=== PATIENT | female | born 1950 | race Caucasian/White ===

== ENCOUNTER 2016-10-11 18:27 | Inpatient (IN) | payer MEDICARE, BC ==
[~2016-10-11] VITALS: Ht 149.9 cm; Wt 63.6 kg
[~2016-10-11 18:27] MED LIST: PERC5TAB12 PO
[2016-10-11 18:30] VITALS: BP 149/79; PULSE 96; RESP 24; TEMP 98.1; O2SAT 100
[2016-10-11] MEDS ORDERED: SODIUM CHLOR 0.9% 1000 ML INJ 1,000 ML IV SCH (18:53)
[2016-10-11] MEDS ORDERED: ONDANSETRON HCL 4 MG/2 ML VIAL IVP ONE (19:00)
[2016-10-11] MEDS ORDERED: MORPHINE SULFATE 4 MG/ML INJ IV PUSH ONE ×2 (19:00→20:15)
[2016-10-11] MEDS ORDERED: LACTCAP8 PO (19:00)
[2016-10-11] MEDS ORDERED: MYLASUS2 PO (19:00)
[2016-10-11] MEDS ORDERED: FAMO1TAB37 PO (19:00)
[2016-10-11] MEDS ORDERED: SODIUM CHLORIDE 0.9% FLUSH 5 ML FLUSH IVF PRN (19:00)
[2016-10-11 19:03] VITALS: O2SAT 95
[2016-10-11 19:31] LABS: AUTOMATED NEUTROPHIL # 3.2 TH/MM3 (1.8-7.7); BASOPHIL % 0.5 % (0.0-2.0); EOSINOPHIL # 0.2 TH/MM3 (0-0.4); EOSINOPHIL % 3.4 % (0.0-4.0); HEMATOCRIT 39.5 % (35.0-46.0); HEMO FLAGS DIFF FINAL; LYMPHOCYTE # 2.5 TH/MM3 (1.0-4.8); MEAN CELL VOLUME 84.5 FL (80.0-100.0); MEAN CORPUSCULAR HEMOGLOBIN 28.8 PG (27.0-34.0); MEAN CORPUSCULAR HGB CONC 34.1 % (32.0-36.0); MONO % 7.2 % (0.0-8.0); NEUT % 49.9 % (16.0-70.0); PLATELET COUNT 384 TH/MM3 (150-450); RED BLOOD COUNT 4.68 MIL/MM3 (4.00-5.30); RED CELL DISTRIBUTION WIDTH 13.5 % (11.6-17.2); WHITE BLOOD COUNT 6.4 TH/MM3 (4.0-11.0)
[2016-10-11 19:35] VITALS: BP 151/101; PULSE 84; RESP 16; O2SAT 98
[2016-10-11 19:44] LABS: APTT (PATIENT) 27.1 SEC (24.3-30.1); PROTHROMBIN TIME - PATIENT 10.5 SEC (9.8-11.6)
--- NOTE | 2016-10-11 19:52 | PD ---
HPI Chief Complaint: Abdominal Pain Time Seen by Provider: 18:41 Travel History International Travel<30 days: No Contact w/Intl Traveler<30days: No Traveled to known affect area: No History of Present Illness HPI The patient is Arabic-speaking and prefers to use her for translation. 66-year-old female here for evaluation of abdominal pain. Pain started this morning at around 10 AM, his mid/lower, described as sharp, constant, severe, worse with movements and palpation. She has had some loose bowel movements. No fevers or vomiting. History of hysterectomy, cholecystectomy, perforated duodenum, renal abscess. No urinary symptoms. PFSH Past Medical History Hx Anticoagulant Therapy: Yes Arthritis: Yes Asthma: No Blood Disorders: No Heart Rhythm Problems: No Cancer: No Cardiovascular Problems: No High Cholesterol: Yes Chemotherapy: No Chest Pain: No Congestive Heart Failure: No COPD: No Diabetes: No Diminished Hearing: No Endocrine: No Genitourinary: Yes (hx of bladder tac) Hypertension: No Implanted Vascular Access Dvce: No Neurologic: No Psychiatric: No Reproductive: No Respiratory: No Radiation Therapy: No Sleep Apnea: No Thyroid Disease: No Past Surgical History Abdominal Surgery: Yes (perforated duod.) Cholecystectomy: Yes Genitourinary Surgery: Yes Hysterectomy: Yes Other Surgery: Yes (bladder tac, hysterectomy,pollups removed,gallbladder, ) Social History Alcohol Use: No Tobacco Use: No Substance Use: No Allergies-Medications (Allergen,Severity, Reaction): Coded Allergies: Vancomycin (Verified Allergy, Intermediate, RASH, FLUSHING OF FACE AND RASH TO LEGS, 10/11/16) Penicillin (Verified Allergy, Unknown, 10/11/16) told when she was a child Reported Meds & Prescriptions Reported Meds & Active Scripts Active Reported Mylanta Liq (Aselpazg-Owelycfas-Grucvcoznyu Liq) 200-200-20 Mg/5 Ml Susp 10 Ml PO HS PRN Take between meals or as directed. Shake well. Maximum 120 ml/24 hrs. Probiotic (Lactobacillus Acidophilus) 1 Cap Cap 1 Cap PO DAILY Pepcid (Famotidine) 20 Mg Tab 20 Mg PO DAILY Review of Systems Except as stated in HPI: all other systems reviewed are Neg Physical Exam Narrative GENERAL: Well-developed, well-nourished, moderate distress secondary to pain. SKIN: Warm and dry. Large midline surgical incision scar that is well-healed. HEAD: Atraumatic. Normocephalic. EYES: Pupils equal and round. No scleral icterus. No injection or drainage. ENT: Mucous membranes pink and moist. NECK: Trachea midline. No JVD. CARDIOVASCULAR: Regular rate and rhythm. No murmur appreciated. RESPIRATORY: No accessory muscle use. Clear to auscultation. Breath sounds equal bilaterally. GASTROINTESTINAL: Abdomen soft, nondistended. Moderate diffuse tenderness. MUSCULOSKELETAL: No obvious deformities. No clubbing. No cyanosis. No edema. NEUROLOGICAL: Awake and alert. No obvious cranial nerve deficits. Motor grossly within normal limits. Normal speech. Data Data Last Documented VS Vital Signs Date Time Temp Pulse Resp B/P Pulse Ox O2 Delivery O2 Flow Rate FiO2 10/11/16 19:35 84 16 151/101 98 Room Air 10/11/16 18:30 98.1 Orders Complete Blood Count With Diff (10/11/16 18:53) Comprehensive Metabolic Panel (10/11/16 18:53) Lipase (10/11/16 18:53) Lactic Acid (10/11/16 18:53) Prothrombin Time / Inr (Pt) (10/11/16 18:53) Act Partial Throm Time (Ptt) (10/11/16 18:53) Urinalysis - C+S If Indicated (10/11/16 18:53) Ct Abd/Pel W Iv Contrast(Rout) (10/11/16 18:53) Iv Access Insert/Monitor (10/11/16 18:53) Ecg Monitoring (10/11/16 18:53) Oximetry (10/11/16 18:53) Morphine Inj (Morphine Inj) (10/11/16 19:00) Ondansetron Inj (Zofran Inj) (10/11/16 19:00) Sodium Chlor 0.9% 1000 Ml Inj (Ns 1000 M (10/11/16 18:53) Sodium Chloride 0.9% Flush (Ns Flush) (10/11/16 19:00) Morphine Inj (Morphine Inj) (10/11/16 20:15) Iohexol 350 Inj (Omnipaque 350 Inj) (10/11/16 20:18) Insert Ng Tube (10/11/16 21:10) Labs Laboratory Tests Test 10/11/16 19:10 White Blood Count 6.4 TH/MM3 Red Blood Count 4.68 MIL/MM3 Hemoglobin 13.5 GM/DL Hematocrit 39.5 % Mean Corpuscular Volume 84.5 FL Mean Corpuscular Hemoglobin 28.8 PG Mean Corpuscular Hemoglobin 34.1 % Concent Red Cell Distribution Width 13.5 % Platelet Count 384 TH/MM3 Mean Platelet Volume 8.4 FL Neutrophils (%) (Auto) 49.9 % Lymphocytes (%) (Auto) 39.0 % Monocytes (%) (Auto) 7.2 % Eosinophils (%) (Auto) 3.4 % Basophils (%) (Auto) 0.5 % Neutrophils # (Auto) 3.2 TH/MM3 Lymphocytes # (Auto) 2.5 TH/MM3 Monocytes # (Auto) 0.5 TH/MM3 Eosinophils # (Auto) 0.2 TH/MM3 Basophils # (Auto) 0.0 TH/MM3 CBC Comment DIFF FINAL Differential Comment Prothrombin Time 10.5 SEC Prothromb Time International 1.0 RATIO Ratio Activated Partial 27.1 SEC Thromboplast Time Sodium Level 139 MEQ/L Potassium Level 3.4 MEQ/L Chloride Level 100 MEQ/L Carbon Dioxide Level 30.8 MEQ/L Anion Gap 8 MEQ/L Blood Urea Nitrogen 11 MG/DL Creatinine 1.02 MG/DL Estimat Glomerular Filtration 54 ML/MIN Rate Random Glucose 100 MG/DL Lactic Acid Level 2.0 mmol/L Calcium Level 9.0 MG/DL Total Bilirubin 0.3 MG/DL Aspartate Amino Transf 16 U/L (AST/SGOT) Alanine Aminotransferase 29 U/L (ALT/SGPT) Alkaline Phosphatase 208 U/L Total Protein 8.2 GM/DL Albumin 3.7 GM/DL Lipase 141 U/L MDM Medical Decision Making Medical Screen Exam Complete: Yes Emergency Medical Condition: Yes Medical Record Reviewed: Yes Differential Diagnosis Appendicitis, colitis, diverticulitis, mesenteric ischemia, cystitis, UTI, renal abscess, bowel obstruction unlikely Narrative Course Initial vital signs show heart rate 96, blood pressure 149/79, pulse ox 100% on room air, oral temp of 98.1 from high. CBC is unremarkable. CMP is essentially unremarkable. Lactic acid is 2.0. CT abdomen pelvis: CONCLUSION: 1. Acute small bowel obstruction at the level of the mid ileum within the central to right pelvic cavity. I don't see a mass. 2. Silastic biliary stent again noted, potentially partly occluded as the biliary tree appears slightly more prominent than on the prior. Please correlate clinically and serologically. The patient required 2 doses of morphine to control her pain. There are no peritoneal signs on exam. NG tube will be placed given above CT findings of acute small bowel obstruction. Case discussed with surgeon Dr. Scott who agrees with medical admission. He will see the patient in consultation. Diagnosis Primary Impression: Small bowel obstruction Admitting Information Admitting Physician Requests: Admit Johann Manuel MD Oct 11, 2016 19:52
[2016-10-11 19:53] LABS: ANION GAP 8 MEQ/L (5-15); AST (GOT) 16 U/L (15-37); BICARBONATE 30.8 MEQ/L (21.0-32.0); BLOOD UREA NITROGEN 11 MG/DL (7-18); CHLORIDE 100 MEQ/L (98-107); GLOMERULAR FILTRATION RATE 54 ML/MIN (>89); POTASSIUM 3.4 MEQ/L (3.5-5.1); SODIUM (NA) 139 MEQ/L (136-145)
[2016-10-11 19:56] LABS: ALKALINE PHOSPHATASE 208 U/L (45-117); ALT (GPT) 29 U/L (10-53); TOTAL BILIRUBIN ADULT 0.3 MG/DL (0.2-1.0)
[2016-10-11] MEDS ORDERED: IOHEXOL 350 MG/ML 10 ML VIAL (for RAD DIAG) IV ONE (20:18)
--- NOTE | 2016-10-11 20:56 | RADRPT ---
EXAM DATE/TIME: 10/11/2016 20:29 [facility] COMPARISON: CT ABDOMEN & PELVIS W CONTRAST, May 27, 2016, 13:35. INDICATIONS : Abdomen pain. IV CONTRAST: 90 cc Visipaque (iodixanol) IV ORAL CONTRAST: No oral contrast ingested. RADIATION DOSE: 15.51 CTDIvol (mGy) MEDICAL HISTORY : Gastroesophageal reflux disease. Perferated duedenum 2016. SURGICAL HISTORY : Cholecystectomy. Hysterectomy. ENCOUNTER: Initial ACUITY: 1 day PAIN SCALE: 8/10 LOCATION: Bilateral abdomen. TECHNIQUE: Volumetric scanning of the abdomen and pelvis was performed. Using automated exposure control and ad justment of the mA and/or kV according to patient size, radiation dose was kept as low as reasonably achievable to obtain optimal diagnostic quality images. FINDINGS: Patient has a biliary stent. There is intrahepatic and extrahepatic biliary distention, not new but s lightly increased in the interim. There some geographic low-attenuation laterally near the junction o f the posterior and anterior segments of the right hepatic lobe, most likely transient hepatic hetero geneous enhancement. The stent position appears similar to before, with the proximal tip in a right i ntrahepatic biliary branch and the distal tip in the duodenum. Gallbladder is surgically absent. Distended air and fluid-filled small bowel seen to the level of the mid ileum. The distal ileum is de compressed. I believe the transition is in the central to right side of the pelvic cavity. No free ai r. There is a small free fluid in the pelvic cavity. Patient has had previous hysterectomy. CONCLUSION: 1. Acute small bowel obstruction at the level of the mid ileum within the central to right pelvic cav ity. I don't see a mass. 2. Silastic biliary stent again noted, potentially partly occluded as the biliary tree appears slight ly more prominent than on the prior. Please correlate clinically and serologically. Sher Burrell MD on October 11, 2016 at 20:50 Board Certified Radiologist. This report was verified electronically.
[2016-10-11 21:20] VITALS: BP 131/72; PULSE 96; RESP 18; O2SAT 93
[2016-10-11] MEDS ORDERED: SODIUM CHLORIDE 0.9% FLUSH 5 ML FLUSH FLUSH PRN (21:30)
[2016-10-11] MEDS ORDERED: NALOXONE HCL 0.4 MG/ML AMP IV PRN (21:30)
[2016-10-11] MEDS: SODIUM CHLOR 0.9% 1000 ML INJ 1,000 ML IV SCH (21:33)
[2016-10-12] VITALS (7 sets, daily range): BP systolic 112–149; BP diastolic 65–74; PULSE 68–96; RESP 16–20; TEMP 98.5–98.7; O2SAT 94–98
[2016-10-12 01:38] LABS: BACTERIA, URINE RARE /hpf; BLOOD, URINE NEG (NEG); COMMENT (UR) CULT NOT INDICATED; CULTURE IF INDICATED CULT NOT INDICATED; GLUCOSE,URINE NEG (NEG); KETONE, URINE NEG (NEG); MUCUS URINE MANY /lpf (OCC); NITRITE,URINE NEG (NEG); PH, URINE 6.5 (5.0-8.5); SQUAMOUS EPITHELIAL CELL URINE <1 /hpf (0-5); URINE COLOR YELLOW (YELLW/STRAW)
--- NOTE | 2016-10-12 03:52 | HHI.HP ---
[facility] [place] [facility] Non-Staff Admission Diagnosis small bowel obstruction Diagnoses: Chief Complaint: Abdominal pain Travel History International Travel<30 Days: No Contact w/Intl Traveler <30 Da: No Traveled to Known Affected Are: No History of Present Illness History from patient, her at the bedside, ER physician communication, and review of medical records. Patient reported that she came to the hospital because she was having severe abdominal pain today. She also is quite nauseous and was vomiting prior to my arrival and just did not feel well and did not feel like talking. Most of the history is obtained from her who is at the bedside. Patient herself is awake alert, and communicative and would jump into the conversation and answers some of her questions if the is not answering correctly. Patient denies any fever. She denies any nausea and vomiting at home. However after arrival to ER after NG tube was placed, she had vomited a few times. Denies any black color or coffee color vomit or bright red blood in vomit. Denies any constipation. However reported that she has been having alternating diarrhea isn't constipations since she last had all these extensive abdominal surgeries which started a year ago. She last moved her bowels this morning. It was diarrhea. Patient denies other symptoms such as chest pain/palpitations/shortness of breath/focal weakness. Denies any urinary burning or pain on urination. Denies any syncopal episodes. Patient reports of history of biliary stent placement in September 2015. A month later, patient had gone to [facility] for endoscopy to evaluate for this stent and had duodenal perforation as a complication. This led to multiple extensive surgical interventions at [facility]. This was then complicated by patient having intra-abdominal abscess which needed surgery and drainage. Has been at the bedside reported that at one point, she underwent what sounds like a bypass from the kidney to the urethra because of this abscess formation. Review of Systems Except as stated in HPI: all other systems reviewed are Neg Past Family Social History Past Medical History ERCPMarch 2015 due to obstructive diseasecomplicated by duodenal perforationstatus post gastrojejunostomy Right perinephric abscesswith right hydronephrosisrequiring right ureteral stent placement on November 25, 2015 Bladder lift Cholecystectomy 40 years ago Hysterectomy Denies other medical conditions such as hypertension/diabetes/CAD/CHF/atrial fibrillation/COPD/CVA/seizures/thyroid problems/cancers Past Surgical History As above Reported Medications Patient's medications listed in EMRreviewed Allergies: Coded Allergies: Vancomycin (Verified Allergy, Intermediate, RASH, FLUSHING OF FACE AND RASH TO LEGS, 10/11/16) Penicillin (Verified Allergy, Unknown, 10/11/16) told when she was a child Family History Reports history of breast cancer in one of her aunts. Stated her mother had multiple medical issues but that she is elderly and only developed in her old age. They do not know the specific diseases. Social History Denies smoking/alcohol abuse/drug abuse. Physical Exam Vital Signs Vital Signs Date Time Temp Pulse Resp B/P Pulse Ox O2 Delivery O2 Flow Rate FiO2 10/12/16 00:59 68 16 112/65 98 Room Air 10/11/16 21:20 96 18 131/72 93 Room Air 10/11/16 19:35 84 16 151/101 98 Room Air 10/11/16 19:03 95 Room Air 10/11/16 18:30 98.1 96 24 149/79 100 Room Air Physical Exam GENERAL: This is a middle-aged lady, looks chronically ill, weak and frail. NG tube in place. Draining bilious color liquid about 200 cc in the canister. SKIN: No rashes, ecchymoses or lesions. Cool and dry. HEAD: Atraumatic. Normocephalic. No temporal or scalp tenderness. EYES: No scleral icterus. No injection or drainage. ENT: Nose without bleeding, purulent drainage or septal hematoma. Airway patent. NECK: Trachea midline. No JVD CARDIOVASCULAR: Regular rate and rhythm without murmurs, gallops, or rubs. RESPIRATORY: Clear to auscultation. Breath sounds equal bilaterally. No wheezes , rales, or rhonchi. GASTROINTESTINAL: Abdomen soft,, tenderness diffusely, nondistended. No guarding. MUSCULOSKELETAL: Extremities without clubbing, cyanosis, or edema. No calf tenderness. NEUROLOGICAL: Awake and alert. Motor and sensory grossly within normal limits. Normal speech. Laboratory Laboratory Tests Test 10/11/16 10/12/16 19:10 01:00 White Blood Count 6.4 Red Blood Count 4.68 Hemoglobin 13.5 Hematocrit 39.5 Mean Corpuscular Volume 84.5 Mean Corpuscular Hemoglobin 28.8 Mean Corpuscular Hemoglobin 34.1 Concent Red Cell Distribution Width 13.5 Platelet Count 384 Mean Platelet Volume 8.4 Neutrophils (%) (Auto) 49.9 Lymphocytes (%) (Auto) 39.0 Monocytes (%) (Auto) 7.2 Eosinophils (%) (Auto) 3.4 Basophils (%) (Auto) 0.5 Neutrophils # (Auto) 3.2 Lymphocytes # (Auto) 2.5 Monocytes # (Auto) 0.5 Eosinophils # (Auto) 0.2 Basophils # (Auto) 0.0 CBC Comment DIFF FINAL Differential Comment Prothrombin Time 10.5 Prothromb Time International 1.0 Ratio Activated Partial 27.1 Thromboplast Time Sodium Level 139 Potassium Level 3.4 Chloride Level 100 Carbon Dioxide Level 30.8 Anion Gap 8 Blood Urea Nitrogen 11 Creatinine 1.02 Estimat Glomerular Filtration 54 Rate Random Glucose 100 Lactic Acid Level 2.0 Calcium Level 9.0 Total Bilirubin 0.3 Aspartate Amino Transf 16 (AST/SGOT) Alanine Aminotransferase 29 (ALT/SGPT) Alkaline Phosphatase 208 Total Protein 8.2 Albumin 3.7 Lipase 141 Urine Color YELLOW Urine Turbidity CLEAR Urine pH 6.5 Urine Specific [place] GREATER THAN 1.050 Urine Protein 30 Urine Glucose (UA) NEG Urine Ketones NEG Urine Occult Blood NEG Urine Nitrite NEG Urine Bilirubin NEG Urine Urobilinogen 2.0 Urine Leukocyte Esterase NEG Urine RBC 1 Urine WBC LESS THAN 1 Urine Squamous Epithelial <1 Cells Urine Bacteria RARE Urine Mucus MANY Microscopic Urinalysis Comment CULT NOT INDICATED Result Diagram: 10/11/16190910/11/161909 Imaging Last 48 hours Impressions Abdomen/Pelvis CT 10/11/16 1853 Signed Impressions: Service Date/Time: Tuesday, October 11, 2016 20:29 - CONCLUSION: 1. Acute small bowel obstruction at the level of the mid ileum within the central to right pelvic cavity. I don't see a mass. 2. Silastic biliary stent again noted, potentially partly occluded as the biliary tree appears slightly more prominent than on the prior. Please correlate clinically and serologically. Sher Burrell MD Assessment and Plan Problem List: (1) Small bowel obstruction ICD Code: K56.69 Status: Acute (2) Vomiting ICD Code: R11.10 Status: Acute Assessment and Plan Impression: Small bowel obstruction Persistent nausea/vomiting post-NG tube placementetiology unclear. Patient states this only happened after the NG tube was placed. But currently has not vomited for past [address] possible biliary stent blockage. Again, patient is not jaundiced. LFTs were normal on admission. ERCPMarch 2015 due to obstructive diseasecomplicated by duodenal perforationstatus post gastrojejunostomy Right perinephric abscesswith right hydronephrosisrequiring right ureteral stent placement on November 25, 2015. Subsequently was removed. Prior history of other intra-abdominal surgeriesbladder lift, cholecystectomy, hysterectomy Plan: Nothing by mouth. Next and IV fluids. Pain control. Continue NG tube and suction. General surgery was consulted. Repeat LFTs in a.m. If LFTs elevated, will consult GI for possible biliary stent exchange. Hold by mouth meds. DVT prophylaxiswith Lovenox. GI prophylaxison pantoprazole. Discussed Condition With patient, at the bedside, ER Physician Certification 2 Midnight Certification Type: Admission for Inpatient Services Order for Inpatient Services The services are ordered in accordance with Medicare regulations or non- Medicare payer requirements, as applicable. In the case of services not specified as inpatient-only, they are appropriately provided as inpatient services in accordance with the 2-midnight benchmark. Estimated LOS (days): 4 days is the estimated time the patient will need to remain in the hospital, assuming treatment plan goals are met and no additional complications. Post-Hospital Plan: Home Max Adorno MD Oct 12, 2016 03:52
[2016-10-12] MEDS: ONDANSETRON HCL 4 MG/2 ML VIAL IVP PRN ×3 (03:53→17:53)
[2016-10-12] MEDS ORDERED: PHENOL 1.4% SOLN 180 ML BTL OROPHARYNG ONE (04:00)
[2016-10-12] MEDS ORDERED: ONDANSETRON HCL 4 MG/2 ML VIAL IV PUSH ONE (04:00)
[2016-10-12 04:35] LABS: AUTOMATED NEUTROPHIL # 3.5 TH/MM3 (1.8-7.7); BASOPHIL % 0.2 % (0.0-2.0); EOSINOPHIL % 0.8 % (0.0-4.0); HEMATOCRIT 35.2 % (35.0-46.0); HEMO FLAGS DIFF FINAL; LYMPH % 15.3 % (9.0-44.0); LYMPHOCYTE # 0.7 TH/MM3 (1.0-4.8); MEAN CELL VOLUME 84.9 FL (80.0-100.0); MEAN CORPUSCULAR HEMOGLOBIN 28.5 PG (27.0-34.0); MEAN CORPUSCULAR HGB CONC 33.6 % (32.0-36.0); MONO % 7.2 % (0.0-8.0); NEUT % 76.5 % (16.0-70.0); PLATELET COUNT 284 TH/MM3 (150-450); RED BLOOD COUNT 4.14 MIL/MM3 (4.00-5.30); RED CELL DISTRIBUTION WIDTH 13.3 % (11.6-17.2); WHITE BLOOD COUNT 4.6 TH/MM3 (4.0-11.0)
[2016-10-12 05:48] LABS: ALKALINE PHOSPHATASE 324 U/L (45-117); ALT (GPT) 695 U/L (10-53); ANION GAP 7 MEQ/L (5-15); AST (GOT) 1087 U/L (15-37); BICARBONATE 26.7 MEQ/L (21.0-32.0); BLOOD UREA NITROGEN 8 MG/DL (7-18); CHLORIDE 107 MEQ/L (98-107); GLOMERULAR FILTRATION RATE 71 ML/MIN (>89); POTASSIUM 4.2 MEQ/L (3.5-5.1); SODIUM (NA) 141 MEQ/L (136-145); TOTAL BILIRUBIN ADULT 0.6 MG/DL (0.2-1.0)
[2016-10-12] MEDS: SODIUM CHLORIDE 0.9% FLUSH 5 ML FLUSH FLUSH SCH ×2 (09:00→21:00)
[2016-10-12] MEDS: ENOXAPARIN SODIUM 40 MG/0.4 ML SYRINGE SQ SCH (09:06)
[2016-10-12] MEDS: PANTOPRAZOLE SODIUM 40 MG VIAL IV PUSH SCH (09:06)
[2016-10-12] MEDS: SODIUM CHLOR 0.9% 1000 ML INJ 1,000 ML IV SCH ×2 (09:06→14:52)
--- NOTE | 2016-10-12 12:59 | MB ---
cc: JOSE ANTONIO NINO DATE OF CONSULTATION 10/12/2016 ATTENDING PHYSICIAN, PHYSICIAN REQUESTING CONSULTATION Dr. Jose Bustillos REASON FOR CONSULTATION Small bowel obstruction. HISTORY OF PRESENT ILLNESS The patient is a 56-year-old female with a complicated surgical history to include remote history of hysterectomy, bladder repair, cholecystectomy followed by recent exploratory laparotomy at [facility] by Dr. Alonzo for complications of endoscopy with duodenal perforation. The patient was diagnosed with a biliary obstruction and was undergoing routine stent placement when she experienced the perforation requiring emergency surgery. The patient has since required revisions as well per the family and I do not have records of all of her surgeries at this time. The patient was in her normal state of health until she developed severe nausea, vomiting and distension and obstipation at 10 a.m. yesterday morning. The patient presented to [facility] last night, underwent evaluation, was diagnosed with small bowel obstruction on CT scan. The patient was admitted to the medical service for nonoperative management and General Surgery was consulted for assistance in management. Currently the patient states that her pain has resolved, although she still has some nausea. The patient is passing some flatus without any bowel movements at this time. REVIEW OF SYSTEMS A 12-point review of systems was conducted with the patient. It is negative except for the pertinent positives as mentioned above in the History of Present Illness. PAST MEDICAL HISTORY 1. Biliary stricture as above. 2. Arthritis. 3. Hypercholesterolemia. PAST SURGICAL HISTORY As above. SOCIAL HISTORY The patient denies alcohol, tobacco or illicit drug use. . ALLERGIES PENICILLIN. VANCOMYCIN. HOME MEDICATION Pepcid. FAMILY HISTORY Noncontributory. PHYSICAL EXAMINATION VITAL SIGNS: Heart rate 83, blood pressure 132/70, afebrile. GENERAL: The patient is a well-developed, well-nourished female in no acute distress. HEAD: Normocephalic, atraumatic. NG tube is in place. NECK: Supple. No JVD. LUNGS: Breath sounds present bilaterally. Nonlabored breathing pattern. HEART: Regular rate and rhythm. ABDOMEN: Mildly distended and nontender to palpation. No peritonitis or rebound tenderness. Large midline scar, multiple laparoscopic scars, all without hernia or signs of any significant complication. EXTREMITIES: No clubbing, cyanosis or edema. BACK: No CVA tenderness. NEUROLOGIC: The patient is [id number]. Multiple family members who are fluent [place]ian in [place]ian are translating. The patient is oriented x 4 and moves all extremities, nonfocal. Cranial nerves II through XII are grossly intact. LABORATORY DATA The laboratory values show the white blood cell count of 4.6. AST, ALT and alkaline phosphatase mildly elevated. Total bilirubin is within normal limits at 0.6. IMAGING STUDIES Small bowel obstruction in the mid-jejunum. ASSESSMENT AND PLAN The patient is a 66-year-old female with the history of multiple complex abdominal surgeries with likely low-grade adhesive bowel obstruction. The patient has clinical evidence of improvement overnight who had passed flatus and decreased pain and minimal NG tube output. I recommend continuing the NG tube for 12-24 more hours. If the patient continues to have resolution of her bowel obstruction, then would D/C NG tube and start on chronic liver disease. The patient's chronic biliary stent placement and elevated transaminases collectively relate secondary to the bowel obstruction causing secondary obstruction of the biliary tree. This may resolve once the bowel obstruction resolves. The patient was seen by Dr.. Mabry, however, he is no longer in the area and may need followup with Gastroenterology at some point as well. I had a long discussion with the patient and the family about bowel obstruction and its potential causes and treatment and they are in agreement with continued nonoperative management. We will follow along with the patient closely and, if the patient has indication for surgery such as a non-resolution of bowel obstruction, we will consider surgery at that time but the patient and the family would like to avoid surgery if possible. Thank you very much for this consultation. We will follow along with the patient. MD HIWOT Marcial/PATTI /11:54 AM /12:37 PM
[2016-10-12] MEDS: MORPHINE SULFATE 4 MG/ML INJ IV PUSH PRN (17:53)
--- NOTE | 2016-10-12 17:57 | PD.CONS ---
HPI History of Present Illness This is a 66 year old female with fairly complicated surgical history including hysterectomy, bladder repair, cholecystectomy, perforated duodenum as a result of EUS, biliary stricture requiring ERCP/stent is here with severe lower abdomen pain that started yesterday and continue to escalate. This is associated with nausea, vomiting, loose stools. Patient had ERCP ( 09/07/15) Mid- bile duct, 3 cm long, stricture, suspicious for malignancy. S/P sphincterotomy, biliary dilatation, brush cytology ( negative for malignancy), and stenting of the above mentioned stricture. S/P EUS on (10/13/15) that resulted in perforated duodenal, FNA negative for malignancy. She subsequently under went emergent Laparotomy with repair of perforated duodenal ulcer with Dr. Alonzo at . CT in the ED revealed Acute small bowel obstruction at the level of the mid ileum within the central to right pelvic cavity. I don't see a mass. 2. Plastic biliary stent again noted, potentially partly occluded as the biliary tree appears slightly more prominent than on the prior. Please correlate clinically and serologically. Labs revealed elevated AST 1087, ALT 695, ALP 324, normal bili, lipase normal. Currently patient has NGT with thick secretions noted, the pain is much better. She denies hematemesis, or hematochezia. Patient doesn't speak Yoruba and HPI was obtained from and medical chart. PFSH Past Medical History EUSMarch 2015 due to obstructive diseasecomplicated by duodenal perforation status post gastrojejunostomy ERCP/stent (09/07/15) Right perinephric abscesswith right hydronephrosisrequiring right ureteral stent placement on November 25, 2015 Bladder lift Cholecystectomy 40 years ago Hysterectomy Past Surgical History As above Coded Allergies: Vancomycin (Verified Allergy, Intermediate, RASH, FLUSHING OF FACE AND RASH TO LEGS, 10/11/16) Penicillin (Verified Allergy, Unknown, 10/11/16) told when she was a child Medications Current Medications Medications (Trade) Dose Ordered Sig/Miguel Ángel Route Start Time Stop Time Status Last Admin (NS 1000 ml Inj) 1,000 ml @ 100 mls/hr Q10H IV 10/11/16 21:21 10/12/16 14:52 (NS Flush) 2 ml UNSCH PRN FLUSH 10/11/16 21:30 (NS Flush) 2 ml BID FLUSH 10/12/16 09:00 (Zofran Inj) 4 mg Q6H PRN IVP 10/11/16 21:30 10/12/16 12:44 (Narcan Inj) 0.4 mg UNSCH PRN IV 10/11/16 21:30 (Morphine Inj) 2 mg Q3H PRN IV PUSH 10/11/16 21:30 (Protonix Inj) 40 mg Q24H IV PUSH 10/12/16 09:00 10/12/16 09:06 (Lovenox Inj) 40 mg Q24H SQ 10/12/16 09:00 10/12/16 09:06 Family History Reports history of breast cancer in one of her aunts. Stated her mother had multiple medical issues but that she is elderly and only developed in her old age. They do not know the specific diseases. Social History Denies smoking/alcohol abuse/drug abuse. Review of Systems Constitutional: DENIES: Fatigue, Weight loss Endocrine: DENIES: Polyuria Eyes: DENIES: Double Vision Ears, nose, mouth, throat: DENIES: Hoarseness Respiratory: DENIES: Shortness of breath Cardiovascular: DENIES: Lower Extremity Edema Gastrointestinal: COMPLAINS OF: Abdominal pain, Constipation, Diarrhea, Nausea , Vomiting, Anorexia, DENIES: Black stools, Bloody stools, Difficulty Swallowing, Odynophagia, Swelling of Abdomen, Heartburn, Hematemesis Genitourinary: DENIES: Hematuria Musculoskeletal: DENIES: Back pain Integumentary: DENIES: Jaundice Hematologic/lymphatic: DENIES: Bruising Immunologic/allergic: DENIES: Eczema Neurologic: DENIES: Abnormal gait Psychiatric: DENIES: Anxiety GI Exam Vitals I&O Vital Signs Date Time Temp Pulse Resp B/P Pulse Ox O2 Delivery O2 Flow Rate FiO2 10/12/16 14:49 Room Air 10/12/16 14:02 75 18 139/71 97 Room Air 10/12/16 09:07 83 18 132/70 96 Room Air 10/12/16 05:09 85 16 115/74 96 Room Air 10/12/16 00:59 68 16 112/65 98 Room Air 10/11/16 21:20 96 18 131/72 93 Room Air 10/11/16 19:35 84 16 151/101 98 Room Air 10/11/16 19:03 95 Room Air 10/11/16 18:30 98.1 96 24 149/79 100 Room Air I/O 10/11/16 10/11/16 10/11/16 10/12/16 10/12/16 10/12/16 07:00 15:00 23:00 07:00 15:00 23:00 Output Total 200 ml Balance -200 ml Output Gastric Drainage Total 200 ml Imaging Last Impressions Abdomen/Pelvis CT 10/11/16 2667 Signed Impressions: Service Date/Time: Tuesday, October 11, 2016 20:29 - CONCLUSION: 1. Acute small bowel obstruction at the level of the mid ileum within the central to right pelvic cavity. I don't see a mass. 2. Silastic biliary stent again noted, potentially partly occluded as the biliary tree appears slightly more prominent than on the prior. Please correlate clinically and serologically. Sher Burrell MD Laboratory Test 10/11/16 10/12/16 10/12/16 19:10 01:00 04:06 White Blood Count 6.4 TH/MM3 4.6 TH/MM3 Red Blood Count 4.68 MIL/MM3 4.14 MIL/MM3 Hemoglobin 13.5 GM/DL 11.8 GM/DL Hematocrit 39.5 % 35.2 % Mean Corpuscular Volume 84.5 FL 84.9 FL Mean Corpuscular Hemoglobin 28.8 PG 28.5 PG Mean Corpuscular Hemoglobin 34.1 % 33.6 % Concent Red Cell Distribution Width 13.5 % 13.3 % Platelet Count 384 TH/MM3 284 TH/MM3 Mean Platelet Volume 8.4 FL 8.4 FL Neutrophils (%) (Auto) 49.9 % 76.5 % Lymphocytes (%) (Auto) 39.0 % 15.3 % Monocytes (%) (Auto) 7.2 % 7.2 % Eosinophils (%) (Auto) 3.4 % 0.8 % Basophils (%) (Auto) 0.5 % 0.2 % Neutrophils # (Auto) 3.2 TH/MM3 3.5 TH/MM3 Lymphocytes # (Auto) 2.5 TH/MM3 0.7 TH/MM3 Monocytes # (Auto) 0.5 TH/MM3 0.3 TH/MM3 Eosinophils # (Auto) 0.2 TH/MM3 0.0 TH/MM3 Basophils # (Auto) 0.0 TH/MM3 0.0 TH/MM3 CBC Comment DIFF FINAL DIFF FINAL Differential Comment Prothrombin Time 10.5 SEC Prothromb Time International 1.0 RATIO Ratio Activated Partial 27.1 SEC Thromboplast Time Sodium Level 139 MEQ/L 141 MEQ/L Potassium Level 3.4 MEQ/L 4.2 MEQ/L Chloride Level 100 MEQ/L 107 MEQ/L Carbon Dioxide Level 30.8 MEQ/L 26.7 MEQ/L Anion Gap 8 MEQ/L 7 MEQ/L Blood Urea Nitrogen 11 MG/DL 8 MG/DL Creatinine 1.02 MG/DL 0.81 MG/DL Estimat Glomerular Filtration 54 ML/MIN 71 ML/MIN Rate Random Glucose 100 MG/DL 120 MG/DL Lactic Acid Level 2.0 mmol/L Calcium Level 9.0 MG/DL 8.2 MG/DL Total Bilirubin 0.3 MG/DL 0.6 MG/DL Aspartate Amino Transf 16 U/L 1087 U/L (AST/SGOT) Alanine Aminotransferase 29 U/L 695 U/L (ALT/SGPT) Alkaline Phosphatase 208 U/L 324 U/L Total Protein 8.2 GM/DL 6.3 GM/DL Albumin 3.7 GM/DL 2.8 GM/DL Lipase 141 U/L Urine Color YELLOW Urine Turbidity CLEAR Urine pH 6.5 Urine Specific [place] GREATER THAN 1.050 Urine Protein 30 mg/dL Urine Glucose (UA) NEG mg/dL Urine Ketones NEG mg/dL Urine Occult Blood NEG Urine Nitrite NEG Urine Bilirubin NEG Urine Urobilinogen 2.0 MG/DL Urine Leukocyte Esterase NEG Urine RBC 1 /hpf Urine WBC LESS THAN 1 /hpf Urine Squamous Epithelial <1 /hpf Cells Urine Bacteria RARE /hpf Urine Mucus MANY /lpf Microscopic Urinalysis Comment CULT NOT INDICATED Physical Examination HEENT: normocephalic; atraumatic; no jaundice. Throat is clear. NECK: Neck is supple, no JVD, no lymphadenopathy. CHEST: Chest is clear to auscultation and percussion. CARDIAC: Regular rate and rhythm with no murmur gallop or rubs. ABDOMEN: Soft, nondistended, diffused tenderness; no hepatosplenomegaly; bowel sounds are hypoactive, EXTREMITIES: No clubbing, cyanosis, or edema. SKIN: Normal; no rash; no jaundice. 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 Assessment and Plan Plan - Elevated liver enzymes/ possible occluded biliary tree- This could be multifactorial due to biliary stricture and SBO, CT (3/6/17) revealed acute small bowel obstruction at the level of the mid ileum within the central to right pelvic cavity. I don't see a mass. 2. Plastic biliary stent again noted, potentially partly occluded as the biliary tree appears slightly more prominent than on the prior. Labs revealed elevated AST 1087, ALT 695, ALP 324, normal bili, lipase normal. Currently patient has NGT with thick secretions noted, the pain is much better. She denies hematemesis, or hematochezia. Patient had ERCP ( 09/07/15) Mid-bile duct, 3 cm long, stricture, suspicious for malignancy. S/P sphincterotomy, biliary dilatation, brush cytology ( negative for malignancy ), and stenting of the above mentioned stricture. S/P EUS on (10/13/15) that resulted in perforated duodenal, FNA negative for malignancy. She subsequently under went emergent Laparotomy with repair of perforated duodenal ulcer with Dr. Alonzo at . - SBO- as evident by Ct above, complicated surgical history as above. This could be adhesion related. severe abdomen pain started yesterday with nausea, vomiting and GS on the case, NGT, NPO - Patient had gastrojejunostomy, in this case, anatomy might be altered and might not be able to have ERCP/stent Plan: - NPO - NGT to LIWS - GS on the case - LFTs in am - Patient had gastrojejunostomy, the anatomy might be altered, but once obstruction resolved will plan for ERCP/stent - Supportive care - Patient seen and examined by Dr. Rao and myself and this note is written on his behalf. Chloé Campa Oct 12, 2016 17:57
[2016-10-12 20:12] LABS: HEMATOCRIT 33.9 % (35.0-46.0); REVIEW FLAG FINAL
[2016-10-12] MEDS: LIDOCAINE VISCOUS 2% SOLN 15 ML UDC SWISH-SWAL PRN (22:21)
[2016-10-13] VITALS (7 sets, daily range): BP systolic 118–156; BP diastolic 57–73; PULSE 72–103; RESP 14–23; TEMP 97–99.3; O2SAT 95–98
[2016-10-13 02:36] LABS: AUTOMATED NEUTROPHIL # 2.6 TH/MM3 (1.8-7.7); BASOPHIL % 0.4 % (0.0-2.0); EOSINOPHIL # 0.3 TH/MM3 (0-0.4); EOSINOPHIL % 5.8 % (0.0-4.0); HEMATOCRIT 34.5 % (35.0-46.0); HEMO FLAGS DIFF FINAL; LYMPH % 29.9 % (9.0-44.0); LYMPHOCYTE # 1.4 TH/MM3 (1.0-4.8); MEAN CELL VOLUME 85.8 FL (80.0-100.0); MEAN CORPUSCULAR HEMOGLOBIN 28.6 PG (27.0-34.0); MEAN CORPUSCULAR HGB CONC 33.3 % (32.0-36.0); MONO % 9.2 % (0.0-8.0); NEUT % 54.7 % (16.0-70.0); PLATELET COUNT 247 TH/MM3 (150-450); RED BLOOD COUNT 4.02 MIL/MM3 (4.00-5.30); RED CELL DISTRIBUTION WIDTH 13.3 % (11.6-17.2); WHITE BLOOD COUNT 4.8 TH/MM3 (4.0-11.0)
[2016-10-13 02:55] LABS: BICARBONATE 24.6 MEQ/L (21.0-32.0); POTASSIUM 3.8 MEQ/L (3.5-5.1)
[2016-10-13 02:58] LABS: INDIRECT BILIRUBIN 0.3 MG/DL (0.0-0.8); TOTAL BILIRUBIN ADULT 0.5 MG/DL (0.2-1.0)
[2016-10-13] MEDS: SODIUM CHLOR 0.9% 1000 ML INJ 1,000 ML IV SCH ×3 (03:21→23:21)
[2016-10-13] MEDS: SODIUM CHLORIDE 0.9% FLUSH 5 ML FLUSH FLUSH SCH ×2 (08:46→21:00)
[2016-10-13] MEDS: PANTOPRAZOLE SODIUM 40 MG VIAL IV PUSH SCH (08:46)
[2016-10-13] MEDS: ENOXAPARIN SODIUM 40 MG/0.4 ML SYRINGE SQ SCH (08:47)
[2016-10-13 09:08] LABS: REVIEW FLAG FINAL
--- NOTE | 2016-10-13 11:04 | HHI.GIFU ---
Subjective Remarks Resting in bed. Throat sore from NGT. No n/v. Abdominal pain improved, no significant discomfort. (+) flatus. States that she was told by Dr. Monroy that she is unable to have further EGDs secondary to the location of prior perforation. Objective Vitals I&O Vital Signs Date Time Temp Pulse Resp B/P Pulse Ox O2 Delivery O2 Flow Rate FiO2 10/13/16 08:54 Room Air 10/13/16 08:30 97.4 84 23 135/67 97 10/13/16 08:00 97.0 103 20 120/57 98 10/13/16 05:02 97.8 85 18 156/73 97 10/13/16 00:19 99.3 72 18 118/63 97 10/12/16 21:31 Room Air 10/12/16 20:00 98.5 75 20 118/70 95 10/12/16 16:00 98.5 96 20 143/69 97 10/12/16 14:49 Room Air 10/12/16 14:40 98.7 86 16 149/73 94 10/12/16 14:02 75 18 139/71 97 Room Air I/O 10/12/16 10/12/16 10/12/16 10/13/16 10/13/16 10/13/16 07:00 15:00 23:00 07:00 15:00 23:00 Intake Total 360 ml Output Total 200 ml 1025 ml Balance -200 ml -665 ml Intake Oral 360 ml Output Urine Total 1025 ml Gastric Drainage Total 200 ml # Bowel Movements 0 Laboratory Laboratory Tests Test 10/12/16 10/12/16 10/13/16 10/13/16 17:55 19:55 02:03 08:45 Hemoglobin 11.6 11.5 11.5 Hematocrit 33.9 34.5 34.0 Blood Type B POSITIVE Antibody Screen NEGATIVE Blood Bank Comment White Blood Count 4.8 Red Blood Count 4.02 Mean Corpuscular Volume 85.8 Mean Corpuscular Hemoglobin 28.6 Mean Corpuscular Hemoglobin 33.3 Concent Red Cell Distribution Width 13.3 Platelet Count 247 Mean Platelet Volume 8.5 Neutrophils (%) (Auto) 54.7 Lymphocytes (%) (Auto) 29.9 Monocytes (%) (Auto) 9.2 Eosinophils (%) (Auto) 5.8 Basophils (%) (Auto) 0.4 Neutrophils # (Auto) 2.6 Lymphocytes # (Auto) 1.4 Monocytes # (Auto) 0.4 Eosinophils # (Auto) 0.3 Basophils # (Auto) 0.0 CBC Comment DIFF FINAL Differential Comment Sodium Level 141 Potassium Level 3.8 Chloride Level 107 Carbon Dioxide Level 24.6 Anion Gap 9 Blood Urea Nitrogen 4 Creatinine 0.67 Estimat Glomerular Filtration 88 Rate Random Glucose 83 Calcium Level 7.9 Phosphorus Level 3.0 Magnesium Level 2.0 Total Bilirubin 0.5 Direct Bilirubin 0.2 Indirect Bilirubin 0.3 Aspartate Amino Transf 220 (AST/SGOT) Alanine Aminotransferase 399 (ALT/SGPT) Alkaline Phosphatase 275 Total Protein 6.0 Albumin 2.6 Date/Time Procedure Status Source Growth 10/12/16 19:55 Gastric Occult Blood Received Gastric Pending Imaging Last Impressions Abdomen/Pelvis CT 10/11/16 7513 Signed Impressions: Service Date/Time: Tuesday, October 11, 2016 20:29 - CONCLUSION: 1. Acute small bowel obstruction at the level of the mid ileum within the central to right pelvic cavity. I don't see a mass. 2. Silastic biliary stent again noted, potentially partly occluded as the biliary tree appears slightly more prominent than on the prior. Please correlate clinically and serologically. Sher Burrell MD Physical Exam HEENT: Normocephalic; atraumatic; no jaundice. CHEST: CTA CARDIAC: RRR. ABDOMEN: Soft, nondistended, nontender; no hepatosplenomegaly; bowel sounds are present in all four quadrants. NGT with minimal gastric output EXTREMITIES: No clubbing, cyanosis, or edema. SKIN: Normal; no rash; no jaundice. 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 Assessment and Plan Plan ASSESSMENT: - Biliary obstruction with elevated LFTs. Pt has hx of biliary stricture and has stent in place. ERCP (09/07/15) Mid-bile duct, 3 cm long, stricture, suspicious for malignancy. S/P sphincterotomy, biliary dilatation, brush cytology (pathology negative for malignancy), and stenting of the above mentioned stricture. She still has stent in place, as she was noted to have perforation during EUS and subsequently underwent emergent laparotomy with repair of perforated duodenal ulcer, gastrojejunostomy with Dr. Alonzo at . The patient reports that she was told by Dr. Alonzo that she cannot have any further endoscopic procedures secondary to the location of her prior perforation. Abdomen/Pelvis CT (10/11/16)-----> 1. Acute small bowel obstruction at the level of the mid ileum within the central to right pelvic cavity. I don't see a mass. 2. Silastic biliary stent again noted, potentially partly occluded as the biliary tree appears slightly more prominent than on the prior. Please correlate clinically and serologically. T. Bili 0.5, AST 220, ALT 399, Alk Phosph 275. Will ask IR to perform PTC with stent exchange vs. removal. Dr. Rao to d/w IR. - Elevated related to above. - SBO with hx of perforated duodenal ulcer, s/p repair, gastrojejunostomy. NGT to LIWS- minimal gastric. Abdomen does not appear to be distende.d + flatus. This is improving. Will get repeat KUB and if okay , clamp NGT and start clears/remove later in afternoon. - Patient had gastrojejunostomy, in this case, anatomy might be altered and might not be able to have ERCP/stent Plan: - NPO - Clamp NGT - PPI - KUB - If no n/v, worsening distention, okay to d/c NGT this afternoon. - CBC, CMP in am - Consult IR for possible PTC with stent removal vs. replacement - GS following - Supportive care - Further recommendations to follow based on results of above - Patient seen and examined by Dr. Rao and myself and this note is written on his behalf. Sabiha Stack Oct 13, 2016 11:04
[2016-10-13] MEDS ORDERED: ONDANSETRON HCL 4 MG/2 ML VIAL IV PUSH ONE (12:00)
[2016-10-13] MEDS: MORPHINE SULFATE 4 MG/ML INJ IV PUSH PRN (12:23)
--- NOTE | 2016-10-13 13:06 | RADRPT ---
EXAM DATE/TIME: 10/13/2016 12:33 [facility] COMPARISON: CT ABDOMEN & PELVIS W CONTRAST, October 11, 2016, 20:29. INDICATIONS : Follow-up small bowel obstruction. MEDICAL HISTORY : Gastroesophageal reflux disease. Perferated duedenum 2016. SURGICAL HISTORY : Cholecystectomy. Hysterectomy. ENCOUNTER: Initial ACUITY: 2 days PAIN SCORE: 1/10 LOCATION: Left lower quadrant abdomen FINDINGS: Mildly conspicuous loop of bowel in the right lower quadrant noted that I believe is most likely the cecum. Decreased distention of small bowel, now appears normal caliber. The stomach has also been dec ompressed with a nasogastric tube in the interim. Patient has had previous gastric bypass with an imelda arent afferent jejunal loop and I believe the nasogastric tube extends down it. Silastic biliary stent again noted. CONCLUSION: Nonobstructive bowel gas pattern currently seen. Please see above. Sher Burrell MD on October 13, 2016 at 13:02 Board Certified Radiologist. This report was verified electronically.
--- NOTE | 2016-10-13 13:57 | HHI.PR ---
Subjective Remarks phone finance business manager offered, but patient would like to use instead. she says she is feeling better, no cp or sob. abd discomfort much better. would like NGT out. Objective Vital Signs Date Time Temp Pulse Resp B/P Pulse Ox O2 Delivery O2 Flow Rate FiO2 10/13/16 12:30 98.0 92 14 141/70 95 10/13/16 08:54 Room Air 10/13/16 08:30 97.4 84 23 135/67 97 10/13/16 08:00 97.0 103 20 120/57 98 10/13/16 05:02 97.8 85 18 156/73 97 10/13/16 00:19 99.3 72 18 118/63 97 10/12/16 21:31 Room Air 10/12/16 20:00 98.5 75 20 118/70 95 10/12/16 16:00 98.5 96 20 143/69 97 10/12/16 14:49 Room Air 10/12/16 14:40 98.7 86 16 149/73 94 10/12/16 14:02 75 18 139/71 97 Room Air I/O 10/12/16 10/12/16 10/12/16 10/13/16 10/13/16 10/13/16 07:00 15:00 23:00 07:00 15:00 23:00 Intake Total 360 ml Output Total 200 ml 1025 ml Balance -200 ml -665 ml Intake Oral 360 ml Output Urine Total 1025 ml Gastric Drainage Total 200 ml # Bowel Movements 0 Result Diagram: 10/13/16 0845 10/13/16 0203 Imaging Last Impressions Abdomen X-Ray 10/13/16 0000 Signed Impressions: Service Date/Time: Thursday, October 13, 2016 12:33 - CONCLUSION: Nonobstructive bowel gas pattern currently seen. Please see above. Sher Burrell MD Abdomen/Pelvis CT 10/11/16 1578 Signed Impressions: Service Date/Time: Tuesday, October 11, 2016 20:29 - CONCLUSION: 1. Acute small bowel obstruction at the level of the mid ileum within the central to right pelvic cavity. I don't see a mass. 2. Silastic biliary stent again noted, potentially partly occluded as the biliary tree appears slightly more prominent than on the prior. Please correlate clinically and serologically. Sher Burrell MD Objective Remarks GENERAL: sitting up in bed. alert, oriented. SKIN: Warm and dry. HEAD: Normocephalic. EYES: No scleral icterus. No injection or drainage. NECK: Supple, trachea midline. No JVD. CARDIOVASCULAR: Regular rate and rhythm without murmurs, gallops, or rubs. RESPIRATORY: Breath sounds equal bilaterally. No accessory muscle use. GASTROINTESTINAL: Abdomen soft, non-tender, nondistended. hypoactive bs. nontender. no r/g MUSCULOSKELETAL: No cyanosis, or edema. BACK: Nontender without obvious deformity. No CVA tenderness. A/P Assessment and Plan //SBO //N/v - improving with NGT -surg hx: -ERCPMarch 2015 due to obstructive diseasecomplicated by duodenal perforationstatus post gastrojejunostomy -Right perinephric abscesswith right hydronephrosisrequiring right ureteral stent placement on November 25, 2015. -Subsequently was removed. -Prior history of other intra-abdominal surgeriesbladder lift, cholecystectomy, hysterectomy -admit with Abnormal CTrevealing possible biliary stent blockage. -ap abd film improved -GS ff. -Appreciate GI assist. may be able to dc NGT this afternoon. //transaminitis //Biliary obstruction. occluded bilary stent as above. -hx of bilairy stent -Lfts improving. -mgt per GI. GI to consult IR .appreciate assist. prophylaxis, SCDs, AC as per surgical/GI Discharge Planning when cleared by gi Jose Bustillos MD Oct 13, 2016 13:57
[2016-10-13] MEDS ORDERED: PROPOFOL 200 MG/20 ML AMP IV ONE (16:00)
[2016-10-13] MEDS ORDERED: DO NOT ADM ANY ANTICOAGULANT DRUGS XX PRN (16:26)
[2016-10-13] MEDS ORDERED: RESP: RACEPINEPHRINE 2.25% 0.5 ML NEB ONE (16:28)
[2016-10-13] MEDS ORDERED: RESP: RACEPINEPHRINE 2.25% 0.5 ML NEB NEB ONE (17:00)
[2016-10-13] MEDS: LIDOCAINE VISCOUS 2% SOLN 15 ML UDC SWISH-SWAL PRN (18:36)
[2016-10-14] VITALS (12 sets, daily range): BP systolic 79–148; BP diastolic 48–75; PULSE 55–113; RESP 16–20; TEMP 97.4–101.9; O2SAT 91–98
[2016-10-14] MEDS: MORPHINE SULFATE 4 MG/ML INJ IV PUSH PRN ×4 (04:38→17:54)
[2016-10-14] MEDS: SODIUM CHLOR 0.9% 1000 ML INJ 1,000 ML IV SCH ×2 (04:40→20:51)
[2016-10-14 07:01] LABS: BASOPHIL % 0.4 % (0.0-2.0); EOSINOPHIL % 0.2 % (0.0-4.0); HEMATOCRIT 33.7 % (35.0-46.0); HEMO FLAGS DIFF FINAL; LYMPH % 10.4 % (9.0-44.0); LYMPHOCYTE # 0.6 TH/MM3 (1.0-4.8); MEAN CELL VOLUME 85.8 FL (80.0-100.0); MEAN CORPUSCULAR HEMOGLOBIN 28.8 PG (27.0-34.0); MEAN CORPUSCULAR HGB CONC 33.6 % (32.0-36.0); MONO % 6.8 % (0.0-8.0); NEUT % 82.2 % (16.0-70.0); PLATELET COUNT 200 TH/MM3 (150-450); RED BLOOD COUNT 3.93 MIL/MM3 (4.00-5.30); RED CELL DISTRIBUTION WIDTH 13.4 % (11.6-17.2); WHITE BLOOD COUNT 6.1 TH/MM3 (4.0-11.0)
[2016-10-14 07:30] LABS: ALKALINE PHOSPHATASE 310 U/L (45-117); TOTAL BILIRUBIN ADULT 1.5 MG/DL (0.2-1.0)
[2016-10-14] MEDS: SODIUM CHLORIDE 0.9% FLUSH 5 ML FLUSH FLUSH SCH ×2 (07:40→20:53)
[2016-10-14] MEDS: PANTOPRAZOLE SODIUM 40 MG VIAL IV PUSH SCH (07:40)
[2016-10-14] MEDS: ENOXAPARIN SODIUM 40 MG/0.4 ML SYRINGE SQ SCH (07:40)
[2016-10-14 07:49] LABS: ALT (GPT) 282 U/L (10-53); ANION GAP 11 MEQ/L (5-15); AST (GOT) 147 U/L (15-37); BICARBONATE 23.8 MEQ/L (21.0-32.0); BLOOD UREA NITROGEN 6 MG/DL (7-18); CHLORIDE 105 MEQ/L (98-107); GLOMERULAR FILTRATION RATE 94 ML/MIN (>89); SODIUM (NA) 140 MEQ/L (136-145)
[2016-10-14 10:11] LABS: INDIRECT BILIRUBIN 0.8 MG/DL (0.0-0.8); TOTAL BILIRUBIN ADULT 1.5 MG/DL (0.2-1.0)
--- NOTE | 2016-10-14 12:56 | HHI.PR ---
Subjective Subjective Notes Reports abdominal pain that began about an hour ago No nausea/vomiting at bedside Objective Vitals/I&O Vital Signs Date Time Temp Pulse Resp B/P Pulse Ox O2 Delivery O2 Flow Rate FiO2 10/14/16 12:07 97.9 80 18 132/62 98 10/14/16 08:50 Room Air 10/13/16 16:45 3 Labs Laboratory Tests Test 10/14/16 10/14/16 06:10 06:16 Sodium Level 140 Potassium Level 4.0 Chloride Level 105 Carbon Dioxide Level 23.8 Anion Gap 11 Blood Urea Nitrogen 6 Creatinine 0.63 Estimat Glomerular Filtration 94 Rate Random Glucose 92 Calcium Level 8.4 Total Bilirubin 1.5 Direct Bilirubin 0.7 Indirect Bilirubin 0.8 Aspartate Amino Transf 147 (AST/SGOT) Alanine Aminotransferase 282 (ALT/SGPT) Alkaline Phosphatase 310 Total Protein 6.5 Albumin 2.6 White Blood Count 6.1 Red Blood Count 3.93 Hemoglobin 11.3 Hematocrit 33.7 Mean Corpuscular Volume 85.8 Mean Corpuscular Hemoglobin 28.8 Mean Corpuscular Hemoglobin 33.6 Concent Red Cell Distribution Width 13.4 Platelet Count 200 Mean Platelet Volume 9.1 Neutrophils (%) (Auto) 82.2 Lymphocytes (%) (Auto) 10.4 Monocytes (%) (Auto) 6.8 Eosinophils (%) (Auto) 0.2 Basophils (%) (Auto) 0.4 Neutrophils # (Auto) 5.0 Lymphocytes # (Auto) 0.6 Monocytes # (Auto) 0.4 Eosinophils # (Auto) 0.0 Basophils # (Auto) 0.0 CBC Comment DIFF FINAL Differential Comment Date/Time Procedure Status Source Growth 10/12/16 19:55 Gastric Occult Blood - Final Complete Gastric GASTROCCULT POSITIVE Cardiovascular: Regular Lungs: Clear Abdomen: Other (soft; tender at epigastric area ) Extremities: No edema A/P Assessment and Plan 66 year old female with possible SBO; s/p EGD with stent removal -Discussed with HOWARD Landis---possibly post procedure pancreatitis -Will order lipase -Diet as tolerated -No acute surgical issues at this time Attending Statement The exam, history, and the medical decision-making described in the above note were completed with the assistance of the mid-level provider. I reviewed and agree with the findings presented. I attest that I had a [id number] encounter with the patient on the same day, and personally performed and documented my assessment and findings in the medical record. patient with pancreatitis-like pain, new, will add FITTER TYPE BAR AND SEGMENT Arianna Davis Oct 14, 2016 12:56 Adonis Scott MD Oct 16, 2016 01:51
--- NOTE | 2016-10-14 13:34 | HHI.GIFU ---
Subjective Remarks Resting in bed with tremors. She reports significant epigastric discomfort, bloating since this am. No fever. Objective Vitals I&O Vital Signs Date Time Temp Pulse Resp B/P Pulse Ox O2 Delivery O2 Flow Rate FiO2 10/14/16 12:07 97.9 80 18 132/62 98 10/14/16 08:50 Room Air 10/14/16 08:09 55 10/14/16 08:06 97.4 55 18 138/64 94 10/14/16 04:00 98.0 73 16 148/75 97 10/14/16 00:00 97.6 71 18 138/68 96 10/13/16 20:00 75 10/13/16 20:00 Room Air 10/13/16 20:00 98.6 81 18 124/62 96 10/13/16 17:00 83 14 135/84 99 Room Air 10/13/16 16:45 93 15 145/84 100 Nasal Cannula 3 10/13/16 16:30 103 13 131/88 100 Simple Mask 7 10/13/16 16:23 98.5 105 12 120/80 100 Simple Mask 7 10/13/16 15:15 98.0 92 16 141/70 95 I/O 10/13/16 10/13/16 10/13/16 10/14/16 10/14/16 10/14/16 07:00 15:00 23:00 07:00 15:00 23:00 Intake Total 900 ml 120 ml Output Total 600 ml Balance 900 ml -480 ml Intake Oral 120 ml IV Total 700 ml Other 200 ml Output Urine Total 600 ml Laboratory Laboratory Tests Test 10/14/16 10/14/16 06:10 06:16 Sodium Level 140 Potassium Level 4.0 Chloride Level 105 Carbon Dioxide Level 23.8 Anion Gap 11 Blood Urea Nitrogen 6 Creatinine 0.63 Estimat Glomerular Filtration 94 Rate Random Glucose 92 Calcium Level 8.4 Total Bilirubin 1.5 Direct Bilirubin 0.7 Indirect Bilirubin 0.8 Aspartate Amino Transf 147 (AST/SGOT) Alanine Aminotransferase 282 (ALT/SGPT) Alkaline Phosphatase 310 Total Protein 6.5 Albumin 2.6 White Blood Count 6.1 Red Blood Count 3.93 Hemoglobin 11.3 Hematocrit 33.7 Mean Corpuscular Volume 85.8 Mean Corpuscular Hemoglobin 28.8 Mean Corpuscular Hemoglobin 33.6 Concent Red Cell Distribution Width 13.4 Platelet Count 200 Mean Platelet Volume 9.1 Neutrophils (%) (Auto) 82.2 Lymphocytes (%) (Auto) 10.4 Monocytes (%) (Auto) 6.8 Eosinophils (%) (Auto) 0.2 Basophils (%) (Auto) 0.4 Neutrophils # (Auto) 5.0 Lymphocytes # (Auto) 0.6 Monocytes # (Auto) 0.4 Eosinophils # (Auto) 0.0 Basophils # (Auto) 0.0 CBC Comment DIFF FINAL Differential Comment Date/Time Procedure Status Source Growth 10/12/16 19:55 Gastric Occult Blood - Final Complete Gastric GASTROCCULT POSITIVE Imaging Last Impressions Abdomen X-Ray 10/13/16 0000 Signed Impressions: Service Date/Time: Thursday, October 13, 2016 12:33 - CONCLUSION: Nonobstructive bowel gas pattern currently seen. Please see above. Sher Burrell MD Abdomen/Pelvis CT 10/11/16 1853 Signed Impressions: Service Date/Time: Tuesday, October 11, 2016 20:29 - CONCLUSION: 1. Acute small bowel obstruction at the level of the mid ileum within the central to right pelvic cavity. I don't see a mass. 2. Silastic biliary stent again noted, potentially partly occluded as the biliary tree appears slightly more prominent than on the prior. Please correlate clinically and serologically. Sher Burrell MD Physical Exam GEN: Pt with tremors. \HEENT: Normocephalic; atraumatic; no jaundice. CHEST: CTA CARDIAC: RRR. ABDOMEN: Soft, mildly bloated, moderate/severe tenderness- diffuse but more in epigastric are.; no hepatosplenomegaly; bowel sounds are present in all four quadrants. EXTREMITIES: No clubbing, cyanosis, or edema. SKIN: Normal; no rash; no jaundice. VISUAL ARTIST: No focal deficits; alert and oriented times three. Assessment and Plan Plan ASSESSMENT: - Biliary obstruction with elevated LFTs. Pt has hx of biliary stricture and has stent in place. ERCP (09/07/15) Mid-bile duct, 3 cm long, stricture, suspicious for malignancy. S/P sphincterotomy, biliary dilatation, brush cytology (pathology negative for malignancy), and stenting of the above mentioned stricture. She still has stent in place, as she was noted to have perforation during EUS and subsequently underwent emergent laparotomy with repair of perforated duodenal ulcer, gastrojejunostomy with Dr. Alonzo at . The patient reports that she was told by Dr. Alonzo that she cannot have any further endoscopic procedures secondary to the location of her prior perforation. Abdomen/Pelvis CT (10/11/16)-----> 1. Acute small bowel obstruction at the level of the mid ileum within the central to right pelvic cavity. I don't see a mass. 2. Silastic biliary stent again noted, potentially partly occluded as the biliary tree appears slightly more prominent than on the prior. Please correlate clinically and serologically. S/P attempted ERCP with stent removal (10/14/16). LFTs stable, slight increase in T. Bili to 1.5, but ast/ alt improved. T. Bili 1.5, AST 147, ALT 282, Alk Phosph 310. Pt with tremors although afebrile. Significant tenderness on exam- diffuse but worse in epigastric area. C/O bloating and nausea. Will get stat lipase, kub, cbc. ? PTC. - Elevated related to above. - SBO with hx of perforated duodenal ulcer, s/p repair, gastrojejunostomy. NGT to LIWS- minimal gastric. Abdomen does not appear to be distende.d + flatus. This is improving. Will get repeat KUB and if okay , clamp NGT and start clears/remove later in afternoon. - Patient had gastrojejunostomy, in this case, anatomy might be altered and might not be able to have ERCP/stent Plan: - NPO - Stat lipase - Stat CBC - Stat KUB - PPI - IVF - CBC, CMP in am - ? need for PTC, will await stat labs and imaging - GS following - Supportive care - Further recommendations to follow based on results of above - Patient seen and examined by Dr. Rao and myself and this note is written on his behalf. Sabiha Stack Oct 14, 2016 13:34
[2016-10-14 13:53] LABS: AUTOMATED NEUTROPHIL # 8.4 TH/MM3 (1.8-7.7); BASOPHIL % 0.2 % (0.0-2.0); HEMO FLAGS DIFF FINAL; LYMPH % 11.7 % (9.0-44.0); LYMPHOCYTE # 1.1 TH/MM3 (1.0-4.8); MEAN CELL VOLUME 85.2 FL (80.0-100.0); MEAN CORPUSCULAR HEMOGLOBIN 28.8 PG (27.0-34.0); MEAN CORPUSCULAR HGB CONC 33.8 % (32.0-36.0); MONO % 1.5 % (0.0-8.0); NEUT % 86.6 % (16.0-70.0); PLATELET COUNT 267 TH/MM3 (150-450); RED BLOOD COUNT 4.23 MIL/MM3 (4.00-5.30); RED CELL DISTRIBUTION WIDTH 13.2 % (11.6-17.2); WHITE BLOOD COUNT 9.7 TH/MM3 (4.0-11.0)
--- NOTE | 2016-10-14 13:54 | RADRPT ---
EXAM DATE/TIME: 10/14/2016 13:32 [facility] COMPARISON: ABDOMEN KUB ONLY, October 13, 2016, 12:33. INDICATIONS : Abdomen pain MEDICAL HISTORY : Gastroesophageal reflux disease. Perferated duedenum 2016. SURGICAL HISTORY : Cholecystectomy. Hysterectomy. Stent removal ENCOUNTER: Subsequent ACUITY: 3 days PAIN SCORE: 10/10 LOCATION: Abdomen FINDINGS: Supine view of the abdomen was performed. The abdominal bowel gas pattern is normal. Internal biliar y stents and nasogastric tube have been removed. No abnormal masses, calcifications, or organomegaly is seen. The osseous structures are unremarkable. CONCLUSION: No evidence of acute process. Status post removal of nasogastric tube and internal biliary stent. Angel Ferro MD on October 14, 2016 at 13:51 Board Certified Radiologist. This report was verified electronically.
[2016-10-14] MEDS ORDERED: SODIUM CHLOR 0.9% 1000 ML INJ 1,000 ML IV ONE ×2 (15:15→20:15)
--- NOTE | 2016-10-14 15:26 | HHI.PR ---
Subjective Remarks using patients for interpretation. acute upper abd pain started around 11 am. worse with deep breath. also with fever. no SOB, no CP. no dysuria. last vimiting was several days ago Abd TTP d/w nursing fever >101, HR 113. Objective Vital Signs Date Time Temp Pulse Resp B/P Pulse Ox O2 Delivery O2 Flow Rate FiO2 10/14/16 12:07 97.9 80 18 132/62 98 10/14/16 08:50 Room Air 10/14/16 08:09 55 10/14/16 08:06 97.4 55 18 138/64 94 10/14/16 04:00 98.0 73 16 148/75 97 10/14/16 00:00 97.6 71 18 138/68 96 10/13/16 20:00 75 10/13/16 20:00 Room Air 10/13/16 20:00 98.6 81 18 124/62 96 10/13/16 17:00 83 14 135/84 99 Room Air 10/13/16 16:45 93 15 145/84 100 Nasal Cannula 3 10/13/16 16:30 103 13 131/88 100 Simple Mask 7 10/13/16 16:23 98.5 105 12 120/80 100 Simple Mask 7 I/O 10/13/16 10/13/16 10/13/16 10/14/16 10/14/16 10/14/16 07:00 15:00 23:00 07:00 15:00 23:00 Intake Total 900 ml 120 ml Output Total 600 ml Balance 900 ml -480 ml Intake Oral 120 ml IV Total 700 ml Other 200 ml Output Urine Total 600 ml Result Diagram: 10/14/16 1336 10/14/16 0610 Objective Remarks GENERAL: sitting up in bed. alert, oriented. appears to be in discomfort SKIN: Warm and dry. HEAD: Normocephalic. EYES: No scleral icterus. No injection or drainage. NECK: Supple, trachea midline. No JVD. CARDIOVASCULAR: Regular rate and rhythm without murmurs, gallops, or rubs. RESPIRATORY: Breath sounds equal bilaterally. No accessory muscle use. GASTROINTESTINAL: Abdomen TTP BL upper quadrants, no R/g MUSCULOSKELETAL: No cyanosis, or edema. BACK: Nontender without obvious deformity. No CVA tenderness. A/P Assessment and Plan //Sepsis -10/14 - fever>101. HR 113. acute upper abd pain. incr Bili. -stat lactate, cxr given recent vomiting, cultures. -tylenol for fever -pcn allergy -levaquin, flagyl. -liver US. DW Dr Rao. //SBO //N/v - resolved. with NGT -surg hx: -ERCPMarch 2015 due to obstructive diseasecomplicated by duodenal perforationstatus post gastrojejunostomy -Right perinephric abscesswith right hydronephrosisrequiring right ureteral stent placement on November 25, 2015. -Subsequently was removed. -Prior history of other intra-abdominal surgeriesbladder lift, cholecystectomy, hysterectomy -admit with Abnormal CTrevealing possible biliary stent blockage. -ap abd film improved -GS ff. -appears resolved, NGT out. //transaminitis //Biliary obstruction. occluded bilary stent as above. -hx of bilairy stent -Lfts improving. -s/p bilairy stent -will cont to monitor - may need ptc. prophylaxis, SCDs, AC as per surgical/GI Discharge Planning sepsis Jose Bustillos MD Oct 14, 2016 15:26
[2016-10-14] MEDS: metroNIDAZOLE 500 MG INJ 100 ML IV SCH ×2 (15:28→23:32)
[2016-10-14] MEDS ORDERED: LEVOFLOXACIN 750 MG PREMIX INJ 150 ML IV SCH (16:00)
[2016-10-14] MEDS ORDERED: ACETAMINOPHEN 325 MG TAB PO PRN (16:00)
--- NOTE | 2016-10-14 16:59 | RADRPT ---
EXAM DATE/TIME: 10/14/2016 16:07 [facility] COMPARISON: CHEST SINGLE AP, May 27, 2016, 11:26. INDICATIONS : Patient started a fever today. MEDICAL HISTORY : Gastroesophageal reflux disease. Perferated duedenum 2015. SURGICAL HISTORY : Cholecystectomy. Hysterectomy. ENCOUNTER: Subsequent ACUITY: 3 days PAIN SCORE: 0/10 LOCATION: chest FINDINGS: A single view of the chest demonstrates patchy basilar airspace disease. No significant effusion. No pneumothorax. Heart size within normal limits. CONCLUSION: 1. Subsegmental basilar airspace disease. No effusion or pneumothorax. Colin Haines MD on October 14, 2016 at 16:56 Board Certified Radiologist. This report was verified electronically.
[2016-10-14] MEDS: ONDANSETRON HCL 4 MG/2 ML VIAL IVP PRN (17:23)
[2016-10-14] MEDS ORDERED: MORPHINE SULFATE 30 MG/30 ML PCA IV SCH (19:00)
[2016-10-14] MEDS ORDERED: NALOXONE HCL 0.4 MG/ML AMP IV PRN (19:00)
[2016-10-14] MEDS ORDERED: PROCHLORPERAZINE INJ 10 MG/2 ML VIAL IM ONE (20:45)
[2016-10-14] MEDS ORDERED: SODIUM CHLORID 0.9% 500 ML INJ 500 ML IV ONE ×2 (20:45→23:15)
--- NOTE | 2016-10-14 20:47 | HHI.FPPN ---
Addendum to progress note ADDENDUM Reason for addendum: Additonal documentation Additional information FP [facility] NOTE Subjective: 66 year-old female, admitted for SBO and POD0 ERCP/biliary stent removal presents with hypotension and SBP to the 70s. When Dr. Bain and Dr. Shandra Salas arrived at bedside, [facility] nurse and floor nurse were present and working to stabilize the patient. Pt has received morphine q3h over the day, with last dose two hours ago. Her respiratory status is within normal limits. No recent administration of antihypertensive medications. No therapeutic anticoagulation- pt on DVT prophylactic dosing of Lovenox 40mg/day. Pt Micronesian speaking only, daughter at bedside to translate. In last hour, has increased nausea and feels like she wants to pass out. This happened earlier today, as well. ROS+ for LIANG and epigastric pain continued for days since admission Objective Vitals; Pulse 80. BP 85/50. 95% on 2L NC. GEN: Pt in reverse Trendelenburg female who appeared in mild distress secondary to abdominal pain. HEENT: Pupils pinpoint. Equal round and reactive to light. EOMI. No nystagmus or scleral injection. NECK: No LAD CV: RRR. No murmurs. Radial and posterior tibial pulses 2+ RESP: Anterior lung exam with bilateral breath sounds. No wheezing or rales. GI: Soft, non-distended. Very tender to palpation of epigastric region, with guarding. Mild tenderness to palpation LUQ. No HSM appreciated. MSK: Symmetrical muscle tone. Moves all four limbs against gravity. No peripheral edema. NEURO: AAOx3. States in hospital "because of abdominal pain". No gross motor or sensory deficits. Assessment/Plan: 66 year-old female, admitted for SBO, POD0 ERCP with biliary stent removal, with Halicat called for hypotension. Differential includes morphine adverse effect vs shock (cardiac, septic, hypovolemic). Labs from this AM reviewed. No leukocytosis, anemia, or severe electrolyte derangement. Kidney function good. LFTs significantly elevated. Lactic acid was wnl. Blood pressure responded well to 1L NS ordered by primary physician (70 -> 85/50 -> 90/60). In context of regular morphine administration as POD0 surgery, strongly suspect hypotension and nausea secondary to pain medication. Narcan considered and not administered as patient had no significant respiratory depression or compromise. -S/p 1L bolus from primary team -Added compazine 10mg IM for nausea (Zofran given 2 hours prior, out of Phenergan on the floor) -As labs recently done this AM and low suspicion for acute change,no further labs ordered -Dr. Nicole, primary team, had been notified and will assume further follow up care of labs and patient -Patient was hemodynamically stable when team left the floor SDW: Letty Wong MD R1 Oct 14, 2016 20:47
--- NOTE | 2016-10-14 21:43 | RADRPT ---
EXAM DATE/TIME: 10/14/2016 18:14 [facility] COMPARISON: CT ABDOMEN & PELVIS W CONTRAST, October 11, 2016, 20:29. US ABDOMEN - LIVER, September 06, 2015, 10:36. INDICATIONS : Increased lab values, post biliary stent. MEDICAL HISTORY : Gastroesophageal reflux disease. Anticoagulant therapy. Colitis. Renal disease. Arthritis. SURGICAL HISTORY : Cholecystectomy. Hysterectomy. Bowel stent. Pancreas biopsy. Bowel perforation repair. Bladder surg angelica. ENCOUNTER: Subsequent ACUITY: 1 day PAIN SCORE: 8/10 LOCATION: Abdomen. MEASUREMENTS: LIVER: 15.0 cm length COMMON DUCT: 13 mm RIGHT KIDNEY: 10.4 x 4.6 x 4.1 cm SPLEEN: 11.8 cm length FINDINGS: LIVER: Normal echotexture without focal lesion or ductal dilatation. COMMON DUCT: No intraluminal mass or stone visualized. GALLBLADDER: Previous cholecystectomy. PANCREAS: The visualized portions are within normal limits. RIGHT KIDNEY: No hydronephrosis, stone or mass. SPLEEN: No focal lesion. CONCLUSION: Distended common bile duct similar to the recent CT. Silastic stent removed in the in ter. I'm unsure whether it was replaced; a new one is not convincingly demonstrated. No other abnor mality demonstrated. Sher Burrell MD on October 14, 2016 at 21:38 Board Certified Radiologist. This report was verified electronically.
[2016-10-14] MEDS ORDERED: PCA - TOTAL MG MORPHINE DELIVERED PER SHIFT SCH (22:00)
--- NOTE | 2016-10-14 23:59 | HHI.PR ---
Addendum to Inpatient Note Addendum Reason: Additional Documentation Additional Information Mrs. Manzo is a 66-year-old female here with sepsis, small bowel obstruction, and biliary stent blockage who has been having nausea and abdominal pain throughout the day following panendoscopy with common bile duct stent removal performed earlier in the day. A HALICAT was called at around 8 PM for blood pressure 79/48. Blood pressure improved with fluid resuscitation and the patient has received a total of 2 L of IV normal saline boluses currently and her maintenance IV NS was increased to from 100 to 150 cc an hour. Her most recent blood pressure at 2337 was 102/ 54. She has no history of heart disease. Oxygen saturation is 96% on room air. Labs drawn earlier in the day reveal normal CBC with neutrophilia. She had a temperature of 101.9 at 1605; temperature is currently 97.7. Blood cultures were drawn earlier in the day and are pending. Lactic acid was also drawn and was 1.2. Lipase 81. KUB was also done this afternoon with no evidence of acute process status post removal of NG tube and internal biliary stent. The patient was seen and evaluated. She complained of some dizziness, lightheadedness, and a sensation of near syncope with low blood pressure. She is feeling a little bit better now that her pressure is coming up. 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 I have advised her that we would individualize her treatment based on a current set of vital signs obtained if she does complain of pain. She is comfortable at the time of my evaluation. Abdomen: Bowel sounds are normally active and abdomen is soft, nondistended. Deep palpation of the abdomen was not performed and she was nontender with light palpation. The patient and family are in agreement with the treatment plan. I have discussed case with the patient's bedside nurse and she is aware to call me for any changes. I have also discussed the patient's case with my supervising physician Dr. Javier. . Ally Nicole Oct 14, 2016 23:59
[2016-10-15] VITALS: BP 102/67; PULSE 74; RESP 18; TEMP 97.8; O2SAT 94
[2016-10-15] MEDS: SODIUM CHLOR 0.9% 1000 ML INJ 1,000 ML IV SCH ×2 (02:28→21:00)
[2016-10-15 04:00] VITALS: BP_SYST 129; BP_SYST 144; BP_DIAS 64; BP_DIAS 65; PULSE 69; PULSE 80; RESP 18; TEMP 98.1; TEMP 98.3; O2SAT 98; O2SAT 99
[2016-10-15 07:49] LABS: HEMATOCRIT 30.8 % (35.0-46.0); MEAN CELL VOLUME 86.6 FL (80.0-100.0); MEAN CORPUSCULAR HEMOGLOBIN 29.1 PG (27.0-34.0); MEAN CORPUSCULAR HGB CONC 33.6 % (32.0-36.0); PLATELET COUNT 190 TH/MM3 (150-450); RED BLOOD COUNT 3.56 MIL/MM3 (4.00-5.30); RED CELL DISTRIBUTION WIDTH 13.7 % (11.6-17.2); REVIEW FLAG FINAL; WHITE BLOOD COUNT 9.8 TH/MM3 (4.0-11.0)
[2016-10-15 08:00] VITALS: BP 135/64; PULSE 83; RESP 16; TEMP 98.1; O2SAT 94
[2016-10-15 08:05] LABS: BICARBONATE 22.6 MEQ/L (21.0-32.0); CALCIUM-PROTEIN CORRECTED 7.9 MG/DL (8.5-10.1); POTASSIUM 3.8 MEQ/L (3.5-5.1); TOTAL BILIRUBIN ADULT 2.9 MG/DL (0.2-1.0)
[2016-10-15] MEDS: PANTOPRAZOLE SODIUM 40 MG VIAL IV PUSH SCH (09:09)
[2016-10-15] MEDS: SODIUM CHLORIDE 0.9% FLUSH 5 ML FLUSH FLUSH SCH ×2 (09:09→21:00)
[2016-10-15] MEDS: ENOXAPARIN SODIUM 40 MG/0.4 ML SYRINGE SQ SCH (09:09)
[2016-10-15] MEDS: metroNIDAZOLE 500 MG INJ 100 ML IV SCH ×2 (09:09→18:40)
[2016-10-15 12:00] VITALS: BP 150/68; PULSE 89; RESP 18; TEMP 99.7; O2SAT 93
[2016-10-15] MEDS ORDERED: diphenhydrAMINE HCL 25 MG CAP PO PRN (13:45)
--- NOTE | 2016-10-15 14:40 | HHI.GIFU ---
Subjective Remarks Resting in bed. Epigastric discomfort. However, feels better than yesterday. Low grade fever at noon today 99.7. Going for possible PTHC this afternoon. ( Sabiha Stack) Objective Vitals I&O Vital Signs Date Time Temp Pulse Resp B/P Pulse Ox O2 Delivery O2 Flow Rate FiO2 10/15/16 12:00 99.7 89 18 150/68 93 10/15/16 08:00 98.1 83 16 135/64 94 10/15/16 04:00 98.1 69 18 144/65 99 10/15/16 00:00 97.8 74 18 102/67 94 10/14/16 23:37 97.7 77 20 102/54 96 10/14/16 22:45 96/56 10/14/16 20:30 85 86/48 98 10/14/16 20:20 86 18 88/51 96 10/14/16 20:15 98.4 89 20 88/51 94 10/14/16 20:15 94 21 10/14/16 20:00 Room Air 10/14/16 20:00 91 10/14/16 20:00 97.8 86 18 79/48 95 10/14/16 16:05 101.9 113 16 103/53 91 I/O 10/14/16 10/14/16 10/14/16 10/15/16 10/15/16 10/15/16 07:00 15:00 23:00 07:00 15:00 23:00 Intake Total 920 ml 360 ml 1820 ml 3083 ml Output Total 600 ml 400 ml Balance 320 ml 360 ml 1820 ml 2683 ml Intake Oral 120 ml 360 ml 120 ml 100 ml IV Total 800 ml 1700 ml 2983 ml Output Urine Total 600 ml 400 ml # Voids 4 0 # Bowel Movements 0 0 0 Laboratory Laboratory Tests Test 10/14/16 10/15/16 10/15/16 16:00 05:39 05:59 Lactic Acid Level 1.2 White Blood Count 9.8 Red Blood Count 3.56 Hemoglobin 10.3 Hematocrit 30.8 Mean Corpuscular Volume 86.6 Mean Corpuscular Hemoglobin 29.1 Mean Corpuscular Hemoglobin 33.6 Concent Red Cell Distribution Width 13.7 Platelet Count 190 Mean Platelet Volume 9.2 Sodium Level 142 Potassium Level 3.8 Chloride Level 109 Carbon Dioxide Level 22.6 Anion Gap 10 Blood Urea Nitrogen 7 Creatinine 0.84 Estimat Glomerular Filtration 68 Rate Random Glucose 93 Calcium Level 7.2 Protein Corrected Calcium 7.9 Total Bilirubin 2.9 Aspartate Amino Transf 89 (AST/SGOT) Alanine Aminotransferase 215 (ALT/SGPT) Alkaline Phosphatase 314 Total Protein 5.8 Albumin 2.2 Lipase 119 Date/Time Procedure Status Source Growth 10/14/16 16:00 Aerobic Blood Culture - Preliminary Resulted Blood Peripheral Escherichia Coli 10/14/16 16:00 Anaerobic Blood Culture - Preliminary Resulted Gram Negative Miguel 10/12/16 19:55 Gastric Occult Blood - Final Complete Gastric GASTROCCULT POSITIVE Imaging Last Impressions Liver Ultrasound 10/14/16 0000 Signed Impressions: Service Date/Time: October 18:14 - CONCLUSION: Distended common bile duct similar to the recent CT. Silastic stent removed in the interim. I'm unsure whether it was replaced; a new one is not convincingly demonstrated. No other abnormality demonstrated. Sher Burrell MD Chest X-Ray 10/14/16 0000 Signed Impressions: Service Date/Time: October 16:07 - CONCLUSION: 1. Subsegmental basilar airspace disease. No effusion or pneumothorax. Colin Haines MD Abdomen X-Ray 10/14/16 0000 Signed Impressions: Service Date/Time: October 13:32 - CONCLUSION: No evidence of acute process. Status post removal of nasogastric tube and internal biliary stent. Angel Ferro MD Abdomen/Pelvis CT 10/11/16 1853 Signed Impressions: Service Date/Time: Tuesday, October 11, 2016 20:29 - CONCLUSION: 1. Acute small bowel obstruction at the level of the mid ileum within the central to right pelvic cavity. I don't see a mass. 2. Silastic biliary stent again noted, potentially partly occluded as the biliary tree appears slightly more prominent than on the prior. Please correlate clinically and serologically. Sher Burrell MD Physical Exam HEENT: Normocephalic; atraumatic; no jaundice. CHEST: CTA CARDIAC: RRR. ABDOMEN: Soft, mildly bloated, mild tenderness- diffuse but more in epigastric are.; no hepatosplenomegaly; bowel sounds are present in all four quadrants. EXTREMITIES: No clubbing, cyanosis, or edema. SKIN: Normal; no rash; no jaundice. 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 (Sabiha Stack) Assessment and Plan Plan ASSESSMENT: - Biliary obstruction with elevated LFTs. Pt has hx of biliary stricture and has stent in place. ERCP (09/07/15) Mid-bile duct, 3 cm long, stricture, suspicious for malignancy. S/P sphincterotomy, biliary dilatation, brush cytology (pathology negative for malignancy), and stenting of the above mentioned stricture. She still has stent in place, as she was noted to have perforation during EUS and subsequently underwent emergent laparotomy with repair of perforated duodenal ulcer, gastrojejunostomy with Dr. Alonzo at . The patient reports that she was told by Dr. Alonzo that she cannot have any further endoscopic procedures secondary to the location of her prior perforation. Abdomen/Pelvis CT (10/11/16)-----> 1. Acute small bowel obstruction at the level of the mid ileum within the central to right pelvic cavity. I don't see a mass. 2. Silastic biliary stent again noted, potentially partly occluded as the biliary tree appears slightly more prominent than on the prior. Please correlate clinically and serologically. S/P attempted ERCP with stent removal (10/14/16). Pt had significant tenderness on exam yesterday, although lipase and KUB was normal. Pt had a hypotensive episode overnight and her blood cultures grew GNR. She is on Cefepime, Levaquin, Flagyl. IR consulted for PTHC. - Elevated LFTs related to above. - SBO with hx of perforated duodenal ulcer, s/p repair, gastrojejunostomy. Resolved. - Patient had gastrojejunostomy, in this case, anatomy might be altered and might not be able to have ERCP/stent Plan: - NPO - IR consulted for PTHC - Cont. Levaquin - Cont. Flagyl - Cont. Cefepime - Cont. PPI - Cont. IVF - CBC, CMP in am - GS following - Supportive care - Further recommendations to follow based on results of above - Patient seen and examined by Dr. Mercado and myself and this note is written on his behalf. (Sabiha Stack) Physician Comments Seen and examined with HOWARD, discussed with DR. Covarrubias in IR earlier. Going for PTC today. Monitor for BMs . Surgery on case. (Rolando Mercado MD) Sabiha Stack Oct 15, 2016 14:40 Rolando Mercado MD Oct 16, 2016 12:58
[2016-10-15] MEDS: CEFEPIME INJ 2,000 MG in SODIUM CHLORIDE 0.9% INJ 100 ML IV SCH ×2 (14:53→23:02)
[2016-10-15 16:00] VITALS: BP 159/78; PULSE 78; RESP 18; TEMP 99; O2SAT 93
--- NOTE | 2016-10-15 16:30 | HHI.PR ---
Subjective Subjective Notes Resting in bed Feels hungry Family at bedside Objective Vitals/I&O Vital Signs Date Time Temp Pulse Resp B/P Pulse Ox O2 Delivery O2 Flow Rate FiO2 10/15/16 16:00 99.0 78 18 159/78 93 10/14/16 20:15 21 10/14/16 20:00 Room Air 10/13/16 16:45 3 Labs Laboratory Tests Test 10/15/16 10/15/16 05:39 05:59 White Blood Count 9.8 Red Blood Count 3.56 Hemoglobin 10.3 Hematocrit 30.8 Mean Corpuscular Volume 86.6 Mean Corpuscular Hemoglobin 29.1 Mean Corpuscular Hemoglobin 33.6 Concent Red Cell Distribution Width 13.7 Platelet Count 190 Mean Platelet Volume 9.2 Sodium Level 142 Potassium Level 3.8 Chloride Level 109 Carbon Dioxide Level 22.6 Anion Gap 10 Blood Urea Nitrogen 7 Creatinine 0.84 Estimat Glomerular Filtration 68 Rate Random Glucose 93 Calcium Level 7.2 Protein Corrected Calcium 7.9 Total Bilirubin 2.9 Aspartate Amino Transf 89 (AST/SGOT) Alanine Aminotransferase 215 (ALT/SGPT) Alkaline Phosphatase 314 Total Protein 5.8 Albumin 2.2 Lipase 119 Date/Time Procedure Status Source Growth 10/14/16 16:00 Aerobic Blood Culture - Preliminary Resulted Blood Peripheral Escherichia Coli 10/14/16 16:00 Anaerobic Blood Culture - Preliminary Resulted Gram Negative Miguel 10/12/16 19:55 Gastric Occult Blood - Final Complete Gastric GASTROCCULT POSITIVE Cardiovascular: Regular Lungs: Clear Abdomen: Non-distended, Non-tender Extremities: No edema A/P Assessment and Plan 66 year old female with possible SBO; s/p EGD with stent removal -PTC today -Okay to start diet from GS standpoint after procedure; advance as tolerated -IV Tylenol for headache -No acute surgical issues at this time Attending Statement The exam, history, and the medical decision-making described in the above note were completed with the assistance of the mid-level provider. I reviewed and agree with the findings presented. I attest that I had a [id number] encounter with the patient on the same day, and personally performed and documented my assessment and findings in the medical record. abdominal exam non-surgical, will follow, SBO resolving Arianna Davis Oct 15, 2016 16:30 Adonis Scott MD Oct 16, 2016 01:55
[2016-10-15] MEDS ORDERED: ACETAMINOPHEN 1000 MG/100 ML VIAL IV PRN (17:00)
[2016-10-15] MEDS ORDERED: fentaNYL CITRATE 250 MCG/5 ML AMP ONE (17:16)
[2016-10-15] MEDS ORDERED: MIDAZOLAM HCL 5 MG/5 ML VIAL ONE (17:16)
--- NOTE | 2016-10-15 17:50 | PD.RAD ---
Post Procedure Progress Note Pre Procedure Diagnosis: (1) Obstructive jaundice Post Procedure Diagnosis: (1) Obstructive jaundice Procedure Date: Oct 15, 2016 Supervising Radiologist: Octavio Covarrubias Proceduralist/Assist: Bouchra Groves RT(R)(), Elisha Ward RT(R)(CV) Anesthesia: Conscious Sedation Plan of Activity Patient to Unit: Critical Care Patient Condition: Good See PACS Report for procedural detail/treatment Drainage Procedure Procedure 1 Imaging Guidance: Fluoroscopy Procedure Type: Biliary Drainage Procedure: Placement Fluid Description: Jasey Octavio Covarrubias MD Oct 15, 2016 17:50
[2016-10-15] MEDS ORDERED: IOHEXOL 350 MG/ML 50 ML BTL (for RAD DIAG) ONE (18:04)
--- NOTE | 2016-10-15 19:19 | PD.ID.CON ---
History of Present Illness Service ID Consult Requested By Dr Bustillos Reason for Consult GNB bacteremia Primary Care Physician Non-Staff Diagnoses: History of Present Illness Chart reviewed; Pt know n to me from previous admission 66 yo female with iatrogenic duodenal perforation during ERCP last year complicated by intraabdominal abscess She has biliary stricture She presented 4 days ago with co of nausea, vomiting, abdominal pain and distention and was diagnosed with small bowel obstruction on CT abdomen. She was treated ocnservatively with improvement Also it was noted that her biliary stent was partially occluded S/P attempted ERCP with stent removal (10/14/16) and sp biliary drainage placement for obstructive jaundice She is growing gram negative miguel in her admission blood clx she is on absx (cefepime, levaquine) and is afebrile with normal WBC Review of Systems Except as stated in HPI: all other systems reviewed are Neg Past Family Social History Allergies: Coded Allergies: Vancomycin (Verified Allergy, Intermediate, RASH, FLUSHING OF FACE AND RASH TO LEGS, 10/11/16) Penicillin (Verified Allergy, Unknown, 10/11/16) told when she was a child Past Medical History Bowel perforation post-ERCP procedurestatus post emergency Rc patch repair , gastrojejunostomyon 10/13/15. ICU stay, with intubation, severe sepsisfrom 10/13/15 to 10/21/15. Past Surgical History Rc patch repair/pllrdmpdselgofwjo52/07/16 ERCP10/13/15 Previous EGDs Cholecystectomy 40 yrs ago Bladder lift Active Ordered Medications Medications where reviewed in EMR Antibiotics Include: levaquine cefepime Family History Non-Contributory. Social History No Tobacco. No ETOH. No Illicit Drugs. Physical Exam Vital Signs Vital Signs Date Time Temp Pulse Resp B/P Pulse Ox O2 Delivery O2 Flow Rate FiO2 10/15/16 18:56 98.0 79 17 127/74 93 Nasal Cannula 2 10/15/16 18:45 78 17 131/70 95 Nasal Cannula 2 10/15/16 18:30 77 17 127/67 94 Nasal Cannula 2 10/15/16 18:15 86 15 135/63 96 Nasal Cannula 2 10/15/16 18:10 98.0 95 15 135/77 97 Nasal Cannula 2 10/15/16 16:00 99.0 78 18 159/78 93 10/15/16 12:00 99.7 89 18 150/68 93 10/15/16 08:00 98.1 83 16 135/64 94 10/15/16 04:00 98.1 69 18 144/65 99 10/15/16 00:00 97.8 74 18 102/67 94 10/14/16 23:37 97.7 77 20 102/54 96 10/14/16 22:45 96/56 10/14/16 20:30 85 86/48 98 10/14/16 20:20 86 18 88/51 96 10/14/16 20:15 98.4 89 20 88/51 94 10/14/16 20:15 94 21 10/14/16 20:00 Room Air 10/14/16 20:00 91 10/14/16 20:00 97.8 86 18 79/48 95 Physical Exam CONSTITUTIONAL/GENERAL: This is an adequately nourished patient, in no apparent distress. TUBES/LINES/DRAINS: SKIN: No jaundice, rashes, or lesions. Ecchymoses on upper extremities. No wounds seen anteriorly. Skin temperature appropriate. Not diaphoretic. HEAD: Atraumatic. Normocephalic. EYES: Pupils equal and round and reactive. Extraocular motions intact. Minimal scleral icterus. No injection or drainage. Fundi not examined. ENT: Hearing grossly normal. Nose without bleeding or purulent drainage. Throat without visible erythema, exudates, masses, or lesions. NECK: Trachea midline. Supple, nontender. No palpable thyroid enlargement or nodularity. CARDIOVASCULAR: Regular rate and rhythm without murmurs, gallops, or rubs. No JVD. Peripheral pulses symmetric. RESPIRATORY/CHEST: Symmetric, unlabored respirations. Clear to auscultation. Breath sounds equal bilaterally. No wheezes, rales, or rhonchi. GASTROINTESTINAL: Abdomen soft, + tender to palpation diffusely, mildly to moderately distended. No hepato-splenomegaly, or palpable masses. No guarding. Bowel sounds present. Biliary draine in place with small amount of serosang d/c GENITOURINARY: Without palpable bladder distension. MUSCULOSKELETAL: Extremities without clubbing, cyanosis, or edema. No joint tenderness or effusion noted. No calf tenderness. No mottling or clubbing. LYMPHATICS: No palpable cervical or supraclavicular adenopathy. NEUROLOGICAL: Awake and alert. Motor and sensory grossly within normal limits. Follows commands. Cognitively sharp. Moves all extremities. PSYCHIATRIC: No obvious anxiety/depression. no apparent hallucinations or other psychotic thought process. Laboratory Laboratory Tests Test 10/15/16 10/15/16 05:39 05:59 White Blood Count 9.8 Red Blood Count 3.56 Hemoglobin 10.3 Hematocrit 30.8 Mean Corpuscular Volume 86.6 Mean Corpuscular Hemoglobin 29.1 Mean Corpuscular Hemoglobin 33.6 Concent Red Cell Distribution Width 13.7 Platelet Count 190 Mean Platelet Volume 9.2 Sodium Level 142 Potassium Level 3.8 Chloride Level 109 Carbon Dioxide Level 22.6 Anion Gap 10 Blood Urea Nitrogen 7 Creatinine 0.84 Estimat Glomerular Filtration 68 Rate Random Glucose 93 Calcium Level 7.2 Protein Corrected Calcium 7.9 Total Bilirubin 2.9 Aspartate Amino Transf 89 (AST/SGOT) Alanine Aminotransferase 215 (ALT/SGPT) Alkaline Phosphatase 314 Total Protein 5.8 Albumin 2.2 Lipase 119 Date/Time Procedure Status Source Growth 10/14/16 16:00 Aerobic Blood Culture - Preliminary Resulted Blood Peripheral Escherichia Coli 10/14/16 16:00 Anaerobic Blood Culture - Preliminary Resulted Gram Negative Miguel 10/12/16 19:55 Gastric Occult Blood - Final Complete Gastric GASTROCCULT POSITIVE Result Diagram: 10/15/16 0539 10/15/16 0559 Imaging Last Impressions Liver Ultrasound 10/14/16 0000 Signed Impressions: Service Date/Time: October 18:14 - CONCLUSION: Distended common bile duct similar to the recent CT. Silastic stent removed in the interim. I'm unsure whether it was replaced; a new one is not convincingly demonstrated. No other abnormality demonstrated. Sher Burrell MD Chest X-Ray 10/14/16 0000 Signed Impressions: Service Date/Time: October 16:07 - CONCLUSION: 1. Subsegmental basilar airspace disease. No effusion or pneumothorax. Colin Haines MD Abdomen X-Ray 10/14/16 0000 Signed Impressions: Service Date/Time: October 13:32 - CONCLUSION: No evidence of acute process. Status post removal of nasogastric tube and internal biliary stent. Angel Ferro MD Abdomen/Pelvis CT 10/11/16 0166 Signed Impressions: Service Date/Time: Tuesday, October 11, 2016 20:29 - CONCLUSION: 1. Acute small bowel obstruction at the level of the mid ileum within the central to right pelvic cavity. I don't see a mass. 2. Silastic biliary stent again noted, potentially partly occluded as the biliary tree appears slightly more prominent than on the prior. Please correlate clinically and serologically. Sher Burrell MD Assessment and Plan Assessment and Plan obstructive jaundice sp biliary drainage placement today Biliary sepsis GNR bacteremia, E.coli h/o PCN allergic reaction cont cefepime cont flagyl dc levaquin fu clx/S untill final Meenu Thurman MD Oct 15, 2016 19:19
[2016-10-15 20:00] VITALS: BP 142/70; PULSE 80; RESP 20; TEMP 98.7; O2SAT 99
--- NOTE | 2016-10-15 20:50 | HHI.PR ---
Subjective Remarks patient seen today around noon. translation provided by although phone translation offeredand declined.patient says that abdominal pain has resolved. Denies any nausea or vomiting. She feels much better. She reports that neither she or her mother are sure about penicillin allergy as a child, but that it did not involve respiratory issues. Family does report a rash at an outside hospital in the past with an antibiotic, however is not sure what antibiotic- again, no respiratory involvement. Objective Vital Signs Date Time Temp Pulse Resp B/P Pulse Ox O2 Delivery O2 Flow Rate FiO2 10/15/16 18:56 98.0 79 17 127/74 93 Nasal Cannula 2 10/15/16 18:45 78 17 131/70 95 Nasal Cannula 2 10/15/16 18:30 77 17 127/67 94 Nasal Cannula 2 10/15/16 18:15 86 15 135/63 96 Nasal Cannula 2 10/15/16 18:10 98.0 95 15 135/77 97 Nasal Cannula 2 10/15/16 16:00 99.0 78 18 159/78 93 10/15/16 12:00 99.7 89 18 150/68 93 10/15/16 08:00 Room Air 10/15/16 08:00 98.1 83 16 135/64 94 10/15/16 04:00 98.1 69 18 144/65 99 10/15/16 00:00 97.8 74 18 102/67 94 10/14/16 23:37 97.7 77 20 102/54 96 10/14/16 22:45 96/56 I/O 10/14/16 10/14/16 10/14/16 10/15/16 10/15/16 10/15/16 07:00 15:00 23:00 07:00 15:00 23:00 Intake Total 920 ml 360 ml 1820 ml 3083 ml 120 ml 400 ml Output Total 600 ml 400 ml Balance 320 ml 360 ml 1820 ml 2683 ml 120 ml 400 ml Intake Oral 120 ml 360 ml 120 ml 100 ml 120 ml IV Total 800 ml 1700 ml 2983 ml 400 ml Output Urine Total 600 ml 400 ml # Voids 4 0 3 # Bowel Movements 0 0 0 Result Diagram: 10/15/16 0539 10/15/16 0559 Objective Remarks GENERAL: sitting up in bed. alert, oriented. appears comfortable. SKIN: Warm and dry. HEAD: Normocephalic. EYES: No scleral icterus. No injection or drainage. NECK: Supple, trachea midline. No JVD. CARDIOVASCULAR: Regular rate and rhythm without murmurs, gallops, or rubs. RESPIRATORY: Breath sounds equal bilaterally. No accessory muscle use. GASTROINTESTINAL: Abdomennontender. No rebound or guarding. Soft. MUSCULOSKELETAL: No cyanosis, or edema. BACK: Nontender without obvious deformity. No CVA tenderness. A/P Assessment and Plan //Sepsis //gram-negative bacteremia -10/14 - fever>101. HR 113. acute upper abd pain. incr Bili. -stat lactate, cxr given recent vomiting, cultures. -tylenol for fever -pcn allergy -levaquin, flagyl. -liver US. DW Dr Rao. -10/15. likely cholangitis given ultrasound. gram-negative rods on blood culture. Repeat ordered 10/15. as Levaquin has 30% resistance rate, add cefepime. ID consult. //SBO //N/v - resolved. with NGT -surg hx: -ERCPMarch 2015 due to obstructive diseasecomplicated by duodenal perforationstatus post gastrojejunostomy -Right perinephric abscesswith right hydronephrosisrequiring right ureteral stent placement on November 25, 2015. -Subsequently was removed. -Prior history of other intra-abdominal surgeriesbladder lift, cholecystectomy, hysterectomy -admit with Abnormal CTrevealing possible biliary stent blockage. -ap abd film improved -GS ff. -appears resolved, NGT out. -10/15 on exam prior to procedure. Resolved. //transaminitis //Biliary obstruction. occluded bilary stent as above. //suspected cholangitis. -hx of bilairy stent -Lfts improving. -s/p bilairy stent -will cont to monitor - may need ptc. -10/15. Patient underwent PTC placement. Continue to monitor. prophylaxis, SCDs, AC as per surgical/GI Discharge Planning sepsis. Cholangitis. -10/15. We'll order PT evaluation. -Appreciate case management assistance. Jose Bustillos MD Oct 15, 2016 20:50
[2016-10-15] MEDS: MORPHINE SULFATE 4 MG/ML INJ IV PUSH PRN (21:16)
[2016-10-16] VITALS (7 sets, daily range): BP systolic 103–132; BP diastolic 56–67; PULSE 84–109; RESP 18–24; TEMP 97.4–98.9; O2SAT 95–99
[2016-10-16] MEDS: metroNIDAZOLE 500 MG INJ 100 ML IV SCH ×3 (00:44→17:30)
[2016-10-16] MEDS: SODIUM CHLOR 0.9% 1000 ML INJ 1,000 ML IV SCH ×2 (02:00→16:44)
[2016-10-16 05:57] LABS: AUTOMATED NEUTROPHIL # 8.2 TH/MM3 (1.8-7.7); BASOPHIL % 0.2 % (0.0-2.0); EOSINOPHIL # 0.1 TH/MM3 (0-0.4); EOSINOPHIL % 0.7 % (0.0-4.0); HEMATOCRIT 28.7 % (35.0-46.0); HEMO FLAGS DIFF FINAL; LYMPHOCYTE # 0.7 TH/MM3 (1.0-4.8); MEAN CELL VOLUME 85.1 FL (80.0-100.0); MEAN CORPUSCULAR HEMOGLOBIN 29.1 PG (27.0-34.0); MEAN CORPUSCULAR HGB CONC 34.2 % (32.0-36.0); MONO % 5.9 % (0.0-8.0); NEUT % 86.2 % (16.0-70.0); PLATELET COUNT 199 TH/MM3 (150-450); RED BLOOD COUNT 3.37 MIL/MM3 (4.00-5.30); RED CELL DISTRIBUTION WIDTH 14.1 % (11.6-17.2); WHITE BLOOD COUNT 9.6 TH/MM3 (4.0-11.0)
[2016-10-16] MEDS: CEFEPIME INJ 2,000 MG in SODIUM CHLORIDE 0.9% INJ 100 ML IV SCH ×3 (06:01→23:00)
[2016-10-16 06:42] LABS: ALT (GPT) 140 U/L (10-53); ANION GAP 13 MEQ/L (5-15); AST (GOT) 48 U/L (15-37); BICARBONATE 20.3 MEQ/L (21.0-32.0); BLOOD UREA NITROGEN 4 MG/DL (7-18); CHLORIDE 106 MEQ/L (98-107); GLOMERULAR FILTRATION RATE 108 ML/MIN (>89); POTASSIUM 3.1 MEQ/L (3.5-5.1); SODIUM (NA) 139 MEQ/L (136-145)
[2016-10-16 06:45] LABS: ALKALINE PHOSPHATASE 312 U/L (45-117); TOTAL BILIRUBIN ADULT 3.2 MG/DL (0.2-1.0)
[2016-10-16] MEDS: PANTOPRAZOLE SODIUM 40 MG VIAL IV PUSH SCH (08:59)
[2016-10-16] MEDS: SODIUM CHLORIDE 0.9% FLUSH 5 ML FLUSH FLUSH SCH ×2 (08:59→21:50)
[2016-10-16] MEDS: ENOXAPARIN SODIUM 40 MG/0.4 ML SYRINGE SQ SCH (08:59)
[2016-10-16] MEDS: MORPHINE SULFATE 4 MG/ML INJ IV PUSH PRN ×3 (09:07→21:49)
--- NOTE | 2016-10-16 09:35 | HHI.PR ---
Subjective Subjective Notes no NV, hungry Objective Vitals/I&O Vital Signs Date Time Temp Pulse Resp B/P Pulse Ox O2 Delivery O2 Flow Rate FiO2 10/16/16 08:00 97.4 86 20 127/67 98 10/15/16 20:00 Room Air 10/15/16 18:56 2 10/14/16 20:15 21 Labs Laboratory Tests Test 10/16/16 05:29 White Blood Count 9.6 Red Blood Count 3.37 Hemoglobin 9.8 Hematocrit 28.7 Mean Corpuscular Volume 85.1 Mean Corpuscular Hemoglobin 29.1 Mean Corpuscular Hemoglobin 34.2 Concent Red Cell Distribution Width 14.1 Platelet Count 199 Mean Platelet Volume 9.0 Neutrophils (%) (Auto) 86.2 Lymphocytes (%) (Auto) 7.0 Monocytes (%) (Auto) 5.9 Eosinophils (%) (Auto) 0.7 Basophils (%) (Auto) 0.2 Neutrophils # (Auto) 8.2 Lymphocytes # (Auto) 0.7 Monocytes # (Auto) 0.6 Eosinophils # (Auto) 0.1 Basophils # (Auto) 0.0 CBC Comment DIFF FINAL Differential Comment Sodium Level 139 Potassium Level 3.1 Chloride Level 106 Carbon Dioxide Level 20.3 Anion Gap 13 Blood Urea Nitrogen 4 Creatinine 0.56 Estimat Glomerular Filtration 108 Rate Random Glucose 68 Calcium Level 7.9 Total Bilirubin 3.2 Aspartate Amino Transf 48 (AST/SGOT) Alanine Aminotransferase 140 (ALT/SGPT) Alkaline Phosphatase 312 Total Protein 5.4 Albumin 2.1 Date/Time Procedure Status Source Growth 10/15/16 21:42 Aerobic Blood Culture Received Blood Peripheral Pending 10/15/16 21:42 Anaerobic Blood Culture Received Blood Peripheral Pending 10/14/16 16:00 Aerobic Blood Culture - Preliminary Resulted Blood Peripheral Escherichia Coli 10/14/16 16:00 Anaerobic Blood Culture - Preliminary Resulted Gram Negative Miguel 10/12/16 19:55 Gastric Occult Blood - Final Complete Gastric GASTROCCULT POSITIVE Cardiovascular: Regular Lungs: Clear Abdomen: Non-distended, Non-tender A/P Assessment and Plan 66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 - continue on-op mgmt Adonis Scott MD Oct 16, 2016 09:35
--- NOTE | 2016-10-16 11:34 | HHI.GIFU ---
GI Follow-up Note Consult Follow-up Subjective: Patient laying in bed comfortably, no new complaints except bloody drainage from PTC catheter Objective: PHYSICAL EXAMINATION: Vitals signs stable No fever HEENT: Pupils round and reactive to light; normocephalic; atraumatic; no jaundice. Throat is clear. NECK: Neck is supple, no JVD, no lymphadenopathy. CHEST: Chest is clear to auscultation and percussion. CARDIAC: Regular rate and rhythm with no murmur gallop or rubs. ABDOMEN: Soft, nondistended, nontender; no hepatosplenomegaly; bowel sounds are present in all four quadrants. EXTREMITIES: No clubbing, cyanosis, or edema. SKIN: Normal; no rash; no jaundice. 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 Available Data (labs, X- Rays, Procedues) : Last Impressions Liver Ultrasound 10/14/16 0000 Signed Impressions: Service Date/Time: October 18:14 - CONCLUSION: Distended common bile duct similar to the recent CT. Silastic stent removed in the interim. I'm unsure whether it was replaced; a new one is not convincingly demonstrated. No other abnormality demonstrated. Sher Burrlel MD Chest X-Ray 10/14/16 0000 Signed Impressions: Service Date/Time: October 16:07 - CONCLUSION: 1. Subsegmental basilar airspace disease. No effusion or pneumothorax. Colin Haines MD Abdomen X-Ray 10/14/16 0000 Signed Impressions: Service Date/Time: October 13:32 - CONCLUSION: No evidence of acute process. Status post removal of nasogastric tube and internal biliary stent. Angel Ferro MD Abdomen/Pelvis CT 10/11/16 9363 Signed Impressions: Service Date/Time: Tuesday, October 11, 2016 20:29 - CONCLUSION: 1. Acute small bowel obstruction at the level of the mid ileum within the central to right pelvic cavity. I don't see a mass. 2. Silastic biliary stent again noted, potentially partly occluded as the biliary tree appears slightly more prominent than on the prior. Please correlate clinically and serologically. Sher Burrell MD Laboratory Tests Test 10/14/16 10/14/16 10/15/16 10/15/16 13:36 16:00 05:39 05:59 White Blood Count 9.7 TH/MM3 9.8 TH/MM3 Red Blood Count 4.23 MIL/MM3 3.56 MIL/MM3 Hemoglobin 12.2 GM/DL 10.3 GM/DL Hematocrit 36.0 % 30.8 % Mean Corpuscular Volume 85.2 FL 86.6 FL Mean Corpuscular Hemoglobin 28.8 PG 29.1 PG Mean Corpuscular Hemoglobin 33.8 % 33.6 % Concent Red Cell Distribution Width 13.2 % 13.7 % Platelet Count 267 TH/MM3 190 TH/MM3 Mean Platelet Volume 8.5 FL 9.2 FL Neutrophils (%) (Auto) 86.6 % Lymphocytes (%) (Auto) 11.7 % Monocytes (%) (Auto) 1.5 % Eosinophils (%) (Auto) 0.0 % Basophils (%) (Auto) 0.2 % Neutrophils # (Auto) 8.4 TH/MM3 Lymphocytes # (Auto) 1.1 TH/MM3 Monocytes # (Auto) 0.1 TH/MM3 Eosinophils # (Auto) 0.0 TH/MM3 Basophils # (Auto) 0.0 TH/MM3 CBC Comment DIFF FINAL Differential Comment Lactic Acid Level 1.2 mmol/L Sodium Level 142 MEQ/L Potassium Level 3.8 MEQ/L Chloride Level 109 MEQ/L Carbon Dioxide Level 22.6 MEQ/L Anion Gap 10 MEQ/L Blood Urea Nitrogen 7 MG/DL Creatinine 0.84 MG/DL Estimat Glomerular Filtration 68 ML/MIN Rate Random Glucose 93 MG/DL Calcium Level 7.2 MG/DL Protein Corrected Calcium 7.9 MG/DL Total Bilirubin 2.9 MG/DL Aspartate Amino Transf 89 U/L (AST/SGOT) Alanine Aminotransferase 215 U/L (ALT/SGPT) Alkaline Phosphatase 314 U/L Total Protein 5.8 GM/DL Albumin 2.2 GM/DL Lipase 119 U/L Test 10/16/16 05:29 White Blood Count 9.6 TH/MM3 Red Blood Count 3.37 MIL/MM3 Hemoglobin 9.8 GM/DL Hematocrit 28.7 % Mean Corpuscular Volume 85.1 FL Mean Corpuscular Hemoglobin 29.1 PG Mean Corpuscular Hemoglobin 34.2 % Concent Red Cell Distribution Width 14.1 % Platelet Count 199 TH/MM3 Mean Platelet Volume 9.0 FL Neutrophils (%) (Auto) 86.2 % Lymphocytes (%) (Auto) 7.0 % Monocytes (%) (Auto) 5.9 % Eosinophils (%) (Auto) 0.7 % Basophils (%) (Auto) 0.2 % Neutrophils # (Auto) 8.2 TH/MM3 Lymphocytes # (Auto) 0.7 TH/MM3 Monocytes # (Auto) 0.6 TH/MM3 Eosinophils # (Auto) 0.1 TH/MM3 Basophils # (Auto) 0.0 TH/MM3 CBC Comment DIFF FINAL Differential Comment Sodium Level 139 MEQ/L Potassium Level 3.1 MEQ/L Chloride Level 106 MEQ/L Carbon Dioxide Level 20.3 MEQ/L Anion Gap 13 MEQ/L Blood Urea Nitrogen 4 MG/DL Creatinine 0.56 MG/DL Estimat Glomerular Filtration 108 ML/MIN Rate Random Glucose 68 MG/DL Calcium Level 7.9 MG/DL Total Bilirubin 3.2 MG/DL Aspartate Amino Transf 48 U/L (AST/SGOT) Alanine Aminotransferase 140 U/L (ALT/SGPT) Alkaline Phosphatase 312 U/L Total Protein 5.4 GM/DL Albumin 2.1 GM/DL Allergies Coded Allergies Type Severity Reaction Last Updated Verified Vancomycin Allergy Intermediate RASH, FLUSHING OF FACE AND RASH TO LEGS Yes Penicillin Allergy Unknown 10/11/16 Yes Active Scripts Medications Dose Route/Sig Days Date Category Dose Instructions Mylanta Liq (Ozmvkfyw-Amgfodtrm-Gqiuseiiebg Liq) 200-200-20 Mg/5 Ml Susp 10 Ml PO HS PRN 10/11/16 Reported Take between meals or as directed. Shake well. Maximum 120 ml/24 hrs. Probiotic (Lactobacillus Acidophilus) 1 Cap Cap 1 Cap PO DAILY 10/11/16 Reported Pepcid (Famotidine) 20 Mg Tab 20 Mg PO DAILY 10/11/16 Reported ASSESSMENT/PLAN: Seen and examined in the presence of family. Doing well. No abdomnal pain. BM today. Tolerating clear liquid diet. Flush PTC catheter. It was a pleasure seeing Linda Manzo. Thank you for this consult. Entered by: Rolando Cruz MD Oct 16, 2016 11:34
--- NOTE | 2016-10-16 15:11 | HHI.PR ---
Subjective Remarks Patient seen and examined this morning. There were no overnight events. Her vitals are stable and she is afebrile. Had bowel movement this am. Urinating appropriately. The patient reports feeling significantly improved since admission. She worked with PT yest and had been ambulatory without issues. Her family is at bedside. (Dipika Stratton MD R3) Objective Vital Signs Date Time Temp Pulse Resp B/P Pulse Ox O2 Delivery O2 Flow Rate FiO2 10/16/16 12:00 98.4 85 20 112/56 96 10/16/16 09:00 84 10/16/16 08:00 Room Air 10/16/16 08:00 97.4 86 20 127/67 98 10/16/16 04:00 98.6 107 20 120/61 95 10/16/16 00:12 98.7 109 20 132/62 99 10/15/16 20:00 Room Air 10/15/16 20:00 98.7 80 20 142/70 99 10/15/16 18:56 98.0 79 17 127/74 93 Nasal Cannula 2 10/15/16 18:45 78 17 131/70 95 Nasal Cannula 2 10/15/16 18:30 77 17 127/67 94 Nasal Cannula 2 10/15/16 18:15 86 15 135/63 96 Nasal Cannula 2 10/15/16 18:10 98.0 95 15 135/77 97 Nasal Cannula 2 10/15/16 16:00 99.0 78 18 159/78 93 I/O 10/15/16 10/15/16 10/15/16 10/16/16 10/16/16 10/16/16 07:00 15:00 23:00 07:00 15:00 23:00 Intake Total 3083 ml 120 ml 400 ml 1248 ml Output Total 400 ml 1000 ml 500 ml Balance 2683 ml 120 ml -600 ml 748 ml Intake Oral 100 ml 120 ml 0 ml IV Total 2983 ml 400 ml 1248 ml Output Urine Total 400 ml 1000 ml 500 ml Drainage Total 0 ml # Voids 3 1 # Bowel Movements 0 0 (Dipika Stratton MD R3) Result Diagram: 10/16/16 0529 10/16/16 0529 Imaging Last Impressions Liver Ultrasound 10/14/16 0000 Signed Impressions: Service Date/Time: October 18:14 - CONCLUSION: Distended common bile duct similar to the recent CT. Silastic stent removed in the interim. I'm unsure whether it was replaced; a new one is not convincingly demonstrated. No other abnormality demonstrated. Sher Burrell MD Chest X-Ray 10/14/16 0000 Signed Impressions: Service Date/Time: October 16:07 - CONCLUSION: 1. Subsegmental basilar airspace disease. No effusion or pneumothorax. Colin Haines MD Abdomen X-Ray 10/14/16 0000 Signed Impressions: Service Date/Time: October 13:32 - CONCLUSION: No evidence of acute process. Status post removal of nasogastric tube and internal biliary stent. Angel Ferro MD Abdomen/Pelvis CT 10/11/16 185 Signed Impressions: Service Date/Time: Tuesday, October 11, 2016 20:29 - CONCLUSION: 1. Acute small bowel obstruction at the level of the mid ileum within the central to right pelvic cavity. I don't see a mass. 2. Silastic biliary stent again noted, potentially partly occluded as the biliary tree appears slightly more prominent than on the prior. Please correlate clinically and serologically. Sher Burrell MD Objective Remarks GENERAL: sitting up in bed. alert, oriented. appears comfortable. SKIN: Warm and dry. HEAD: Normocephalic. EYES: No scleral icterus. No injection or drainage. NECK: Supple, trachea midline. No JVD. CARDIOVASCULAR: Regular rate and rhythm without murmurs, gallops, or rubs. RESPIRATORY: Breath sounds equal bilaterally. No accessory muscle use. GASTROINTESTINAL: Abdomennontender. No rebound or guarding. Soft. Bloody material from biliary drain. MUSCULOSKELETAL: No cyanosis, or edema. BACK: Nontender without obvious deformity. No CVA tenderness. (Dipika Stratton MD R3) A/P Assessment and Plan 66-year-old female patient admitted to [facility] for sepsis and bowel obstruction. 1. Sepsis: Blood cultures positive for Escherichia coli on 10/14. Repeat blood cultures negative 224 hours. - Likely cholangitis given ultrasound - ID consult placed recc cont cefepime and flagyl (levaquin d/c) 2. Small bowel obstruction: See imaging above. Status post NG tube placement. -Surgical history includes: ERCP October 2015 due to obstructive disease, comp dictated by duodenal perforation, status post gastric jejunostomy. November 2015) nephrotic abscess, right hydronephrosis requiring ureteral stent placement. Subsequent removed. Other abdominal surgeries include bladder lift, cholecystectomy, and hysterectomy. - Overall obstruction seems to be improving. She is being followed by general surgery & GI. - Bile duct drainage (PTC) tube placed 10/15 by IR (question is if she needs to remain in hospital with this or if she can be d/c and have it pulled as an outpatient in a few weeks) 3. Transaminitis: See above Evaluated by PT recommends home with home health. Discharge Planning DC pending negative blood cultures for 48 hours. ID consult is also pending. Appreciate recommendations on antibiotics upon discharge given patient's multiple allergies. Plan also must be in place regarding her bile duct drainage that was placed yest. (Dipika Stratton MD R3) Dipika Stratton MD R3 Oct 16, 2016 15:11 Sarah Nieto MD Oct 16, 2016 18:15
[2016-10-16] MEDS ORDERED: POTASSIUM CHLORIDE 10 MEQ CONTROLLED RELEASE TAB PO ONE (16:15)
[2016-10-16] MEDS ORDERED: POTASSIUM CHLOR 20 MEQ PREMIX 100 ML IV ONE (16:15)
[2016-10-17] VITALS (8 sets, daily range): BP systolic 113–155; BP diastolic 56–74; PULSE 76–95; RESP 12–18; TEMP 98–99.1; O2SAT 92–98
[2016-10-17] MEDS: SODIUM CHLOR 0.9% 1000 ML INJ 1,000 ML IV SCH ×3 (03:00→23:00)
[2016-10-17] MEDS: CEFEPIME INJ 2,000 MG in SODIUM CHLORIDE 0.9% INJ 100 ML IV SCH ×3 (06:12→23:34)
[2016-10-17] MEDS: ENOXAPARIN SODIUM 40 MG/0.4 ML SYRINGE SQ SCH (08:47)
[2016-10-17] MEDS: metroNIDAZOLE 500 MG INJ 100 ML IV SCH ×3 (08:48→18:29)
[2016-10-17] MEDS: SODIUM CHLORIDE 0.9% FLUSH 5 ML FLUSH FLUSH SCH ×2 (08:48→21:02)
[2016-10-17] MEDS: PANTOPRAZOLE SODIUM 40 MG VIAL IV PUSH SCH (08:48)
--- NOTE | 2016-10-17 09:31 | HHI.PR ---
Subjective Remarks Patient seen and examined this morning. There were no overnight events. Her vitals are stable and she is afebrile. Tolerating full liquid diet: chicken broth and jello. Her children are at bedside and state their mother is doing better this am, want to know when she can come home. Denies abdominal pain, N, or V. (Dipika Stratton MD R3) Objective Vital Signs Date Time Temp Pulse Resp B/P Pulse Ox O2 Delivery O2 Flow Rate FiO2 10/17/16 08:00 98.1 92 12 113/56 95 10/17/16 04:00 98.0 86 18 129/64 98 10/17/16 00:00 98.5 76 18 135/63 97 10/16/16 20:00 98.9 85 18 121/64 98 10/16/16 20:00 Room Air 10/16/16 16:00 98.9 95 24 103/63 95 10/16/16 12:00 98.4 85 20 112/56 96 I/O 10/16/16 10/16/16 10/16/16 10/17/16 10/17/16 10/17/16 07:00 15:00 23:00 07:00 15:00 23:00 Intake Total 1248 ml 829 ml 778 ml Output Total 500 ml 1050 ml 175 ml Balance 748 ml -221 ml 778 ml -175 ml Intake Oral 0 ml 10 ml IV Total 1248 ml 819 ml 778 ml Output Urine Total 500 ml 1000 ml Drainage Total 0 ml 50 ml 175 ml # Voids 1 5 # Bowel Movements 0 1 1 (Dipika Stratton MD R3) Result Diagram: 10/16/1629 10/16/1629 Imaging Last Impressions Liver Ultrasound 10/14/16 0000 Signed Impressions: Service Date/Time: October 18:14 - CONCLUSION: Distended common bile duct similar to the recent CT. Silastic stent removed in the interim. I'm unsure whether it was replaced; a new one is not convincingly demonstrated. No other abnormality demonstrated. Sher Burrell MD Chest X-Ray 10/14/16 0000 Signed Impressions: Service Date/Time: October 16:07 - CONCLUSION: 1. Subsegmental basilar airspace disease. No effusion or pneumothorax. Colin Haines MD Abdomen X-Ray 10/14/16 0000 Signed Impressions: Service Date/Time: October 13:32 - CONCLUSION: No evidence of acute process. Status post removal of nasogastric tube and internal biliary stent. Angel Ferro MD Abdomen/Pelvis CT 10/11/16 1853 Signed Impressions: Service Date/Time: Tuesday, October 11, 2016 20:29 - CONCLUSION: 1. Acute small bowel obstruction at the level of the mid ileum within the central to right pelvic cavity. I don't see a mass. 2. Silastic biliary stent again noted, potentially partly occluded as the biliary tree appears slightly more prominent than on the prior. Please correlate clinically and serologically. Sher Burrell MD Objective Remarks GENERAL: laying down in bed. alert, oriented. appears comfortable. SKIN: Warm and dry. HEAD: Normocephalic. EYES: No scleral icterus. No injection or drainage. NECK: Supple, trachea midline. No JVD. CARDIOVASCULAR: Regular rate and rhythm without murmurs, gallops, or rubs. RESPIRATORY: Breath sounds equal bilaterally. No accessory muscle use. GASTROINTESTINAL: Abdomen nontender. No rebound or guarding. Soft. Multiple healed abdominal incisions. Bloody material from biliary drain, less from yesterday. MUSCULOSKELETAL: No cyanosis, or edema. BACK: Nontender without obvious deformity. (Dipika Stratton MD R3) A/P Assessment and Plan 66-year-old female patient admitted to [facility] for sepsis and bowel obstruction. 1. Sepsis: Blood cultures positive for Escherichia coli on 10/14. Repeat blood cultures negative 224 hours. - Likely cholangitis given ultrasound - ID consult placed recc cont cefepime and flagyl (levaquin d/c) - cultures should result today for 48 hrs 2. Small bowel obstruction: See imaging above. Status post NG tube placement. -Surgical history includes: ERCP October 2015 due to obstructive disease, comp dictated by duodenal perforation, status post gastric jejunostomy. November 2015) nephrotic abscess, right hydronephrosis requiring ureteral stent placement. Subsequent removed. Other abdominal surgeries include bladder lift, cholecystectomy, and hysterectomy. - Overall obstruction seems to be improving. She is being followed by general surgery & GI. - Bile duct drainage (PTC) tube placed 10/15 by IR (question is if she needs to remain in hospital with this or if she can be d/c and have it pulled as an outpatient in a few weeks) 3. Transaminitis: See above Evaluated by PT recommends home with home health. Discharge Planning DC pending: ID recommendations for abx on discharge, if there are any needed, if so for how long. GI & surgery disposition on biliary drain. (Dipika Stratton MD R3) Dipika Stratton MD R3 Oct 17, 2016 09:31 Sarah Nieto MD Oct 17, 2016 15:51
--- NOTE | 2016-10-17 12:57 | RADRPT ---
EXAM DATE/TIME: 10/15/2016 17:14 [place] COMPARISON: No previous studies available for comparison. INDICATIONS : Patient with suspected cholangitis, abdominal pain. MEDICAL HISTORY : Hydronephrosis, right perinephric abscess Duodenal perforation SURGICAL HISTORY : ERCP Bladder lift Cholecystectomy Hysterectomy ENCOUNTER: Initial ACUITY: 3 days PAIN SCORE: 8/10 LOCATION: Right upper quadrant FLUORO TIME: 8.7 minutes IMAGE SERIES: 4 SEDATION TIME: 30 minutes CONTRAST: 30 cc Omnipaque (iohexol) 350 MEDICATION(S): 1.) 3 mg midazolam (Versed) IV 2.) 150 mcg fentanyl (Sublimaze) IV DEVICE(S): 1.) 8 [place] internal/external biliary drain PROCEDURE : 1. Ultrasound guided puncture of the biliary tree. 2. Percutaneous antegrade cholangiogram. 3. Biliary stent placement. 4. Conscious sedation with continuous EKG and oximetry monitoring. The risks, benefits and alternatives to the procedure were explained and verbal and written consent w as obtained. The site was prepped in sterile fashion. Full sterile technique was used, including ca p, mask, sterile gloves and gown and a large sterile sheet. Hand hygiene and 2% chlorhexidine and/or betadine/alcohol prep was utilized per protocol for cutaneous antisepsis. The skin and subcutaneous tissues were infiltrated with local anesthetic solution. With ultrasound and fluoroscopic guidance the biliary tree was punctured with a 22 gauge Chiba needle and the biliary tree was opacified. An Accustick set was used to gain access to the biliary tree and a guidewire was passed into the duodenum. Serial dilatation was performed to accept the prescribed catheter. Injection of positive contrast demonstrates appropriate position. Images demonstrate dilated common bile duct with obstruction distally which may reflect neoplasm. The biliary catheter passed easily through the ampulla. Conscious sedation was performed with the prescribed dosages and duration as above in the presence of an independent trained radiology nurse to assist in the monitoring of the patient. EKG and oximetry remained stable throughout the procedure. The patient tolerated the procedure well and there were n o complications. The patient was sent to post anesthesia recovery in stable condition. CONCLUSION: Uncomplicated biliary stent placement as above. Octavio Covarrubias MD on October 17, 2016 at 12:54 Board Certified Radiologist. This report was verified electronically.
--- NOTE | 2016-10-17 13:10 | HHI.GIFU ---
Subjective Remarks 66 yo female sitting up in chair, in no apparent distress. Eating jello. Has had 2 soft bowel movement today. PTC in place, draining red blood. (Huong Bernardo) Objective Vitals I&O Vital Signs Date Time Temp Pulse Resp B/P Pulse Ox O2 Delivery O2 Flow Rate FiO2 10/17/16 12:00 98.0 92 16 131/66 97 10/17/16 09:56 95 10/17/16 08:00 98.1 92 12 113/56 95 10/17/16 08:00 2.00 10/17/16 04:00 98.0 86 18 129/64 98 10/17/16 00:00 98.5 76 18 135/63 97 10/16/16 20:00 98.9 85 18 121/64 98 10/16/16 20:00 Room Air 10/16/16 16:00 98.9 95 24 103/63 95 I/O 10/16/16 10/16/16 10/16/16 10/17/16 10/17/16 10/17/16 07:00 15:00 23:00 07:00 15:00 23:00 Intake Total 1248 ml 829 ml 778 ml Output Total 500 ml 1050 ml 175 ml Balance 748 ml -221 ml 778 ml -175 ml Intake Oral 0 ml 10 ml IV Total 1248 ml 819 ml 778 ml Output Urine Total 500 ml 1000 ml Drainage Total 0 ml 50 ml 175 ml # Voids 1 5 # Bowel Movements 0 1 1 Laboratory Date/Time Procedure Status Source Growth 10/15/16 21:42 Aerobic Blood Culture - Preliminary Resulted Blood Peripheral NO GROWTH IN 2 DAYS 10/15/16 21:42 Anaerobic Blood Culture - Preliminary Resulted Blood Peripheral NO GROWTH IN 2 DAYS 10/14/16 16:00 Aerobic Blood Culture - Final Complete Blood Peripheral Escherichia Coli 10/14/16 16:00 Anaerobic Blood Culture - Final Complete Escherichia Coli 10/12/16 19:55 Gastric Occult Blood - Final Complete Gastric GASTROCCULT POSITIVE Imaging Last Impressions Liver Ultrasound 10/14/16 0000 Signed Impressions: Service Date/Time: October 18:14 - CONCLUSION: Distended common bile duct similar to the recent CT. Silastic stent removed in the interim. I'm unsure whether it was replaced; a new one is not convincingly demonstrated. No other abnormality demonstrated. Sher Burrell MD Chest X-Ray 10/14/16 0000 Signed Impressions: Service Date/Time: October 16:07 - CONCLUSION: 1. Subsegmental basilar airspace disease. No effusion or pneumothorax. Colin Haines MD Abdomen X-Ray 10/14/16 0000 Signed Impressions: Service Date/Time: October 13:32 - CONCLUSION: No evidence of acute process. Status post removal of nasogastric tube and internal biliary stent. Angel Ferro MD Abdomen/Pelvis CT 10/11/16 1853 Signed Impressions: Service Date/Time: Tuesday, October 11, 2016 20:29 - CONCLUSION: 1. Acute small bowel obstruction at the level of the mid ileum within the central to right pelvic cavity. I don't see a mass. 2. Silastic biliary stent again noted, potentially partly occluded as the biliary tree appears slightly more prominent than on the prior. Please correlate clinically and serologically. Sher Burrell MD Physical Exam HEENT: PERRLA. Normocephalic; atraumatic; no jaundice. CHEST: CTA CARDIAC: RRR. ABDOMEN: Soft, mildly bloated, no hepatosplenomegaly; bowel sounds are present x 4 quadrants. EXTREMITIES: No clubbing, cyanosis, or edema. SKIN: Normal; no rash; no jaundice. [employer]: No focal deficits; A&O x3. (Huong Bernardo) Assessment and Plan Plan ASSESSMENT: - Biliary obstruction with elevated LFTs. Pt has hx of biliary stricture and has stent in place. ERCP (09/07/15) Mid-bile duct, 3 cm long, stricture, suspicious for malignancy. S/P sphincterotomy, biliary dilatation, brush cytology (pathology negative for malignancy), and stenting of the above mentioned stricture. She still has stent in place, as she was noted to have perforation during EUS and subsequently underwent emergent laparotomy with repair of perforated duodenal ulcer, gastrojejunostomy with Dr. Alonzo at . The patient reports that she was told by Dr. Alonzo that she cannot have any further endoscopic procedures secondary to the location of her prior perforation. Abdomen/Pelvis CT (10/11/16)-----> 1. Acute small bowel obstruction at the level of the mid ileum within the central to right pelvic cavity. I don't see a mass. 2. Silastic biliary stent again noted, potentially partly occluded as the biliary tree appears slightly more prominent than on the prior. Please correlate clinically and serologically. S/P attempted ERCP with stent removal (10/14/16). Blood cultures + GNR. She is on Cefepime, Levaquin, Flagyl. S/P biliary stent and drainage placement on 10/15/16. - Elevated LFTs related to above. - SBO with hx of perforated duodenal ulcer, s/p repair, gastrojejunostomy. Resolved. - Patient had gastrojejunostomy, in this case, anatomy might be altered and might not be able to have ERCP/stent Plan: - Clear liquid diet - Monitor labs - Cont. Levaquin - Cont. Flagyl - Cont. Cefepime - Cont. PPI - Cont. IVF - GS following - Supportive care - Further recommendations to follow based on results of above Patient seen and examined by Dr. Mercado and myself and this note is written on his behalf. (Huong Bernardo) Physician Comments Seen and examined with auto parts counter person, s/p PTC, monitor labs. Surgery on case discussed with Dr. Gamino. Advance diet slowly. (Rolando Mercado MD) Huong Bernardo Oct 17, 2016 13:10 Rolando Mercado MD Oct 17, 2016 15:16
--- NOTE | 2016-10-17 16:28 | HHI.PR ---
Subjective Subjective Notes Has pain at PTC site Objective Vitals/I&O Vital Signs Date Time Temp Pulse Resp B/P Pulse Ox O2 Delivery O2 Flow Rate FiO2 10/17/16 16:00 98.3 93 16 145/74 96 10/17/16 08:00 2.00 10/16/16 20:00 Room Air 10/14/16 20:15 21 Labs Date/Time Procedure Status Source Growth 10/15/16 21:42 Aerobic Blood Culture - Preliminary Resulted Blood Peripheral NO GROWTH IN 2 DAYS 10/15/16 21:42 Anaerobic Blood Culture - Preliminary Resulted Blood Peripheral NO GROWTH IN 2 DAYS 10/14/16 16:00 Aerobic Blood Culture - Final Complete Blood Peripheral Escherichia Coli 10/14/16 16:00 Anaerobic Blood Culture - Final Complete Escherichia Coli 10/12/16 19:55 Gastric Occult Blood - Final Complete Gastric GASTROCCULT POSITIVE Lungs: Clear Abdomen: Non-distended, Non-tender A/P Assessment and Plan S/P PTC with partial SBO; Given most recent PTC report, and after discussing with Dr. Mercado, there is some concern that persistent stricture is due to neoplasm as an etiology. He will contact IR to see if they can bx bile duct at stricture. Will follow. Bran Gamino MD Oct 17, 2016 16:28
[2016-10-17 16:51] LABS: ANION GAP 9 MEQ/L (5-15); AST (GOT) 20 U/L (15-37); BICARBONATE 30.8 MEQ/L (21.0-32.0); BLOOD UREA NITROGEN 3 MG/DL (7-18); CHLORIDE 99 MEQ/L (98-107); GLOMERULAR FILTRATION RATE 91 ML/MIN (>89); POTASSIUM 3.2 MEQ/L (3.5-5.1); SODIUM (NA) 139 MEQ/L (136-145)
[2016-10-17 16:54] LABS: ALKALINE PHOSPHATASE 286 U/L (45-117); ALT (GPT) 93 U/L (10-53); TOTAL BILIRUBIN ADULT 1.2 MG/DL (0.2-1.0)
[2016-10-17] MEDS: ONDANSETRON HCL 4 MG/2 ML VIAL IVP PRN (21:01)
[2016-10-17] MEDS: POTASSIUM CHLOR 20 MEQ PREMIX 100 ML IV SCH ×2 (21:02→23:30)
[2016-10-18] VITALS (11 sets, daily range): BP systolic 122–160; BP diastolic 69–86; PULSE 73–89; RESP 14–20; TEMP 97.5–99.1; O2SAT 91–98
[2016-10-18] MEDS: MORPHINE SULFATE 4 MG/ML INJ IV PUSH PRN ×5 (01:12→20:55)
[2016-10-18] MEDS: CEFEPIME INJ 2,000 MG in SODIUM CHLORIDE 0.9% INJ 100 ML IV SCH ×3 (06:04→22:36)
[2016-10-18] MEDS: SODIUM CHLOR 0.9% 1000 ML INJ 1,000 ML IV SCH ×2 (09:00→17:31)
[2016-10-18] MEDS: PANTOPRAZOLE SODIUM 40 MG VIAL IV PUSH SCH (10:01)
[2016-10-18] MEDS: metroNIDAZOLE 500 MG INJ 100 ML IV SCH ×3 (10:01→16:00)
[2016-10-18] MEDS: SODIUM CHLORIDE 0.9% FLUSH 5 ML FLUSH FLUSH SCH ×2 (10:11→20:42)
--- NOTE | 2016-10-18 10:29 | HHI.PR ---
Subjective Remarks resting comfortably with no distress. has some abdominal pain but with no emesis. afebrile. family at the bedside. Objective Vitals Vital Signs Date Time Temp Pulse Resp B/P Pulse Ox O2 Delivery O2 Flow Rate FiO2 10/18/16 08:00 80 10/18/16 08:00 98.2 88 18 128/70 92 10/18/16 04:00 98.1 89 18 136/71 91 10/18/16 00:00 98.2 87 18 122/75 91 10/17/16 21:40 Room Air 10/17/16 20:00 99.1 90 18 155/73 92 10/17/16 19:56 85 10/17/16 16:00 98.3 93 16 145/74 96 10/17/16 12:00 98.0 92 16 131/66 97 I/O 10/17/16 10/17/16 10/17/16 10/18/16 10/18/16 10/18/16 07:00 15:00 23:00 07:00 15:00 23:00 Intake Total 778 ml 400 ml 772 ml 742 ml Output Total 175 ml 0 ml Balance 778 ml 225 ml 772 ml 742 ml Intake Oral 400 ml 120 ml 0 ml IV Total 778 ml 652 ml 742 ml Output Urine Total 0 ml Drainage Total 175 ml # Voids 5 5 2 # Bowel Movements 1 1 1 Result Diagram: 10/16/16 0529 10/17/16 1610 Imaging Last Impressions Liver Ultrasound 10/14/16 0000 Signed Impressions: Service Date/Time: October 18:14 - CONCLUSION: Distended common bile duct similar to the recent CT. Silastic stent removed in the interim. I'm unsure whether it was replaced; a new one is not convincingly demonstrated. No other abnormality demonstrated. Sher Burrell MD Chest X-Ray 10/14/16 0000 Signed Impressions: Service Date/Time: October 16:07 - CONCLUSION: 1. Subsegmental basilar airspace disease. No effusion or pneumothorax. Cloin Haines MD Abdomen X-Ray 10/14/16 0000 Signed Impressions: Service Date/Time: October 13:32 - CONCLUSION: No evidence of acute process. Status post removal of nasogastric tube and internal biliary stent. Angel Ferro MD Abdomen/Pelvis CT 10/11/16 0443 Signed Impressions: Service Date/Time: Tuesday, October 11, 2016 20:29 - CONCLUSION: 1. Acute small bowel obstruction at the level of the mid ileum within the central to right pelvic cavity. I don't see a mass. 2. Silastic biliary stent again noted, potentially partly occluded as the biliary tree appears slightly more prominent than on the prior. Please correlate clinically and serologically. Sher Burrell MD Objective Remarks GENERAL: This is a well-nourished, well-developed patient, in no apparent distress. CARDIOVASCULAR: Regular rate and regular rhythm without murmurs, gallops, or rubs. RESPIRATORY: Clear to auscultation. Breath sounds equal bilaterally. No wheezes , rales, or rhonchi. GASTROINTESTINAL: Abdomen soft, non-tender, nondistended. Normal, active bowel sounds MUSCULOSKELETAL: Extremities without clubbing, cyanosis, or edema. NEURO: Alert & Oriented x4 to person, place, time, situation. Moves all ext x4 Procedures biliary stent removal / PTC Medications and IVs Current Medications Morphine Sulfate (Morphine Inj) 4 mg ONCE ONCE IV PUSH Last administered on 19:35; Start 10/11/16 at 19:00; Stop 10/11/16 at 19:01; Status DC Ondansetron HCl 4 mg 4 mg ONCE ONCE IVP Last administered on 10/11/16 19:35; Start 10/11/16 at 19:00; Stop 10/11/16 at 19:01; Status DC Sodium Chloride (NS 1000 ml Inj) 1,000 ml @ 1,000 mls/hr Q1H IV Last administered on 10/11/16 19:35; Start 10/11/16 at 18:53; Stop 10/11/16 at 19:52; Status DC IV Flush (NS Flush) 2 ml UNSCH PRN IVF FLUSH AFTER USING IV ACCESS; Start at 19:00; Stop 10/11/16 at 21:25; Status DC Morphine Sulfate (Morphine Inj) 4 mg ONCE ONCE IV PUSH Last administered on 21:06; Start 10/11/16 at 20:15; Stop 10/11/16 at 20:16; Status DC Iohexol 91 ml 91 ml STK-MED ONCE IV Last administered on 10/11/16 20:18; Start 10/11/16 at 20:18; Stop 10/11/16 at 20:27; Status DC Sodium Chloride (NS 1000 ml Inj) 1,000 ml @ 150 mls/hr Q6H40M IV Last administered on 10/15/16 02:28; Start 10/11/16 at 21:21; Stop 10/15/16 at 20:31 ; Status DC IV Flush (NS Flush) 2 ml UNSCH PRN FLUSH FLUSH AFTER USING IV ACCESS; Start 10/11/16 at 21:30 IV Flush (NS Flush) 2 ml BID FLUSH Last administered on 10/18/16 10:11; Start 10/12/16 at 09:00 Ondansetron HCl (Zofran Inj) 4 mg Q6H PRN IVP NAUSEA OR VOMITING Last administered on 10/17/16 21:01; Start 10/11/16 at 21:30 Naloxone HCl (Narcan Inj) 0.4 mg UNSCH PRN IV SEE LABEL COMMENTS; Start at 21:30 Morphine Sulfate (Morphine Inj) 2 mg Q3H PRN IV PUSH pain >5 Last administered on 10/14/16 17:54; Start 10/11/16 at 21:30; Stop 10/14/16 at 19:01; Status DC Ondansetron HCl (Zofran Inj) 4 mg ONCE ONCE IV PUSH Last administered on 04:39; Start 10/12/16 at 04:00; Stop 10/12/16 at 04:01; Status DC Phenol (Chloraseptic [place]) 2 spray ONCE ONCE OROPHARYNG Last administered on 10/12/16 05:03; Start 10/12/16 at 04:00; Stop 10/12/16 at 04:01; Status DC Pantoprazole Sodium (Protonix Inj) 40 mg Q24H IV PUSH Last administered on 10/18 10:01; Start 10/12/16 at 09:00 Enoxaparin Sodium (Lovenox Inj) 40 mg Q24H SQ Last administered on 10/17/16 08 :47; Start 10/12/16 at 09:00; Status Hold Lidocaine HCl (Xylocaine 2% Viscous) 15 ml Q4H PRN SWISH-SWAL SORE THROAT Last administered on 10/13/16 18:36; Start 10/12/16 at 20:00 Racepinephrine (Racepinephrine 2.25% Neb) 0.5 ml STK-MED ONCE .ROUTE Last administered on 10/13/16 16:28; Start 10/13/16 at 16:28; Stop 10/13/16 at 16:29; Status DC Fentanyl Citrate (fentaNYL INJ) 100 mcg STK-MED ONCE .ROUTE ; Start 10/13/16 at 16:34; Stop 10/13/16 at 16:35; Status DC Racepinephrine (Racepinephrine 2.25% Neb) 0.5 ml ONCE ONCE NEB ; Start 10/13/16 at 17:00; Stop 10/13/16 at 17:01; Status DC Miscellaneous Information ALL NURSING DEPARTME... UNSCH PRN XX SEE LABEL COMMENTS; Start 10/13/16 at 16:26; Stop 10/14/16 at 16:30; Status DC Propofol (Diprivan 200 Mg/20 ml Inj) 200 mg STK-MED ONCE IV ; Start 10/13/16 at 16:00; Stop 10/13/16 at 16:57; Status DC Ondansetron HCl 4 mg 4 mg STK-MED ONCE IV PUSH ; Start 10/13/16 at 12:00; Stop at 08:04; Status DC Sodium Chloride 1,000 ml @ 999 mls/hr BOLUS ONCE IV Last administered on 15:32; Start 10/14/16 at 15:15; Stop 10/14/16 at 16:30; Status DC Metronidazole 100 ml @ 100 mls/hr Q8H IV Last administered on 10/18/16 10:01 ; Start 10/14/16 at 16:00 Levofloxacin/ Dextrose (Levaquin 750 Mg Premix Inj) 150 ml @ 100 mls/hr Q24H IV Last administered on 10/14/16 15:29; Start 10/14/16 at 16:00; Stop 10/15/16 at 19:19; Status DC Acetaminophen (Tylenol) 650 mg Q6HR PRN PO FEVER Last administered on 3/9/17at 15:27; Start 10/14/16 at 16:00 Naloxone HCl (Narcan Inj) 0.4 mg UNSCH PRN IV RESPIRATORY RATE LESS THAN 10; Start 10/14/16 at 19:00; Stop 10/15/16 at 20:27; Status DC Morphine Sulfate (Morphine 1 Mg/ ml PLATINUMSMITH) 30 mg UNSCH IV ; Start 10/14/16 at 19:00 ; Stop 10/15/16 at 20:27; Status DC PLATINUMSMITH Dosage Infused (Pha) 1 1 Q8HR .XX ; Start 10/14/16 at 22:00; Stop 10/15/16 at 20:27; Status DC Sodium Chloride (NS 1000 ml Inj) 1,000 ml @ 999 mls/hr BOLUS ONCE IV Last administered on 10/14/16 20:52; Start 10/14/16 at 20:15; Stop 10/14/16 at 21:15; Status DC Prochlorperazine Edisylate 10 mg 10 mg ONCE ONCE IM Last administered on 20:50; Start 10/14/16 at 20:45; Stop 10/14/16 at 20:46; Status DC Sodium Chloride 500 ml @ 500 mls/hr BOLUS ONCE IV Last administered on 20:53; Start 10/14/16 at 20:45; Stop 10/14/16 at 21:44; Status DC Sodium Chloride 500 ml @ 500 mls/hr BOLUS ONCE IV Last administered on 23:32; Start 10/14/16 at 23:15; Stop 10/15/16 at 00:14; Status DC Cefepime HCl/ Sodium Chloride (Maxipime Inj/NS Inj) 100 ml @ 200 mls/hr Q8H IV Last administered on 10/18/16 06:04; Start 10/15/16 at 15:00 Diphenhydramine HCl (Benadryl) 25 mg Q4H PRN PO ALLERGIC REACTIONS TO CEFEPIME ; Start 10/15/16 at 13:45 Acetaminophen (Ofirmev Inj) 1,000 mg Q8H PRN IV headache; Start 10/15/16 at 17: 00; Stop 10/16/16 at 01:01; Status DC Midazolam HCl (Versed Inj) 5 mg STK-MED ONCE .ROUTE Last administered on 17:16; Start 10/15/16 at 17:16; Stop 10/15/16 at 17:17; Status DC Fentanyl Citrate (fentaNYL INJ) 250 mcg STK-MED ONCE .ROUTE Last administered on 10/15/16 17:16; Start 10/15/16 at 17:16; Stop 10/15/16 at 17:17; Status DC Iohexol (Omnipaque 350 Inj) 30 ml STK-MED ONCE .XX Last administered on 18:04; Start 10/15/16 at 18:04; Stop 10/15/16 at 18:05; Status DC Morphine Sulfate (Morphine Inj) 1 mg Q3H PRN IV PUSH PAIN 1-5 Last administered on 10/18/16 10:02; Start 10/15/16 at 20:30 Morphine Sulfate 2 mg 2 mg Q3H PRN IV PUSH PAIN 6-10 Last administered on 01:12; Start 10/15/16 at 20:30 Sodium Chloride (NS 1000 ml Inj) 1,000 ml @ 100 mls/hr Q10H IV Last administered on 10/18/16 09:00; Start 10/15/16 at 21:00 Potassium Chloride 30 meq 30 meq ONCE ONCE PO Last administered on 10/16/16 18:21; Start 10/16/16 at 16:15; Stop 10/16/16 at 16:16; Status DC Potassium Chloride 100 ml @ 50 mls/hr BOLUS ONCE IV Last administered on 10/16 18:20; Start 10/16/16 at 16:15; Stop 10/16/16 at 18:14; Status DC Potassium Chloride (KCl 20 Meq Premix Inj) 100 ml @ 50 mls/hr Q2H IV Last administered on 10/17/16 23:30; Start 10/17/16 at 16:00; Stop 10/17/16 at 19:59 ; Status DC A/P Assessment and Plan A/P 1. Sepsis: Blood cultures positive for Escherichia coli on 10/14. Repeat blood cultures negative so far. - Likely cholangitis given ultrasound - ID consult placed recc cont cefepime and flagyl 2. Small bowel obstruction: See imaging above. -Surgical history includes: ERCP October 2015 due to obstructive disease, comp dictated by duodenal perforation, status post gastric jejunostomy. November 2015) nephrotic abscess, right hydronephrosis requiring ureteral stent placement. Subsequent removed. Other abdominal surgeries include bladder lift, cholecystectomy, and hysterectomy. - Overall obstruction seems to be improving. She is being followed by general surgery & GI. - Bile duct drainage (PTC) tube placed 10/15 by IR. -questionable neoplasm due to persistent stricture; IR consulted for biopsy. 3. Transaminitis: See above Discharge Planning not ready for discharge yet. Christopher Fields MD Oct 18, 2016 10:29
[2016-10-18] MEDS ORDERED: MIDAZOLAM HCL 5 MG/5 ML VIAL ONE (11:59)
[2016-10-18] MEDS ORDERED: fentaNYL CITRATE 250 MCG/5 ML AMP ONE (12:00)
[2016-10-18] MEDS: ONDANSETRON HCL 4 MG/2 ML VIAL IVP PRN ×2 (12:01→20:51)
--- NOTE | 2016-10-18 12:54 | PD.RAD ---
Post Procedure Progress Note Pre Procedure Diagnosis: (1) Obstructive jaundice Post Procedure Diagnosis: (1) Obstructive jaundice Procedure Date: Oct 18, 2016 Supervising Radiologist: Js Lerner JR Proceduralist/Assist: Lashay Villareal, RT(R), Dipika Mckeon RT(R)() Anesthesia: Conscious Sedation Plan of Activity Patient to Unit: ROPU Patient Condition: Good Additional Comments: Cholangiogram shows biliary drain traversing a small peripheral hepatic arterial branch. Obstruction at distal CBD at pancreatic head level. Biopsies taken at this area. New int/ext biliary drained placed with side holes distal to the crossing of the artery. This should allow thrombosis of that branch. If hemobilia persists may need to stop all anticoagulation and possibly due an embolization. See PACS Report for procedural detail/treatment Jr Yann.,Js Prescott MD Oct 18, 2016 12:54
[2016-10-18] MEDS ORDERED: IOHEXOL 350 MG/ML 50 ML BTL (for RAD DIAG) ONE (13:07)
--- NOTE | 2016-10-18 16:10 | RADRPT ---
EXAM DATE/TIME: 10/18/2016 10:12 [facility] COMPARISON: No previous studies available for comparison. INDICATIONS : Patient is in need of a cholangiogram for evaluation and access for biliary biopsy and change of drai nage catheter. MEDICAL HISTORY : History of acute cholecystitis, small bowel obstruction, perforated bowel, colitis, osteoarthritis, a nemia, intra-abdominal abscess, right perinephric abscess, right renal hydronephrosis. SURGICAL HISTORY : History of ercp, biliary stent placement, intra-abdominal abscess drainage, right ureteral stent plac ement, bladder lift, cholecystectomy, hysterectomy. ENCOUNTER: Subsequent ACUITY: 4 - 6 days PAIN SCORE: 0/10 FLUORO TIME: 5.8 minutes IMAGE SERIES: 5 SEDATION TIME: 45 minutes CONTRAST: 25 cc Omnipaque (iohexol) 350 MEDICATION(S): 1.) 2.5 mg midazolam (Versed) IV 2.) 150 mcg fentanyl (Sublimaze) IV 3.) 4 mg ondansetron (Zofran) IV 1.) 8fr/35cm biliary drain - Flexima PROCEDURE : 1. Cholangiogram through an existing catheter 2. Tissue biopsy of the common bile duct 3. Conscious sedation with continuous monitoring The risks, benefits and alternatives to the procedure were explained and verbal and written consent w as obtained. The site was prepped in sterile fashion. Full sterile technique was used, including ca p, mask, sterile gloves and gown and a large sterile sheet. Hand hygiene and 2% chlorhexidine and/or betadine/alcohol prep was utilized per protocol for cutaneous antisepsis. The skin and subcutaneous tissues were infiltrated with local anesthetic solution. <<Injection of contrast through the existing internal/external biliary drainage catheter was performe d. This quickly opacified a peripheral branch of the hepatic artery. The most proximal sidehole of th e existing catheter is within the lumen of that vessel. The existing catheter was removed over wire a nd a 6 [place] sheath passed [id number] and positioned within the common bile duct. Injection of co ntrast shows occlusion of the common bile duct at the level of the pancreatic head approaching the le stacie of the ampulla. This area was targeted during the biopsy. Filling defects throughout the intrahep atic biliary system is consistent with thrombus. Tissue forceps were utilized to obtain 4 specimens o f the occluded segment of the common bile duct. These were placed in formalin. A repeat cholangiogram was performed to exclude extravasation of contrast. A new internal/external biliary drainage cathete r was placed with the most proximal sidehole positioned away from the traversal of the hepatic artery . The catheter was sutured in place using 2-0 silk suture.> CONCLUSION: 1. Biopsy of the occluded segment of the common bile duct. 2. The biliary drain traverses a peripheral hepatic arterial branch. A new catheter was repositioned so the side holes were not within the artery. All anticoagulation will be held and the hepatic arteri al branch should thrombose on its own. We will see a clearing of the bile if this occurs. If hemobili a persists an angiogram with possible embolization may be needed. Js Lerner Jr., MD on October 18, 2016 at 15:31 Board Certified Radiologist. This report was verified electronically.
--- NOTE | 2016-10-18 16:51 | HHI.IDPN ---
Subjective Subjective Remarks co severe abd pain and 2 liquid BMs in thelast 24 hrs no fever repeat BC negative Sp procedure today Report reviewed: Cholangiogram shows biliary drain traversing a small peripheral hepatic arterial branch. Obstruction at distal CBD at pancreatic head level. Biopsies taken at this area. New int/ext biliary drained placed Antibiotics cefepime flagyl Allergies: Coded Allergies: Vancomycin (Verified Allergy, Intermediate, RASH, FLUSHING OF FACE AND RASH TO LEGS, 10/11/16) Penicillin (Verified Allergy, Unknown, 10/11/16) told when she was a child Objective . Vital Signs Date Time Temp Pulse Resp B/P Pulse Ox O2 Delivery O2 Flow Rate FiO2 10/18/16 16:00 98.1 80 18 156/86 93 10/18/16 13:45 73 16 160/86 95 10/18/16 13:30 77 16 156/81 95 10/18/16 13:15 77 16 149/86 96 10/18/16 12:55 97.5 73 20 137/83 95 10/18/16 12:00 97.7 76 14 141/69 98 10/18/16 08:00 80 10/18/16 08:00 94 Room Air 10/18/16 08:00 98.2 88 18 128/70 92 10/18/16 04:00 98.1 89 18 136/71 91 10/18/16 00:00 98.2 87 18 122/75 91 10/17/16 21:40 Room Air 10/17/16 20:00 99.1 90 18 155/73 92 10/17/16 19:56 85 10/17/16 10/17/16 10/18/16 15:00 23:00 07:00 Intake Total 400 ml 772 ml 742 ml Output Total 175 ml 0 ml Balance 225 ml 772 ml 742 ml Intake Oral 400 ml 120 ml 0 ml IV Total 652 ml 742 ml Output Urine Total 0 ml Drainage Total 175 ml # Voids 5 2 # Bowel Movements 1 1 1 . Laboratory Tests Test 10/17/16 16:10 Sodium Level 139 MEQ/L Potassium Level 3.2 MEQ/L Chloride Level 99 MEQ/L Carbon Dioxide Level 30.8 MEQ/L Anion Gap 9 MEQ/L Blood Urea Nitrogen 3 MG/DL Creatinine 0.65 MG/DL Estimat Glomerular Filtration 91 ML/MIN Rate Random Glucose 102 MG/DL Calcium Level 8.2 MG/DL Total Bilirubin 1.2 MG/DL Aspartate Amino Transf 20 U/L (AST/SGOT) Alanine Aminotransferase 93 U/L (ALT/SGPT) Alkaline Phosphatase 286 U/L Total Protein 6.2 GM/DL Albumin 2.1 GM/DL Microbiology Date/Time Procedure Status Source Growth 10/15/16 20:25 Aerobic Blood Culture - Preliminary Resulted Blood Peripheral NO GROWTH IN 3 DAYS 10/15/16 20:25 Anaerobic Blood Culture - Final Resulted Blood Peripheral QNS - SEE AEROBE REPORT 10/15/16 21:42 Aerobic Blood Culture - Preliminary Resulted Blood Peripheral NO GROWTH IN 3 DAYS 10/15/16 21:42 Anaerobic Blood Culture - Preliminary Resulted Blood Peripheral NO GROWTH IN 3 DAYS Imaging Last Impressions Liver Ultrasound 10/14/16 0000 Signed Impressions: Service Date/Time: October 18:14 - CONCLUSION: Distended common bile duct similar to the recent CT. Silastic stent removed in the interim. I'm unsure whether it was replaced; a new one is not convincingly demonstrated. No other abnormality demonstrated. Sher Burrell MD Chest X-Ray 10/14/16 0000 Signed Impressions: Service Date/Time: October 16:07 - CONCLUSION: 1. Subsegmental basilar airspace disease. No effusion or pneumothorax. Colin Haines MD Abdomen X-Ray 10/14/16 0000 Signed Impressions: Service Date/Time: October 13:32 - CONCLUSION: No evidence of acute process. Status post removal of nasogastric tube and internal biliary stent. Angel Ferro MD Abdomen/Pelvis CT 10/11/16 1853 Signed Impressions: Service Date/Time: Tuesday, October 11, 2016 20:29 - CONCLUSION: 1. Acute small bowel obstruction at the level of the mid ileum within the central to right pelvic cavity. I don't see a mass. 2. Silastic biliary stent again noted, potentially partly occluded as the biliary tree appears slightly more prominent than on the prior. Please correlate clinically and serologically. Sher Burrell MD Physical Exam CONSTITUTIONAL/GENERAL: This is an adequately nourished patient, in apparent distress 2/2 abd pain TUBES/LINES/DRAINS: SKIN: No jaundice, rashes, or lesions. Skin temperature appropriate. Not diaphoretic. EYES: Pupils equal and round and reactive. Extraocular motions intact. Minimal scleral icterus. No injection or drainage. Fundi not examined. ENT: Hearing grossly normal. Nose without bleeding or purulent drainage. Throat without visible erythema, exudates, masses, or lesions. NECK: Trachea midline. Supple, nontender. No palpable thyroid enlargement or nodularity. CARDIOVASCULAR: Regular rate and rhythm without murmurs, gallops, or rubs. No JVD. Peripheral pulses symmetric. RESPIRATORY/CHEST: Symmetric, unlabored respirations. Clear to auscultation. Breath sounds equal bilaterally. No wheezes, rales, or rhonchi. GASTROINTESTINAL: Abdomen soft, markedly tender to palpation diffusely, moderately distended. Biliary drain in place with dark bile No hepato-splenomegaly, or palpable masses. + guarding. Bowel sounds present. GENITOURINARY: Without palpable bladder distension. MUSCULOSKELETAL: Extremities without clubbing, cyanosis, or edema. NEUROLOGICAL: Lethargic, but easily arousable. Motor and sensory grossly within normal limits. Follows commands. Normal speech. Moves all extremities. PSYCHIATRIC: No obvious anxiety/depression. no apparent hallucinations or other psychotic thought process. Assessment & Plan Remarks obstructive jaundice sp another biliary drain placement today Biliary sepsis stanley S E.coli h/o PCN allergic reaction Severe abd pain and new onset abx -associatred diarrhea cont cefepime cont flagyl chk stool for C.diff wd family @ b/s Meenu Thurman MD Oct 18, 2016 16:51
--- NOTE | 2016-10-18 17:20 | HHI.GIFU ---
Subjective Remarks Having alot of abdominal discomfort from procedure today, family at bedside ( Bernadine Paige Susan LAWRENCE) Objective Vitals I&O Vital Signs Date Time Temp Pulse Resp B/P Pulse Ox O2 Delivery O2 Flow Rate FiO2 10/18/16 16:00 98.1 80 18 156/86 93 10/18/16 13:45 73 16 160/86 95 10/18/16 13:30 77 16 156/81 95 10/18/16 13:15 77 16 149/86 96 10/18/16 12:55 97.5 73 20 137/83 95 10/18/16 12:00 97.7 76 14 141/69 98 10/18/16 08:00 80 10/18/16 08:00 94 Room Air 10/18/16 08:00 98.2 88 18 128/70 92 10/18/16 04:00 98.1 89 18 136/71 91 10/18/16 00:00 98.2 87 18 122/75 91 10/17/16 21:40 Room Air 10/17/16 20:00 99.1 90 18 155/73 92 10/17/16 19:56 85 I/O 10/17/16 10/17/16 10/17/16 10/18/16 10/18/16 10/18/16 07:00 15:00 23:00 07:00 15:00 23:00 Intake Total 778 ml 400 ml 772 ml 742 ml 0 ml Output Total 175 ml 0 ml 0 ml Balance 778 ml 225 ml 772 ml 742 ml 0 ml Intake Oral 400 ml 120 ml 0 ml 0 ml IV Total 778 ml 652 ml 742 ml Output Urine Total 0 ml 0 ml Drainage Total 175 ml # Voids 5 5 2 # Bowel Movements 1 1 1 0 Laboratory Date/Time Procedure Status Source Growth 10/15/16 21:42 Aerobic Blood Culture - Preliminary Resulted Blood Peripheral NO GROWTH IN 3 DAYS 10/15/16 21:42 Anaerobic Blood Culture - Preliminary Resulted Blood Peripheral NO GROWTH IN 3 DAYS 10/14/16 16:00 Aerobic Blood Culture - Final Complete Blood Peripheral Escherichia Coli 10/14/16 16:00 Anaerobic Blood Culture - Final Complete Escherichia Coli Imaging Last Impressions Liver Ultrasound 10/14/16 0000 Signed Impressions: Service Date/Time: October 18:14 - CONCLUSION: Distended common bile duct similar to the recent CT. Silastic stent removed in the interim. I'm unsure whether it was replaced; a new one is not convincingly demonstrated. No other abnormality demonstrated. Sher Burrell MD Chest X-Ray 10/14/16 0000 Signed Impressions: Service Date/Time: October 16:07 - CONCLUSION: 1. Subsegmental basilar airspace disease. No effusion or pneumothorax. Colin Haines MD Abdomen X-Ray 10/14/16 0000 Signed Impressions: Service Date/Time: October 13:32 - CONCLUSION: No evidence of acute process. Status post removal of nasogastric tube and internal biliary stent. Angel Ferro MD Abdomen/Pelvis CT 10/11/16 185 Signed Impressions: Service Date/Time: Tuesday, October 11, 2016 20:29 - CONCLUSION: 1. Acute small bowel obstruction at the level of the mid ileum within the central to right pelvic cavity. I don't see a mass. 2. Silastic biliary stent again noted, potentially partly occluded as the biliary tree appears slightly more prominent than on the prior. Please correlate clinically and serologically. Sher Burrell MD Physical Exam HEENT: PERRLA. Normocephalic; atraumatic; no jaundice. CHEST: CTA CARDIAC: RRR. ABDOMEN: Soft, mildly bloated,tender from procedure no hepatosplenomegaly; bowel sounds are present x 4 quadrants. EXTREMITIES: No clubbing, cyanosis, or edema. SKIN: Normal; no rash; no jaundice. HOSPICE CHAPLAIN: No focal deficits; A&O x3. (Bernadine Paige CUTTING TABLE OPERATOR) Assessment and Plan Plan ASSESSMENT: - Biliary obstruction with elevated LFTs. Pt has hx of biliary stricture and has stent in place. ERCP (09/07/15) Mid-bile duct, 3 cm long, stricture, suspicious for malignancy. S/P sphincterotomy, biliary dilatation, brush cytology (pathology negative for malignancy), and stenting of the above mentioned stricture. She still has stent in place, as she was noted to have perforation during EUS and subsequently underwent emergent laparotomy with repair of perforated duodenal ulcer, gastrojejunostomy with Dr. Alonzo at . The patient reports that she was told by Dr. Alonzo that she cannot have any further endoscopic procedures secondary to the location of her prior perforation. Abdomen/Pelvis CT (10/11/16)-----> 1. Acute small bowel obstruction at the level of the mid ileum within the central to right pelvic cavity. I don't see a mass. 2. Silastic biliary stent again noted, potentially partly occluded as the biliary tree appears slightly more prominent than on the prior. Please correlate clinically and serologically. S/P attempted ERCP with stent removal (10/14/16). Blood cultures + GNR. She is on Cefepime, Levaquin, Flagyl. S/P biliary stent and drainage placement on 10/15/16. - Elevated LFTs related to above. - SBO with hx of perforated duodenal ulcer, s/p repair, gastrojejunostomy. Resolved. - Patient had gastrojejunostomy, in this case, anatomy might be altered and might not be able to have ERCP/stent 10/18/16-Had bx of CBD today, having pain upper epigastric area from procedure.Family concerned about nutritional status and long range plans. Plan: - Clear liquid diet - Monitor labs -Check results of Bx - Cont. Levaquin - Cont. Flagyl - Cont. Cefepime - Cont. PPI - Cont. IVF - GS following - Supportive care - Further recommendations to follow based on results of above Patient seen and examined by Dr. Mercado and myself and this note is written on his behalf. (Bernadine Paige) Physician Comments Seen and examined with CUTTING TABLE OPERATOR, Bloody drain in PTC due to PTC drain traversing a intra hepatic artery as per Dr. Lerner IR. CBD biopsy obtained. Monitor labs. Also discussed with Dr. Gamino (Rolando Mercado MD) Bernadine Paige Oct 18, 2016 17:20 Rolando Mercado MD Oct 18, 2016 18:55
[2016-10-19] VITALS (9 sets, daily range): BP systolic 138–159; BP diastolic 73–88; PULSE 79–97; RESP 16–20; TEMP 97.9–98.5; O2SAT 92–98
[2016-10-19] MEDS: SODIUM CHLOR 0.9% 1000 ML INJ 1,000 ML IV SCH ×2 (05:47→15:00)
[2016-10-19] MEDS: CEFEPIME INJ 2,000 MG in SODIUM CHLORIDE 0.9% INJ 100 ML IV SCH ×3 (05:49→22:09)
[2016-10-19] MEDS: metroNIDAZOLE 500 MG INJ 100 ML IV SCH ×4 (08:00→23:11)
[2016-10-19 08:58] LABS: HEMATOCRIT 32.4 % (35.0-46.0)
[2016-10-19] MEDS: SODIUM CHLORIDE 0.9% FLUSH 5 ML FLUSH FLUSH SCH ×2 (09:00→21:00)
[2016-10-19] MEDS: PANTOPRAZOLE SODIUM 40 MG VIAL IV PUSH SCH (09:00)
[2016-10-19 09:30] LABS: ALKALINE PHOSPHATASE 537 U/L (45-117); ALT (GPT) 122 U/L (10-53); ANION GAP 13 MEQ/L (5-15); AST (GOT) 195 U/L (15-37); BICARBONATE 23.7 MEQ/L (21.0-32.0); BLOOD UREA NITROGEN 6 MG/DL (7-18); CHLORIDE 98 MEQ/L (98-107); GLOMERULAR FILTRATION RATE 113 ML/MIN (>89); POTASSIUM 3.2 MEQ/L (3.5-5.1); SODIUM (NA) 135 MEQ/L (136-145); TOTAL BILIRUBIN ADULT 1.1 MG/DL (0.2-1.0)
[2016-10-19 10:49] LABS: C. DIFF EPI 027 PRESUMPTIVE NEGATIVE (NEGATIVE); C. DIFF TOXIN PCR NEGATIVE (NEGATIVE)
--- NOTE | 2016-10-19 11:35 | HHI.PR ---
Subjective Remarks looks more comfortable today. pain is better. no fever. family at the bedside. Objective Vitals Vital Signs Date Time Temp Pulse Resp B/P Pulse Ox O2 Delivery O2 Flow Rate FiO2 10/19/16 09:39 90 10/19/16 08:00 98.1 89 20 154/85 94 10/19/16 08:00 94 Room Air 10/19/16 04:00 98.5 86 18 148/79 98 10/19/16 00:00 98.0 97 18 138/73 92 10/18/16 20:45 Room Air 10/18/16 20:23 83 10/18/16 20:00 99.1 86 18 148/76 93 10/18/16 16:00 98.1 80 18 156/86 93 10/18/16 13:45 73 16 160/86 95 10/18/16 13:30 77 16 156/81 95 10/18/16 13:15 77 16 149/86 96 10/18/16 12:55 97.5 73 20 137/83 95 10/18/16 12:00 97.7 76 14 141/69 98 I/O 10/18/16 10/18/16 10/18/16 10/19/16 10/19/16 10/19/16 07:00 15:00 23:00 07:00 15:00 23:00 Intake Total 742 ml 0 ml 782 ml 782 ml Output Total 0 ml 0 ml Balance 742 ml 0 ml 782 ml 782 ml Intake Oral 0 ml 0 ml 0 ml IV Total 742 ml 782 ml 782 ml Output Urine Total 0 ml 0 ml # Voids 1 # Bowel Movements 1 0 0 Result Diagram: 10/19/16 0811 10/19/16 0811 Imaging Last Impressions Bile Duct Drainage 10/15/16 0000 Signed Impressions: Service Date/Time: Saturday, October 15, 2016 17:14 - CONCLUSION: Uncomplicated biliary stent placement as above. Octavio Covarrubias MD Liver Ultrasound 10/14/16 0000 Signed Impressions: Service Date/Time: October 18:14 - CONCLUSION: Distended common bile duct similar to the recent CT. Silastic stent removed in the interim. I'm unsure whether it was replaced; a new one is not convincingly demonstrated. No other abnormality demonstrated. Sher Burrell MD Chest X-Ray 10/14/16 0000 Signed Impressions: Service Date/Time: October 16:07 - CONCLUSION: 1. Subsegmental basilar airspace disease. No effusion or pneumothorax. Colin Haines MD Abdomen X-Ray 10/14/16 0000 Signed Impressions: Service Date/Time: October 13:32 - CONCLUSION: No evidence of acute process. Status post removal of nasogastric tube and internal biliary stent. Angel Ferro MD Abdomen/Pelvis CT 10/11/16 185 Signed Impressions: Service Date/Time: Tuesday, October 11, 2016 20:29 - CONCLUSION: 1. Acute small bowel obstruction at the level of the mid ileum within the central to right pelvic cavity. I don't see a mass. 2. Silastic biliary stent again noted, potentially partly occluded as the biliary tree appears slightly more prominent than on the prior. Please correlate clinically and serologically. Sher Burrell MD Objective Remarks GENERAL: This is a well-nourished, well-developed patient, in no apparent distress. CARDIOVASCULAR: Regular rate and regular rhythm without murmurs, gallops, or rubs. RESPIRATORY: Clear to auscultation. Breath sounds equal bilaterally. No wheezes , rales, or rhonchi. GASTROINTESTINAL: Abdomen soft, non-tender, nondistended. drain in place. MUSCULOSKELETAL: Extremities without clubbing, cyanosis, or edema. NEURO: Alert & Oriented x4 to person, place, time, situation. Moves all ext x4 Procedures biliary stent removal / PTC Medications and IVs Current Medications Morphine Sulfate (Morphine Inj) 4 mg ONCE ONCE IV PUSH Last administered on 19:35; Start 10/11/16 at 19:00; Stop 10/11/16 at 19:01; Status DC Ondansetron HCl 4 mg 4 mg ONCE ONCE IVP Last administered on 10/11/16 19:35; Start 10/11/16 at 19:00; Stop 10/11/16 at 19:01; Status DC Sodium Chloride (NS 1000 ml Inj) 1,000 ml @ 1,000 mls/hr Q1H IV Last administered on 10/11/16 19:35; Start 10/11/16 at 18:53; Stop 10/11/16 at 19:52; Status DC IV Flush (NS Flush) 2 ml UNSCH PRN IVF FLUSH AFTER USING IV ACCESS; Start at 19:00; Stop 10/11/16 at 21:25; Status DC Morphine Sulfate (Morphine Inj) 4 mg ONCE ONCE IV PUSH Last administered on 21:06; Start 10/11/16 at 20:15; Stop 10/11/16 at 20:16; Status DC Iohexol 91 ml 91 ml STK-MED ONCE IV Last administered on 10/11/16 20:18; Start 10/11/16 at 20:18; Stop 10/11/16 at 20:27; Status DC Sodium Chloride (NS 1000 ml Inj) 1,000 ml @ 150 mls/hr Q6H40M IV Last administered on 10/15/16 02:28; Start 10/11/16 at 21:21; Stop 10/15/16 at 20:31 ; Status DC IV Flush (NS Flush) 2 ml UNSCH PRN FLUSH FLUSH AFTER USING IV ACCESS; Start 10/11/16 at 21:30 IV Flush (NS Flush) 2 ml BID FLUSH Last administered on 10/18/16 20:42; Start 10/12/16 at 09:00 Ondansetron HCl (Zofran Inj) 4 mg Q6H PRN IVP NAUSEA OR VOMITING Last administered on 10/18/16 20:51; Start 10/11/16 at 21:30 Naloxone HCl (Narcan Inj) 0.4 mg UNSCH PRN IV SEE LABEL COMMENTS; Start at 21:30 Morphine Sulfate (Morphine Inj) 2 mg Q3H PRN IV PUSH pain >5 Last administered on 10/14/16 17:54; Start 10/11/16 at 21:30; Stop 10/14/16 at 19:01; Status DC Ondansetron HCl (Zofran Inj) 4 mg ONCE ONCE IV PUSH Last administered on 04:39; Start 10/12/16 at 04:00; Stop 10/12/16 at 04:01; Status DC Phenol (Chloraseptic Upperco) 2 spray ONCE ONCE OROPHARYNG Last administered on 10/12/16 05:03; Start 10/12/16 at 04:00; Stop 10/12/16 at 04:01; Status DC Pantoprazole Sodium (Protonix Inj) 40 mg Q24H IV PUSH Last administered on 10/19 09:00; Start 10/12/16 at 09:00 Enoxaparin Sodium (Lovenox Inj) 40 mg Q24H SQ Last administered on 10/17/16 08 :47; Start 10/12/16 at 09:00; Stop 10/18/16 at 13:43; Status DC Lidocaine HCl (Xylocaine 2% Viscous) 15 ml Q4H PRN SWISH-SWAL SORE THROAT Last administered on 10/13/16 18:36; Start 10/12/16 at 20:00 Racepinephrine (Racepinephrine 2.25% Neb) 0.5 ml STK-MED ONCE .ROUTE Last administered on 10/13/16 16:28; Start 10/13/16 at 16:28; Stop 10/13/16 at 16:29; Status DC Fentanyl Citrate (fentaNYL INJ) 100 mcg STK-MED ONCE .ROUTE ; Start 10/13/16 at 16:34; Stop 10/13/16 at 16:35; Status DC Racepinephrine (Racepinephrine 2.25% Neb) 0.5 ml ONCE ONCE NEB ; Start 10/13/16 at 17:00; Stop 10/13/16 at 17:01; Status DC Miscellaneous Information ALL NURSING DEPARTME... UNSCH PRN XX SEE LABEL COMMENTS; Start 10/13/16 at 16:26; Stop 10/14/16 at 16:30; Status DC Propofol (Diprivan 200 Mg/20 ml Inj) 200 mg STK-MED ONCE IV ; Start 10/13/16 at 16:00; Stop 10/13/16 at 16:57; Status DC Ondansetron HCl 4 mg 4 mg STK-MED ONCE IV PUSH ; Start 10/13/16 at 12:00; Stop at 08:04; Status DC Sodium Chloride 1,000 ml @ 999 mls/hr BOLUS ONCE IV Last administered on 15:32; Start 10/14/16 at 15:15; Stop 10/14/16 at 16:30; Status DC Metronidazole 100 ml @ 100 mls/hr Q8H IV Last administered on 10/19/16 08:00 ; Start 10/14/16 at 16:00 Levofloxacin/ Dextrose (Levaquin 750 Mg Premix Inj) 150 ml @ 100 mls/hr Q24H IV Last administered on 10/14/16 15:29; Start 10/14/16 at 16:00; Stop 10/15/16 at 19:19; Status DC Acetaminophen (Tylenol) 650 mg Q6HR PRN PO FEVER Last administered on 10/14/16 15:27; Start 10/14/16 at 16:00 Naloxone HCl (Narcan Inj) 0.4 mg UNSCH PRN IV RESPIRATORY RATE LESS THAN 10; Start 10/14/16 at 19:00; Stop 10/15/16 at 20:27; Status DC Morphine Sulfate (Morphine 1 Mg/ ml WATER SAFETY TEACHER) 30 mg UNSCH IV ; Start 10/14/16 at 19:00 ; Stop 10/15/16 at 20:27; Status DC WATER SAFETY TEACHER Dosage Infused (Pha) 1 1 Q8HR .XX ; Start 10/14/16 at 22:00; Stop 10/15/16 at 20:27; Status DC Sodium Chloride (NS 1000 ml Inj) 1,000 ml @ 999 mls/hr BOLUS ONCE IV Last administered on 10/14/16 20:52; Start 10/14/16 at 20:15; Stop 10/14/16 at 21:15; Status DC Prochlorperazine Edisylate 10 mg 10 mg ONCE ONCE IM Last administered on 20:50; Start 10/14/16 at 20:45; Stop 10/14/16 at 20:46; Status DC Sodium Chloride 500 ml @ 500 mls/hr BOLUS ONCE IV Last administered on 20:53; Start 10/14/16 at 20:45; Stop 10/14/16 at 21:44; Status DC Sodium Chloride 500 ml @ 500 mls/hr BOLUS ONCE IV Last administered on 23:32; Start 10/14/16 at 23:15; Stop 10/15/16 at 00:14; Status DC Cefepime HCl/ Sodium Chloride (Maxipime Inj/NS Inj) 100 ml @ 200 mls/hr Q8H IV Last administered on 10/19/16 05:49; Start 10/15/16 at 15:00 Diphenhydramine HCl (Benadryl) 25 mg Q4H PRN PO ALLERGIC REACTIONS TO CEFEPIME ; Start 10/15/16 at 13:45 Acetaminophen (Ofirmev Inj) 1,000 mg Q8H PRN IV headache; Start 10/15/16 at 17: 00; Stop 10/16/16 at 01:01; Status DC Midazolam HCl (Versed Inj) 5 mg STK-MED ONCE .ROUTE Last administered on 17:16; Start 10/15/16 at 17:16; Stop 10/15/16 at 17:17; Status DC Fentanyl Citrate (fentaNYL INJ) 250 mcg STK-MED ONCE .ROUTE Last administered on 10/15/16 17:16; Start 10/15/16 at 17:16; Stop 10/15/16 at 17:17; Status DC Iohexol (Omnipaque 350 Inj) 30 ml STK-MED ONCE .XX Last administered on 18:04; Start 10/15/16 at 18:04; Stop 10/15/16 at 18:05; Status DC Morphine Sulfate (Morphine Inj) 1 mg Q3H PRN IV PUSH PAIN 1-5 Last administered on 10/18/16 17:15; Start 10/15/16 at 20:30 Morphine Sulfate 2 mg 2 mg Q3H PRN IV PUSH PAIN 6-10 Last administered on 20:55; Start 10/15/16 at 20:30 Sodium Chloride (NS 1000 ml Inj) 1,000 ml @ 100 mls/hr Q10H IV Last administered on 10/18/16 17:31; Start 10/15/16 at 21:00 Potassium Chloride 30 meq 30 meq ONCE ONCE PO Last administered on 10/16/16 18:21; Start 10/16/16 at 16:15; Stop 10/16/16 at 16:16; Status DC Potassium Chloride 100 ml @ 50 mls/hr BOLUS ONCE IV Last administered on 10/16 18:20; Start 10/16/16 at 16:15; Stop 10/16/16 at 18:14; Status DC Potassium Chloride (KCl 20 Meq Premix Inj) 100 ml @ 50 mls/hr Q2H IV Last administered on 3/12/17at 23:30; Start 10/17/16 at 16:00; Stop 10/17/16 at 19:59 ; Status DC Midazolam HCl (Versed Inj) 5 mg STK-MED ONCE .ROUTE ; Start 10/18/16 at 11:59; Stop 10/18/16 at 12:00; Status DC Fentanyl Citrate (fentaNYL INJ) 250 mcg STK-MED ONCE .ROUTE ; Start 10/18/16 at 12:00; Stop 10/18/16 at 12:01; Status DC Iohexol (Omnipaque 350 Inj) 25 ml STK-MED ONCE .XX Last administered on t 13:07; Start 10/18/16 at 13:07; Stop 10/18/16 at 13:08; Status DC A/P Assessment and Plan A/P 1. Sepsis: Blood cultures positive for Escherichia coli on 10/14. Repeat blood cultures negative so far. - Likely cholangitis given ultrasound - ID consult placed recc cont cefepime and flagyl 2- biliary blockage with elevated LFT's s/p attempted ERCP and stent removal on 10/14. s/p biliray drainage and stent placement on 10/15. of note biliary drain traversing a small peripheral hepatic arterial branch. previously d/w IR; stopped Lovenox and will watch for hemobilia. s/p biopsy of the distal CBD on 10/18.; will follow the pathology. GI and surgery following. 3. Small bowel obstruction. -Surgical history includes: ERCP October 2015 due to obstructive disease, comp dictated by duodenal perforation, status post gastric jejunostomy. November 2015) nephrotic abscess, right hydronephrosis requiring ureteral stent placement. Subsequent removed. Other abdominal surgeries include bladder lift, cholecystectomy, and hysterectomy. - Overall obstruction seems to be improving. She is being followed by general surgery & GI. DVT prophylaxis with SCD's- no chemical prophylaxis as noted above. Discharge Planning not ready for discharge yet. Christopher Fields MD Oct 19, 2016 11:35
[2016-10-19] MEDS ORDERED: POTASSIUM CHLOR 20 MEQ PREMIX 100 ML IV ONE (11:45)
--- NOTE | 2016-10-19 13:15 | HHI.PR ---
Subjective Subjective Notes Resting in bed Son at bedside Reports numerous liquid stool overnight Objective Vitals/I&O Vital Signs Date Time Temp Pulse Resp B/P Pulse Ox O2 Delivery O2 Flow Rate FiO2 10/19/16 12:00 98.2 81 18 156/80 95 10/19/16 08:00 Room Air 10/17/16 08:00 2.00 Labs Laboratory Tests Test 10/19/16 10/19/16 08:01 08:11 Stool C. difficile Toxin (PCR) NEGATIVE Stl C. difficile Toxin PRESUMPTIVE Epiderm 027 NEGATIVE Hemoglobin 11.0 Hematocrit 32.4 Sodium Level 135 Potassium Level 3.2 Chloride Level 98 Carbon Dioxide Level 23.7 Anion Gap 13 Blood Urea Nitrogen 6 Creatinine 0.54 Estimat Glomerular Filtration 113 Rate Random Glucose 93 Calcium Level 8.1 Total Bilirubin 1.1 Aspartate Amino Transf 195 (AST/SGOT) Alanine Aminotransferase 122 (ALT/SGPT) Alkaline Phosphatase 537 Total Protein 6.3 Albumin 2.2 Date/Time Procedure Status Source Growth 10/15/16 21:42 Aerobic Blood Culture - Preliminary Resulted Blood Peripheral NO GROWTH IN 4 DAYS 10/15/16 21:42 Anaerobic Blood Culture - Preliminary Resulted Blood Peripheral NO GROWTH IN 4 DAYS 10/14/16 16:00 Aerobic Blood Culture - Final Complete Blood Peripheral Escherichia Coli 10/14/16 16:00 Anaerobic Blood Culture - Final Complete Escherichia Coli Cardiovascular: Regular Lungs: Clear Abdomen: Non-distended, Non-tender, Other (drain in place (RUQ)) Extremities: No edema A/P Assessment and Plan 66 year old female with possible SBO; s/p EGD with stent removal -S/p bile duct biopsy -Will follow up pathology when available -Continue clears -C-diff pending Attending Note - Dr. Gamino C.diff is neg. Abdomen benign Discussed with son and ; may need biliary bypass if benign stricture. The exam, history, and the medical decision-making described in the above note were completed with the assistance of the mid-level provider. I reviewed and agree with the findings presented. I attest that I had a [id number] encounter with the patient on the same day, and personally performed and documented my assessment and findings in the medical record. Arianna Davis Oct 19, 2016 13:15 Bran Gamino MD Oct 25, 2016 21:31
--- NOTE | 2016-10-19 15:08 | HHI.GIFU ---
Subjective Remarks Feeling better, still some tenderness at drain site, tolerated clear liquid diet (Bernadine Paige) Objective Vitals I&O Vital Signs Date Time Temp Pulse Resp B/P Pulse Ox O2 Delivery O2 Flow Rate FiO2 10/19/16 12:00 98.2 81 18 156/80 95 10/19/16 09:39 90 10/19/16 08:00 98.1 89 20 154/85 94 10/19/16 08:00 94 Room Air 10/19/16 04:00 98.5 86 18 148/79 98 10/19/16 00:00 98.0 97 18 138/73 92 10/18/16 20:45 Room Air 10/18/16 20:23 83 10/18/16 20:00 99.1 86 18 148/76 93 10/18/16 16:00 98.1 80 18 156/86 93 I/O 10/18/16 10/18/16 10/18/16 10/19/16 10/19/16 10/19/16 07:00 15:00 23:00 07:00 15:00 23:00 Intake Total 742 ml 0 ml 782 ml 782 ml Output Total 0 ml 0 ml Balance 742 ml 0 ml 782 ml 782 ml Intake Oral 0 ml 0 ml 0 ml IV Total 742 ml 782 ml 782 ml Output Urine Total 0 ml 0 ml # Voids 1 # Bowel Movements 1 0 0 Laboratory Laboratory Tests Test 10/19/16 10/19/16 08:01 08:11 Stool C. difficile Toxin (PCR) NEGATIVE Stl C. difficile Toxin PRESUMPTIVE Epiderm 027 NEGATIVE Hemoglobin 11.0 Hematocrit 32.4 Sodium Level 135 Potassium Level 3.2 Chloride Level 98 Carbon Dioxide Level 23.7 Anion Gap 13 Blood Urea Nitrogen 6 Creatinine 0.54 Estimat Glomerular Filtration 113 Rate Random Glucose 93 Calcium Level 8.1 Total Bilirubin 1.1 Aspartate Amino Transf 195 (AST/SGOT) Alanine Aminotransferase 122 (ALT/SGPT) Alkaline Phosphatase 537 Total Protein 6.3 Albumin 2.2 Date/Time Procedure Status Source Growth 10/15/16 21:42 Aerobic Blood Culture - Preliminary Resulted Blood Peripheral NO GROWTH IN 4 DAYS 10/15/16 21:42 Anaerobic Blood Culture - Preliminary Resulted Blood Peripheral NO GROWTH IN 4 DAYS 10/14/16 16:00 Aerobic Blood Culture - Final Complete Blood Peripheral Escherichia Coli 10/14/16 16:00 Anaerobic Blood Culture - Final Complete Escherichia Coli Imaging Last Impressions Cholangiogram 10/18/16 0000 Signed Impressions: Service Date/Time: Tuesday, October 18, 2016 10:12 - CONCLUSION: 1. Biopsy of the occluded segment of the common bile duct. 2. The biliary drain traverses a peripheral hepatic arterial branch. A new catheter was repositioned so the side holes were not within the artery. All anticoagulation will be held and the hepatic arterial branch should thrombose on its own. We will see a clearing of the bile if this occurs. If hemobilia persists an angiogram with possible embolization may be needed. Js Lerner Jr., MD Bile Duct Drainage 10/15/16 0000 Signed Impressions: Service Date/Time: Saturday, October 15, 2016 17:14 - CONCLUSION: Uncomplicated biliary stent placement as above. Octavio Covarrubias MD Liver Ultrasound 10/14/16 0000 Signed Impressions: Service Date/Time: October 18:14 - CONCLUSION: Distended common bile duct similar to the recent CT. Silastic stent removed in the interim. I'm unsure whether it was replaced; a new one is not convincingly demonstrated. No other abnormality demonstrated. Sher Burrell MD Chest X-Ray 10/14/16 0000 Signed Impressions: Service Date/Time: October 16:07 - CONCLUSION: 1. Subsegmental basilar airspace disease. No effusion or pneumothorax. Colin Haines MD Abdomen X-Ray 10/14/16 0000 Signed Impressions: Service Date/Time: October 13:32 - CONCLUSION: No evidence of acute process. Status post removal of nasogastric tube and internal biliary stent. Angel Ferro MD Abdomen/Pelvis CT 10/11/16 7853 Signed Impressions: Service Date/Time: Tuesday, October 11, 2016 20:29 - CONCLUSION: 1. Acute small bowel obstruction at the level of the mid ileum within the central to right pelvic cavity. I don't see a mass. 2. Silastic biliary stent again noted, potentially partly occluded as the biliary tree appears slightly more prominent than on the prior. Please correlate clinically and serologically. Sher Burrell MD Physical Exam HEENT: PERRLA. Normocephalic; atraumatic; no jaundice. CHEST: CTA CARDIAC: RRR. ABDOMEN: Soft, mildly bloated,tender from procedure no hepatosplenomegaly; bowel sounds are present x 4 quadrants, biliary drain in right side abdomen with green drainage EXTREMITIES: No clubbing, cyanosis, or edema. SKIN: Normal; no rash; no jaundice. 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 (Bernadine Paige) Assessment and Plan Plan ASSESSMENT: - Biliary obstruction with elevated LFTs. Pt has hx of biliary stricture and has stent in place. ERCP (09/07/15) Mid-bile duct, 3 cm long, stricture, suspicious for malignancy. S/P sphincterotomy, biliary dilatation, brush cytology (pathology negative for malignancy), and stenting of the above mentioned stricture. She still has stent in place, as she was noted to have perforation during EUS and subsequently underwent emergent laparotomy with repair of perforated duodenal ulcer, gastrojejunostomy with Dr. Alonzo at . The patient reports that she was told by Dr. Alonzo that she cannot have any further endoscopic procedures secondary to the location of her prior perforation. Abdomen/Pelvis CT (10/11/16)-----> 1. Acute small bowel obstruction at the level of the mid ileum within the central to right pelvic cavity. I don't see a mass. 2. Silastic biliary stent again noted, potentially partly occluded as the biliary tree appears slightly more prominent than on the prior. Please correlate clinically and serologically. S/P attempted ERCP with stent removal (10/14/16). Blood cultures + GNR. She is on Cefepime, Levaquin, Flagyl. S/P biliary stent and drainage placement on 10/15/16. - Elevated LFTs related to above. - SBO with hx of perforated duodenal ulcer, s/p repair, gastrojejunostomy. Resolved. - Patient had gastrojejunostomy, in this case, anatomy might be altered and might not be able to have ERCP/stent 10/18/16-Had bx of CBD today, having pain upper epigastric area from procedure.Family concerned about nutritional status and long range plans. 10/19/16--Feeling better, drainage is bile colored today in biliary drain bag, pain is better abdomen, some tenderness around drain site, LFT's are elevated Bilirubin is 1.1, ST 195, ALT 122, Alk phos is 537. Tolerating diet clear liquids, will advance diet, having loose stools. Plan: - Heart Healty diet - Monitor labs--LFT's CBC in am - Check results of Bx - Cont. Levaquin - Cont. Flagyl - Cont. Cefepime - Cont. PPI - Cont. IVF - GS following - Supportive care - Further recommendations to follow based on results of above Patient seen and examined by Dr. Mercado and myself and this note is written on his behalf. (Bernadine Paige) Physician Comments Seen and examined with HOWARD, feeling better today. CBD biopsies-ve for malignancy. PTC drain draining well. Will ask IR to internalize drain in 1 to 2 days.? role for surgery (Rolando Mercado MD) Bernadine Paige Oct 19, 2016 15:08 Rolando Mercado MD Oct 19, 2016 17:57
[2016-10-19] MEDS: ONDANSETRON HCL 4 MG/2 ML VIAL IVP PRN (22:08)
[2016-10-20] VITALS (8 sets, daily range): BP systolic 127–161; BP diastolic 64–94; PULSE 74–91; RESP 16–20; TEMP 97.4–98.2; O2SAT 93–97
[2016-10-20] MEDS: SODIUM CHLOR 0.9% 1000 ML INJ 1,000 ML IV SCH ×3 (03:30→20:22)
[2016-10-20] MEDS: CEFEPIME INJ 2,000 MG in SODIUM CHLORIDE 0.9% INJ 100 ML IV SCH ×3 (05:42→23:06)
[2016-10-20 06:25] LABS: AUTOMATED NEUTROPHIL # 4.3 TH/MM3 (1.8-7.7); BASOPHIL % 0.4 % (0.0-2.0); EOSINOPHIL # 0.2 TH/MM3 (0-0.4); EOSINOPHIL % 3.3 % (0.0-4.0); HEMATOCRIT 32.5 % (35.0-46.0); HEMO FLAGS DIFF FINAL; LYMPH % 19.4 % (9.0-44.0); LYMPHOCYTE # 1.3 TH/MM3 (1.0-4.8); MEAN CELL VOLUME 83.8 FL (80.0-100.0); MEAN CORPUSCULAR HEMOGLOBIN 28.3 PG (27.0-34.0); MEAN CORPUSCULAR HGB CONC 33.8 % (32.0-36.0); MONO % 14.8 % (0.0-8.0); NEUT % 62.1 % (16.0-70.0); PLATELET COUNT 261 TH/MM3 (150-450); RED BLOOD COUNT 3.88 MIL/MM3 (4.00-5.30); RED CELL DISTRIBUTION WIDTH 14.5 % (11.6-17.2); WHITE BLOOD COUNT 6.9 TH/MM3 (4.0-11.0)
[2016-10-20 06:52] LABS: INDIRECT BILIRUBIN 0.4 MG/DL (0.0-0.8); TOTAL BILIRUBIN ADULT 0.9 MG/DL (0.2-1.0)
[2016-10-20] MEDS: PANTOPRAZOLE SODIUM 40 MG VIAL IV PUSH SCH (08:38)
[2016-10-20] MEDS: SODIUM CHLORIDE 0.9% FLUSH 5 ML FLUSH FLUSH SCH ×2 (08:39→20:21)
[2016-10-20] MEDS: metroNIDAZOLE 500 MG INJ 100 ML IV SCH ×2 (08:39→19:04)
--- NOTE | 2016-10-20 10:52 | HHI.PR ---
Subjective Remarks f/u; elevated LFT's looks fairly comfortable- has mild abdominal discomfort and nausea but with no emesis. no fever. Objective Vitals Vital Signs Date Time Temp Pulse Resp B/P Pulse Ox O2 Delivery O2 Flow Rate FiO2 10/20/16 09:04 76 10/20/16 08:00 Room Air 10/20/16 08:00 97.4 83 18 161/78 93 10/20/16 03:42 97.7 74 16 150/80 96 10/19/16 23:13 98.2 88 16 141/80 94 10/19/16 20:00 79 10/19/16 19:50 97.9 80 16 146/75 92 10/19/16 16:00 98.2 89 18 159/88 93 10/19/16 12:00 98.2 81 18 156/80 95 I/O 10/19/16 10/19/16 10/19/16 10/20/16 10/20/16 10/20/16 07:00 15:00 23:00 07:00 15:00 23:00 Intake Total 782 ml 0 ml 360 ml 120 ml Output Total 500 ml 875 ml 450 ml Balance 782 ml -500 ml -515 ml -330 ml Intake Oral 0 ml 0 ml 360 ml 120 ml IV Total 782 ml Output Urine Total 500 ml 825 ml 400 ml Drainage Total 50 ml 50 ml # Voids 1 # Bowel Movements 1 2 1 Result Diagram: 10/20/16 0604 10/19/16 0811 Imaging Last Impressions Cholangiogram 10/18/16 0000 Signed Impressions: Service Date/Time: Tuesday, October 18, 2016 10:12 - CONCLUSION: 1. Biopsy of the occluded segment of the common bile duct. 2. The biliary drain traverses a peripheral hepatic arterial branch. A new catheter was repositioned so the side holes were not within the artery. All anticoagulation will be held and the hepatic arterial branch should thrombose on its own. We will see a clearing of the bile if this occurs. If hemobilia persists an angiogram with possible embolization may be needed. Js Lenrer Jr., MD Bile Duct Drainage 10/15/16 0000 Signed Impressions: Service Date/Time: Saturday, October 15, 2016 17:14 - CONCLUSION: Uncomplicated biliary stent placement as above. Octavio Covarrubias MD Liver Ultrasound 10/14/16 0000 Signed Impressions: Service Date/Time: October 18:14 - CONCLUSION: Distended common bile duct similar to the recent CT. Silastic stent removed in the interim. I'm unsure whether it was replaced; a new one is not convincingly demonstrated. No other abnormality demonstrated. Sher Burrell MD Chest X-Ray 10/14/16 0000 Signed Impressions: Service Date/Time: October 16:07 - CONCLUSION: 1. Subsegmental basilar airspace disease. No effusion or pneumothorax. Colin Haines MD Abdomen X-Ray 10/14/16 0000 Signed Impressions: Service Date/Time: October 13:32 - CONCLUSION: No evidence of acute process. Status post removal of nasogastric tube and internal biliary stent. Angel Ferro MD Abdomen/Pelvis CT 10/11/16 1853 Signed Impressions: Service Date/Time: Tuesday, October 11, 2016 20:29 - CONCLUSION: 1. Acute small bowel obstruction at the level of the mid ileum within the central to right pelvic cavity. I don't see a mass. 2. Silastic biliary stent again noted, potentially partly occluded as the biliary tree appears slightly more prominent than on the prior. Please correlate clinically and serologically. Sher Burrell MD Objective Remarks GENERAL: This is a well-nourished, well-developed patient, in no apparent distress. CARDIOVASCULAR: Regular rate and regular rhythm without murmurs, gallops, or rubs. RESPIRATORY: Clear to auscultation. Breath sounds equal bilaterally. No wheezes , rales, or rhonchi. GASTROINTESTINAL: Abdomen soft, non-tender, nondistended. drain in place. MUSCULOSKELETAL: Extremities without clubbing, cyanosis, or edema. NEURO: Alert & Oriented x4 to person, place, time, situation. Moves all ext x4 Procedures biliary stent removal / PTC biopsy of the biliary duct Medications and IVs Current Medications Morphine Sulfate (Morphine Inj) 4 mg ONCE ONCE IV PUSH Last administered on 19:35; Start 10/11/16 at 19:00; Stop 10/11/16 at 19:01; Status DC Ondansetron HCl 4 mg 4 mg ONCE ONCE IVP Last administered on 10/11/16 19:35; Start 10/11/16 at 19:00; Stop 10/11/16 at 19:01; Status DC Sodium Chloride (NS 1000 ml Inj) 1,000 ml @ 1,000 mls/hr Q1H IV Last administered on 10/11/16 19:35; Start 10/11/16 at 18:53; Stop 10/11/16 at 19:52; Status DC IV Flush (NS Flush) 2 ml UNSCH PRN IVF FLUSH AFTER USING IV ACCESS; Start at 19:00; Stop 10/11/16 at 21:25; Status DC Morphine Sulfate (Morphine Inj) 4 mg ONCE ONCE IV PUSH Last administered on 21:06; Start 10/11/16 at 20:15; Stop 10/11/16 at 20:16; Status DC Iohexol 91 ml 91 ml STK-MED ONCE IV Last administered on 10/11/16 20:18; Start 10/11/16 at 20:18; Stop 10/11/16 at 20:27; Status DC Sodium Chloride (NS 1000 ml Inj) 1,000 ml @ 150 mls/hr Q6H40M IV Last administered on 10/15/16 02:28; Start 10/11/16 at 21:21; Stop 10/15/16 at 20:31 ; Status DC IV Flush (NS Flush) 2 ml UNSCH PRN FLUSH FLUSH AFTER USING IV ACCESS; Start 10/11/16 at 21:30 IV Flush (NS Flush) 2 ml BID FLUSH Last administered on 10/20/16 08:39; Start 10/12/16 at 09:00 Ondansetron HCl (Zofran Inj) 4 mg Q6H PRN IVP NAUSEA OR VOMITING Last administered on 10/19/16 22:08; Start 10/11/16 at 21:30 Naloxone HCl (Narcan Inj) 0.4 mg UNSCH PRN IV SEE LABEL COMMENTS; Start at 21:30 Morphine Sulfate (Morphine Inj) 2 mg Q3H PRN IV PUSH pain >5 Last administered on 10/14/16 17:54; Start 10/11/16 at 21:30; Stop 10/14/16 at 19:01; Status DC Ondansetron HCl (Zofran Inj) 4 mg ONCE ONCE IV PUSH Last administered on 04:39; Start 10/12/16 at 04:00; Stop 10/12/16 at 04:01; Status DC Phenol (Chloraseptic [place]) 2 spray ONCE ONCE OROPHARYNG Last administered on 10/12/16 05:03; Start 10/12/16 at 04:00; Stop 10/12/16 at 04:01; Status DC Pantoprazole Sodium (Protonix Inj) 40 mg Q24H IV PUSH Last administered on 10/20 08:38; Start 10/12/16 at 09:00 Enoxaparin Sodium (Lovenox Inj) 40 mg Q24H SQ Last administered on 10/17/16 08 :47; Start 10/12/16 at 09:00; Stop 10/18/16 at 13:43; Status DC Lidocaine HCl (Xylocaine 2% Viscous) 15 ml Q4H PRN SWISH-SWAL SORE THROAT Last administered on 10/13/16 18:36; Start 10/12/16 at 20:00 Racepinephrine (Racepinephrine 2.25% Neb) 0.5 ml STK-MED ONCE .ROUTE Last administered on 10/13/16 16:28; Start 10/13/16 at 16:28; Stop 10/13/16 at 16:29; Status DC Fentanyl Citrate (fentaNYL INJ) 100 mcg STK-MED ONCE .ROUTE ; Start 10/13/16 at 16:34; Stop 10/13/16 at 16:35; Status DC Racepinephrine (Racepinephrine 2.25% Neb) 0.5 ml ONCE ONCE NEB ; Start 10/13/16 at 17:00; Stop 10/13/16 at 17:01; Status DC Miscellaneous Information ALL NURSING DEPARTME... UNSCH PRN XX SEE LABEL COMMENTS; Start 10/13/16 at 16:26; Stop 10/14/16 at 16:30; Status DC Propofol (Diprivan 200 Mg/20 ml Inj) 200 mg STK-MED ONCE IV ; Start 10/13/16 at 16:00; Stop 10/13/16 at 16:57; Status DC Ondansetron HCl 4 mg 4 mg STK-MED ONCE IV PUSH ; Start 10/13/16 at 12:00; Stop at 08:04; Status DC Sodium Chloride 1,000 ml @ 999 mls/hr BOLUS ONCE IV Last administered on 15:32; Start 10/14/16 at 15:15; Stop 10/14/16 at 16:30; Status DC Metronidazole 100 ml @ 100 mls/hr Q8H IV Last administered on 10/20/16 08:39 ; Start 10/14/16 at 16:00 Levofloxacin/ Dextrose (Levaquin 750 Mg Premix Inj) 150 ml @ 100 mls/hr Q24H IV Last administered on 10/14/16 15:29; Start 10/14/16 at 16:00; Stop 10/15/16 at 19:19; Status DC Acetaminophen (Tylenol) 650 mg Q6HR PRN PO FEVER Last administered on 10/14/16 15:27; Start 10/14/16 at 16:00 Naloxone HCl (Narcan Inj) 0.4 mg UNSCH PRN IV RESPIRATORY RATE LESS THAN 10; Start 10/14/16 at 19:00; Stop 10/15/16 at 20:27; Status DC Morphine Sulfate (Morphine 1 Mg/ ml BRICK LOADER) 30 mg UNSCH IV ; Start 10/14/16 at 19:00 ; Stop 10/15/16 at 20:27; Status DC BRICK LOADER Dosage Infused (Pha) 1 1 Q8HR .XX ; Start 10/14/16 at 22:00; Stop 10/15/16 at 20:27; Status DC Sodium Chloride (NS 1000 ml Inj) 1,000 ml @ 999 mls/hr BOLUS ONCE IV Last administered on 10/14/16 20:52; Start 10/14/16 at 20:15; Stop 10/14/16 at 21:15; Status DC Prochlorperazine Edisylate 10 mg 10 mg ONCE ONCE IM Last administered on 20:50; Start 10/14/16 at 20:45; Stop 10/14/16 at 20:46; Status DC Sodium Chloride 500 ml @ 500 mls/hr BOLUS ONCE IV Last administered on 20:53; Start 10/14/16 at 20:45; Stop 10/14/16 at 21:44; Status DC Sodium Chloride 500 ml @ 500 mls/hr BOLUS ONCE IV Last administered on 23:32; Start 10/14/16 at 23:15; Stop 10/15/16 at 00:14; Status DC Cefepime HCl/ Sodium Chloride (Maxipime Inj/NS Inj) 100 ml @ 200 mls/hr Q8H IV Last administered on 10/20/16 05:42; Start 10/15/16 at 15:00 Diphenhydramine HCl (Benadryl) 25 mg Q4H PRN PO ALLERGIC REACTIONS TO CEFEPIME ; Start 10/15/16 at 13:45 Acetaminophen (Ofirmev Inj) 1,000 mg Q8H PRN IV headache; Start 10/15/16 at 17: 00; Stop 10/16/16 at 01:01; Status DC Midazolam HCl (Versed Inj) 5 mg STK-MED ONCE .ROUTE Last administered on 17:16; Start 10/15/16 at 17:16; Stop 10/15/16 at 17:17; Status DC Fentanyl Citrate (fentaNYL INJ) 250 mcg STK-MED ONCE .ROUTE Last administered on 10/15/16 17:16; Start 10/15/16 at 17:16; Stop 10/15/16 at 17:17; Status DC Iohexol (Omnipaque 350 Inj) 30 ml STK-MED ONCE .XX Last administered on 18:04; Start 10/15/16 at 18:04; Stop 10/15/16 at 18:05; Status DC Morphine Sulfate (Morphine Inj) 1 mg Q3H PRN IV PUSH PAIN 1-5 Last administered on 10/18/16 17:15; Start 10/15/16 at 20:30 Morphine Sulfate 2 mg 2 mg Q3H PRN IV PUSH PAIN 6-10 Last administered on 20:55; Start 10/15/16 at 20:30 Sodium Chloride (NS 1000 ml Inj) 1,000 ml @ 100 mls/hr Q10H IV Last administered on 10/20/16 03:30; Start 10/15/16 at 21:00 Potassium Chloride 30 meq 30 meq ONCE ONCE PO Last administered on 10/16/16 18:21; Start 10/16/16 at 16:15; Stop 10/16/16 at 16:16; Status DC Potassium Chloride 100 ml @ 50 mls/hr BOLUS ONCE IV Last administered on 10/16 18:20; Start 10/16/16 at 16:15; Stop 10/16/16 at 18:14; Status DC Potassium Chloride (KCl 20 Meq Premix Inj) 100 ml @ 50 mls/hr Q2H IV Last administered on 10/17/16 23:30; Start 10/17/16 at 16:00; Stop 10/17/16 at 19:59 ; Status DC Midazolam HCl (Versed Inj) 5 mg STK-MED ONCE .ROUTE ; Start 10/18/16 at 11:59; Stop 10/18/16 at 12:00; Status DC Fentanyl Citrate (fentaNYL INJ) 250 mcg STK-MED ONCE .ROUTE ; Start 10/18/16 at 12:00; Stop 10/18/16 at 12:01; Status DC Iohexol 25 ml 25 ml STK-MED ONCE .XX Last administered on 10/18/16 13:07; Start 10/18/16 at 13:07; Stop 10/18/16 at 13:08; Status DC Potassium Chloride (KCl 20 Meq Premix Inj) 100 ml @ 50 mls/hr BOLUS ONCE IV Last administered on 10/19/16 11:45; Start 10/19/16 at 11:45; Stop 10/19/16 at 13:44; Status DC A/P Assessment and Plan A/P 1. Sepsis: Blood cultures positive for Escherichia coli on 10/14. Repeat blood cultures negative so far. - Likely cholangitis given ultrasound - continue cefepime and flagyl -ID following. 2- biliary blockage with elevated LFT's s/p attempted ERCP and stent removal on 10/14. s/p biliary drainage and stent placement on 10/15. of note biliary drain traversing a small peripheral hepatic arterial branch. previously d/w IR; stopped Lovenox and will watch for hemobilia. s/p biopsy of the distal CBD on 10/18; biospy with villous mucosa with active chronic inflammation GI and surgery following. 3. Small bowel obstruction-resolved -Surgical history includes: ERCP October 2015 due to obstructive disease, comp dictated by duodenal perforation, status post gastric jejunostomy. November 2015) nephrotic abscess, right hydronephrosis requiring ureteral stent placement. Subsequent removed. Other abdominal surgeries include bladder lift, cholecystectomy, and hysterectomy. - She is being followed by general surgery & GI. DVT prophylaxis with SCD's- no chemical prophylaxis as noted above. Discharge Planning not ready for discharge yet. Christopher Fields MD Oct 20, 2016 10:52
[2016-10-20] MEDS ORDERED: ENALAPRILAT 1.25 MG/ML VIAL IV PUSH PRN (11:00)
--- NOTE | 2016-10-20 12:18 | MR ---
cc: MARCELINO RAO M.D. Corrected Copy: 11/01/16 DATE: 10/16/2016. DATE OF : 1950. REFERRING PHYSICIAN: Dr. Bustillos. PROCEDURE PERFORMED: Upper gastrointestinal endoscopy with stent removal. ENDOSCOPIST: Marcelino Rao MD. MEDICATION: Propofol administered by anesthesia. INSTRUMENT: Pentax upper scope. INDICATIONS: 66-year-old lady who has questionable pancreatic mass. Last year she had endoscopic ultrasound which she had periampullary diverticulum and apparently that was perforated. The procedure was terminated at that time. She had oversewing of her perforation. The stent was still in the duodenum. She was afraid to have it taken out. The patient came because of elevation of liver function tests. I discussed with her the options to get the stent out. I talked to the radiologist, Dr. Rothman. He did not think that doing a PTC with removal of the stent with repeat EGD was a manjarrez choice. I talked to her about trying to do upper endoscopy and remove the stent. I explained the risk of perforation is low with upper endoscopy. The patient understood and consented to have the procedure done. DESCRIPTION OF THE PROCEDURE IN DETAIL: After informing the patient about the procedure and complications, the consent was signed. The patient was placed on her left lateral decubitus. Adequate sedation was achieved. After sedation, the scope was placed in the mouth and advanced under video guidance to the second portion of the duodenum. The stent was removed by without any difficulty. This was removed with a snare without any immediate complication or any difficulty. RECOMMENDATIONS: 1. Clear liquids. 2. Liver function tests in the morning. 3. If her liver function tests start dropping, the patient will need PTC with possible stenting and internal drainage by radiology. Thank you, Dr. Rothman, for this referral. MD ALEK Bhatti/MAXIMO /4:13 PM /1:37 PM
--- NOTE | 2016-10-20 14:30 | HHI.GIFU ---
Subjective Remarks Resting in bed. Feeling better. No n/v. Mild tenderness at the site. ( Sabiha Stack) Objective Vitals I&O Vital Signs Date Time Temp Pulse Resp B/P Pulse Ox O2 Delivery O2 Flow Rate FiO2 10/20/16 09:04 76 10/20/16 08:00 Room Air 10/20/16 08:00 97.4 83 18 161/78 93 10/20/16 03:42 97.7 74 16 150/80 96 10/19/16 23:13 98.2 88 16 141/80 94 10/19/16 20:00 79 10/19/16 19:50 97.9 80 16 146/75 92 10/19/16 16:00 98.2 89 18 159/88 93 I/O 10/19/16 10/19/16 10/19/16 10/20/16 10/20/16 10/20/16 07:00 15:00 23:00 07:00 15:00 23:00 Intake Total 782 ml 0 ml 360 ml 120 ml Output Total 500 ml 875 ml 450 ml Balance 782 ml -500 ml -515 ml -330 ml Intake Oral 0 ml 0 ml 360 ml 120 ml IV Total 782 ml Output Urine Total 500 ml 825 ml 400 ml Drainage Total 50 ml 50 ml # Voids 1 # Bowel Movements 1 2 1 Laboratory Laboratory Tests Test 10/20/16 10/20/16 06:04 11:53 White Blood Count 6.9 Red Blood Count 3.88 Hemoglobin 11.0 Hematocrit 32.5 Mean Corpuscular Volume 83.8 Mean Corpuscular Hemoglobin 28.3 Mean Corpuscular Hemoglobin 33.8 Concent Red Cell Distribution Width 14.5 Platelet Count 261 Mean Platelet Volume 7.9 Neutrophils (%) (Auto) 62.1 Lymphocytes (%) (Auto) 19.4 Monocytes (%) (Auto) 14.8 Eosinophils (%) (Auto) 3.3 Basophils (%) (Auto) 0.4 Neutrophils # (Auto) 4.3 Lymphocytes # (Auto) 1.3 Monocytes # (Auto) 1.0 Eosinophils # (Auto) 0.2 Basophils # (Auto) 0.0 CBC Comment DIFF FINAL Differential Comment Total Bilirubin 0.9 Direct Bilirubin 0.5 Indirect Bilirubin 0.4 Aspartate Amino Transf 90 (AST/SGOT) Alanine Aminotransferase 104 (ALT/SGPT) Alkaline Phosphatase 437 Total Protein 6.4 Albumin 2.3 Carcinoembryonic Antigen 0.8 CA 19-9 Antigen 52.8 CA 125 Antigen 17.4 Date/Time Procedure Status Source Growth 10/15/16 21:42 Aerobic Blood Culture - Final Complete Blood Peripheral NO GROWTH IN 5 DAYS 10/15/16 21:42 Anaerobic Blood Culture - Final Complete Blood Peripheral NO GROWTH IN 5 DAYS Imaging Last Impressions Cholangiogram 10/18/16 0000 Signed Impressions: Service Date/Time: Tuesday, October 18, 2016 10:12 - CONCLUSION: 1. Biopsy of the occluded segment of the common bile duct. 2. The biliary drain traverses a peripheral hepatic arterial branch. A new catheter was repositioned so the side holes were not within the artery. All anticoagulation will be held and the hepatic arterial branch should thrombose on its own. We will see a clearing of the bile if this occurs. If hemobilia persists an angiogram with possible embolization may be needed. Js Lerner Jr., MD Bile Duct Drainage 10/15/16 0000 Signed Impressions: Service Date/Time: Saturday, October 15, 2016 17:14 - CONCLUSION: Uncomplicated biliary stent placement as above. Octavio Covarrubias MD Liver Ultrasound 10/14/16 0000 Signed Impressions: Service Date/Time: October 18:14 - CONCLUSION: Distended common bile duct similar to the recent CT. Silastic stent removed in the interim. I'm unsure whether it was replaced; a new one is not convincingly demonstrated. No other abnormality demonstrated. Sher Burrell MD Chest X-Ray 10/14/16 0000 Signed Impressions: Service Date/Time: October 16:07 - CONCLUSION: 1. Subsegmental basilar airspace disease. No effusion or pneumothorax. Colin Haines MD Abdomen X-Ray 10/14/16 0000 Signed Impressions: Service Date/Time: October 13:32 - CONCLUSION: No evidence of acute process. Status post removal of nasogastric tube and internal biliary stent. Angel Ferro MD Abdomen/Pelvis CT 10/11/16 [id number] Signed Impressions: Service Date/Time: Tuesday, October 11, 2016 20:29 - CONCLUSION: 1. Acute small bowel obstruction at the level of the mid ileum within the central to right pelvic cavity. I don't see a mass. 2. Silastic biliary stent again noted, potentially partly occluded as the biliary tree appears slightly more prominent than on the prior. Please correlate clinically and serologically. Sher Burrell MD Physical Exam HEENT: PERRLA. Normocephalic; atraumatic; no jaundice. CHEST: CTA CARDIAC: RRR. ABDOMEN: Soft, mild tenderness at drain site, no hepatosplenomegaly; bowel sounds are present x 4 quadrants, biliary drain in right side abdomen with small amount of bilious green drainage EXTREMITIES: No clubbing, cyanosis, or edema. SKIN: Normal; no rash; no jaundice. 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 (Sabiha Stack LEGAL COUNSEL) Assessment and Plan Plan ASSESSMENT: - Biliary obstruction with elevated LFTs. Pt has hx of biliary stricture and has stent in place. ERCP (09/07/15) Mid-bile duct, 3 cm long, stricture, suspicious for malignancy. S/P sphincterotomy, biliary dilatation, brush cytology (pathology negative for malignancy), and stenting of the above mentioned stricture. She still has stent in place, as she was noted to have perforation during EUS and subsequently underwent emergent laparotomy with repair of perforated duodenal ulcer, gastrojejunostomy with Dr. Alonzo at . The patient reports that she was told by Dr. Alonzo that she cannot have any further endoscopic procedures secondary to the location of her prior perforation. Abdomen/Pelvis CT (10/11/16)-----> 1. Acute small bowel obstruction at the level of the mid ileum within the central to right pelvic cavity. I don't see a mass. 2. Silastic biliary stent again noted, potentially partly occluded as the biliary tree appears slightly more prominent than on the prior. Please correlate clinically and serologically. S/P attempted ERCP with stent removal (10/14/16). S/P biliary stent and drainage placement on 10/15/16. Pathology with villiform mucosa with active chronic inflammation. BCx on 10/14 with E. Coli. No growth in 5 days on 10/15 cultures. Cefepime, Flagyl. - Elevated LFTs related to above. T. Bili 0.9, AST 90, ALT 104, Alk Phosph 437. - SBO with hx of perforated duodenal ulcer, s/p repair, gastrojejunostomy. Resolved. - Patient had gastrojejunostomy, in this case, anatomy might be altered and might not be able to have ERCP/stent Plan: - Heart Healty diet - Cont. Flagyl - Cont. Cefepime - Cont. PPI - Cont. IVF - GS following - Supportive care - Further recommendations to follow based on results of above - Possible internalization of stent later in week with follow up at tertiary for spy glass and stent exchange/removal vs. hepatic jejunostomy - Pt seen and examined by Dr. Mercado and myself and this note is written on his behalf (Sabiha Stack) Physician Comments Seen and examined, feeling better. Will have IR internalize stent later in the week if no rebleeding occurs through the PTC catheter. Further options would include referral to tertiary center vs. Hepaatico jejunostomy. Discussed with pt. and family. (Rolando Mercado MD) Sabiha Stack Oct 20, 2016 14:30 Rolando Mercado MD Oct 20, 2016 21:00
--- NOTE | 2016-10-20 15:03 | HHI.IDPN ---
Subjective Subjective Remarks no pain no fever repeat BC negative bx negative for ca Antibiotics cefepime flagyl Allergies: Coded Allergies: Vancomycin (Verified Allergy, Intermediate, RASH, FLUSHING OF FACE AND RASH TO LEGS, 10/11/16) Penicillin (Verified Allergy, Unknown, 10/11/16) told when she was a child Objective . Vital Signs Date Time Temp Pulse Resp B/P Pulse Ox O2 Delivery O2 Flow Rate FiO2 10/20/16 09:04 76 10/20/16 08:00 Room Air 10/20/16 08:00 97.4 83 18 161/78 93 10/20/16 03:42 97.7 74 16 150/80 96 10/19/16 23:13 98.2 88 16 141/80 94 10/19/16 20:00 79 10/19/16 19:50 97.9 80 16 146/75 92 10/19/16 16:00 98.2 89 18 159/88 93 10/19/16 10/19/16 10/20/16 15:00 23:00 07:00 Intake Total 0 ml 360 ml 120 ml Output Total 500 ml 875 ml 450 ml Balance -500 ml -515 ml -330 ml Intake Oral 0 ml 360 ml 120 ml Output Urine Total 500 ml 825 ml 400 ml Drainage Total 50 ml 50 ml # Voids 1 # Bowel Movements 1 2 1 . Laboratory Tests Test 10/19/16 10/20/16 08:11 06:04 Hemoglobin 11.0 GM/DL 11.0 GM/DL Hematocrit 32.4 % 32.5 % White Blood Count 6.9 TH/MM3 Red Blood Count 3.88 MIL/MM3 Mean Corpuscular Volume 83.8 FL Mean Corpuscular Hemoglobin 28.3 PG Mean Corpuscular Hemoglobin 33.8 % Concent Red Cell Distribution Width 14.5 % Platelet Count 261 TH/MM3 Mean Platelet Volume 7.9 FL Neutrophils (%) (Auto) 62.1 % Lymphocytes (%) (Auto) 19.4 % Monocytes (%) (Auto) 14.8 % Eosinophils (%) (Auto) 3.3 % Basophils (%) (Auto) 0.4 % Neutrophils # (Auto) 4.3 TH/MM3 Lymphocytes # (Auto) 1.3 TH/MM3 Monocytes # (Auto) 1.0 TH/MM3 Eosinophils # (Auto) 0.2 TH/MM3 Basophils # (Auto) 0.0 TH/MM3 CBC Comment DIFF FINAL Differential Comment Laboratory Tests Test 10/19/16 10/20/16 10/20/16 08:11 06:04 11:53 Sodium Level 135 MEQ/L Potassium Level 3.2 MEQ/L Chloride Level 98 MEQ/L Carbon Dioxide Level 23.7 MEQ/L Anion Gap 13 MEQ/L Blood Urea Nitrogen 6 MG/DL Creatinine 0.54 MG/DL Estimat Glomerular Filtration 113 ML/MIN Rate Random Glucose 93 MG/DL Calcium Level 8.1 MG/DL Total Bilirubin 1.1 MG/DL 0.9 MG/DL Aspartate Amino Transf 195 U/L 90 U/L (AST/SGOT) Alanine Aminotransferase 122 U/L 104 U/L (ALT/SGPT) Alkaline Phosphatase 537 U/L 437 U/L Total Protein 6.3 GM/DL 6.4 GM/DL Albumin 2.2 GM/DL 2.3 GM/DL Direct Bilirubin 0.5 MG/DL Indirect Bilirubin 0.4 MG/DL Carcinoembryonic Antigen 0.8 NG/ML CA 19-9 Antigen 52.8 U/ML CA 125 Antigen 17.4 U/ML Imaging Last Impressions Liver Ultrasound 10/14/16 0000 Signed Impressions: Service Date/Time: October 18:14 - CONCLUSION: Distended common bile duct similar to the recent CT. Silastic stent removed in the interim. I'm unsure whether it was replaced; a new one is not convincingly demonstrated. No other abnormality demonstrated. Sher Burrell MD Chest X-Ray 10/14/16 0000 Signed Impressions: Service Date/Time: October 16:07 - CONCLUSION: 1. Subsegmental basilar airspace disease. No effusion or pneumothorax. Colin Haines MD Abdomen X-Ray 10/14/16 0000 Signed Impressions: Service Date/Time: October 13:32 - CONCLUSION: No evidence of acute process. Status post removal of nasogastric tube and internal biliary stent. Angel Ferro MD Abdomen/Pelvis CT 10/11/16 [id number] Signed Impressions: Service Date/Time: Tuesday, October 11, 2016 20:29 - CONCLUSION: 1. Acute small bowel obstruction at the level of the mid ileum within the central to right pelvic cavity. I don't see a mass. 2. Silastic biliary stent again noted, potentially partly occluded as the biliary tree appears slightly more prominent than on the prior. Please correlate clinically and serologically. Sher Burrell MD Physical Exam CONSTITUTIONAL/GENERAL: NAD. OOB in a chair TUBES/LINES/DRAINS: SKIN: No jaundice, rashes, or lesions. Skin temperature appropriate. Not diaphoretic. EYES: Pupils equal and round and reactive. Extraocular motions intact. Minimal scleral icterus. No injection or drainage. Fundi not examined. CARDIOVASCULAR: Regular rate and rhythm without murmurs, gallops, or rubs. No JVD. Peripheral pulses symmetric. RESPIRATORY/CHEST: Symmetric, unlabored respirations. Clear to auscultation. Breath sounds equal bilaterally. No wheezes, rales, or rhonchi. GASTROINTESTINAL: Abdomen soft, minimally tender to palpation diffusely, moderately distended. Biliary drain in place with dark bile No hepato-splenomegaly, or palpable masses. + guarding. Bowel sounds present. GENITOURINARY: Without palpable bladder distension. MUSCULOSKELETAL: Extremities without clubbing, cyanosis, or edema. NEUROLOGICAL: Awake alert, non focal PSYCHIATRIC: No obvious anxiety/depression. no apparent hallucinations or other psychotic thought process. Assessment & Plan Remarks obstructive jaundice sp another biliary drain placement today Biliary sepsis stanley S E.coli h/o PCN allergic reaction Severe abd pain and new onset abx -associatred diarrhea; C.diff negative - pain resolved cont cefepime cont flagyl will eventually switch po abx (levaquin +/- flagyl) to complete 2 week course wd @ b/s Meenu Thurman MD Oct 20, 2016 15:03
--- NOTE | 2016-10-20 15:06 | HHI.PR ---
Subjective Subjective Notes Resting in bed and son at bedside Objective Vitals/I&O Vital Signs Date Time Temp Pulse Resp B/P Pulse Ox O2 Delivery O2 Flow Rate FiO2 10/20/16 09:04 76 10/20/16 08:00 Room Air 10/20/16 08:00 97.4 18 161/78 93 10/17/16 08:00 2.00 Labs Laboratory Tests Test 10/20/16 10/20/16 06:04 11:53 White Blood Count 6.9 Red Blood Count 3.88 Hemoglobin 11.0 Hematocrit 32.5 Mean Corpuscular Volume 83.8 Mean Corpuscular Hemoglobin 28.3 Mean Corpuscular Hemoglobin 33.8 Concent Red Cell Distribution Width 14.5 Platelet Count 261 Mean Platelet Volume 7.9 Neutrophils (%) (Auto) 62.1 Lymphocytes (%) (Auto) 19.4 Monocytes (%) (Auto) 14.8 Eosinophils (%) (Auto) 3.3 Basophils (%) (Auto) 0.4 Neutrophils # (Auto) 4.3 Lymphocytes # (Auto) 1.3 Monocytes # (Auto) 1.0 Eosinophils # (Auto) 0.2 Basophils # (Auto) 0.0 CBC Comment DIFF FINAL Differential Comment Total Bilirubin 0.9 Direct Bilirubin 0.5 Indirect Bilirubin 0.4 Aspartate Amino Transf 90 (AST/SGOT) Alanine Aminotransferase 104 (ALT/SGPT) Alkaline Phosphatase 437 Total Protein 6.4 Albumin 2.3 Carcinoembryonic Antigen 0.8 CA 19-9 Antigen 52.8 CA 125 Antigen 17.4 Date/Time Procedure Status Source Growth 10/15/16 21:42 Aerobic Blood Culture - Final Complete Blood Peripheral NO GROWTH IN 5 DAYS 10/15/16 21:42 Anaerobic Blood Culture - Final Complete Blood Peripheral NO GROWTH IN 5 DAYS Cardiovascular: Regular Lungs: Clear Abdomen: Non-distended, Non-tender, Other (drain in place ) Extremities: No edema A/P Assessment and Plan 66 year old female with possible SBO; s/p EGD with stent removal -Bile duct biopsy inconclusive; repeat tomorrow; Dr. Gamino spoke with Dr. Lerner -Tolerating regular diet -C-diff negative Attending Note - Dr. Gamino Will need repeat biopsy, as tissue was from duodenum. Need bile duct epithelium to R/O malignancy. Explained to family. The exam, history, and the medical decision-making described in the above note were completed with the assistance of the mid-level provider. I reviewed and agree with the findings presented. I attest that I had a [id number] encounter with the patient on the same day, and personally performed and documented my assessment and findings in the medical record. Arianna Davis Oct 20, 2016 15:06 Bran Gamino MD Oct 25, 2016 21:39
[2016-10-20] MEDS: ONDANSETRON HCL 4 MG/2 ML VIAL IVP PRN (20:29)
[2016-10-21] VITALS (9 sets, daily range): BP systolic 111–152; BP diastolic 64–87; PULSE 78–90; RESP 16–20; TEMP 97.5–98.5; O2SAT 90–98
[2016-10-21] MEDS: metroNIDAZOLE 500 MG INJ 100 ML IV SCH ×3 (00:21→17:33)
[2016-10-21] MEDS: CEFEPIME INJ 2,000 MG in SODIUM CHLORIDE 0.9% INJ 100 ML IV SCH ×3 (05:43→23:12)
[2016-10-21] MEDS: SODIUM CHLOR 0.9% 1000 ML INJ 1,000 ML IV SCH ×2 (05:45→17:00)
[2016-10-21] MEDS: PANTOPRAZOLE SODIUM 40 MG VIAL IV PUSH SCH (08:23)
[2016-10-21] MEDS: SODIUM CHLORIDE 0.9% FLUSH 5 ML FLUSH FLUSH SCH ×2 (08:24→20:44)
[2016-10-21 08:45] LABS: INDIRECT BILIRUBIN 0.4 MG/DL (0.0-0.8); TOTAL BILIRUBIN ADULT 0.8 MG/DL (0.2-1.0)
--- NOTE | 2016-10-21 08:57 | HHI.PR ---
Subjective Remarks Follow-up biliary sepsis/obstructive jaundice 10/21/16-patient seen and examined, complains of pain at the biliary drain incision site and afebrile. Nothing by mouth and plan for repeat bile duct biopsy today Objective Vitals Vital Signs Date Time Temp Pulse Resp B/P Pulse Ox O2 Delivery O2 Flow Rate FiO2 10/21/16 04:04 98.5 82 16 140/69 91 10/20/16 23:39 98.0 79 16 153/94 94 10/20/16 20:00 Room Air 10/20/16 20:00 87 10/20/16 16:00 98.2 86 20 146/77 97 10/20/16 12:00 97.9 79 18 154/77 95 10/20/16 09:47 97.9 91 16 127/64 93 10/20/16 09:04 76 I/O 10/20/16 10/20/16 10/20/16 10/21/16 10/21/16 10/21/16 07:00 15:00 23:00 07:00 15:00 23:00 Intake Total 120 ml 240 ml 240 ml 2478 ml Output Total 450 ml 400 ml 300 ml 1200 ml Balance -330 ml -160 ml -60 ml 1278 ml Intake Oral 120 ml 240 ml 240 ml 120 ml IV Total 2358 ml Output Urine Total 400 ml 400 ml 300 ml 1100 ml Drainage Total 50 ml 100 ml # Voids 1 3 # Bowel Movements 1 3 0 0 Result Diagram: 10/20/16 0604 10/19/16 0811 Imaging Last Impressions Cholangiogram 10/18/16 0000 Signed Impressions: Service Date/Time: Tuesday, October 18, 2016 10:12 - CONCLUSION: 1. Biopsy of the occluded segment of the common bile duct. 2. The biliary drain traverses a peripheral hepatic arterial branch. A new catheter was repositioned so the side holes were not within the artery. All anticoagulation will be held and the hepatic arterial branch should thrombose on its own. We will see a clearing of the bile if this occurs. If hemobilia persists an angiogram with possible embolization may be needed. Js Lerner Jr., MD Bile Duct Drainage 10/15/16 0000 Signed Impressions: Service Date/Time: Saturday, October 15, 2016 17:14 - CONCLUSION: Uncomplicated biliary stent placement as above. Octavio Covarrubias MD Liver Ultrasound 10/14/16 0000 Signed Impressions: Service Date/Time: October 18:14 - CONCLUSION: Distended common bile duct similar to the recent CT. Silastic stent removed in the interim. I'm unsure whether it was replaced; a new one is not convincingly demonstrated. No other abnormality demonstrated. Sher Burrell MD Chest X-Ray 10/14/16 0000 Signed Impressions: Service Date/Time: October 16:07 - CONCLUSION: 1. Subsegmental basilar airspace disease. No effusion or pneumothorax. Colin Haines MD Abdomen X-Ray 10/14/16 0000 Signed Impressions: Service Date/Time: October 13:32 - CONCLUSION: No evidence of acute process. Status post removal of nasogastric tube and internal biliary stent. Angel Ferro MD Abdomen/Pelvis CT 10/11/16 [id number] Signed Impressions: Service Date/Time: Tuesday, October 11, 2016 20:29 - CONCLUSION: 1. Acute small bowel obstruction at the level of the mid ileum within the central to right pelvic cavity. I don't see a mass. 2. Silastic biliary stent again noted, potentially partly occluded as the biliary tree appears slightly more prominent than on the prior. Please correlate clinically and serologically. Sher Burrell MD Objective Remarks GENERAL: NAD SKIN: Warm and dry. HEAD: Normocephalic. EYES: No scleral icterus. No injection or drainage. NECK: Supple, trachea midline. No JVD or lymphadenopathy. CARDIOVASCULAR: Regular rate and rhythm without murmurs, gallops, or rubs. RESPIRATORY: Breath sounds equal bilaterally. No accessory muscle use. GASTROINTESTINAL: Abdomen soft, non-tender, nondistended. bile duct drain in place MUSCULOSKELETAL: No cyanosis, or edema. BACK: Nontender without obvious deformity. No CVA tenderness. Procedures biliary stent removal / PTC biopsy of the biliary duct A/P Problem List: (1) Small bowel obstruction ICD Code: K56.69 Status: Acute (2) Vomiting ICD Code: R11.10 Status: Acute (3) Sepsis ICD Code: A41.9 Status: Acute (4) Obstructive jaundice ICD Code: K83.8 Status: Acute Assessment and Plan 66-year-old female with Biliary sepsis: Currently on cefepime and Flagyl. Repeat blood culture NTD and appreciate input from infectious disease specialist Likely will need Levaquin plus or minus Flagyl 2 weeks upon discharge Biliary blockage with elevated LFT's s/p attempted ERCP and stent removal on 10/14. s/p biliary drainage and stent placement on 10/15. of note biliary drain traversing a small peripheral hepatic arterial branch. s/p biopsy of the distal CBD on 10/18; biopsy with villous mucosa with active chronic inflammation Plan for CBD repeat biopsy today 10/21/16 Monitor LFTs GI and surgery following. Small bowel obstruction-resolved Management per general surgery DVT prophylaxis with SCD's- no chemical prophylaxis as noted above. Dexter Gonzalez MD Oct 21, 2016 08:57
--- NOTE | 2016-10-21 12:21 | HHI.PR ---
Subjective Subjective Notes Resting in bed Hungry Son at bedside Objective Vitals/I&O Vital Signs Date Time Temp Pulse Resp B/P Pulse Ox O2 Delivery O2 Flow Rate FiO2 10/21/16 08:00 98.3 83 20 146/81 97 10/20/16 20:00 Room Air 10/17/16 08:00 2.00 Labs Laboratory Tests Test 10/21/16 07:04 Total Bilirubin 0.8 Direct Bilirubin 0.4 Indirect Bilirubin 0.4 Aspartate Amino Transf 63 (AST/SGOT) Alanine Aminotransferase 90 (ALT/SGPT) Alkaline Phosphatase 339 Total Protein 6.4 Albumin 2.3 Cardiovascular: Regular Lungs: Clear Abdomen: Non-distended, Non-tender, Other (drain in place ) Extremities: No edema A/P Assessment and Plan 66 year old female with possible SBO; s/p EGD with stent removal -Bile duct biopsy inconclusive; repeat today -Will follow up pathology when available -NPO for procedure; okay to resume diet when procedure done from GS standpoint -C-diff negative Attending Note - Dr. Gamino Await repeat biopsy result Drainage now greenish from PTC which will need to be left in. The exam, history, and the medical decision-making described in the above note were completed with the assistance of the mid-level provider. I reviewed and agree with the findings presented. I attest that I had a [id number] encounter with the patient on the same day, and personally performed and documented my assessment and findings in the medical record. Arianna Davis Oct 21, 2016 12:21 Bran Gamino MD Oct 25, 2016 21:41
--- NOTE | 2016-10-21 13:54 | HHI.GIFU ---
Subjective Remarks Resting in bed. Going to IR. States pain improved. No bm today. (Sabiha Stack) Objective Vitals I&O Vital Signs Date Time Temp Pulse Resp B/P Pulse Ox O2 Delivery O2 Flow Rate FiO2 10/21/16 08:00 98.3 83 20 146/81 97 10/21/16 04:04 98.5 82 16 140/69 91 10/20/16 23:39 98.0 79 16 153/94 94 10/20/16 20:00 Room Air 10/20/16 20:00 87 10/20/16 16:00 98.2 86 20 146/77 97 I/O 10/20/16 10/20/16 10/20/16 10/21/16 10/21/16 10/21/16 07:00 15:00 23:00 07:00 15:00 23:00 Intake Total 120 ml 240 ml 240 ml 2478 ml Output Total 450 ml 400 ml 300 ml 1200 ml Balance -330 ml -160 ml -60 ml 1278 ml Intake Oral 120 ml 240 ml 240 ml 120 ml IV Total 2358 ml Output Urine Total 400 ml 400 ml 300 ml 1100 ml Drainage Total 50 ml 100 ml # Voids 1 3 # Bowel Movements 1 3 0 0 Laboratory Laboratory Tests Test 10/21/16 07:04 Total Bilirubin 0.8 Direct Bilirubin 0.4 Indirect Bilirubin 0.4 Aspartate Amino Transf 63 (AST/SGOT) Alanine Aminotransferase 90 (ALT/SGPT) Alkaline Phosphatase 339 Total Protein 6.4 Albumin 2.3 Imaging Last Impressions Cholangiogram 10/18/16 0000 Signed Impressions: Service Date/Time: Tuesday, October 18, 2016 10:12 - CONCLUSION: 1. Biopsy of the occluded segment of the common bile duct. 2. The biliary drain traverses a peripheral hepatic arterial branch. A new catheter was repositioned so the side holes were not within the artery. All anticoagulation will be held and the hepatic arterial branch should thrombose on its own. We will see a clearing of the bile if this occurs. If hemobilia persists an angiogram with possible embolization may be needed. Js Lerner Jr., MD Bile Duct Drainage 10/15/16 0000 Signed Impressions: Service Date/Time: Saturday, October 15, 2016 17:14 - CONCLUSION: Uncomplicated biliary stent placement as above. Octavio Covarrubias MD Liver Ultrasound 10/14/16 0000 Signed Impressions: Service Date/Time: October 18:14 - CONCLUSION: Distended common bile duct similar to the recent CT. Silastic stent removed in the interim. I'm unsure whether it was replaced; a new one is not convincingly demonstrated. No other abnormality demonstrated. Sher Burrell MD Chest X-Ray 10/14/16 0000 Signed Impressions: Service Date/Time: October 16:07 - CONCLUSION: 1. Subsegmental basilar airspace disease. No effusion or pneumothorax. Colin Haines MD Abdomen X-Ray 10/14/16 0000 Signed Impressions: Service Date/Time: October 13:32 - CONCLUSION: No evidence of acute process. Status post removal of nasogastric tube and internal biliary stent. Angel Ferro MD Abdomen/Pelvis CT 10/11/16 1853 Signed Impressions: Service Date/Time: Tuesday, October 11, 2016 20:29 - CONCLUSION: 1. Acute small bowel obstruction at the level of the mid ileum within the central to right pelvic cavity. I don't see a mass. 2. Silastic biliary stent again noted, potentially partly occluded as the biliary tree appears slightly more prominent than on the prior. Please correlate clinically and serologically. Sher Burrell MD Physical Exam HEENT: PERRLA. Normocephalic; atraumatic; no jaundice. CHEST: CTA CARDIAC: RRR. ABDOMEN: Soft, mild tenderness at drain site, no hepatosplenomegaly; bowel sounds are present x 4 quadrants, biliary drain in right side abdomen with small amount of bilious green drainage EXTREMITIES: No clubbing, cyanosis, or edema. SKIN: Normal; no rash; no jaundice. SKATE BOARDER: No focal deficits; A&O x3. (Sabiha Stack [facility]) Assessment and Plan Plan ASSESSMENT: - Biliary obstruction with elevated LFTs. Pt has hx of biliary stricture and has stent in place. ERCP (09/07/15) Mid-bile duct, 3 cm long, stricture, suspicious for malignancy. S/P sphincterotomy, biliary dilatation, brush cytology (pathology negative for malignancy), and stenting of the above mentioned stricture. She still has stent in place, as she was noted to have perforation during EUS and subsequently underwent emergent laparotomy with repair of perforated duodenal ulcer, gastrojejunostomy with Dr. Alonzo at . The patient reports that she was told by Dr. Alonzo that she cannot have any further endoscopic procedures secondary to the location of her prior perforation. Abdomen/Pelvis CT (10/11/16)-----> 1. Acute small bowel obstruction at the level of the mid ileum within the central to right pelvic cavity. I don't see a mass. 2. Silastic biliary stent again noted, potentially partly occluded as the biliary tree appears slightly more prominent than on the prior. Please correlate clinically and serologically. S/P attempted ERCP with stent removal (10/14/16). S/P biliary stent and drainage placement on 10/15/16. Pathology with villiform mucosa with active chronic inflammation. BCx on 10/14 with E. Coli. No growth in 5 days on 10/15 cultures. Cefepime, Flagyl. Going to IR today for repeat bile duct biopsy. Will ask for them to convert drain to internal stent. Ultimately, will need either hepatic jejunostomy vs. evaluation at tertiary for spy glass/stent removal/exchange. - Elevated LFTs related to above. T. Bili 0.4, AST 63, ALT 90, Alk Phosph 339. - SBO with hx of perforated duodenal ulcer, s/p repair, gastrojejunostomy. Resolved. - Patient had gastrojejunostomy, in this case, anatomy might be altered and might not be able to have ERCP/stent Plan: - Heart Healthy diet - Cont. Flagyl - Cont. Cefepime - Cont. PPI - Cont. IVF - GS following - Supportive care - Pt going for CBD biopsy today by IR with Dr. Lepe, will see if they can place internal stent. Spoke with Dr. Lepe, does not feel that we should place stent at this time, as there would be now way to change out. Recommends keeping int/ext drain and capping off to keep access open should she need this in the near future. - Pt seen and examined by Dr. Mercado and myself and this note is written on his behalf (Sabiha Stack) Physician Comments Seen and examined with HOWARD, doing better, repeat CBD biopsy requested by Dr. Gamino. Cap IR drain. Monitor labs. (Rolando Mercado MD) Sabiha Stack Oct 21, 2016 13:54 Rolando Mercado MD Oct 21, 2016 14:53
[2016-10-21] MEDS ORDERED: MIDAZOLAM HCL 5 MG/5 ML VIAL ONE (14:34)
[2016-10-21] MEDS ORDERED: fentaNYL CITRATE 250 MCG/5 ML AMP ONE (14:34)
[2016-10-21] MEDS ORDERED: IOHEXOL 350 MG/ML 50 ML BTL (for RAD DIAG) ONE (14:55)
--- NOTE | 2016-10-21 15:17 | PD.RAD ---
Post Procedure Progress Note Pre Procedure Diagnosis: (1) Obstructive jaundice Post Procedure Diagnosis: (1) Obstructive jaundice Procedure Date: Oct 21, 2016 Supervising Radiologist: Js Lerner JR Proceduralist/Assist: Meenu Jeter, RT(R), Bouchra Zuleta RT(R) Anesthesia: Conscious Sedation Plan of Activity Patient to Unit: ROPU Patient Condition: Good Additional Comments: Repeat bx of distal CBD. Replacement of int/external biliary drain. Would forego internal silastic stent as this would result in loss of access to biliary tree from percutaneous route with the only way for exchange thru repeat needle access percutaneously. See PACS Report for procedural detail/treatment Jr. Yann,Js Prescott MD Oct 21, 2016 15:17
--- NOTE | 2016-10-21 16:20 | RADRPT ---
EXAM DATE/TIME: 10/21/2016 13:27 [place] COMPARISON: CHOLANGIOGRAM THRU EXISTING CATHETER, October 18, 2016, 10:12. INDICATIONS : Patient with obstructive jaundice. Patient has internal/external biliary drainage catheter. Has histo ry of gastrojejunostomy. Prior biliary biopsy was nondiagnostic. Repeat biopsy requested. A request w as also made for internalization of the stent. MEDICAL HISTORY : History of acute cholecystitis, small bowel obstruction, perforated bowel, colitis, osteoarthritis, a nemia, intra-abdominal abscess, right perinephric abscess, right renal hydronephrosis. SURGICAL HISTORY : History of ercp, biliary stent placement, intra-abdominal abscess drainage, right ureteral stent plac ement, bladder lift, cholecystectomy, hysterectomy. ENCOUNTER: Subsequent ACUITY: 1 week PAIN SCORE: 2/10 LOCATION: drainage site FLUORO TIME: 4.1 minutes IMAGE SERIES: 4 SEDATION TIME: 15 minutes CONTRAST: 10 cc Omnipaque (iohexol) 350 MEDICATION(S): 1.) 2 mg midazolam (Versed) IV 2.) 100 mcg fentanyl (Sublimaze) IV DEVICE(S): 1.) 8 Micronesian internal/external biliary drain 4 tissue samples were obtained and sent to the laboratory for evaluation. PROCEDURE : 1. cholangiogram through an existing catheter 2. Biliary biopsy under fluoroscopic control 3. Conscious sedation with continuous EKG and Oximetry monitoring. The risks, benefits and alternatives to the procedure were explained and verbal and written consent w as obtained. The site was prepped in sterile fashion. Full sterile technique was used, including ca p, mask, sterile gloves and gown and a large sterile sheet. Hand hygiene and 2% chlorhexidine prep w as utilized per protocol for cutaneous antisepsis with appropriate dry time for site. The skin and s ubcutaneous tissues were infiltrated with local anesthetic solution. <Injection of contrast through the existing internal/external biliary drainage catheter was performed . No opacification of the hepatic artery branch is seen on the current study. Multiple areas of linea r stricture formation are seen throughout the biliary tree with mild dilatation involving intrahepati c and extra hepatic biliary system. A more focal area of higher grade stenosis seen at the CBD level near the ampulla. The existing tube was removed over wire. Tissue forceps remains through a 6 Micronesian sheath a total of 4 samples taken at the level of the obstruction within the common bile duct. These were placed in formalin. A new internal/external biliary drainage catheter was appropriately position ed with the sideholes not overlying the traversed hepatic artery branch. Some hemobilia noted at the termination of the procedure. This is mild.> Conscious sedation was performed with the prescribed dosages and duration as above in the presence of an independent trained radiology nurse to assist in the monitoring of the patient. EKG and oximetry remained stable throughout the procedure. CONCLUSION: 1. Repeat biopsy of the area of obstruction involving the common bile duct near the ampulla. 2. A request was made for internalization of the biliary drain. I had a discussion with Blanca Dhaliwal's physician assistant administrator, as well as the patient and family. My concern for total internali zation of the biliary drain utilizing a Silastic stent relates to the need for its exchange. The norma ent cannot have exchange via an endoscopic route due to her prior surgery. With removal of the director of operations home health al portion of the drain we would not have percutaneous access to the biliary system for exchange. I w ould therefore suggest maintenance of the internal/external biliary drain. After the bilirubin return s to a normal level and the hemobilia resolves we can remove the drainage bag and cap the drain to al low for internal drainage. This will maintain a percutaneous access for exchange. Js Lerner Jr., MD on October 21, 2016 at 16:06 Board Certified Radiologist. This report was verified electronically.
[2016-10-22] MEDS: metroNIDAZOLE 500 MG INJ 100 ML IV SCH ×3 (00:29→16:00)
[2016-10-22] MEDS: SODIUM CHLOR 0.9% 1000 ML INJ 1,000 ML IV SCH ×3 (03:00→21:32)
[2016-10-22 03:38] VITALS: BP 142/76; PULSE 93; RESP 16; TEMP 98.1; O2SAT 95
[2016-10-22] MEDS: CEFEPIME INJ 2,000 MG in SODIUM CHLORIDE 0.9% INJ 100 ML IV SCH ×3 (05:36→22:40)
[2016-10-22 08:00] VITALS: BP 145/70; PULSE 78; RESP 18; TEMP 97.7; O2SAT 96
[2016-10-22] MEDS: PANTOPRAZOLE SODIUM 40 MG VIAL IV PUSH SCH (08:13)
[2016-10-22] MEDS: SODIUM CHLORIDE 0.9% FLUSH 5 ML FLUSH FLUSH SCH ×2 (09:00→21:00)
--- NOTE | 2016-10-22 10:14 | HHI.PR ---
Subjective Remarks Follow-up biliary sepsis/obstructive jaundice 10/21/16-patient seen and examined, complains of pain at the biliary drain incision site and afebrile. Nothing by mouth and plan for repeat bile duct biopsy today 10/22/16-patient seen and examined, report significant improvement of abdominal pain to [place] afebrile in no acute event overnight. Denies any nausea and vomiting with by mouth intake. Son by the bedside Objective Vitals Vital Signs Date Time Temp Pulse Resp B/P Pulse Ox O2 Delivery O2 Flow Rate FiO2 10/22/16 08:00 97.7 78 18 145/70 96 10/22/16 03:38 98.1 93 16 142/76 95 10/21/16 23:52 98.0 83 16 129/66 92 10/21/16 20:00 Room Air 10/21/16 19:30 98.0 84 16 137/67 95 10/21/16 16:23 88 16 127/71 96 10/21/16 16:00 98.1 90 18 152/87 90 10/21/16 16:00 86 16 111/68 96 10/21/16 15:30 84 16 112/77 96 10/21/16 15:15 97.5 84 16 149/86 96 10/21/16 12:00 98.0 78 20 132/64 98 I/O 10/21/16 10/21/16 10/21/16 10/22/16 10/22/16 10/22/16 07:00 15:00 23:00 07:00 15:00 23:00 Intake Total 2478 ml 0 ml 360 ml 2084 ml Output Total 1200 ml 600 ml 300 ml Balance 1278 ml 0 ml -240 ml 1784 ml Intake Oral 120 ml 0 ml 360 ml 0 ml IV Total 2358 ml 2084 ml Output Urine Total 1100 ml 500 ml 300 ml Drainage Total 100 ml 100 ml # Voids 4 # Bowel Movements 0 0 0 Result Diagram: 10/20/16 0604 10/19/16 0811 Objective Remarks GENERAL: NAD SKIN: Warm and dry. HEAD: Normocephalic. EYES: No scleral icterus. No injection or drainage. NECK: Supple, trachea midline. No JVD or lymphadenopathy. CARDIOVASCULAR: Regular rate and rhythm without murmurs, gallops, or rubs. RESPIRATORY: Breath sounds equal bilaterally. No accessory muscle use. GASTROINTESTINAL: Abdomen soft, non-tender, nondistended. IR drain in place MUSCULOSKELETAL: No cyanosis, or edema. BACK: Nontender without obvious deformity. No CVA tenderness. Procedures biliary stent removal / PTC biopsy of the biliary duct A/P Problem List: (1) Small bowel obstruction ICD Code: K56.69 Status: Acute (2) Vomiting ICD Code: R11.10 Status: Acute (3) Sepsis ICD Code: A41.9 Status: Acute (4) Obstructive jaundice ICD Code: K83.8 Status: Acute Assessment and Plan 66-year-old female with Biliary sepsis: Currently on cefepime and Flagyl. Repeat blood culture NTD and appreciate input from infectious disease specialist Likely will need Levaquin +- Flagyl 2 weeks upon discharge Biliary blockage with elevated LFT's s/p attempted ERCP and stent removal on 10/14. s/p biliary drainage and stent placement on 10/15. of note biliary drain traversing a small peripheral hepatic arterial branch. s/p biopsy of the distal CBD on 10/18; biopsy with villous mucosa with active chronic inflammation s/p Repeat bile duct biopsy 10/21/16 pending report Monitor LFTs GI and surgery following. Small bowel obstruction-resolved Management per general surgery DVT prophylaxis with SCD's- no chemical prophylaxis as noted above. Dexter Gonzalez MD Oct 22, 2016 10:14
[2016-10-22 12:00] VITALS: BP 145/67; PULSE 77; RESP 18; TEMP 97.9; O2SAT 97
[2016-10-22] MEDS: ONDANSETRON HCL 4 MG/2 ML VIAL IVP PRN (14:19)
--- NOTE | 2016-10-22 14:43 | HHI.GIFU ---
Subjective Remarks Resting in chair. States she is feeling well. No n/v. No abdominal pain. Her biliary drain is patent and has 150cc of drainage in this, although the family reports that this has not been emptied since yesterday. (Sabiha Stack [facility]) Objective Vitals I&O Vital Signs Date Time Temp Pulse Resp B/P Pulse Ox O2 Delivery O2 Flow Rate FiO2 10/22/16 12:00 97.9 77 18 145/67 97 10/22/16 08:00 97.7 78 18 145/70 96 10/22/16 03:38 98.1 93 16 142/76 95 10/21/16 23:52 98.0 83 16 129/66 92 10/21/16 20:00 Room Air 10/21/16 19:30 98.0 84 16 137/67 95 10/21/16 16:23 88 16 127/71 96 10/21/16 16:00 98.1 90 18 152/87 90 10/21/16 16:00 86 16 111/68 96 10/21/16 15:30 84 16 112/77 96 10/21/16 15:15 97.5 84 16 149/86 96 I/O 10/21/16 10/21/16 10/21/16 10/22/16 10/22/16 10/22/16 07:00 15:00 23:00 07:00 15:00 23:00 Intake Total 2478 ml 0 ml 360 ml 2084 ml Output Total 1200 ml 600 ml 300 ml 150 ml Balance 1278 ml 0 ml -240 ml 1784 ml -150 ml Intake Oral 120 ml 0 ml 360 ml 0 ml IV Total 2358 ml 2084 ml Output Urine Total 1100 ml 500 ml 300 ml Drainage Total 100 ml 100 ml 150 ml # Voids 4 # Bowel Movements 0 0 0 Imaging Last Impressions Biopsy X-Ray 10/21/16 0000 Signed Impressions: Service Date/Time: October 13:27 - CONCLUSION: 1. Repeat biopsy of the area of obstruction involving the common bile duct near the ampulla. 2. A request was made for internalization of the biliary drain. I had a discussion with Dr. Gamino, Dr. Mercado's physician registered sales assistant, as well as the patient and family. My concern for total internalization of the biliary drain utilizing a Silastic stent relates to the need for its exchange. The patient cannot have exchange via an endoscopic route due to her prior surgery. With removal of the external portion of the drain we would not have percutaneous access to the biliary system for exchange. I would therefore suggest maintenance of the internal/external biliary drain. After the bilirubin returns to a normal level and the hemobilia resolves we can remove the drainage bag and cap the drain to allow for internal drainage. This will maintain a percutaneous access for exchange. Js Lerner Jr., MD Cholangiogram 10/18/16 0000 Signed Impressions: Service Date/Time: Tuesday, October 18, 2016 10:12 - CONCLUSION: 1. Biopsy of the occluded segment of the common bile duct. 2. The biliary drain traverses a peripheral hepatic arterial branch. A new catheter was repositioned so the side holes were not within the artery. All anticoagulation will be held and the hepatic arterial branch should thrombose on its own. We will see a clearing of the bile if this occurs. If hemobilia persists an angiogram with possible embolization may be needed. Js Lerner Jr., MD Bile Duct Drainage 10/15/16 0000 Signed Impressions: Service Date/Time: Saturday, October 15, 2016 17:14 - CONCLUSION: Uncomplicated biliary stent placement as above. Octavio Covarrubias MD Liver Ultrasound 10/14/16 0000 Signed Impressions: Service Date/Time: October 18:14 - CONCLUSION: Distended common bile duct similar to the recent CT. Silastic stent removed in the interim. I'm unsure whether it was replaced; a new one is not convincingly demonstrated. No other abnormality demonstrated. Sher Burrell MD Chest X-Ray 10/14/16 0000 Signed Impressions: Service Date/Time: October 16:07 - CONCLUSION: 1. Subsegmental basilar airspace disease. No effusion or pneumothorax. Colin Haines MD Abdomen X-Ray 10/14/16 0000 Signed Impressions: Service Date/Time: October 13:32 - CONCLUSION: No evidence of acute process. Status post removal of nasogastric tube and internal biliary stent. Angel Ferro MD Abdomen/Pelvis CT 10/11/16 7846 Signed Impressions: Service Date/Time: Tuesday, October 11, 2016 20:29 - CONCLUSION: 1. Acute small bowel obstruction at the level of the mid ileum within the central to right pelvic cavity. I don't see a mass. 2. Silastic biliary stent again noted, potentially partly occluded as the biliary tree appears slightly more prominent than on the prior. Please correlate clinically and serologically. Sher Burrell MD Physical Exam HEENT: PERRLA. Normocephalic; atraumatic; no jaundice. CHEST: CTA CARDIAC: RRR. ABDOMEN: Soft, mild tenderness at drain site, no hepatosplenomegaly; bowel sounds are present x 4 quadrants, biliary drain in right side abdomen with 150cc of bilious green drainage EXTREMITIES: No clubbing, cyanosis, or edema. SKIN: Normal; no rash; no jaundice. TELEPHONE SOLICITOR: No focal deficits; A&O x3. (Sabiha Stack [facility]) Assessment and Plan Plan ASSESSMENT: - Biliary obstruction with elevated LFTs. Pt has hx of biliary stricture and has stent in place. ERCP (09/07/15) Mid-bile duct, 3 cm long, stricture, suspicious for malignancy. S/P sphincterotomy, biliary dilatation, brush cytology (pathology negative for malignancy), and stenting of the above mentioned stricture. She still has stent in place, as she was noted to have perforation during EUS and subsequently underwent emergent laparotomy with repair of perforated duodenal ulcer, gastrojejunostomy with Dr. Alonzo at . The patient reports that she was told by Dr. Alonzo that she cannot have any further endoscopic procedures secondary to the location of her prior perforation. Abdomen/Pelvis CT (10/11/16)-----> 1. Acute small bowel obstruction at the level of the mid ileum within the central to right pelvic cavity. I don't see a mass. 2. Silastic biliary stent again noted, potentially partly occluded as the biliary tree appears slightly more prominent than on the prior. Please correlate clinically and serologically. S/P attempted ERCP with stent removal (10/14/16). S/P biliary stent and drainage placement on 10/15/16. Pathology with villiform mucosa with active chronic inflammation. BCx on 10/14 with E. Coli. No growth in 5 days on 10/15 cultures. She went back to IR yesterday for Repeat bx of distal CBD. Replacement of int/external biliary drain. (10/21). Per Dr. Lepe, would forego internal silastic stent as this would result in loss of access to biliary tree from percutaneous route with the only way for exchange thru repeat needle access percutaneously. Cefepime, Flagyl. Pathology pending. - Elevated LFTs related to above. LFT stable. - SBO with hx of perforated duodenal ulcer, s/p repair, gastrojejunostomy. Resolved. - Patient had gastrojejunostomy, in this case, anatomy might be altered and might not be able to have ERCP/stent Plan: - Heart Healthy diet - Cont. Flagyl - Cont. Cefepime - Cont. PPI - Cont. IVF - GS following - Supportive care - Will cap biliary drain once output decreases - Await pathology from repeat CBD biopsy. S/P replacement of int/external biliary drain. Per Dr. Lepe, would forego internal silastic stent as this would result in loss of access to biliary tree from percutaneous route with the only way for exchange thru repeat needle access percutaneously. - ? Choledochojejunostomy once pathology resulted, per GS - Pt seen and examined by Dr. Mercado and myself and this note is written on his behalf (Sabiha Stack) Physician Comments Seen and examined with HOWARD, Doing better, repeat cbd biopsy-p. Decision was made to leave PTC catheter in for now, Cap next week once LFTs normalize. ? surgical options based on biopsy results. Dr. Amaya will follow. (Rolando Mercado MD) Sabiha Stack Oct 22, 2016 14:42 Rolando Mercado MD Oct 22, 2016 18:24
[2016-10-22 16:00] VITALS: BP 144/78; PULSE 80; RESP 18; TEMP 97; O2SAT 97
--- NOTE | 2016-10-22 16:03 | HHI.PR ---
Subjective Subjective Notes Multiple family members visiting in room Tolerating diet Pain controlled Objective Vitals/I&O Vital Signs Date Time Temp Pulse Resp B/P Pulse Ox O2 Delivery O2 Flow Rate FiO2 10/22/16 12:00 97.9 77 18 145/67 97 10/21/16 20:00 Room Air Cardiovascular: Regular Lungs: Clear Abdomen: Non-distended, Non-tender, Other (PTC drain in place ) Extremities: No edema A/P Assessment and Plan 66 year old female with possible SBO; s/p EGD with stent removal -Await results from bile duct biopsy -Tolerating diet -C-diff negative Attending Note - Dr. Gamino Abdomen nontender Waiting on bile duct biopsy findings. The exam, history, and the medical decision-making described in the above note were completed with the assistance of the mid-level provider. I reviewed and agree with the findings presented. I attest that I had a [id number] encounter with the patient on the same day, and personally performed and documented my assessment and findings in the medical record. Arianna Davis Oct 22, 2016 16:03 Bran Gamino MD Oct 25, 2016 21:43
[2016-10-22 19:55] VITALS: BP 132/68; PULSE 85; PULSE 91; RESP 16; TEMP 97.6; O2SAT 96
[2016-10-22 23:08] VITALS: BP 117/66; PULSE 80; RESP 16; TEMP 97.8; O2SAT 94
[2016-10-23] MEDS: metroNIDAZOLE 500 MG INJ 100 ML IV SCH ×4 (00:18→23:41)
[2016-10-23] MEDS: ONDANSETRON HCL 4 MG/2 ML VIAL IVP PRN ×4 (00:23→23:39)
[2016-10-23 03:18] VITALS: BP 121/64; PULSE 84; RESP 16; TEMP 97.7; O2SAT 95
[2016-10-23] MEDS: CEFEPIME INJ 2,000 MG in SODIUM CHLORIDE 0.9% INJ 100 ML IV SCH ×3 (05:42→21:12)
[2016-10-23 08:11] LABS: AUTOMATED NEUTROPHIL # 2.4 TH/MM3 (1.8-7.7); BASOPHIL # 0.1 TH/MM3 (0-0.2); BASOPHIL % 1.3 % (0.0-2.0); EOSINOPHIL # 0.2 TH/MM3 (0-0.4); EOSINOPHIL % 4.7 % (0.0-4.0); HEMATOCRIT 33.3 % (35.0-46.0); HEMO FLAGS DIFF FINAL; LYMPH % 30.2 % (9.0-44.0); LYMPHOCYTE # 1.3 TH/MM3 (1.0-4.8); MEAN CELL VOLUME 83.8 FL (80.0-100.0); MEAN CORPUSCULAR HGB CONC 33.4 % (32.0-36.0); MONO % 10.4 % (0.0-8.0); NEUT % 53.4 % (16.0-70.0); PLATELET COUNT 351 TH/MM3 (150-450); RED BLOOD COUNT 3.97 MIL/MM3 (4.00-5.30); RED CELL DISTRIBUTION WIDTH 14.6 % (11.6-17.2); WHITE BLOOD COUNT 4.5 TH/MM3 (4.0-11.0)
[2016-10-23 08:31] LABS: ALKALINE PHOSPHATASE 327 U/L (45-117); ALT (GPT) 56 U/L (10-53); ANION GAP 8 MEQ/L (5-15); AST (GOT) 18 U/L (15-37); BICARBONATE 26.2 MEQ/L (21.0-32.0); BLOOD UREA NITROGEN 4 MG/DL (7-18); CHLORIDE 104 MEQ/L (98-107); GLOMERULAR FILTRATION RATE 93 ML/MIN (>89); POTASSIUM 3.5 MEQ/L (3.5-5.1); SODIUM (NA) 138 MEQ/L (136-145); TOTAL BILIRUBIN ADULT 0.7 MG/DL (0.2-1.0)
[2016-10-23] MEDS: PANTOPRAZOLE SODIUM 40 MG VIAL IV PUSH SCH (08:40)
[2016-10-23] MEDS: SODIUM CHLOR 0.9% 1000 ML INJ 1,000 ML IV SCH ×2 (08:41→21:14)
[2016-10-23] MEDS: SODIUM CHLORIDE 0.9% FLUSH 5 ML FLUSH FLUSH SCH ×2 (08:41→21:00)
[2016-10-23 09:00] VITALS: BP 162/73; PULSE 77; RESP 18; TEMP 97.2; O2SAT 99
--- NOTE | 2016-10-23 10:03 | HHI.PR ---
Subjective Remarks Follow-up biliary sepsis/obstructive jaundice 10/21/16-patient seen and examined, complains of pain at the biliary drain incision site and afebrile. Nothing by mouth and plan for repeat bile duct biopsy today 10/22/16-patient seen and examined, report significant improvement of abdominal pain to me afebrile in no acute event overnight. Denies any nausea and vomiting with by mouth intake. Son by the bedside 10/23/16-patient seen and examined by me stable and no acute event overnight. Tolerated more by mouth and denies any significant abdominal pain. Common bile duct biopsy pathology benign Objective Vitals Vital Signs Date Time Temp Pulse Resp B/P Pulse Ox O2 Delivery O2 Flow Rate FiO2 10/23/16 08:40 Room Air 10/23/16 03:18 97.7 84 16 121/64 95 10/22/16 23:08 97.8 80 16 117/66 94 10/22/16 22:01 Room Air 10/22/16 19:55 97.6 85 16 132/68 96 10/22/16 19:55 91 10/22/16 16:00 97.0 80 18 144/78 97 10/22/16 12:00 97.9 77 18 145/67 97 I/O 10/22/16 10/22/16 10/22/16 10/23/16 10/23/16 10/23/16 07:00 15:00 23:00 07:00 15:00 23:00 Intake Total 2084 ml 480 ml 1508 ml 912 ml Output Total 300 ml 150 ml 700 ml 400 ml Balance 1784 ml 330 ml 808 ml 512 ml Intake Oral 0 ml 480 ml 720 ml 120 ml IV Total 2084 ml 788 ml 792 ml Output Urine Total 300 ml 700 ml 300 ml Drainage Total 150 ml 100 ml # Voids 3 # Bowel Movements 0 1 1 0 Result Diagram: 10/23/1673210/23/16732 Objective Remarks GENERAL: NAD SKIN: Warm and dry. HEAD: Normocephalic. EYES: No scleral icterus. No injection or drainage. NECK: Supple, trachea midline. No JVD or lymphadenopathy. CARDIOVASCULAR: Regular rate and rhythm without murmurs, gallops, or rubs. RESPIRATORY: Breath sounds equal bilaterally. No accessory muscle use. GASTROINTESTINAL: Abdomen soft, non-tender, nondistended. IR drain in place MUSCULOSKELETAL: No cyanosis, or edema. BACK: Nontender without obvious deformity. No CVA tenderness. Procedures biliary stent removal / PTC biopsy of the biliary duct A/P Problem List: (1) Small bowel obstruction ICD Code: K56.69 Status: Acute (2) Vomiting ICD Code: R11.10 Status: Acute (3) Sepsis ICD Code: A41.9 Status: Acute (4) Obstructive jaundice ICD Code: K83.8 Status: Acute Assessment and Plan 66-year-old female with Biliary sepsis: Currently on cefepime and Flagyl. Repeat blood culture NTD and appreciate input from infectious disease specialist Likely will need Levaquin plus or minus Flagyl 2 weeks upon discharge Biliary blockage with elevated LFT's s/p attempted ERCP and stent removal on 10/14. s/p biliary drainage and stent placement on 10/15. of note biliary drain traversing a small peripheral hepatic arterial branch. s/p biopsy of the distal CBD on 10/18; biopsy with villous mucosa with active chronic inflammation s/p CBD repeat biopsy 10/21/16 with pathology benign Drain needs to cup prior to discharge Monitor LFTs GI and surgery following. Small bowel obstruction-resolved Management per general surgery DVT prophylaxis with SCD's- no chemical prophylaxis as noted above. Dexter Gonzalez MD Oct 23, 2016 10:03
--- NOTE | 2016-10-23 11:08 | HHI.PR ---
Subjective Subjective Notes feels better. Had BM. Tolerating po regular diet. Objective Vitals/I&O Vital Signs Date Time Temp Pulse Resp B/P Pulse Ox O2 Delivery O2 Flow Rate FiO2 10/23/16 09:00 97.2 77 18 162/73 99 10/23/16 08:40 Room Air Labs Laboratory Tests Test 10/23/16 07:33 White Blood Count 4.5 Red Blood Count 3.97 Hemoglobin 11.1 Hematocrit 33.3 Mean Corpuscular Volume 83.8 Mean Corpuscular Hemoglobin 28.0 Mean Corpuscular Hemoglobin 33.4 Concent Red Cell Distribution Width 14.6 Platelet Count 351 Mean Platelet Volume 8.1 Neutrophils (%) (Auto) 53.4 Lymphocytes (%) (Auto) 30.2 Monocytes (%) (Auto) 10.4 Eosinophils (%) (Auto) 4.7 Basophils (%) (Auto) 1.3 Neutrophils # (Auto) 2.4 Lymphocytes # (Auto) 1.3 Monocytes # (Auto) 0.5 Eosinophils # (Auto) 0.2 Basophils # (Auto) 0.1 CBC Comment DIFF FINAL Differential Comment Sodium Level 138 Potassium Level 3.5 Chloride Level 104 Carbon Dioxide Level 26.2 Anion Gap 8 Blood Urea Nitrogen 4 Creatinine 0.64 Estimat Glomerular Filtration 93 Rate Random Glucose 109 Calcium Level 8.3 Total Bilirubin 0.7 Aspartate Amino Transf 18 (AST/SGOT) Alanine Aminotransferase 56 (ALT/SGPT) Alkaline Phosphatase 327 Total Protein 6.7 Albumin 2.4 Abdomen: Non-distended, Non-tender, Other (incision appears well healed. R side bilious drain with clear bile.) A/P Assessment and Plan Resolved SBO. Bile stent in place. D/W pt and , apparently plans are being made for bile duct bypass procedure in a month or two, after she recovers and gets stronger. She is stable now. Octavio Canela MD Oct 23, 2016 11:08
[2016-10-23 12:00] VITALS: BP 127/71; PULSE 80; RESP 18; TEMP 97.7; O2SAT 98
[2016-10-23 16:00] VITALS: BP 128/66; PULSE 80; RESP 18; TEMP 97.9; O2SAT 97
--- NOTE | 2016-10-23 18:08 | HHI.GIFU ---
Subjective Remarks Resting in bed. Tolerating diet. Only minimal tenderness at site. (Sabiha Stack) Objective Vitals I&O Vital Signs Date Time Temp Pulse Resp B/P Pulse Ox O2 Delivery O2 Flow Rate FiO2 10/23/16 12:00 97.7 80 18 127/71 98 10/23/16 09:00 97.2 77 18 162/73 99 10/23/16 08:40 Room Air 10/23/16 03:18 97.7 84 16 121/64 95 10/22/16 23:08 97.8 80 16 117/66 94 10/22/16 22:01 Room Air 10/22/16 19:55 97.6 85 16 132/68 96 10/22/16 19:55 91 I/O 10/22/16 10/22/16 10/22/16 10/23/16 10/23/16 10/23/16 07:00 15:00 23:00 07:00 15:00 23:00 Intake Total 2084 ml 480 ml 1508 ml 912 ml Output Total 300 ml 150 ml 700 ml 400 ml 200 ml Balance 1784 ml 330 ml 808 ml 512 ml -200 ml Intake Oral 0 ml 480 ml 720 ml 120 ml IV Total 2084 ml 788 ml 792 ml Output Urine Total 300 ml 700 ml 300 ml Drainage Total 150 ml 100 ml 200 ml # Voids 3 # Bowel Movements 0 1 1 0 Laboratory Laboratory Tests Test 10/23/16 07:33 White Blood Count 4.5 Red Blood Count 3.97 Hemoglobin 11.1 Hematocrit 33.3 Mean Corpuscular Volume 83.8 Mean Corpuscular Hemoglobin 28.0 Mean Corpuscular Hemoglobin 33.4 Concent Red Cell Distribution Width 14.6 Platelet Count 351 Mean Platelet Volume 8.1 Neutrophils (%) (Auto) 53.4 Lymphocytes (%) (Auto) 30.2 Monocytes (%) (Auto) 10.4 Eosinophils (%) (Auto) 4.7 Basophils (%) (Auto) 1.3 Neutrophils # (Auto) 2.4 Lymphocytes # (Auto) 1.3 Monocytes # (Auto) 0.5 Eosinophils # (Auto) 0.2 Basophils # (Auto) 0.1 CBC Comment DIFF FINAL Differential Comment Sodium Level 138 Potassium Level 3.5 Chloride Level 104 Carbon Dioxide Level 26.2 Anion Gap 8 Blood Urea Nitrogen 4 Creatinine 0.64 Estimat Glomerular Filtration 93 Rate Random Glucose 109 Calcium Level 8.3 Total Bilirubin 0.7 Aspartate Amino Transf 18 (AST/SGOT) Alanine Aminotransferase 56 (ALT/SGPT) Alkaline Phosphatase 327 Total Protein 6.7 Albumin 2.4 Imaging Last Impressions Biopsy X-Ray 10/21/16 0000 Signed Impressions: Service Date/Time: October 13:27 - CONCLUSION: 1. Repeat biopsy of the area of obstruction involving the common bile duct near the ampulla. 2. A request was made for internalization of the biliary drain. I had a discussion with Dr. Gamino, Dr. Mercado's physician assistant grocery, as well as the patient and family. My concern for total internalization of the biliary drain utilizing a Silastic stent relates to the need for its exchange. The patient cannot have exchange via an endoscopic route due to her prior surgery. With removal of the external portion of the drain we would not have percutaneous access to the biliary system for exchange. I would therefore suggest maintenance of the internal/external biliary drain. After the bilirubin returns to a normal level and the hemobilia resolves we can remove the drainage bag and cap the drain to allow for internal drainage. This will maintain a percutaneous access for exchange. Js Lerner Jr., MD Cholangiogram 10/18/16 0000 Signed Impressions: Service Date/Time: Tuesday, October 18, 2016 10:12 - CONCLUSION: 1. Biopsy of the occluded segment of the common bile duct. 2. The biliary drain traverses a peripheral hepatic arterial branch. A new catheter was repositioned so the side holes were not within the artery. All anticoagulation will be held and the hepatic arterial branch should thrombose on its own. We will see a clearing of the bile if this occurs. If hemobilia persists an angiogram with possible embolization may be needed. Js Lerner Jr., MD Bile Duct Drainage 10/15/16 0000 Signed Impressions: Service Date/Time: Saturday, October 15, 2016 17:14 - CONCLUSION: Uncomplicated biliary stent placement as above. Octavio Covarrubias MD Liver Ultrasound 10/14/16 0000 Signed Impressions: Service Date/Time: October 18:14 - CONCLUSION: Distended common bile duct similar to the recent CT. Silastic stent removed in the interim. I'm unsure whether it was replaced; a new one is not convincingly demonstrated. No other abnormality demonstrated. Sher Burrell MD Chest X-Ray 10/14/16 0000 Signed Impressions: Service Date/Time: October 16:07 - CONCLUSION: 1. Subsegmental basilar airspace disease. No effusion or pneumothorax. Colin Haines MD Abdomen X-Ray 10/14/16 0000 Signed Impressions: Service Date/Time: October 13:32 - CONCLUSION: No evidence of acute process. Status post removal of nasogastric tube and internal biliary stent. Angel Ferro MD Abdomen/Pelvis CT 10/11/16 1853 Signed Impressions: Service Date/Time: Tuesday, October 11, 2016 20:29 - CONCLUSION: 1. Acute small bowel obstruction at the level of the mid ileum within the central to right pelvic cavity. I don't see a mass. 2. Silastic biliary stent again noted, potentially partly occluded as the biliary tree appears slightly more prominent than on the prior. Please correlate clinically and serologically. Sher Burrell MD Physical Exam HEENT: PERRLA. Normocephalic; atraumatic; no jaundice. CHEST: CTA CARDIAC: RRR. ABDOMEN: Soft, mild tenderness at drain site, no hepatosplenomegaly; bowel sounds are present x 4 quadrants, biliary drain in right side abdomen with ~ 100cc of clear gold colored drainage EXTREMITIES: No clubbing, cyanosis, or edema. SKIN: Normal; no rash; no jaundice. RAD TECHNOLOGIST: No focal deficits; A&O x3. (Sabiha Stack [facility]) Assessment and Plan Plan ASSESSMENT: - Biliary obstruction with elevated LFTs. Pt has hx of biliary stricture and has stent in place. ERCP (09/07/15) Mid-bile duct, 3 cm long, stricture, suspicious for malignancy. S/P sphincterotomy, biliary dilatation, brush cytology (pathology negative for malignancy), and stenting of the above mentioned stricture. She still has stent in place, as she was noted to have perforation during EUS and subsequently underwent emergent laparotomy with repair of perforated duodenal ulcer, gastrojejunostomy with Dr. Alonzo at . The patient reports that she was told by Dr. Alonzo that she cannot have any further endoscopic procedures secondary to the location of her prior perforation. Abdomen/Pelvis CT (10/11/16)-----> 1. Acute small bowel obstruction at the level of the mid ileum within the central to right pelvic cavity. I don't see a mass. 2. Silastic biliary stent again noted, potentially partly occluded as the biliary tree appears slightly more prominent than on the prior. Please correlate clinically and serologically. S/P attempted ERCP with stent removal (10/14/16). S/P biliary stent and drainage placement on 10/15/16. Pathology with villiform mucosa with active chronic inflammation. BCx on 10/14 with E. Coli. No growth in 5 days on 10/15 cultures. She went back to IR (10/21/16) for rpt biopsy distal CBD, replacement of int/external biliary drain. Per Dr. Lepe, would forego internal silastic stent as this would result in loss of access to biliary tree from percutaneous route with the only way for exchange thru repeat needle access percutaneously. Pathology again with benign acute and chronically inflamed biliary mucosal tissue biopsy, clinically common bile duct. Her LFTs are trending down, T. Bili 0.7, AST 18, ALT 56, Alk Phosph 327. Still draining 100-150cc per shift. Will cap biliary drain once this is < 100 if LFTs continue to trend down and no fevers/chills/sign of infection. Cefepime, Flagyl. - Elevated LFTs related to above. LFT stable, trending down. - SBO with hx of perforated duodenal ulcer, s/p repair, gastrojejunostomy. Resolved. - Patient had gastrojejunostomy, in this case, anatomy might be altered and might not be able to have ERCP/stent Plan: - Heart Healthy diet - Cont. Flagyl - Cont. Cefepime - Cont. PPI - Cont. IVF - Monitor LFTs - GS following - Supportive care - Will cap biliary drain once output decreases- still ~100-150cc per shift. - S/P replacement of int/external biliary drain. Per Dr. Lepe, would forego internal silastic stent as this would result in loss of access to biliary tree from percutaneous route with the only way for exchange thru repeat needle access percutaneously. - Plan is for Choledochojejunostomy in future once current issues completely resolve - Pt seen and examined by Dr. Amaya and myself and this note is written on his behalf (Sabiha Stack) Physician Comments Patient seen and examined on 10/23/16 Agree with above Continue with current supportive care Monitor labs (Josue Amaya MD) Sabiha Stack Oct 23, 2016 18:07 Josue Amaya MD Oct 24, 2016 12:14
[2016-10-23 20:00] VITALS: BP 128/64; PULSE 83; RESP 18; TEMP 97.7; O2SAT 97
[2016-10-24] VITALS (7 sets, daily range): BP systolic 108–157; BP diastolic 60–75; PULSE 72–87; RESP 16–20; TEMP 97.4–98.3; O2SAT 95–99
[2016-10-24] MEDS: SODIUM CHLOR 0.9% 1000 ML INJ 1,000 ML IV SCH ×2 (04:05→15:00)
[2016-10-24] MEDS: CEFEPIME INJ 2,000 MG in SODIUM CHLORIDE 0.9% INJ 100 ML IV SCH ×3 (05:14→21:11)
[2016-10-24] MEDS: metroNIDAZOLE 500 MG INJ 100 ML IV SCH ×3 (08:01→23:26)
[2016-10-24] MEDS: ONDANSETRON HCL 4 MG/2 ML VIAL IVP PRN ×3 (08:01→23:26)
[2016-10-24] MEDS: PANTOPRAZOLE SODIUM 40 MG VIAL IV PUSH SCH (08:01)
[2016-10-24] MEDS: SODIUM CHLORIDE 0.9% FLUSH 5 ML FLUSH FLUSH SCH ×2 (08:01→21:00)
--- NOTE | 2016-10-24 08:23 | HHI.PR ---
Subjective Remarks Follow-up biliary sepsis/obstructive jaundice 10/21/16-patient seen and examined, complains of pain at the biliary drain incision site and afebrile. Nothing by mouth and plan for repeat bile duct biopsy today 10/22/16-patient seen and examined, report significant improvement of abdominal pain to me afebrile in no acute event overnight. Denies any nausea and vomiting with by mouth intake. Son by the bedside 10/23/16-patient seen and examined by me stable and no acute event overnight. Tolerated more by mouth and denies any significant abdominal pain. Common bile duct biopsy pathology benign 10/24/16-patient seen and examined, stable and no complaints. Afebrile. LFTs trending down Objective Vitals Vital Signs Date Time Temp Pulse Resp B/P Pulse Ox O2 Delivery O2 Flow Rate FiO2 10/24/16 04:00 98.0 80 18 157/75 95 10/24/16 02:25 79 10/24/16 00:00 97.5 87 18 125/60 97 10/23/16 21:15 Room Air 10/23/16 20:00 97.7 83 18 128/64 97 10/23/16 16:00 97.9 80 18 128/66 97 10/23/16 12:00 97.7 80 18 127/71 98 10/23/16 09:00 97.2 77 18 162/73 99 10/23/16 08:40 Room Air I/O 10/23/16 10/23/16 10/23/16 10/24/16 10/24/16 10/24/16 07:00 15:00 23:00 07:00 15:00 23:00 Intake Total 912 ml 950 ml 2380 ml Output Total 400 ml 1800 ml 425 ml 1920 ml Balance 512 ml -850 ml -425 ml 460 ml Intake Oral 120 ml 950 ml 120 ml IV Total 792 ml 2260 ml Output Urine Total 300 ml 1800 ml 1700 ml Drainage Total 100 ml 425 ml 220 ml # Voids 1 # Bowel Movements 0 1 Result Diagram: 10/23/1673210/23/16732 Objective Remarks GENERAL: NAD SKIN: Warm and dry. HEAD: Normocephalic. EYES: No scleral icterus. No injection or drainage. NECK: Supple, trachea midline. No JVD or lymphadenopathy. CARDIOVASCULAR: Regular rate and rhythm without murmurs, gallops, or rubs. RESPIRATORY: Breath sounds equal bilaterally. No accessory muscle use. GASTROINTESTINAL: Abdomen soft, non-tender, nondistended. IR drain in place MUSCULOSKELETAL: No cyanosis, or edema. BACK: Nontender without obvious deformity. No CVA tenderness. Procedures biliary stent removal / PTC biopsy of the biliary duct A/P Problem List: (1) Small bowel obstruction ICD Code: K56.69 Status: Acute (2) Vomiting ICD Code: R11.10 Status: Acute (3) Sepsis ICD Code: A41.9 Status: Acute (4) Obstructive jaundice ICD Code: K83.8 Status: Acute Assessment and Plan 66-year-old female with Biliary sepsis: Currently on cefepime and Flagyl. Repeat blood culture NTD and appreciate input from infectious disease specialist Likely will need Levaquin plus or minus Flagyl 2 weeks upon discharge Biliary blockage with elevated LFT's s/p attempted ERCP and stent removal on 10/14. s/p biliary drainage and stent placement on 10/15. of note biliary drain traversing a small peripheral hepatic arterial branch. s/p biopsy of the distal CBD on 10/18; biopsy with villous mucosa with active chronic inflammation s/p CBD repeat biopsy 10/21/16 with pathology benign Drain needs to be capped prior to discharge Monitor LFTs GI and surgery following. Patient will eventually need bile duct bypass procedure in the next 1-2 months Small bowel obstruction-resolved Management per general surgery DVT prophylaxis with SCD's- no chemical prophylaxis as noted above. Dexter Gonzalez MD Oct 24, 2016 08:23
--- NOTE | 2016-10-24 12:52 | HHI.GIFU ---
Subjective Remarks No new complaints Biliary drain with documented 445mL out overnight. Afebrile (Angely Hernández E GERMAN) Objective Vitals I&O Vital Signs Date Time Temp Pulse Resp B/P Pulse Ox O2 Delivery O2 Flow Rate FiO2 10/24/16 12:00 97.4 80 16 108/62 98 10/24/16 08:00 97.8 81 16 131/70 97 10/24/16 04:00 98.0 80 18 157/75 95 10/24/16 02:25 79 10/24/16 00:00 97.5 87 18 125/60 97 10/23/16 21:15 Room Air 10/23/16 20:00 97.7 83 18 128/64 97 10/23/16 16:00 97.9 80 18 128/66 97 I/O 10/23/16 10/23/16 10/23/16 10/24/16 10/24/16 10/24/16 07:00 15:00 23:00 07:00 15:00 23:00 Intake Total 912 ml 950 ml 2380 ml Output Total 400 ml 1800 ml 425 ml 1920 ml Balance 512 ml -850 ml -425 ml 460 ml Intake Oral 120 ml 950 ml 120 ml IV Total 792 ml 2260 ml Output Urine Total 300 ml 1800 ml 1700 ml Drainage Total 100 ml 425 ml 220 ml # Voids 1 # Bowel Movements 0 1 Laboratory Laboratory Tests Test 10/23/16 07:33 White Blood Count 4.5 TH/MM3 Red Blood Count 3.97 MIL/MM3 Hemoglobin 11.1 GM/DL Hematocrit 33.3 % Mean Corpuscular Volume 83.8 FL Mean Corpuscular Hemoglobin 28.0 PG Mean Corpuscular Hemoglobin 33.4 % Concent Red Cell Distribution Width 14.6 % Platelet Count 351 TH/MM3 Mean Platelet Volume 8.1 FL Neutrophils (%) (Auto) 53.4 % Lymphocytes (%) (Auto) 30.2 % Monocytes (%) (Auto) 10.4 % Eosinophils (%) (Auto) 4.7 % Basophils (%) (Auto) 1.3 % Neutrophils # (Auto) 2.4 TH/MM3 Lymphocytes # (Auto) 1.3 TH/MM3 Monocytes # (Auto) 0.5 TH/MM3 Eosinophils # (Auto) 0.2 TH/MM3 Basophils # (Auto) 0.1 TH/MM3 CBC Comment DIFF FINAL Differential Comment Sodium Level 138 MEQ/L Potassium Level 3.5 MEQ/L Chloride Level 104 MEQ/L Carbon Dioxide Level 26.2 MEQ/L Anion Gap 8 MEQ/L Blood Urea Nitrogen 4 MG/DL Creatinine 0.64 MG/DL Estimat Glomerular Filtration 93 ML/MIN Rate Random Glucose 109 MG/DL Calcium Level 8.3 MG/DL Total Bilirubin 0.7 MG/DL Aspartate Amino Transf 18 U/L (AST/SGOT) Alanine Aminotransferase 56 U/L (ALT/SGPT) Alkaline Phosphatase 327 U/L Total Protein 6.7 GM/DL Albumin 2.4 GM/DL Imaging Last Impressions Biopsy X-Ray 10/21/16 0000 Signed Impressions: Service Date/Time: October 13:27 - CONCLUSION: 1. Repeat biopsy of the area of obstruction involving the common bile duct near the ampulla. 2. A request was made for internalization of the biliary drain. I had a discussion with Dr. Gamino, Dr. Mercado's physician assistant professor of psychology, as well as the patient and family. My concern for total internalization of the biliary drain utilizing a Silastic stent relates to the need for its exchange. The patient cannot have exchange via an endoscopic route due to her prior surgery. With removal of the external portion of the drain we would not have percutaneous access to the biliary system for exchange. I would therefore suggest maintenance of the internal/external biliary drain. After the bilirubin returns to a normal level and the hemobilia resolves we can remove the drainage bag and cap the drain to allow for internal drainage. This will maintain a percutaneous access for exchange. Js Lerner Jr., MD Cholangiogram 10/18/16 Signed Impressions: Service Date/Time: Tuesday, October 18, 2016 10:12 - CONCLUSION: 1. Biopsy of the occluded segment of the common bile duct. 2. The biliary drain traverses a peripheral hepatic arterial branch. A new catheter was repositioned so the side holes were not within the artery. All anticoagulation will be held and the hepatic arterial branch should thrombose on its own. We will see a clearing of the bile if this occurs. If hemobilia persists an angiogram with possible embolization may be needed. Js Lerner Jr., MD Bile Duct Drainage 10/15/16 0000 Signed Impressions: Service Date/Time: Saturday, October 15, 2016 17:14 - CONCLUSION: Uncomplicated biliary stent placement as above. Octavio Covarrubias MD Liver Ultrasound 10/14/16 0000 Signed Impressions: Service Date/Time: October 18:14 - CONCLUSION: Distended common bile duct similar to the recent CT. Silastic stent removed in the interim. I'm unsure whether it was replaced; a new one is not convincingly demonstrated. No other abnormality demonstrated. Sher Burrell MD Chest X-Ray 10/14/16 0000 Signed Impressions: Service Date/Time: , October 14, 2016 16:07 - CONCLUSION: 1. Subsegmental basilar airspace disease. No effusion or pneumothorax. Colin Haines MD Abdomen X-Ray 10/14/16 0000 Signed Impressions: Service Date/Time: , October 14, 2016 13:32 - CONCLUSION: No evidence of acute process. Status post removal of nasogastric tube and internal biliary stent. Angel Ferro MD Abdomen/Pelvis CT 10/11/16 [id number] Signed Impressions: Service Date/Time: Tuesday, October 11, 2016 20:29 - CONCLUSION: 1. Acute small bowel obstruction at the level of the mid ileum within the central to right pelvic cavity. I don't see a mass. 2. Silastic biliary stent again noted, potentially partly occluded as the biliary tree appears slightly more prominent than on the prior. Please correlate clinically and serologically. Sher Burrell MD Physical Exam HEENT: PERRLA. Normocephalic; atraumatic; no jaundice. CHEST: CTA CARDIAC: RRR. ABDOMEN: Soft, mild tenderness at drain site, +BS x 4 quadrants, biliary drain in right side abdomen EXTREMITIES: No clubbing, cyanosis, or edema. SKIN: Normal; no rash; no jaundice. PROPOSAL REP: No focal deficits; A&O x3. (Angely Hernández) Assessment and Plan Plan ASSESSMENT: - Biliary obstruction with elevated LFTs. Pt has hx of biliary stricture and has stent in place. ERCP (09/07/15) Mid-bile duct, 3 cm long, stricture, suspicious for malignancy. S/P sphincterotomy, biliary dilatation, brush cytology (pathology negative for malignancy), and stenting of the above mentioned stricture. She still has stent in place, as she was noted to have perforation during EUS and subsequently underwent emergent laparotomy with repair of perforated duodenal ulcer, gastrojejunostomy with Dr. Alonzo at . The patient reports that she was told by Dr. Alonzo that she cannot have any further endoscopic procedures secondary to the location of her prior perforation. Abdomen/Pelvis CT (10/11/16)-----> 1. Acute small bowel obstruction at the level of the mid ileum within the central to right pelvic cavity. I don't see a mass. 2. Silastic biliary stent again noted, potentially partly occluded as the biliary tree appears slightly more prominent than on the prior. Please correlate clinically and serologically. S/P attempted ERCP with stent removal (10/14/16). S/P biliary stent and drainage placement on 10/15/16. Pathology with villiform mucosa with active chronic inflammation. BCx on 10/14 with E. Coli. No growth in 5 days on 10/15 cultures. She went back to IR (10/21/16) for rpt biopsy distal CBD, replacement of int/external biliary drain. Per Dr. Lepe, would forego internal silastic stent as this would result in loss of access to biliary tree from percutaneous route with the only way for exchange thru repeat needle access percutaneously. Pathology again with benign acute and chronically inflamed biliary mucosal tissue biopsy, clinically common bile duct. Her LFTs are trending down, T. Bili 0.7, AST 18, ALT 56, Alk Phosph 327 on 10/23. Pt had out about 445mL over night from biliary drain. Will cap biliary drain once drainage this is < 100 and if LFTs continue to trend down and no fevers/ chills/sign of infection. Cefepime, Flagyl. - Elevated LFTs related to above. LFT stable, trending down. - SBO with hx of perforated duodenal ulcer, s/p repair, gastrojejunostomy. Resolved. - Patient had gastrojejunostomy, in this case, anatomy might be altered and might not be able to have ERCP/stent Plan: - Heart Healthy diet - Cont. Flagyl - Cont. Cefepime - Cont. PPI - Cont. IVF - Recheck LFTs in AM - GS following - Supportive care - Will cap biliary drain once output decreases to ~100-150cc per shift consistently - S/P replacement of int/external biliary drain. Per Dr. Lepe, would forego internal silastic stent as this would result in loss of access to biliary tree from percutaneous route with the only way for exchange thru repeat needle access percutaneously. - Plan is for Choledochojejunostomy in future once current issues completely resolve - Pt seen and examined by Dr. Amaya and myself and this note is written on his behalf (Angely Hernández) Physician Comments Patient seen and examined Agree with above Continue with current supportive care Monitor labs I discussed the case with Dr. Rao, when he performed the endoscopy to remove the stent there was no altered anatomy and it went smoothly I also had a lengthy discussion with both the patient and her and presented then with the option to pursue an ERCP with a fully covered metal stent placement instead of having this internal and external stent or even a future hepaticojejunostomy and further operations the patient and her would like to think about this option they will follow up with us in the office to discuss it further at a later date but at this point it looks like the drainage from the biliary drain is minimal I would recommend that this be capped Tomorrow in preparation for discharge to follow-up with GI as an outpatient ( Josue Amaya MD) Angely Hernández Oct 24, 2016 12:52 Josue Amaya MD Oct 24, 2016 19:09
--- NOTE | 2016-10-24 13:25 | HHI.PR ---
Subjective Subjective Notes DAILY PROGRESS NOTE FOR SURGICAL ATTENDING, DR. COLIN BIRMINGHAM Doing well Tolerating diet Positive bowel movement Drainage tube with bilious drainage Objective Vitals/I&O Vital Signs Date Time Temp Pulse Resp B/P Pulse Ox O2 Delivery O2 Flow Rate FiO2 10/24/16 12:00 97.4 80 16 108/62 98 10/23/16 21:15 Room Air Labs Laboratory Tests Test 10/20/16 10/21/16 10/23/16 11:53 07:04 07:33 Carcinoembryonic Antigen 0.8 NG/ML CA 19-9 Antigen 52.8 U/ML CA 125 Antigen 17.4 U/ML Direct Bilirubin 0.4 MG/DL Indirect Bilirubin 0.4 MG/DL White Blood Count 4.5 TH/MM3 Red Blood Count 3.97 MIL/MM3 Hemoglobin 11.1 GM/DL Hematocrit 33.3 % Mean Corpuscular Volume 83.8 FL Mean Corpuscular Hemoglobin 28.0 PG Mean Corpuscular Hemoglobin 33.4 % Concent Red Cell Distribution Width 14.6 % Platelet Count 351 TH/MM3 Mean Platelet Volume 8.1 FL Neutrophils (%) (Auto) 53.4 % Lymphocytes (%) (Auto) 30.2 % Monocytes (%) (Auto) 10.4 % Eosinophils (%) (Auto) 4.7 % Basophils (%) (Auto) 1.3 % Neutrophils # (Auto) 2.4 TH/MM3 Lymphocytes # (Auto) 1.3 TH/MM3 Monocytes # (Auto) 0.5 TH/MM3 Eosinophils # (Auto) 0.2 TH/MM3 Basophils # (Auto) 0.1 TH/MM3 CBC Comment DIFF FINAL Differential Comment Sodium Level 138 MEQ/L Potassium Level 3.5 MEQ/L Chloride Level 104 MEQ/L Carbon Dioxide Level 26.2 MEQ/L Anion Gap 8 MEQ/L Blood Urea Nitrogen 4 MG/DL Creatinine 0.64 MG/DL Estimat Glomerular Filtration 93 ML/MIN Rate Random Glucose 109 MG/DL Calcium Level 8.3 MG/DL Total Bilirubin 0.7 MG/DL Aspartate Amino Transf 18 U/L (AST/SGOT) Alanine Aminotransferase 56 U/L (ALT/SGPT) Alkaline Phosphatase 327 U/L Total Protein 6.7 GM/DL Albumin 2.4 GM/DL Radiology Last Impressions Biopsy X-Ray 10/21/16 0000 Signed Impressions: Service Date/Time: October 13:27 - CONCLUSION: 1. Repeat biopsy of the area of obstruction involving the common bile duct near the ampulla. 2. A request was made for internalization of the biliary drain. I had a discussion with Dr. Gamino, Dr. Mercado's physician behavioral assistant, as well as the patient and family. My concern for total internalization of the biliary drain utilizing a Silastic stent relates to the need for its exchange. The patient cannot have exchange via an endoscopic route due to her prior surgery. With removal of the external portion of the drain we would not have percutaneous access to the biliary system for exchange. I would therefore suggest maintenance of the internal/external biliary drain. After the bilirubin returns to a normal level and the hemobilia resolves we can remove the drainage bag and cap the drain to allow for internal drainage. This will maintain a percutaneous access for exchange. Js Lerner Jr., MD Cholangiogram 10/18/16 0000 Signed Impressions: Service Date/Time: Tuesday, October 18, 2016 10:12 - CONCLUSION: 1. Biopsy of the occluded segment of the common bile duct. 2. The biliary drain traverses a peripheral hepatic arterial branch. A new catheter was repositioned so the side holes were not within the artery. All anticoagulation will be held and the hepatic arterial branch should thrombose on its own. We will see a clearing of the bile if this occurs. If hemobilia persists an angiogram with possible embolization may be needed. Js Lerner Jr., MD Bile Duct Drainage 10/15/16 0000 Signed Impressions: Service Date/Time: Saturday, October 15, 2016 17:14 - CONCLUSION: Uncomplicated biliary stent placement as above. Octavio Covarrubias MD Liver Ultrasound 10/14/16 0000 Signed Impressions: Service Date/Time: October 18:14 - CONCLUSION: Distended common bile duct similar to the recent CT. Silastic stent removed in the interim. I'm unsure whether it was replaced; a new one is not convincingly demonstrated. No other abnormality demonstrated. Sher Burrell MD Chest X-Ray 10/14/16 0000 Signed Impressions: Service Date/Time: October 16:07 - CONCLUSION: 1. Subsegmental basilar airspace disease. No effusion or pneumothorax. Colin Haines MD Abdomen X-Ray 10/14/16 0000 Signed Impressions: Service Date/Time: October 13:32 - CONCLUSION: No evidence of acute process. Status post removal of nasogastric tube and internal biliary stent. Angel Ferro MD Abdomen/Pelvis CT 10/11/16 [id number] Signed Impressions: Service Date/Time: Tuesday, October 11, 2016 20:29 - CONCLUSION: 1. Acute small bowel obstruction at the level of the mid ileum within the central to right pelvic cavity. I don't see a mass. 2. Silastic biliary stent again noted, potentially partly occluded as the biliary tree appears slightly more prominent than on the prior. Please correlate clinically and serologically. Sher Burrell MD Abdomen: Non-distended, Non-tender Narrative Exam Biliary drain in place A/P Problem List: (1) Elevated LFTs (2) Obstructive jaundice Assessment and Plan Resolved SBO. Bile stent in place. D/W pt and , apparently plans are being made for bile duct bypass procedure in a month or two, after she recovers and gets stronger. She is stable now. Possible discharge tomorrow Follow-up with Dr. Gamino Attending Statement NOTE FOR SURGICAL ATTENDING, DR. COLIN BIRMINGHAM I agree with above assessment and plan. I attest that I had a [id number] encounter with the patient on the same day , and personally performed and documented my assessment and findings in the medical record. The following services were provided during this hospital visit: Chart data review, vital sign assessments/reviewing monitor data Review of consultations notes if present. Medication orders/review and/or management Ordering and/or reviewing lab tests Ordering and/or interpreting/reviewing x-rays and/or diagnostic studies Care of the patient and discussion of the patient with the care team Documentation time To help prompt me to consider important information that might be impacting today's encounter and assessment, information from prior notes written by myself or my colleagues may have been "brought forward/copy and pasted" into today's note. Colin Birmingham MD Oct 24, 2016 13:25
[2016-10-25] VITALS (7 sets, daily range): BP systolic 116–158; BP diastolic 64–80; PULSE 77–96; RESP 16–20; TEMP 97.6–98; O2SAT 95–98
[2016-10-25] MEDS: SODIUM CHLOR 0.9% 1000 ML INJ 1,000 ML IV SCH ×2 (00:03→11:00)
[2016-10-25] MEDS: CEFEPIME INJ 2,000 MG in SODIUM CHLORIDE 0.9% INJ 100 ML IV SCH ×2 (06:08→14:41)
[2016-10-25 06:59] LABS: INDIRECT BILIRUBIN 0.4 MG/DL (0.0-0.8); TOTAL BILIRUBIN ADULT 0.6 MG/DL (0.2-1.0)
--- NOTE | 2016-10-25 08:41 | HHI.PR ---
Subjective Remarks Follow-up biliary sepsis/obstructive jaundice 10/21/16-patient seen and examined, complains of pain at the biliary drain incision site and afebrile. Nothing by mouth and plan for repeat bile duct biopsy today 10/22/16-patient seen and examined, report significant improvement of abdominal pain to me afebrile in no acute event overnight. Denies any nausea and vomiting with by mouth intake. Son by the bedside 10/23/16-patient seen and examined by me stable and no acute event overnight. Tolerated more by mouth and denies any significant abdominal pain. Common bile duct biopsy pathology benign 10/24/16-patient seen and examined, stable and no complaints. Afebrile. LFTs trending down 10/25/16-patient seen and examined;+ abdominal discomfort otherwise no other issues Objective Vitals Vital Signs Date Time Temp Pulse Resp B/P Pulse Ox O2 Delivery O2 Flow Rate FiO2 10/25/16 04:00 98.0 82 18 128/70 95 10/25/16 00:30 77 10/25/16 00:00 97.8 80 16 155/64 97 10/24/16 21:20 Room Air 10/24/16 20:00 97.8 72 20 125/74 96 10/24/16 16:00 98.3 83 16 118/73 99 10/24/16 12:00 97.4 80 16 108/62 98 I/O 10/24/16 10/24/16 10/24/16 10/25/16 10/25/16 10/25/16 07:00 15:00 23:00 07:00 15:00 23:00 Intake Total 2380 ml 960 ml 360 ml 1440 ml Output Total 1920 ml 1100 ml 480 ml Balance 460 ml 960 ml -740 ml 960 ml Intake Oral 120 ml 960 ml 360 ml 240 ml IV Total 2260 ml 1200 ml Output Urine Total 1700 ml 900 ml 300 ml Drainage Total 220 ml 200 ml 180 ml # Voids 7 # Bowel Movements 3 0 0 Result Diagram: 10/23/1673210/23/16732 Objective Remarks GENERAL: NAD SKIN: Warm and dry. HEAD: Normocephalic. EYES: No scleral icterus. No injection or drainage. NECK: Supple, trachea midline. No JVD or lymphadenopathy. CARDIOVASCULAR: Regular rate and rhythm without murmurs, gallops, or rubs. RESPIRATORY: Breath sounds equal bilaterally. No accessory muscle use. GASTROINTESTINAL: Abdomen soft, non-tender, nondistended. IR drain in place MUSCULOSKELETAL: No cyanosis, or edema. BACK: Nontender without obvious deformity. No CVA tenderness. Procedures biliary stent removal / PTC biopsy of the biliary duct A/P Problem List: (1) Small bowel obstruction ICD Code: K56.69 Status: Acute (2) Vomiting ICD Code: R11.10 Status: Acute (3) Sepsis ICD Code: A41.9 Status: Acute (4) Obstructive jaundice ICD Code: K83.8 Status: Acute Assessment and Plan 66-year-old female with Biliary sepsis: Currently on cefepime and Flagyl. Repeat blood culture NTD and appreciate input from infectious disease specialist Likely will need Levaquin plus or minus Flagyl 2 weeks upon discharge Biliary blockage with elevated LFT's s/p attempted ERCP and stent removal on 10/14. s/p biliary drainage and stent placement on 10/15. of note biliary drain traversing a small peripheral hepatic arterial branch. s/p biopsy of the distal CBD on 10/18; biopsy with villous mucosa with active chronic inflammation s/p CBD repeat biopsy 10/21/16 with pathology benign Drain needs to be capped prior to discharge hopefully today 11/04/16 Monitor LFTs GI and surgery following. Patient will eventually need bile duct bypass procedure in the next 1-2 months Small bowel obstruction-resolved Management per general surgery DVT prophylaxis with SCD's- no chemical prophylaxis as noted above. Dexter Gonzalez MD Oct 25, 2016 08:41
--- NOTE | 2016-10-25 08:42 | HHI.FF ---
Face to Face Verification Diagnosis: (1) Obstructive jaundice (2) Small bowel obstruction (3) Intra-abdominal abscess Home Health Nursing Order: Signs/symptoms of disease process (please assist with evaluating biliary drain site, flushing ) Instructions: Assist with evaluating biliary drain site- pt teaching for daily drsg change with dry sterile bandage- looking for any redness, drainage, swelling. I have seen patient Linda Manzo on 10/25/16. My clinical findings support the need for the requested home health care services because: Deconditioned w/ increased weakness I certify that my clinical findings support that this patient is homebound because: Poor cardiac reserve Dexter Gonzalez MD Oct 25, 2016 08:42 Sabiha Stack Oct 25, 2016 11:44
[2016-10-25] MEDS ORDERED: PROT40TA PO (08:44)
[2016-10-25] MEDS: metroNIDAZOLE 500 MG INJ 100 ML IV SCH ×2 (08:53→16:02)
[2016-10-25] MEDS: ONDANSETRON HCL 4 MG/2 ML VIAL IVP PRN (08:53)
[2016-10-25] MEDS: PANTOPRAZOLE SODIUM 40 MG VIAL IV PUSH SCH (08:54)
[2016-10-25] MEDS: SODIUM CHLORIDE 0.9% FLUSH 5 ML FLUSH FLUSH SCH (08:59)
--- NOTE | 2016-10-25 12:05 | HHI.GIFU ---
Subjective Remarks Pt resting in bed. Wants to go home. No n/v. No abdominal pain. (Stack Sabiha Laurenjami [facility]) Objective Vitals I&O Vital Signs Date Time Temp Pulse Resp B/P Pulse Ox O2 Delivery O2 Flow Rate FiO2 10/25/16 08:00 97.6 81 20 158/72 98 10/25/16 08:00 Room Air 10/25/16 04:00 98.0 82 18 128/70 95 10/25/16 00:30 77 10/25/16 00:00 97.8 80 16 155/64 97 10/24/16 21:20 Room Air 10/24/16 20:00 97.8 72 20 125/74 96 10/24/16 16:00 98.3 83 16 118/73 99 10/24/16 12:00 97.4 80 16 108/62 98 I/O 10/24/16 10/24/16 10/24/16 10/25/16 10/25/16 10/25/16 07:00 15:00 23:00 07:00 15:00 23:00 Intake Total 2380 ml 960 ml 360 ml 1440 ml Output Total 1920 ml 1100 ml 480 ml Balance 460 ml 960 ml -740 ml 960 ml Intake Oral 120 ml 960 ml 360 ml 240 ml IV Total 2260 ml 1200 ml Output Urine Total 1700 ml 900 ml 300 ml Drainage Total 220 ml 200 ml 180 ml # Voids 7 # Bowel Movements 3 0 0 Laboratory Laboratory Tests Test 10/25/16 05:39 Total Bilirubin 0.6 Direct Bilirubin 0.2 Indirect Bilirubin 0.4 Aspartate Amino Transf 12 (AST/SGOT) Alanine Aminotransferase 40 (ALT/SGPT) Alkaline Phosphatase 238 Total Protein 6.6 Albumin 2.4 Imaging Last Impressions Biopsy X-Ray 10/21/16 0000 Signed Impressions: Service Date/Time: October 13:27 - CONCLUSION: 1. Repeat biopsy of the area of obstruction involving the common bile duct near the ampulla. 2. A request was made for internalization of the biliary drain. I had a discussion with Dr. Gamino, Dr. Mercado's physician registered sales assistant, as well as the patient and family. My concern for total internalization of the biliary drain utilizing a Silastic stent relates to the need for its exchange. The patient cannot have exchange via an endoscopic route due to her prior surgery. With removal of the external portion of the drain we would not have percutaneous access to the biliary system for exchange. I would therefore suggest maintenance of the internal/external biliary drain. After the bilirubin returns to a normal level and the hemobilia resolves we can remove the drainage bag and cap the drain to allow for internal drainage. This will maintain a percutaneous access for exchange. Js Lerner Jr., MD Cholangiogram 10/18/16 0000 Signed Impressions: Service Date/Time: Tuesday, October 18, 2016 10:12 - CONCLUSION: 1. Biopsy of the occluded segment of the common bile duct. 2. The biliary drain traverses a peripheral hepatic arterial branch. A new catheter was repositioned so the side holes were not within the artery. All anticoagulation will be held and the hepatic arterial branch should thrombose on its own. We will see a clearing of the bile if this occurs. If hemobilia persists an angiogram with possible embolization may be needed. Js Lerner Jr., MD Bile Duct Drainage 10/15/16 0000 Signed Impressions: Service Date/Time: Saturday, October 15, 2016 17:14 - CONCLUSION: Uncomplicated biliary stent placement as above. Octavio Covarrubias MD Liver Ultrasound 10/14/16 0000 Signed Impressions: Service Date/Time: October 18:14 - CONCLUSION: Distended common bile duct similar to the recent CT. Silastic stent removed in the interim. I'm unsure whether it was replaced; a new one is not convincingly demonstrated. No other abnormality demonstrated. Sher Burrell MD Chest X-Ray 10/14/16 0000 Signed Impressions: Service Date/Time: October 16:07 - CONCLUSION: 1. Subsegmental basilar airspace disease. No effusion or pneumothorax. Colin Haines MD Abdomen X-Ray 10/14/16 0000 Signed Impressions: Service Date/Time: October 13:32 - CONCLUSION: No evidence of acute process. Status post removal of nasogastric tube and internal biliary stent. Angel Ferro MD Abdomen/Pelvis CT 10/11/16 [id number] Signed Impressions: Service Date/Time: Tuesday, October 11, 2016 20:29 - CONCLUSION: 1. Acute small bowel obstruction at the level of the mid ileum within the central to right pelvic cavity. I don't see a mass. 2. Silastic biliary stent again noted, potentially partly occluded as the biliary tree appears slightly more prominent than on the prior. Please correlate clinically and serologically. Sher Burrell MD Physical Exam HEENT: PERRLA. Normocephalic; atraumatic; no jaundice. CHEST: CTA CARDIAC: RRR. ABDOMEN: Soft, mild tenderness at drain site, +BS x 4 quadrants, biliary drain in right side abdomen- large amount bilious drainage. EXTREMITIES: No clubbing, cyanosis, or edema. SKIN: Normal; no rash; no jaundice. ACQUISITION ANALYST: No focal deficits; A&O x3. (Sabiha Stack [facility]) Assessment and Plan Plan ASSESSMENT: - Biliary obstruction with elevated LFTs. Pt has hx of biliary stricture and has stent in place. ERCP (09/07/15) Mid-bile duct, 3 cm long, stricture, suspicious for malignancy. S/P sphincterotomy, biliary dilatation, brush cytology (pathology negative for malignancy), and stenting of the above mentioned stricture. She still has stent in place, as she was noted to have perforation during EUS and subsequently underwent emergent laparotomy with repair of perforated duodenal ulcer, gastrojejunostomy with Dr. Alonzo at . The patient reports that she was told by Dr. Alonzo that she cannot have any further endoscopic procedures secondary to the location of her prior perforation. Abdomen/Pelvis CT (10/11/16)-----> 1. Acute small bowel obstruction at the level of the mid ileum within the central to right pelvic cavity. I don't see a mass. 2. Silastic biliary stent again noted, potentially partly occluded as the biliary tree appears slightly more prominent than on the prior. Please correlate clinically and serologically. S/P attempted ERCP with stent removal (10/14/16). S/P biliary stent and drainage placement on 10/15/16. Pathology with villiform mucosa with active chronic inflammation. BCx on 10/14 with E. Coli. No growth in 5 days on 10/15 cultures. She went back to IR (10/21/16) for rpt biopsy distal CBD, replacement of int/external biliary drain. Per Dr. Lepe, would forego internal silastic stent as this would result in loss of access to biliary tree from percutaneous route with the only way for exchange thru repeat needle access percutaneously. Pathology again with benign acute and chronically inflamed biliary mucosal tissue biopsy, clinically common bile duct. Her LFTs are trending down, T. Bili 0.6, AST 12, ALT 40, Alk Phosph 238. Pt with increased biliary drainage yesterday and today. According to EMR, 180cc last shift. Will keep to drainage bag for now and can cap once drainage is < 100cc. D/W IR nurse to come up and discuss discharge instructions/ care of drain with patient and family. Also to give patient a cap that she can bring to our office next week. Instructed and daughter to keep accurate recordings of drainage and bring to office appointment next week. If this is < 100cc at that time, we will cap in office. - Elevated LFTs related to above. LFT stable, trending down. - SBO with hx of perforated duodenal ulcer, s/p repair, gastrojejunostomy. Resolved. - Patient had gastrojejunostomy, in this case, anatomy might be altered and might not be able to have ERCP/stent Plan: - Okay to d/c home from GI standpoint after IR instructs patient on discharge instructions/care of drain and give cap to patient to take home - FU ABDOUL in one week- called office and they are scheduling with patient - Keep accurate recordings of drainage from biliary drainage with amounts and times and bring to office appointment next week - Will cap drain in office next week if drainage output decreases - FU GS as recommended - Pt seen and examined by Dr. Bach and myself and this note is written on her behalf (Sabiha Stack) Sabiha Stack Oct 25, 2016 12:05 Yamileth Bach MD Oct 25, 2016 20:00
[2016-10-25] MEDS ORDERED: LEVA500T PO (14:51)
--- NOTE | 2016-10-25 14:51 | HHI.DS ---
Discharge Summary Admission Date Oct 11, 2016 at 21:24 Discharge Date: Oct 25, 2016 Admitting Diagnosis small bowel obstruction (1) Small bowel obstruction ICD Code: K56.69 (2) Vomiting ICD Code: R11.10 (3) Sepsis ICD Code: A41.9 (4) Obstructive jaundice ICD Code: K83.8 Procedures biliary stent removal / PTC biopsy of the biliary duct Brief History - From Admission History from patient, her at the bedside, ER physician communication, and review of medical records. Patient reported that she came to the hospital because she was having severe abdominal pain today. She also is quite nauseous and was vomiting prior to my arrival and just did not feel well and did not feel like talking. Most of the history is obtained from her who is at the bedside. Patient herself is awake alert, and communicative and would jump into the conversation and answers some of her questions if the is not answering correctly. Patient denies any fever. She denies any nausea and vomiting at home. However after arrival to ER after NG tube was placed, she had vomited a few times. Denies any black color or coffee color vomit or bright red blood in vomit. Denies any constipation. However reported that she has been having alternating diarrhea isn't constipations since she last had all these extensive abdominal surgeries which started a year ago. She last moved her bowels this morning. It was diarrhea. Patient denies other symptoms such as chest pain/palpitations/shortness of breath/focal weakness. Denies any urinary burning or pain on urination. Denies any syncopal episodes. Patient reports of history of biliary stent placement in September 2015. A month later, patient had gone to [facility] for endoscopy to evaluate for this stent and had duodenal perforation as a complication. This led to multiple extensive surgical interventions at [facility]. This was then complicated by patient having intra-abdominal abscess which needed surgery and drainage. Has been at the bedside reported that at one point, she underwent what sounds like a bypass from the kidney to the urethra because of this abscess formation. CBC/BMP: 10/23/16 0733 10/23/16 0733 Significant Findings Laboratory Tests Test 10/23/16 10/25/16 07:33 05:39 Red Blood Count 3.97 MIL/MM3 (4.00-5.30) Hemoglobin 11.1 GM/DL (11.6-15.3) Hematocrit 33.3 % (35.0-46.0) Monocytes (%) (Auto) 10.4 % (0.0-8.0) Eosinophils (%) (Auto) 4.7 % (0.0-4.0) Blood Urea Nitrogen 4 MG/DL (7-18) Random Glucose 109 MG/DL (74-106) Calcium Level 8.3 MG/DL (8.5-10.1) Alanine Aminotransferase 56 U/L (10-53) (ALT/SGPT) Alkaline Phosphatase 327 U/L 238 U/L (45-117) (45-117) Albumin 2.4 GM/DL 2.4 GM/DL (3.4-5.0) (3.4-5.0) Aspartate Amino Transf 12 U/L (15-37) (AST/SGOT) PE at Discharge GENERAL: NAD SKIN: Warm and dry. HEAD: Normocephalic. EYES: No scleral icterus. No injection or drainage. NECK: Supple, trachea midline. No JVD or lymphadenopathy. CARDIOVASCULAR: Regular rate and rhythm without murmurs, gallops, or rubs. RESPIRATORY: Breath sounds equal bilaterally. No accessory muscle use. GASTROINTESTINAL: Abdomen soft, non-tender, nondistended. IR drain in place MUSCULOSKELETAL: No cyanosis, or edema. BACK: Nontender without obvious deformity. No CVA tenderness. Hospital Course Biliary sepsis: Currently on cefepime and Flagyl. Repeat blood culture NTD and appreciate input from infectious disease specialist Likely will need Levaquin plus or minus Flagyl 2 weeks upon discharge Biliary blockage with elevated LFT's s/p attempted ERCP and stent removal on 10/14. s/p biliary drainage and stent placement on 10/15. of note biliary drain traversing a small peripheral hepatic arterial branch. s/p biopsy of the distal CBD on 10/18; biopsy with villous mucosa with active chronic inflammation s/p CBD repeat biopsy 10/21/16 with pathology benign Drain needs to be capped prior to discharge hopefully today 11/04/16 Monitor LFTs GI and surgery following. Patient will eventually need bile duct bypass procedure in the next 1-2 months Small bowel obstruction-resolved Management per general surgery DVT prophylaxis with SCD's- no chemical prophylaxis as noted above. Pt Condition on Discharge: Fair Discharge Disposition: Disch w/ Home Health Serv Discharge Time: > 30 minutes Discharge Instructions DIET: Follow Instructions for: Heart Healthy Diet Activities you can perform: Regular-No Restrictions Follow up Referrals: Gastroenterology - 1 Week @ [facility] PCP Follow-up - 1 Week SNF/[facility] New Medications: Levofloxacin (Levaquin) 500 Mg Tab 500 MG PO DAILY Infection #3 Ref 0 TAB Pantoprazole (Protonix) 40 Mg Tab 40 MG PO DAILY Reflux #30 Ref 0 TAB Continued Medications: Izxowweg-Xlipagqjk-Bokoxsakooe Liq (Mylanta Liq) 200-200-20 Mg/5 Ml Susp 10 ML PO HS Take between meals or as directed. Shake well. Maximum 120 ml/24 hrs. PRN INDIGESTION Ref 0 ML Famotidine (Pepcid) 20 Mg Tab 20 MG PO DAILY Reflux #60 Ref 0 TAB Lactobacillus Acidophilus (Probiotic) 1 Cap Cap 1 CAP PO DAILY Nutritional Supplement #90 Ref 0 CAP Dexter Gonzalez MD Oct 25, 2016 14:51
--- NOTE | 2016-10-25 16:09 | HHI.IDPN ---
Subjective Subjective Remarks no pain no fever repeat BC negative bx negative for ca doing good Antibiotics cefepime flagyl Allergies: Coded Allergies: Vancomycin (Verified Allergy, Intermediate, RASH, FLUSHING OF FACE AND RASH TO LEGS, 10/11/16) Penicillin (Verified Allergy, Unknown, 10/11/16) told when she was a child Objective . Vital Signs Date Time Temp Pulse Resp B/P Pulse Ox O2 Delivery O2 Flow Rate FiO2 10/25/16 12:00 97.8 78 20 120/80 96 10/25/16 08:00 97.6 81 20 158/72 98 10/25/16 08:00 Room Air 10/25/16 07:55 81 10/25/16 04:00 98.0 82 18 128/70 95 10/25/16 00:30 77 10/25/16 00:00 97.8 80 16 155/64 97 10/24/16 21:20 Room Air 10/24/16 20:00 97.8 72 20 125/74 96 10/24/16 10/24/16 10/25/16 15:00 23:00 07:00 Intake Total 960 ml 360 ml 1440 ml Output Total 1100 ml 480 ml Balance 960 ml -740 ml 960 ml Intake Oral 960 ml 360 ml 240 ml IV Total 1200 ml Output Urine Total 900 ml 300 ml Drainage Total 200 ml 180 ml # Voids 7 # Bowel Movements 3 0 0 . Laboratory Tests Test 10/25/16 05:39 Total Bilirubin 0.6 MG/DL Direct Bilirubin 0.2 MG/DL Indirect Bilirubin 0.4 MG/DL Aspartate Amino Transf 12 U/L (AST/SGOT) Alanine Aminotransferase 40 U/L (ALT/SGPT) Alkaline Phosphatase 238 U/L Total Protein 6.6 GM/DL Albumin 2.4 GM/DL Imaging Last Impressions Biopsy X-Ray 10/21/16 0000 Signed Impressions: Service Date/Time: October 13:27 - CONCLUSION: 1. Repeat biopsy of the area of obstruction involving the common bile duct near the ampulla. 2. A request was made for internalization of the biliary drain. I had a discussion with Dr. Gamino, Dr. Mercado's physician assistant art director, as well as the patient and family. My concern for total internalization of the biliary drain utilizing a Silastic stent relates to the need for its exchange. The patient cannot have exchange via an endoscopic route due to her prior surgery. With removal of the external portion of the drain we would not have percutaneous access to the biliary system for exchange. I would therefore suggest maintenance of the internal/external biliary drain. After the bilirubin returns to a normal level and the hemobilia resolves we can remove the drainage bag and cap the drain to allow for internal drainage. This will maintain a percutaneous access for exchange. Js Lerner Jr., MD Cholangiogram 10/18/16 Signed Impressions: Service Date/Time: Tuesday, October 18, 2016 10:12 - CONCLUSION: 1. Biopsy of the occluded segment of the common bile duct. 2. The biliary drain traverses a peripheral hepatic arterial branch. A new catheter was repositioned so the side holes were not within the artery. All anticoagulation will be held and the hepatic arterial branch should thrombose on its own. We will see a clearing of the bile if this occurs. If hemobilia persists an angiogram with possible embolization may be needed. Js Lerner Jr., MD Bile Duct Drainage 10/15/16 0000 Signed Impressions: Service Date/Time: Saturday, October 15, 2016 17:14 - CONCLUSION: Uncomplicated biliary stent placement as above. Octavio Covarrubias MD Liver Ultrasound 10/14/16 0000 Signed Impressions: Service Date/Time: October 18:14 - CONCLUSION: Distended common bile duct similar to the recent CT. Silastic stent removed in the interim. I'm unsure whether it was replaced; a new one is not convincingly demonstrated. No other abnormality demonstrated. Sher Burrell MD Chest X-Ray 10/14/16 0000 Signed Impressions: Service Date/Time: October 16:07 - CONCLUSION: 1. Subsegmental basilar airspace disease. No effusion or pneumothorax. Colin Haines MD Abdomen X-Ray 10/14/16 0000 Signed Impressions: Service Date/Time: October 13:32 - CONCLUSION: No evidence of acute process. Status post removal of nasogastric tube and internal biliary stent. Angel Ferro MD Abdomen/Pelvis CT 10/11/16 [id number] Signed Impressions: Service Date/Time: Tuesday, October 11, 2016 20:29 - CONCLUSION: 1. Acute small bowel obstruction at the level of the mid ileum within the central to right pelvic cavity. I don't see a mass. 2. Silastic biliary stent again noted, potentially partly occluded as the biliary tree appears slightly more prominent than on the prior. Please correlate clinically and serologically. Sher Burrell MD Physical Exam CONSTITUTIONAL/GENERAL: NAD. OOB in a chair TUBES/LINES/DRAINS: SKIN: No jaundice, rashes, or lesions. Skin temperature appropriate. Not diaphoretic. EYES: Pupils equal and round and reactive. Extraocular motions intact. Minimal scleral icterus. No injection or drainage. Fundi not examined. CARDIOVASCULAR: Regular rate and rhythm without murmurs, gallops, or rubs. No JVD. Peripheral pulses symmetric. RESPIRATORY/CHEST: Symmetric, unlabored respirations. Clear to auscultation. Breath sounds equal bilaterally. No wheezes, rales, or rhonchi. GASTROINTESTINAL: Abdomen soft, minimally tender to palpation diffusely, moderately distended. Biliary drain in place with dark bile No hepato-splenomegaly, or palpable masses. + guarding. Bowel sounds present. GENITOURINARY: Without palpable bladder distension. MUSCULOSKELETAL: Extremities without clubbing, cyanosis, or edema. NEUROLOGICAL: Awake alert, non focal PSYCHIATRIC: No obvious anxiety/depression. no apparent hallucinations or other psychotic thought process. Assessment & Plan Remarks obstructive jaundice sp a biliary drain and stent placement plan to remove the drainage bag and cap the drain to allow for internal drainage after the bilirubin returns to a normal level and the hemobilia resolves we can Biliary sepsis stanley S E.coli h/o PCN allergic reaction Severe abd pain and new onset abx -associatred diarrhea; C.diff negative - pain resolved complete abx po levaquine x 3 more days dc bambi german @ b/s monserrat her nurse Meenu Camarillo MD Oct 25, 2016 16:09
== END 2016-10-25 17:25 | disposition home health service (06) | DRG 408 ==
LOC: NEPA 18:27 → NEDA 21:24 → N04A 10-12 14:30
PROVIDERS: ADMIT Hospitalist; ATTEND Hospitalist
PROC: 0D9670Z Drainage of Stomach with Drainage Device, Via Natural or Artificial Opening (ICD-10-PCS; principal; 2016-10-11)
PROC: 0FPB8DZ Removal of Intraluminal Device from Hepatobiliary Duct, Via Natural or Artificial Opening Endoscopic (ICD-10-PCS; 2016-10-13)
PROC: 0F9930Z Drainage of Common Bile Duct with Drainage Device, Percutaneous Approach (ICD-10-PCS; 2016-10-15)
PROC: 0FB93ZX Excision of Common Bile Duct, Percutaneous Approach, Diagnostic (ICD-10-PCS; 2016-10-18)
PROC: 0F9930Z Drainage of Common Bile Duct with Drainage Device, Percutaneous Approach (ICD-10-PCS; 2016-10-18)
PROC: 0FPB3DZ Removal of Intraluminal Device from Hepatobiliary Duct, Percutaneous Approach (ICD-10-PCS; 2016-10-21)
PROC: 0FB93ZX Excision of Common Bile Duct, Percutaneous Approach, Diagnostic (ICD-10-PCS; 2016-10-21)
PROC: 0F793DZ Dilation of Common Bile Duct with Intraluminal Device, Percutaneous Approach (ICD-10-PCS; 2016-10-21)
DX: K83.1 Obstruction of bile duct (principal); A41.51 Sepsis due to Escherichia coli [E. coli]; K56.60 Unspecified intestinal obstruction; K83.0 Cholangitis; I95.9 Hypotension, unspecified; E78.00 Pure hypercholesterolemia, unspecified; M19.90 Unspecified osteoarthritis, unspecified site; Z88.0 Allergy status to penicillin; Z88.1 Allergy status to other antibiotic agents; Z80.3 Family history of malignant neoplasm of breast; R25.1 Tremor, unspecified
CPT/HCPCS: 47534; 47536; 47999; 71010; 74000; 74177; 76705; 76937; 76942; 80053; 80069; 80076; 81001; 82247; 82248; 82270; 82378; 83605; 83690; 83735; 85014; 85018; 85025; 85027; 85610; 85730; 86301; 86304; 86850; 86900; 86901; 87040; 87186; 87205; 87493; 88305; 94664; 96361; 96374; 96375; 96376; 99152; 99153; C1729; C1769; C1887; C1894; C9113; J0692; J0780; J1650; J1956; J2250; J2270; J2405; J3010; J3480; J7030; J7040; Q9967

== ENCOUNTER 2016-11-11 09:34 | Day surgery (SDC) | payer MEDICARE, BC ==
[~2016-11-11] VITALS: Ht 149.9 cm; Wt 59.5 kg
[~2016-11-11 09:34] MED LIST changes: +FAMO1TAB37 PO; +LACTCAP8 PO; +LEVA500T PO; +MYLASUS2 PO; -PERC5TAB12 PO; +PROT40TA PO
[2016-11-11 09:57] VITALS: BP 131/76; PULSE 86; RESP 20; TEMP 97.4; O2SAT 97
[2016-11-11] MEDS ORDERED: LEVOFLOXACIN 500 MG PREMIX 100 ML - biliary drainage catheter/stent insertion IV SCH (10:30)
[2016-11-11] MEDS ORDERED: diphenhydrAMINE HCL 50 MG/ML VIAL ONE (13:27)
[2016-11-11] MEDS ORDERED: MIDAZOLAM HCL 5 MG/5 ML VIAL ONE (13:44)
[2016-11-11] MEDS ORDERED: fentaNYL CITRATE 250 MCG/5 ML AMP ONE (13:44)
[2016-11-11] MEDS ORDERED: IOHEXOL 350 MG/ML 50 ML BTL (for RAD DIAG) ONE (15:04)
[2016-11-11 15:10] VITALS: BP 101/69; PULSE 74; PULSE 75; RESP 15; RESP 18; TEMP 97.8; O2SAT 94
[2016-11-11 15:25] VITALS: BP 102/65; PULSE 61; RESP 16; O2SAT 95
--- NOTE | 2016-11-11 15:48 | PD.RAD ---
Post Procedure Progress Note Pre Procedure Diagnosis: (1) Sepsis (2) Breast pain, left Post Procedure Diagnosis: (1) Sepsis (2) Breast pain, left Procedure Date: Nov 11, 2016 Supervising Radiologist: Shar Cortes Proceduralist/Assist: Bouchra Zuleta, RT(R), Dipika Mckeon RT(R)() Anesthesia: Local Plan of Activity Patient to Unit: Nursing Unit Patient Condition: Good See PACS Report for procedural detail/treatment Drainage Procedure Procedure 1 Imaging Guidance: Ultrasound Procedure Type: Aspiration (subareolar left breast) Fluid Removal (CCs): 1 Fluid Description: Other (serous) Findings: Breast induration at 10-11 o'clock about 2 cm from nipple. Fluid collections subareolar between 3 and 5 o'clock Shar Cortes MD Nov 11, 2016 15:48
[2016-11-11 15:55] VITALS: BP 97/64; PULSE 57; RESP 18; O2SAT 95
[2016-11-11 16:25] VITALS: BP 120/62; PULSE 57; RESP 16; RESP 18; O2SAT 94
--- NOTE | 2016-11-12 10:01 | PD.RAD ---
Post Procedure Progress Note Pre Procedure Diagnosis: (1) Elevated LFTs (2) Obstructed biliary drain Post Procedure Diagnosis: (1) Elevated LFTs (2) Obstructed biliary drain Procedure Date: Nov 11, 2016 Supervising Radiologist: Shar Cortes Proceduralist/Assist: Genaro Abebe, RT(R), Karl Izquierdo RT(R)() Anesthesia: Local, Analgesia, Conscious Sedation Plan of Activity Patient to Unit: ROPU Patient Condition: Good See PACS Report for procedural detail/treatment Drainage Procedure Procedure 1 Imaging Guidance: Fluoroscopy Procedure Type: Biliary Drainage Procedure: Exchange, Evaluation Omani: 8 Drainage: Berino drainage Fluid Description: Bilious Findings: Existing tube appropriately positioned. No flow to distal cope loop, however. Tube changed over the wire Shar Cortes MD Nov 12, 2016 10:01
--- NOTE | 2016-11-12 11:13 | RADRPT ---
EXAM DATE/TIME: 11/11/2016 14:24 [facility] COMPARISON: CHANGE OF BILIARY CATHETER, October 21, 2016, 0:00. INDICATIONS : Patient with history of obstructive jaundice in need of cholangiogram with possible biliary tube exch kulwinder. MEDICAL HISTORY : History of acute cholecystitis, small bowel obstruction, perforated bowel, colitis,osteoarthritis, an emia, intra-abdominal abscess, right perinephric abscess, right renal hydronephrosis. SURGICAL HISTORY : History of ercp, biliary stent placement, intra-abdominal abscess drainage, right ureteral stent placement, bladder lift, cholecystectomy, hysterectomy. ENCOUNTER: Subsequent ACUITY: 1 month PAIN SCORE: 0/10 FLUORO TIME: minutes IMAGE SERIES: 3 SEDATION TIME: 30 minutes CONTRAST: 20 cc Omnipaque (iohexol) 350 MEDICATION(S): 1.) 2 mg midazolam (Versed) IV 2.) 100 mcg fentanyl (Sublimaze) IV DEVICE(S): 1.) 8 Georgian Flexima biliary drain PROCEDURE : 1. Cholangiogram through existing catheter. 2. Biliary stent change. 3. Conscious sedation with continuous EKG and oximetry monitoring. The risks, benefits and alternatives to the procedure were explained and verbal and written consent w as obtained. The site was prepped in sterile fashion. Full sterile technique was used, including ca p, mask, sterile gloves and gown and a large sterile sheet. Hand hygiene and 2% chlorhexidine and/or betadine/alcohol prep was utilized per protocol for cutaneous antisepsis. The skin and subcutaneous tissues were infiltrated with local anesthetic solution. Contrast injection through the existing biliary drainage catheter shows the catheter to remain in goo d position there is opacification of the intra-and extra hepatic biliary tree with no opacification o f the duodenum suggesting obstruction of the distal aspect of the catheter. Catheter was exchanged over a straight Glidewire. A new 8 Georgian biliary drain was advanced over the wire. The [place] loop was formed in the second portion of the duodenum. Contrast injection confirmed ap propriate position with a 20 throughout. Contrast is seen in the biliary tree and duodenum Conscious sedation was performed with the prescribed dosages and duration as above in the presence of an independent trained radiology nurse to assist in the monitoring of the patient. EKG and oximetry remained stable throughout the procedure. The patient tolerated the procedure well and there were n o complications. The patient was sent to post anesthesia recovery in stable condition. CONCLUSION: 1. Uncomplicated biliary catheter change. 2. Patient and family were instructed to maintain external drainage for 24-48 hours. Tube can be capp ed at that point. If patient experiences increased pain her temperature, the tube will be placed back to gravity drainage and the family was instructed to call theIR department. Shar Cortes MD on November 12, 2016 at 11:07 Board Certified Radiologist. This report was verified electronically.
== END 2016-11-11 17:00 | disposition home or self-care (01) ==
LOC: HROP 09:34 → HRIP 09:38 → HROP 17:00
PROVIDERS: ATTEND Surgery Trauma Surgery
DX: K83.1 Obstruction of bile duct (principal); R79.89 Other specified abnormal findings of blood chemistry
CPT/HCPCS: 47536; 99152; 99153; C1729; C1769; J1200; J1956; J2250; J3010; Q9967; 47531; 77002

== ENCOUNTER 2016-11-18 13:14 | Inpatient (IN) | payer MEDICARE, BC ==
[~2016-11-18] VITALS: Ht 149.9 cm; Wt 59.0 kg
[~2016-11-18 13:14] MED LIST changes: -LACTCAP8 PO; -LEVA500T PO; -PROT40TA PO
[2016-11-26 09:45] VITALS: BP 109/74; PULSE 71; RESP 20; TEMP 97.8; O2SAT 99
[2016-11-26] MEDS ORDERED: ACETAMINOPHEN 1000 MG/100 ML VIAL IV SCH (10:15)
[2016-11-26] MEDS ORDERED: INSULIN HUMAN REGULAR 1,000 UNITS/10 ML VIAL SQ PRN (10:30)
[2016-11-26] MEDS ORDERED: SODIUM CHLORID 0.9% 500 ML IV PRN (10:30)
[2016-11-26] MEDS ORDERED: POVIDONE IODINE 5% (ANTISEPSIS KIT) 4 APPLICATIONS EACH NARE PRN (10:30)
[2016-11-26] MEDS ORDERED: CHLORHEXIDINE GLUCONATE 2 % 1 PACK (2 CLOTHS) TOPICAL PRN (10:30)
[2016-11-26] MEDS ORDERED: LACTATED RINGER'S 1000 ML IV PRN (10:30)
[2016-11-26] MEDS ORDERED: METOPROLOL TARTRATE 25 MG TAB PO PRN (10:30)
[2016-11-26] MEDS ORDERED: METRONIDAZOLE 500 MG/100 ML ISONTONIC SOLN IV SCH (10:45)
[2016-11-26] MEDS ORDERED: LEVOFLOXACIN 500 MG PREMIX INJ 100 ML IV SCH (10:45)
[2016-11-26] MEDS ORDERED: PRIL20CA9 PO (10:54)
[2016-11-26 11:21] LABS: AUTOMATED NEUTROPHIL # 1.1 TH/MM3 (1.8-7.7); BASOPHIL % 0.8 % (0.0-2.0); EOSINOPHIL # 0.3 TH/MM3 (0-0.4); EOSINOPHIL % 7.6 % (0.0-4.0); HEMATOCRIT 33.6 % (35.0-46.0); HEMO FLAGS DIFF FINAL; LYMPH % 50.6 % (9.0-44.0); LYMPHOCYTE # 1.8 TH/MM3 (1.0-4.8); MEAN CELL VOLUME 82.5 FL (80.0-100.0); MEAN CORPUSCULAR HGB CONC 33.9 % (32.0-36.0); MONO % 9.5 % (0.0-8.0); NEUT % 31.5 % (16.0-70.0); PLATELET COUNT 286 TH/MM3 (150-450); RED BLOOD COUNT 4.07 MIL/MM3 (4.00-5.30); WHITE BLOOD COUNT 3.6 TH/MM3 (4.0-11.0)
[2016-11-26 11:39] LABS: BICARBONATE 29.4 MEQ/L (21.0-32.0); POTASSIUM 3.9 MEQ/L (3.5-5.1)
[2016-11-26] MEDS ORDERED: HYDROmorphone HCL PF 2 MG/ML VIAL ONE (11:43)
[2016-11-26] MEDS ORDERED: PROPOFOL 200 MG/20 ML AMP IV ONE (13:27)
[2016-11-26] MEDS ORDERED: ePHEDrine/NS 25 MG/5 ML SYR IV ONE (13:27)
[2016-11-26] MEDS ORDERED: NEOSTIGMINE 3 MG/3 ML SYR IV ONE (13:27)
[2016-11-26] MEDS ORDERED: ONDANSETRON HCL 4 MG/2 ML VIAL IV PUSH ONE (13:28)
[2016-11-26] MEDS ORDERED: PHENYLEPH/NS 1000 MCG/10 ML SYR IV ONE (13:28)
[2016-11-26] MEDS ORDERED: NORMOSOL R INJ 3,000 ML IV ONE (13:28)
[2016-11-26] MEDS ORDERED: BUPIVACAINE/EPINEPHRINE 0.25% PF 30 ML VIAL ONE (15:29)
--- NOTE | 2016-11-26 15:55 | HHI.PR ---
cc: Bran Gamino MD Immediate Post Op Note Procedure Date: Nov 26, 2016 Pre Op Diagnosis: Persistent distal common bile duct stricture Post Op Diagnosis: Same Surgeon: Bran Gamino Environmental Officer(s): Adonis Scott MD Procedure: Exp Laparotomy, lysis of adhesions Jessy-en-Y choledochojejunostomy Complications: None Specimen(s) removed: None Estimated blood loss: 150 ml Anesthesia: General Drains: TANG IVF (3000 ml) Patient to: PACU Patient Condition: Good Date/Time of Procedure: SEE SURGICAL CARE RECORD Bran Gamino MD Nov 26, 2016 15:55
[2016-11-26] MEDS ORDERED: SODIUM CHLORIDE 0.9% FLUSH 5 ML FLUSH IVF PRN (16:00)
[2016-11-26] MEDS ORDERED: Post-op Orders (for Pharmacy) MISC XX ONE (16:00)
[2016-11-26] MEDS: D5-NS + KCL 20 MEQ INJ 1,000 ML IV SCH (16:00)
[2016-11-26] MEDS ORDERED: NALOXONE HCL 0.4 MG/ML AMP IV PRN (16:00)
[2016-11-26] MEDS ORDERED: MORPHINE SULFATE 30 MG/30 ML PCA IV SCH (16:00)
[2016-11-26] MEDS ORDERED: diphenhydrAMINE HCL 25 MG CAP PO PRN (16:00)
[2016-11-26] MEDS ORDERED: fentaNYL CITRATE 250 MCG/5 ML AMP ONE ×2 (16:13→16:14)
[2016-11-26] MEDS ORDERED: MENTHOL LOZENGE BUCCAL PRN (17:00)
[2016-11-26] MEDS ORDERED: BENZOCAINE-MENTHOL (SUGAR FREE) 15 MG-3.6 MG LOZENGE BUCCAL PRN (17:00)
--- NOTE | 2016-11-26 17:26 | RADRPT ---
EXAM DATE/TIME: 11/26/2016 16:16 [facility] COMPARISON: CHEST SINGLE AP, October 14, 2016, 16:07. INDICATIONS : Evaluate for central line placement. MEDICAL HISTORY : Gastroesophageal reflux disease. SURGICAL HISTORY : Cholecystectomy. Hysterectomy. ENCOUNTER: Subsequent ACUITY: 1 day PAIN SCORE: Non-responsive. LOCATION: chest FINDINGS: The lungs are clear without infiltrate, nodule, or mass. There is no appreciable pleural effusion fo r technique. Heart and mediastinum are unremarkable. NG tube is present with tip in the stomach. Rig ht IJ line is present with tip overlapping the expected region of the SVC. CONCLUSION: No acute cardiopulmonary disease. Woody Tran MD on November 26, 2016 at 17:24 Board Certified Radiologist. This report was verified electronically.
[2016-11-26] MEDS: ONDANSETRON HCL 4 MG/2 ML VIAL IV PRN (19:54)
[2016-11-26] MEDS: metroNIDAZOLE 500 MG INJ 100 ML IV SCH (19:55)
[2016-11-26] MEDS: SODIUM CHLORIDE 0.9% FLUSH 5 ML FLUSH IVF SCH (19:56)
[2016-11-26 20:00] VITALS: BP 120/70; PULSE 127; RESP 20; TEMP 96.8; O2SAT 99
[2016-11-26] MEDS ORDERED: PCA - TOTAL MG MORPHINE DELIVERED PER SHIFT SCH (22:00)
[2016-11-27] VITALS (8 sets, daily range): BP systolic 112–139; BP diastolic 55–77; PULSE 70–116; RESP 16–20; TEMP 96.5–98.5; O2SAT 98–100
[2016-11-27] MEDS: D5-NS + KCL 20 MEQ INJ 1,000 ML IV SCH ×3 (00:24→16:35)
[2016-11-27] MEDS: ONDANSETRON HCL 4 MG/2 ML VIAL IV PRN ×3 (00:30→17:24)
[2016-11-27] MEDS: metroNIDAZOLE 500 MG INJ 100 ML IV SCH ×2 (03:07→14:35)
[2016-11-27 04:17] LABS: ALKALINE PHOSPHATASE 110 U/L (45-117); ALT (GPT) 67 U/L (10-53); ANION GAP 6 MEQ/L (5-15); AST (GOT) 55 U/L (15-37); BICARBONATE 26.9 MEQ/L (21.0-32.0); BLOOD UREA NITROGEN 6 MG/DL (7-18); CHLORIDE 108 MEQ/L (98-107); GLOMERULAR FILTRATION RATE 82 ML/MIN (>89); POTASSIUM 4.5 MEQ/L (3.5-5.1); SODIUM (NA) 141 MEQ/L (136-145); TOTAL BILIRUBIN ADULT 0.4 MG/DL (0.2-1.0)
[2016-11-27] MEDS: SODIUM CHLORIDE 0.9% FLUSH 5 ML FLUSH IVF SCH ×2 (08:04→21:18)
[2016-11-27] MEDS ORDERED: LEVOFLOXACIN 750 MG PREMIX INJ 150 ML IV SCH (13:00)
--- NOTE | 2016-11-27 14:08 | HHI.PR ---
Subjective Subjective Notes no new c/o, pain ok Objective Vitals/I&O Vital Signs Date Time Temp Pulse Resp B/P Pulse Ox O2 Delivery O2 Flow Rate FiO2 11/27/16 12:00 98.5 97 18 139/76 100 11/26/16 18:00 Nasal Cannula 2 Labs Laboratory Tests Test 11/27/16 03:30 Hemoglobin 10.0 Sodium Level 141 Potassium Level 4.5 Chloride Level 108 Carbon Dioxide Level 26.9 Anion Gap 6 Blood Urea Nitrogen 6 Creatinine 0.71 Estimat Glomerular Filtration 82 Rate Random Glucose 155 Calcium Level 7.7 Total Bilirubin 0.4 Aspartate Amino Transf 55 (AST/SGOT) Alanine Aminotransferase 67 (ALT/SGPT) Alkaline Phosphatase 110 Total Protein 5.2 Albumin 2.3 Cardiovascular: Regular Lungs: Clear Abdomen: Non-distended, Post-op tenderness Extremities: No edema A/P Assessment and Plan 66yo female s/p open choledochojejunostomy, stable. pain ok, change to dilauded for iching oob pulmonary toilet DC NG, minimal output, no NV DC norris , UOP good decrease IVF to maint. Adonis Scott MD Nov 27, 2016 14:08
[2016-11-27] MEDS ORDERED: PCA - TOTAL MG DILAUDID DELIVERED PER SHIFT OTHER SCH (14:15)
[2016-11-27] MEDS ORDERED: HYDROmorphone HCL PCA 6 MG/30 ML IV SCH ×2 (14:15→16:45)
[2016-11-27] MEDS ORDERED: NALOXONE HCL 0.4 MG/ML AMP IV PRN ×2 (14:15→17:00)
[2016-11-27] MEDS: ENOXAPARIN SODIUM 40 MG/0.4 ML SYRINGE SQ SCH (15:19)
[2016-11-27] MEDS ORDERED: MORPHINE SULFATE 30 MG/30 ML PCA IV SCH (17:00)
[2016-11-27] MEDS: PCA - TOTAL MG MORPHINE DELIVERED PER SHIFT SCH ×2 (17:00→21:19)
[2016-11-28] VITALS: BP 127/73; PULSE 98; RESP 20; TEMP 98.4; O2SAT 100
[2016-11-28] MEDS: D5-NS + KCL 20 MEQ INJ 1,000 ML IV SCH ×3 (03:25→22:53)
[2016-11-28 04:00] VITALS: BP 129/75; PULSE 90; RESP 20; TEMP 96.5; O2SAT 100
[2016-11-28] MEDS: PCA - TOTAL MG MORPHINE DELIVERED PER SHIFT SCH (05:18)
[2016-11-28 08:00] VITALS: BP 140/77; PULSE 110; RESP 20; TEMP 95.6; O2SAT 100
[2016-11-28] MEDS: SODIUM CHLORIDE 0.9% FLUSH 5 ML FLUSH IVF SCH ×2 (09:00→20:13)
--- NOTE | 2016-11-28 09:13 | HHI.PR ---
Subjective Subjective Notes feels well, minimal pain, very hungry Objective Vitals/I&O Vital Signs Date Time Temp Pulse Resp B/P Pulse Ox O2 Delivery O2 Flow Rate FiO2 11/28/16 05:18 17 11/28/16 04:00 96.5 90 129/75 100 11/27/16 21:00 Nasal Cannula 2.00 Cardiovascular: Regular Lungs: Clear Abdomen: Non-distended, Post-op tenderness Extremities: No edema, Perfused, SCD's on A/P Assessment and Plan 66yo female s/p open choledochojejunostomy, stable. pain ok, morphine [employer] oob, PT consult pulmonary toilet advance to clears check labs tomorrow Adonis Scott MD Nov 28, 2016 09:13
[2016-11-28] MEDS: ACETAMINOPHEN 1000 MG/100 ML VIAL IV PRN ×3 (09:29→22:49)
[2016-11-28 10:12] VITALS: O2SAT 98
[2016-11-28 12:00] VITALS: BP 130/74; PULSE 98; RESP 20; TEMP 96.4; O2SAT 100
[2016-11-28] MEDS: ENOXAPARIN SODIUM 40 MG/0.4 ML SYRINGE SQ SCH (13:50)
[2016-11-28] MEDS ORDERED: MORPHINE SULFATE 4 MG/ML INJ IV PRN (14:45)
[2016-11-28 20:00] VITALS: BP 114/58; PULSE 68; RESP 17; TEMP 96.3; O2SAT 97
[2016-11-29] VITALS: BP 123/64; PULSE 94; RESP 17; TEMP 96.2; O2SAT 97
[2016-11-29 06:12] LABS: HEMATOCRIT 24.5 % (35.0-46.0); MEAN CELL VOLUME 83.5 FL (80.0-100.0); MEAN CORPUSCULAR HEMOGLOBIN 28.8 PG (27.0-34.0); MEAN CORPUSCULAR HGB CONC 34.6 % (32.0-36.0); PLATELET COUNT 246 TH/MM3 (150-450); RED BLOOD COUNT 2.94 MIL/MM3 (4.00-5.30); RED CELL DISTRIBUTION WIDTH 13.8 % (11.6-17.2); REVIEW FLAG FINAL; WHITE BLOOD COUNT 4.2 TH/MM3 (4.0-11.0)
[2016-11-29 06:24] LABS: ALKALINE PHOSPHATASE 106 U/L (45-117); ALT (GPT) 66 U/L (10-53); ANION GAP 7 MEQ/L (5-15); AST (GOT) 29 U/L (15-37); BICARBONATE 29.5 MEQ/L (21.0-32.0); BLOOD UREA NITROGEN 3 MG/DL (7-18); CHLORIDE 104 MEQ/L (98-107); GLOMERULAR FILTRATION RATE 106 ML/MIN (>89); POTASSIUM 3.5 MEQ/L (3.5-5.1); SODIUM (NA) 140 MEQ/L (136-145); TOTAL BILIRUBIN ADULT 0.4 MG/DL (0.2-1.0)
[2016-11-29 08:00] VITALS: BP 126/67; PULSE 87; RESP 16; TEMP 96.6; O2SAT 97
[2016-11-29] MEDS: ONDANSETRON HCL 4 MG/2 ML VIAL IV PRN (08:54)
[2016-11-29] MEDS: SODIUM CHLORIDE 0.9% FLUSH 5 ML FLUSH IVF SCH ×2 (09:00→19:53)
[2016-11-29 12:00] VITALS: BP 128/68; PULSE 85; RESP 17; TEMP 96.9; O2SAT 98
[2016-11-29] MEDS: ACETAMINOPHEN 1000 MG/100 ML VIAL IV PRN ×2 (15:11→21:41)
[2016-11-29] MEDS: D5-NS + KCL 20 MEQ INJ 1,000 ML IV SCH (15:15)
[2016-11-29] MEDS: ENOXAPARIN SODIUM 40 MG/0.4 ML SYRINGE SQ SCH (15:19)
[2016-11-29 16:00] VITALS: BP 125/70; PULSE 89; RESP 18; TEMP 96.2; O2SAT 99
--- NOTE | 2016-11-29 16:15 | HHI.PR ---
Subjective Subjective Notes Resting in bed Has been out of bed several times today Objective Vitals/I&O Vital Signs Date Time Temp Pulse Resp B/P Pulse Ox O2 Delivery O2 Flow Rate FiO2 11/29/16 12:00 96.9 85 17 128/68 98 11/28/16 10:12 21 11/27/16 21:00 Nasal Cannula 2.00 Labs Laboratory Tests Test 11/29/16 05:40 White Blood Count 4.2 Red Blood Count 2.94 Hemoglobin 8.5 Hematocrit 24.5 Mean Corpuscular Volume 83.5 Mean Corpuscular Hemoglobin 28.8 Mean Corpuscular Hemoglobin 34.6 Concent Red Cell Distribution Width 13.8 Platelet Count 246 Mean Platelet Volume 8.1 Sodium Level 140 Potassium Level 3.5 Chloride Level 104 Carbon Dioxide Level 29.5 Anion Gap 7 Blood Urea Nitrogen 3 Creatinine 0.57 Estimat Glomerular Filtration 106 Rate Random Glucose 101 Calcium Level 8.2 Total Bilirubin 0.4 Aspartate Amino Transf 29 (AST/SGOT) Alanine Aminotransferase 66 (ALT/SGPT) Alkaline Phosphatase 106 Total Protein 5.6 Albumin 2.1 Cardiovascular: Regular Lungs: Clear Abdomen: Other (midline incision with deepali c/d/i; TANG in place with SS draiange ) Extremities: No edema A/P Assessment and Plan 66 year old female s/p open choledochojejunostomy -Pain controlled -OOB, PT consult -IVF -Continue clear liquids for now -Labs stable today Attending Statement patient stable and doing well, abdominal exam benign postop, clears The exam, history, and the medical decision-making described in the above note were completed with the assistance of the mid-level provider. I reviewed and agree with the findings presented. I attest that I had a [id number] encounter with the patient on the same day, and personally performed and documented my assessment and findings in the medical record. Arianna Davis Nov 29, 2016 16:15 Adonis Scott MD Nov 30, 2016 11:02
[2016-11-29 20:07] VITALS: BP 112/65; PULSE 84; RESP 18; TEMP 96.3; O2SAT 99
[2016-11-30 00:10] VITALS: BP 122/66; PULSE 81; RESP 17; TEMP 96.4; O2SAT 97
[2016-11-30] MEDS: D5-NS + KCL 20 MEQ INJ 1,000 ML IV SCH (05:16)
[2016-11-30 08:00] VITALS: BP 128/73; PULSE 94; RESP 18; TEMP 97.3; O2SAT 99
[2016-11-30] MEDS: DOCUSATE SODIUM 100 MG CAP PO SCH ×2 (08:55→19:36)
[2016-11-30] MEDS: SODIUM CHLORIDE 0.9% FLUSH 5 ML FLUSH IVF SCH ×2 (09:00→19:37)
[2016-11-30] MEDS ORDERED: ACETAMINOPHEN 500 MG CPLT PO PRN (11:15)
[2016-11-30] MEDS ORDERED: ACETAMINOPHEN/HYDROcodone 325 MG/5 MG TAB PO PRN ×2 (11:15)
[2016-11-30] MEDS ORDERED: ALUMINUM/MAGNESIUM/SIMETH 30 ML CUP PO PRN (11:15)
--- NOTE | 2016-11-30 11:15 | HHI.PR ---
Subjective Subjective Notes Hungry; wants to eat solid food. Minimal pain Objective Vitals/I&O Vital Signs Date Time Temp Pulse Resp B/P Pulse Ox O2 Delivery O2 Flow Rate FiO2 11/30/16 08:00 97.3 94 18 128/73 99 11/28/16 10:12 21 11/27/16 21:00 Nasal Cannula 2.00 Lungs: Clear Abdomen: Non-distended Narrative Exam Dressing dry and intact TANG output serosanguinous A/P Assessment and Plan POD #4 Jessy-en-Y Choledochojejunostomy for chronic stricture Advance diet Likely remove drain prior to D/C D/C home next 48 hrs Add PPI Bran Gamino MD Nov 30, 2016 11:15
[2016-11-30 12:00] VITALS: BP 126/68; PULSE 88; RESP 17; TEMP 97.7; O2SAT 99
[2016-11-30] MEDS: FAMOTIDINE 20 MG TAB PO SCH (15:42)
[2016-11-30] MEDS: PANTOPRAZOLE SOD 20 MG DELAYED RELEASE TAB PO SCH (15:42)
[2016-11-30] MEDS: ENOXAPARIN SODIUM 40 MG/0.4 ML SYRINGE SQ SCH (15:42)
[2016-11-30 16:00] VITALS: BP 129/73; PULSE 90; RESP 17; TEMP 97.8; O2SAT 98
[2016-11-30 19:52] VITALS: BP 131/72; PULSE 90; RESP 17; TEMP 96.4; O2SAT 98
[2016-11-30] MEDS ORDERED: ONDANSETRON ODT 4 MG TAB PO PRN (23:00)
[2016-11-30 23:47] VITALS: BP 131/72; PULSE 82; RESP 17; TEMP 96.6; O2SAT 95
[2016-12-01 05:37] LABS: HEMATOCRIT 29.9 % (35.0-46.0); REVIEW FLAG FINAL
[2016-12-01 08:00] VITALS: BP 120/69; PULSE 85; RESP 12; TEMP 96.8; O2SAT 98
[2016-12-01] MEDS: SODIUM CHLORIDE 0.9% FLUSH 5 ML FLUSH IVF SCH ×2 (09:00→21:00)
[2016-12-01] MEDS: FAMOTIDINE 20 MG TAB PO SCH (10:09)
[2016-12-01] MEDS: PANTOPRAZOLE SOD 20 MG DELAYED RELEASE TAB PO SCH (10:09)
[2016-12-01] MEDS: DOCUSATE SODIUM 100 MG CAP PO SCH ×2 (10:15→21:00)
--- NOTE | 2016-12-01 11:20 | MP ---
cc: BRAN GAMINO M.D., SAUD DATE OF SURGERY 11/26/2016 PROCEDURE Exploratory laparotomy with lysis of adhesions Jessy-en-Y choledochojejunostomy. PREOPERATIVE DIAGNOSIS Chronic stricture of the distal common bile duct, benign. POSTOPERATIVE DIAGNOSIS Chronic stricture of the distal common bile duct, benign. ANESTHESIA General endotracheal SURGEON Bran Gamino MD LITIGATION SERVICES MANAGER Adonis Scott MD ESTIMATED BLOOD LOSS 150 mL FLUIDS 3000 mL crystalloid COMPLICATIONS None DRAINS TANG x1 SPECIMEN None PROCEDURE IN DETAIL The patient was taken to the operating room and placed on the operating table in the supine position. After an adequate level of general endotracheal anesthesia was achieved, the abdomen was prepped and draped in the usual fashion. This also included the percutaneous transhepatic cholangiogram catheter drain that was in place. Time-out was taken confirming the correct patient, site and procedure to be performed. Incision was made around the patient's previous scar in the midline and the scar tissue removed. Dissection was carried down to the abdominal cavity where the peritoneal cavity was entered uneventfully. Adhesions were taken down off of the anterior abdominal wall with omentum taken down with electrocautery and sharp dissection. When this had been completed, attention was turned to the small bowel. This was run from the ligament of Treitz to the ileocecal valve. It appeared that the patient had a retrocolic gastrojejunal bypass with a simple loop. There did not appear to be any Jessy-en-Y bypass type procedure. Given these findings, a dissection was then carried out around the shasta hepatis. The hepatic artery was identified and a vessel loop placed around this after dissecting. At this point, the common duct was dissected around and a vessel loop placed around this as well. A small needle was used at multiple points to gain access and no definitive bile was noted. However, the percutaneous transhepatic cholangiocatheter was palpated and this was located at the posterior end of the dissected tissue. At this point, the common duct was then divided and was seen to have cystic duct remnant in it as well. This was completely divided and the catheter removed from the abdomen and out of the common duct. The distal duct was oversewn with a 2-0 silk suture. The more proximal duct had the cystic duct dissected off of it and the edges freshened up. The duct was thickened and dilated. At this point, dissection was carried out beneath the hepatic flexure in a thinned out area of colonic mesentery. Although there was some scarring, a small opening could be created. A loop of jejunum was brought up and divided with the stapler. The loop was able to be brought through the retrocolic defect and was able to be brought up adjacent to the distal common bile duct without tension. At this point, a small jejunotomy was made and 4-0 PDS was used utilizing two sutures in a running fashion to complete the choledochojejunal anastomosis. Two additional 3-0 silk sutures were used to take tension off of the loop when this had been completed. The jejunojejunostomy was then completed in a [id number]-[id number] fashion with a JOELLEN type stapler. A second JOELLEN stapler was used to close the jejunojejunostomy. The toe of the staple line was reinforced with a silk stitch. The mesenteric defect was closed down with 3-0 silk pop-offs. The retrocolic positioning of the Jessy-en-Y loop was secured at three points with silk sutures to prevent torsion. When this was completed, a Alvarado-Elliott drain was brought out via separate stab incision in the right midabdomen. This was secured to the skin with a 3-0 nylon suture. The abdomen was irrigated and the wound closed with a running looped #1 PDS suture. The skin was closed with deepali. The wound was dressed with a sterile dressing and a 4x4 placed around the drain. Sponge, needle and instrument counts were reported to be correct. The patient tolerated the procedure well and was extubated and taken back to the recovery room in stable condition. MD ROCÍO [place]/OMAR /12:43 PM /10:59 AM PINA
[2016-12-01 12:00] VITALS: BP 113/62; PULSE 80; RESP 11; TEMP 96.2; O2SAT 98
--- NOTE | 2016-12-01 12:02 | HHI.PR ---
Subjective Subjective Notes Resting in bed Son at bedside Skin where CVL was is painful Objective Vitals/I&O Vital Signs Date Time Temp Pulse Resp B/P Pulse Ox O2 Delivery O2 Flow Rate FiO2 12/01/16 08:00 96.8 85 12 120/69 98 11/28/16 10:12 21 11/27/16 21:00 Nasal Cannula 2.00 Labs Laboratory Tests Test 12/01/16 05:04 Hemoglobin 9.8 Hematocrit 29.9 Cardiovascular: Regular Lungs: Clear Abdomen: Other (midline incison QUARTER DOPER; stapled c/d/i; TANG with no output) Extremities: No edema Narrative Exam RIGHT IJ central line removed; area slightly reddened but looks like irritation from tape A/P Assessment and Plan 66 year old female s/p open choledochojejunostomy -Pain controlled----Controlled with [place] -OOB, PT consult -DC IVF -Tolerating mechanical soft diet -DC TANG drain today -Plan for home tomorrow; rx on chart Attending Note - Dr. Gamino Incision clean and dry; deepali intact Drain and central line out Home tomorrow F/U my office next week; GI F/U about 1 month The exam, history, and the medical decision-making described in the above note were completed with the assistance of the mid-level provider. I reviewed and agree with the findings presented. I attest that I had a [id number] encounter with the patient on the same day, and personally performed and documented my assessment and findings in the medical record. Arianna Davis Dec 01, 2016 12:02 Bran Gamino MD Dec 01, 2016 15:17
[2016-12-01] MEDS: ENOXAPARIN SODIUM 40 MG/0.4 ML SYRINGE SQ SCH (13:46)
[2016-12-01 16:00] VITALS: BP 104/58; PULSE 90; RESP 12; TEMP 96; O2SAT 97
[2016-12-01 20:00] VITALS: BP 127/78; PULSE 98; RESP 18; TEMP 96.1; O2SAT 100
[2016-12-02] VITALS: BP 130/76; PULSE 89; RESP 20; TEMP 97.2; O2SAT 99
[2016-12-02 08:00] VITALS: BP 110/73; PULSE 60; RESP 16; TEMP 96.5; O2SAT 97
[2016-12-02] MEDS: PANTOPRAZOLE SOD 20 MG DELAYED RELEASE TAB PO SCH (08:01)
[2016-12-02] MEDS: FAMOTIDINE 20 MG TAB PO SCH (08:01)
[2016-12-02] MEDS: DOCUSATE SODIUM 100 MG CAP PO SCH (08:01)
[2016-12-02] MEDS: SODIUM CHLORIDE 0.9% FLUSH 5 ML FLUSH IVF SCH (08:02)
[2016-12-02] MEDS ORDERED: HYDR-3516 PO (08:46)
[2016-12-02] MEDS ORDERED: PANT20 PO (08:46)
--- NOTE | 2016-12-02 12:11 | HHI.DS ---
Discharge Summary Admission Date Nov 26, 2016 at 09:36 Discharge Date: Dec 02, 2016 Admitting Diagnosis Brief History 66 year old female s/p open choledochojejunostomy CBC/BMP: 12/01/16 0504 11/29/16 0540 Significant Findings Laboratory Tests Test 12/01/16 05:04 Hemoglobin 9.8 GM/DL (11.6-15.3) Hematocrit 29.9 % (35.0-46.0) PE at Discharge Up to chair eating breakfast Cardio: RRR Resp: CTAB Abd: midline incision stapled---c/d/i; abdomen soft non tender; prior drain site with dry dressing---clean and dry RIGHT IJ central line removed Hospital Course This is a 66 year old female s/p open choledochojejunostomy. The patient was advanced to a mechanical soft diet. Her pain was controlled using oral pain medications. Her TANG drain was removed prior to DC. She will follow up in the office next week with Dr. Gamino. She will see her GI doctor in about 1 month. Pt Condition on Discharge: Good Discharge Disposition: Discharge Home Discharge Instructions DIET: Follow Instructions for: As Tolerated, No Restrictions Speech Therapy-Diet Recommends: Mechanical Soft Activities you can perform: See Additionl Instruction Other Activity Instructions: Okay to shower---pat incision dry Avoid heavy pulling, pushing and lifting Arianna Davis Dec 02, 2016 12:11
== END 2016-12-02 10:40 | disposition home or self-care (01) | DRG 410 ==
LOC: HSDI 11-26 09:36 → N07B 11-26 18:26
PROVIDERS: ADMIT Surgery Trauma Surgery; ATTEND Surgery Trauma Surgery
PROC: 0DNS0ZZ (ICD-10-PCS; 2016-11-26)
PROC: 0F190ZB Bypass Common Bile Duct to Small Intestine, Open Approach (ICD-10-PCS; principal; 2016-11-26 11:41)
DX: K83.1 Obstruction of bile duct (principal); K21.9 Gastro-esophageal reflux disease without esophagitis; K66.0 Peritoneal adhesions (postprocedural) (postinfection)
CPT/HCPCS: 71010; 80048; 80053; 85014; 85018; 85025; 85027; 94150; J0131; J1170; J1650; J1956; J2270; J2370; J2405; J2710; J3010; J3480; J7120

== ENCOUNTER 2017-07-16 12:11 | Emergency (ER) | payer MEDICARE, BC ==
[~2017-07-16] VITALS: Ht 149.9 cm; Wt 66.0 kg
[~2017-07-16 12:11] MED LIST changes: +HYDR-3516 PO; +PANT20 PO; +PRIL20CA9 PO
[2017-07-16 12:12] VITALS: BP 147/73; PULSE 76; RESP 18; TEMP 97.6; O2SAT 99
[2017-07-16 12:26] VITALS: BP_SYST 91; PULSE 79; RESP 18; O2SAT 95
--- NOTE | 2017-07-16 12:58 | PD ---
HPI Chief Complaint: Abdominal Pain Time Seen by Provider: 12:24 Travel History International Travel<30 days: No Contact w/Intl Traveler<30days: No Traveled to known affect area: No History of Present Illness HPI The patient was seen and examined in the presence of the nurse. She complains of abdominal pain. Location is left lower quadrant. Severity is moderate. Duration is 2 days. She ate this morning but seemed to make her pain worse. No vomiting or diarrhea or constipation or fever. She's had multiple abdominal surgeries and has no ovaries or uterus or gallbladder. No alleviating factors. Symptoms exacerbated by eating. PFSH Past Medical History Hx Anticoagulant Therapy: Yes Arthritis: Yes Asthma: No Autoimmune Disease: No Blood Disorders: No Heart Rhythm Problems: No Cancer: No Cardiovascular Problems: No High Cholesterol: Yes Chemotherapy: No Chest Pain: No Congestive Heart Failure: No COPD: No Diabetes: No Diminished Hearing: No Endocrine: No Gastrointestinal Disorders: Yes (hx of perforated bowel) Genitourinary: Yes (hx of bladder tac) Hypertension: No Immune Disorder: No Implanted Vascular Access Dvce: No Neurologic: No Psychiatric: No Reproductive: No Respiratory: No Radiation Therapy: No Sleep Apnea: No Thyroid Disease: No Past Surgical History Abdominal Surgery: Yes AICD: No Cardiac Surgery: No Cholecystectomy: Yes Ear Surgery: No Endocrine Surgery: No Eye Surgery: No Genitourinary Surgery: No Gynecologic Surgery: No Hysterectomy: Yes Joint Replacement: No Oral Surgery: No Pacemaker: No Thoracic Surgery: No Other Surgery: Yes (bladder tac, hysterectomy,pollups removed,gallbladder, ) Social History Alcohol Use: No Tobacco Use: No Substance Use: No Allergies-Medications (Allergen,Severity, Reaction): Coded Allergies: vancomycin (Unverified Allergy, Intermediate, RASH, FLUSHING OF FACE AND RASH TO LEGS, 03/22/17) penicillin G (Unverified Allergy, Unknown, 03/22/17) told when she was a child morphine (Unverified Adverse Reaction, Mild, Severe Nausea and vomiting, ) Patient reports that when she recieved morphine in the past, she becomes severly nauseas and vomits. She states that she does not want Morphine, and will accept whatever other alternative pain med available Reported Meds & Prescriptions Reported Meds & Active Scripts Active Tramadol (Tramadol HCl) 50 Mg Tab 50 Mg PO Q6H PRN Hydrocodone-Acetaminophen 5-325 mg Tab 1-2 Tab PO Q4H PRN Protonix (Pantoprazole Sodium) 20 Mg Tab 20 Mg PO DAILY 30 Days Reported Pepcid (Famotidine) 20 Mg Tab 20 Mg PO DAILY Review of Systems General / Constitutional: No: Fever Eyes: No: Visual changes HENT: No: Headaches Cardiovascular: No: Chest Pain or Discomfort Respiratory: No: Shortness of Breath Gastrointestinal: Positive: Nausea, Abdominal Pain Genitourinary: No: Dysuria Musculoskeletal: No: Pain Skin: No Rash Neurologic: No: Weakness Psychiatric: No: Depression Endocrine: No: Polydipsia Hematologic/Lymphatic: No: Easy Bruising Physical Exam Narrative GENERAL: Well-nourished, well-developed patient with abdominal pain . SKIN: Focused skin assessment reveals no rash and nodules. Skin is Warm and dry. HEAD: Atraumatic. Normocephalic. EYES: Pupils equal and round. No scleral icterus. No injection or drainage. ENT: No nasal bleeding or discharge. Mucous membranes pink and moist. NECK: Trachea midline. No JVD. CARDIOVASCULAR: Regular rate and rhythm. No murmur appreciated. RESPIRATORY: No accessory muscle use. Clear to auscultation. Breath sounds equal bilaterally. GASTROINTESTINAL: Abdomen soft, left lower quadrant is tender without rebound or guarding, nondistended. Hepatic and splenic margins not palpable. Healed surgical scarring noted MUSCULOSKELETAL: No obvious deformities. No clubbing. No cyanosis. No edema. NEUROLOGICAL: Awake and alert. No obvious cranial nerve deficits. Motor grossly within normal limits. Normal speech. PSYCHIATRIC: Appropriate mood and affect; insight and judgment normal. Data Data Last Documented VS Vital Signs Date Time Temp Pulse Resp B/P (MAP) Pulse Ox O2 Delivery O2 Flow Rate FiO2 07/16/17 13:12 79 18 147/71 (96) Room Air 07/16/17 12:26 95 07/16/17 12:12 97.6 Orders Orders Complete Blood Count With Diff (07/16/17 12:35) Comprehensive Metabolic Panel (07/16/17 12:35) Lipase (07/16/17 12:35) Prothrombin Time / Inr (Pt) (07/16/17 12:35) Act Partial Throm Time (Ptt) (07/16/17 12:35) Iv Access Insert/Monitor (07/16/17 12:35) Ecg Monitoring (07/16/17 12:35) Oximetry (07/16/17 12:35) Sodium Chloride 0.9% Flush (Ns Flush) (07/16/17 12:45) Ondansetron Inj (Zofran Inj) (07/16/17 13:00) Morphine Inj (Morphine Inj) (07/16/17 13:00) Ct Abd/Pel W/O Iv Contrast (07/16/17 ) Labs Laboratory Tests Test 07/16/17 12:55 White Blood Count 4.9 TH/MM3 Red Blood Count 4.33 MIL/MM3 Hemoglobin 12.4 GM/DL Hematocrit 37.1 % Mean Corpuscular Volume 85.5 FL Mean Corpuscular Hemoglobin 28.7 PG Mean Corpuscular Hemoglobin Concent 33.6 % Red Cell Distribution Width 14.0 % Platelet Count 230 TH/MM3 Mean Platelet Volume 8.8 FL Neutrophils (%) (Auto) 50.6 % Lymphocytes (%) (Auto) 38.5 % Monocytes (%) (Auto) 8.9 % Eosinophils (%) (Auto) 1.4 % Basophils (%) (Auto) 0.6 % Neutrophils # (Auto) 2.5 TH/MM3 Lymphocytes # (Auto) 1.9 TH/MM3 Monocytes # (Auto) 0.4 TH/MM3 Eosinophils # (Auto) 0.1 TH/MM3 Basophils # (Auto) 0.0 TH/MM3 CBC Comment DIFF FINAL Differential Comment Prothrombin Time 10.4 SEC Prothromb Time International Ratio 1.0 RATIO Activated Partial Thromboplast Time 27.1 SEC Blood Urea Nitrogen 14 MG/DL Creatinine 0.90 MG/DL Random Glucose 90 MG/DL Total Protein 7.5 GM/DL Albumin 3.7 GM/DL Calcium Level 9.0 MG/DL Alkaline Phosphatase 117 U/L Aspartate Amino Transf (AST/SGOT) 24 U/L Alanine Aminotransferase (ALT/SGPT) 27 U/L Total Bilirubin 0.4 MG/DL Sodium Level 137 MEQ/L Potassium Level 3.9 MEQ/L Chloride Level 103 MEQ/L Carbon Dioxide Level 23.7 MEQ/L Anion Gap 10 MEQ/L Estimat Glomerular Filtration Rate 62 ML/MIN Lipase 140 U/L MDM Medical Decision Making Medical Screen Exam Complete: Yes Emergency Medical Condition: Yes Medical Record Reviewed: Yes Differential Diagnosis Diverticulitis, colitis, ileus, obstruction Narrative Course I have reviewed the patient's electronic medical record. Reviewed her November 2016 stay for abdominal surgery Patient has challenging IV access I placed a right external jugular IV as peripheral access could not otherwise be obtained. IV placed CBC is normal metabolic profile is normal LFT's are normal lipase is normal Coagulation studies are normal CT of abdomen and pelvis was done and results are reviewed with patient and at bedside. No emergent things are found. No obstruction or perforation etc. no diverticulitis changes noted I gave her 2 mg IV morphine and IV Zofran Patient is improved on recheck. Stable for outpatient follow-up. She has GI physician. She should call Tuesday for follow-up. I wrote some tramadol to use if needed. She has Zofran at home Diagnosis Primary Impression: Abdominal pain Qualified Codes: R10.32 - Left lower quadrant pain Additional Instructions: The patient was advised to follow up with their physician and return if they worsen. The patient was warned about potential sedation for the medications they will receive on prescription. Med/Other Pt SpecificInfo: Prescription(s) given Scripts Tramadol (Tramadol) 50 Mg Tab 50 MG PO Q6H Y for PAIN, #20 TAB 0 Refills Prov: Neville Hope MD 07/16/17 Disposition: 01 DISCHARGE HOME Condition: Stable Neville Hope MD Jul 16, 2017 12:58
[2017-07-16] MEDS ORDERED: MORPHINE SULFATE 4 MG/ML INJ IV PUSH ONE (13:00)
[2017-07-16] MEDS ORDERED: ONDANSETRON HCL 4 MG/2 ML VIAL IV ONE (13:00)
[2017-07-16 13:09] LABS: AUTOMATED NEUTROPHIL # 2.5 TH/MM3 (1.8-7.7); BASOPHIL % 0.6 % (0.0-2.0); EOSINOPHIL # 0.1 TH/MM3 (0-0.4); EOSINOPHIL % 1.4 % (0.0-4.0); HEMATOCRIT 37.1 % (35.0-46.0); HEMO FLAGS DIFF FINAL; LYMPH % 38.5 % (9.0-44.0); LYMPHOCYTE # 1.9 TH/MM3 (1.0-4.8); MEAN CELL VOLUME 85.5 FL (80.0-100.0); MEAN CORPUSCULAR HEMOGLOBIN 28.7 PG (27.0-34.0); MEAN CORPUSCULAR HGB CONC 33.6 % (32.0-36.0); MONO % 8.9 % (0.0-8.0); NEUT % 50.6 % (16.0-70.0); PLATELET COUNT 230 TH/MM3 (150-450); RED BLOOD COUNT 4.33 MIL/MM3 (4.00-5.30); WHITE BLOOD COUNT 4.9 TH/MM3 (4.0-11.0)
[2017-07-16] MEDS: SODIUM CHLORIDE 0.9% FLUSH 10 ML FLUSH IV FLUSH PRN ×2 (13:11→13:22)
[2017-07-16 13:12] VITALS: BP 147/71; PULSE 79; RESP 18
[2017-07-16 13:18] LABS: APTT (PATIENT) 27.1 SEC (24.3-30.1); PROTHROMBIN TIME - PATIENT 10.4 SEC (9.8-11.6)
[2017-07-16 14:11] LABS: ANION GAP 10 MEQ/L (5-15); AST (GOT) 24 U/L (15-37); BICARBONATE 23.7 MEQ/L (21.0-32.0); BLOOD UREA NITROGEN 14 MG/DL (7-18); CHLORIDE 103 MEQ/L (98-107); GLOMERULAR FILTRATION RATE 62 ML/MIN (>89); POTASSIUM 3.9 MEQ/L (3.5-5.1); SODIUM (NA) 137 MEQ/L (136-145)
[2017-07-16 14:12] LABS: ALT (GPT) 27 U/L (10-53)
--- NOTE | 2017-07-16 14:12 | RADRPT ---
EXAM DATE/TIME: 07/16/2017 13:42 [facility] COMPARISON: CT ABDOMEN & PELVIS W CONTRAST, October 11, 2016, 20:29. CT ABDOMEN & PELVIS W/O CONTRAST, November 16 016, 16:49. INDICATIONS : Abdominal pain, nausea. ORAL CONTRAST: No oral contrast ingested. RADIATION DOSE: 9.71 CTDIvol (mGy) MEDICAL HISTORY : Gastroesophageal reflux disease. Perforated bowel. SURGICAL HISTORY : Cholecystectomy. Hysterectomy. ENCOUNTER: Initial ACUITY: 1 day PAIN SCALE: 6/10 LOCATION: Bilateral upper quadrant TECHNIQUE: Volumetric scanning of the abdomen and pelvis was performed. Using automated exposure control and ad justment of the mA and/or kV according to patient size, radiation dose was kept as low as reasonably achievable to obtain optimal diagnostic quality images. DICOM format image data is available electro nically for review and comparison. The lack of IV contrast limits the diagnosis for certain organ pa thology. FINDINGS: LOWER LUNGS: The visualized lower lungs are clear. LIVER: Liver is within normal limits for size. The previously noted internal biliary stent has been removed. There is air seen within the biliary tree. Otherwise no other significant changes are seen in the li alexandrea. Gallbladder is been surgically removed. There is a mild stable dilatation of the biliary tree. SPLEEN: Normal size without lesion. PANCREAS: Within normal limits. KIDNEYS: There is mild prominence of both collecting systems. There are bilateral extrarenal pelves. However, no definite urinary tract obstruction is seen. Ureters are nondilated. No calcified renal stones are demonstrated. ADRENAL GLANDS: Within normal limits. VASCULAR: There is no aortic aneurysm. BOWEL/MESENTERY: There is evidence of previous bowel surgery. The bowel gas pattern is within normal limits. No eviden ce of obstruction. There is scattered diverticulosis of the sigmoid colon without inflammatory change s. No free fluid or loculated fluid collections are seen. The areas of surgical anastomosis. The joann sly intact. There is stool throughout the colon. ABDOMINAL WALL: Within normal limits. RETROPERITONEUM: There is no lymphadenopathy. BLADDER: No wall thickening or mass. No stones. REPRODUCTIVE: Within normal limits. INGUINAL: There is no lymphadenopathy or hernia. MUSCULOSKELETAL: Within normal limits for patient age. CONCLUSION: 1. There is mild prominence to both collecting systems. However, no definite urinary tract obstructio n is seen. 2. The previously noted internal biliary stent has been removed. There Continues to be some mild dil atation of the biliary tree which is stable compared to the prior exam. However, there is air seen in the biliary tree on today's examination most likely related to previous intervention. 3. Scattered diverticulosis of the sigmoid colon without inflammatory changes. 4. No acute pathology. 1. Danis Simms MD on July 16, 2017 at 14:02 Board Certified Radiologist. This report was verified electronically.
[2017-07-16 14:14] LABS: ALKALINE PHOSPHATASE 117 U/L (45-117); TOTAL BILIRUBIN ADULT 0.4 MG/DL (0.2-1.0)
[2017-07-16] MEDS ORDERED: TRAM50TA PO (14:49)
[2017-07-16 15:09] VITALS: BP 141/71
== END 2017-07-16 15:30 | disposition home or self-care (01) ==
LOC: NEPC 12:11
DX: R10.32 Left lower quadrant pain (principal); R11.0 Nausea
CPT/HCPCS: 74176; 80053; 83690; 85025; 85610; 85730; 96374; 96375; 99285; J2270; J2405

== ENCOUNTER 2017-12-16 09:52 | Emergency (ER) | payer MEDICARE, BC ==
[~2017-12-16] VITALS: Ht 149.9 cm; Wt 67.5 kg
[~2017-12-16 09:52] MED LIST changes: -MYLASUS2 PO; -PRIL20CA9 PO; +TRAM50TA PO
[2017-12-16 10:03] VITALS: BP 125/73; PULSE 97; RESP 22; TEMP 97.8; O2SAT 96
[2017-12-16] MEDS ORDERED: SODIUM CHLOR 0.9% 1000 ML INJ 1,000 ML IV SCH (10:49)
[2017-12-16] MEDS ORDERED: PROCHLORPERAZINE INJ 10 MG/2 ML VIAL IV PUSH ONE (11:00)
[2017-12-16] MEDS ORDERED: SODIUM CHLORIDE 0.9% FLUSH 10 ML FLUSH IV FLUSH PRN (11:00)
[2017-12-16] MEDS ORDERED: MORPHINE SULFATE 4 MG/ML INJ IV PUSH ONE (11:00)
[2017-12-16] MEDS ORDERED: KETOROLAC TROMETHAMINE 30 MG/ML (IVP) VIAL IV PUSH ONE (11:15)
[2017-12-16 11:36] LABS: AUTOMATED NEUTROPHIL # 5.5 TH/MM3 (1.8-7.7); BASOPHIL % 0.3 % (0.0-2.0); EOSINOPHIL # 0.1 TH/MM3 (0-0.4); EOSINOPHIL % 1.2 % (0.0-4.0); HEMATOCRIT 38.5 % (35.0-46.0); HEMOGLOBIN 12.9 GM/DL (11.6-15.3); LYMPHOCYTE # 1.2 TH/MM3 (1.0-4.8); MEAN CELL VOLUME 87.3 FL (80.0-100.0); MEAN CORPUSCULAR HEMOGLOBIN 29.3 PG (27.0-34.0); MEAN CORPUSCULAR HGB CONC 33.6 % (32.0-36.0); MEAN PLATELET VOLUME 8.9 FL (7.0-11.0); MONO % 7.1 % (0.0-8.0); MONOCYTE # 0.5 TH/MM3 (0-0.9); NEUT % 74.4 % (16.0-70.0); PLATELET COUNT 261 TH/MM3 (150-450); RED BLOOD COUNT 4.41 MIL/MM3 (4.00-5.30); RED CELL DISTRIBUTION WIDTH 13.8 % (11.6-17.2); WHITE BLOOD COUNT 7.4 TH/MM3 (4.0-11.0)
[2017-12-16 11:40] LABS: BACTERIA, URINE RARE /hpf; BILIRUBIN, URINE NEG (NEG); BLOOD, URINE NEG (NEG); GLUCOSE,URINE NEG (NEG); KETONE, URINE NEG (NEG); NITRITE,URINE NEG (NEG); SQUAMOUS EPITHELIAL CELL URINE <1 /hpf (0-5); URINE COLOR LIGHT-YELLOW (YELLW/STRAW); URINE LEUKOCYTE ESTERASE NEG (NEG)
[2017-12-16 12:53] LABS: ALT (GPT) 31 U/L (10-53)
[2017-12-16 12:55] LABS: ALKALINE PHOSPHATASE 125 U/L (45-117); TOTAL BILIRUBIN ADULT 0.9 MG/DL (0.2-1.0); TOTAL PROTEIN 8.3 GM/DL (6.4-8.2)
[2017-12-16 13:00] LABS: ALBUMIN 3.7 GM/DL (3.4-5.0); BICARBONATE 24.3 MEQ/L (21.0-32.0); BLOOD UREA NITROGEN 9 MG/DL (7-18); CALCIUM 9.5 MG/DL (8.5-10.1); CHLORIDE 101 MEQ/L (98-107); CREATININE 0.83 MG/DL (0.50-1.00); GLOMERULAR FILTRATION RATE 68 ML/MIN (>89); GLUCOSE,RANDOM 77 MG/DL (74-106); SODIUM (NA) 135 MEQ/L (136-145)
[2017-12-16 13:01] LABS: AST (GOT) 39 U/L (15-37)
[2017-12-16] MEDS ORDERED: DIATRIZOATE MEGLUM/DIATRIZOATE SOD 9 ML CUP ONE (13:21)
[2017-12-16 13:51] VITALS: BP 128/72; PULSE 81; RESP 18; O2SAT 100
--- NOTE | 2017-12-16 14:38 | PD ---
HPI Chief Complaint: Abdominal Pain Time Seen by Provider: 10:49 Travel History International Travel<30 days: No Contact w/Intl Traveler<30days: No Traveled to known affect area: No History of Present Illness HPI This is a 67-year-old female with a history of diverticulitis, presents today with plaints of left lower quadrant pain. Patient reports associated loose stools. She also reports pain in her rectal area where she has hemorrhoids. There is no reported fevers, chills. The patient reports intermittent pain for the last 2 weeks. Patient reports this pain is similar to when she had her previous diverticulitis. PFSH Past Medical History Hx Anticoagulant Therapy: Yes Arthritis: Yes Asthma: No Autoimmune Disease: No Blood Disorders: No Heart Rhythm Problems: No Cancer: No Cardiovascular Problems: No High Cholesterol: Yes Chemotherapy: No Chest Pain: No Congestive Heart Failure: No COPD: No Diabetes: No Diminished Hearing: No Endocrine: No Gastrointestinal Disorders: Yes (hx of perforated bowel) Genitourinary: Yes (hx of bladder tac) Hypertension: No Immune Disorder: No Implanted Vascular Access Dvce: No Neurologic: No Psychiatric: No Reproductive: No Respiratory: No Radiation Therapy: No Sleep Apnea: No Thyroid Disease: No ?: Not Past Surgical History Abdominal Surgery: Yes AICD: No Cardiac Surgery: No Cholecystectomy: Yes Ear Surgery: No Endocrine Surgery: No Eye Surgery: No Genitourinary Surgery: No Gynecologic Surgery: No Hysterectomy: Yes Joint Replacement: No Oral Surgery: No Pacemaker: No Thoracic Surgery: No Other Surgery: Yes (bladder tac, hysterectomy,pollups removed,gallbladder) Social History Alcohol Use: No Tobacco Use: No Substance Use: No Allergies-Medications (Allergen,Severity, Reaction): Coded Allergies: vancomycin (Unverified Allergy, Intermediate, RASH, FLUSHING OF FACE AND RASH TO LEGS, 12/16/17) penicillin G (Unverified Allergy, Unknown, 12/16/17) told when she was a child morphine (Unverified Adverse Reaction, Mild, Severe Nausea and vomiting, ) Patient reports that when she recieved morphine in the past, she becomes severly nauseas and vomits. She states that she does not want Morphine, and will accept whatever other alternative pain med available Reported Meds & Prescriptions Reported Meds & Active Scripts Active Prochlorperazine Maleate 10 Mg Tab 10 Mg PO Q6H PRN Ultram (Tramadol HCl) 50 Mg Tab 50 Mg PO Q8H PRN Flagyl (Metronidazole) 500 Mg Tab 500 Mg PO TID 10 Days Levofloxacin 500 Mg Tablet 500 Mg PO DAILY Tramadol (Tramadol HCl) 50 Mg Tab 50 Mg PO Q6H PRN Reported Pepcid (Famotidine) 20 Mg Tab 20 Mg PO DAILY Review of Systems Except as stated in HPI: all other systems reviewed are Neg General / Constitutional: No: Chills HENT: No: Headaches, Neck Pain Cardiovascular: No: Chest Pain or Discomfort, Palpitations Respiratory: No: Cough, Shortness of Breath Gastrointestinal: Positive: Nausea, Diarrhea, Abdominal Pain (Loose stools left lower quadrant pain), No: Vomiting Genitourinary: No: Frequency, Dysuria Musculoskeletal: No: Weakness, Pain Neurologic: No: Weakness, Dizziness, Headache Physical Exam Narrative GENERAL: Well-developed well-nourished female in no acute respiratory distress. SKIN: Focused skin assessment warm/dry. HEAD: Atraumatic. Normocephalic. EYES: Pupils equal and round. No scleral icterus. No injection or drainage. ENT: No nasal bleeding or discharge. Mucous membranes pink and moist. NECK: Trachea midline. No JVD. CARDIOVASCULAR: Regular rate and rhythm. No murmur appreciated. RESPIRATORY: No accessory muscle use. Clear to auscultation. Breath sounds equal bilaterally. GASTROINTESTINAL: Abdomen soft, nondistended. There is tenderness to palpation left lower quadrant. There is no rebound or guarding. She did have a healed scar in her mid abdomen from previous perforation while having an endoscopy. MUSCULOSKELETAL: No obvious deformities. No clubbing. No cyanosis. No edema. NEUROLOGICAL: Awake and alert. No obvious cranial nerve deficits. Motor grossly within normal limits. Normal speech. Data Data Last Documented VS Vital Signs Date Time Temp Pulse Resp B/P (MAP) Pulse Ox O2 Delivery O2 Flow Rate FiO2 12/16/17 13:51 81 18 128/72 (90) 100 Room Air 12/16/17 10:03 97.8 Orders Orders Complete Blood Count With Diff (12/16/17 10:49) Comprehensive Metabolic Panel (12/16/17 10:49) Lipase (12/16/17 10:49) Urinalysis - C+S If Indicated (12/16/17 10:49) Ct Abd/Pel W Iv Contrast(Rout) (12/16/17 10:49) Iv Access Insert/Monitor (12/16/17 10:49) Ecg Monitoring (12/16/17 10:49) Oximetry (12/16/17 10:49) Sodium Chlor 0.9% 1000 Ml Inj (Ns 1000 M (12/16/17 10:49) Sodium Chloride 0.9% Flush (Ns Flush) (12/16/17 11:00) Prochlorperazine Inj (Compazine Inj) (12/16/17 11:00) Oral Contrast - Adult (12/16/17 10:57) Ketorolac Inj (Toradol Inj) (12/16/17 11:15) Diatrizoate Liq ( Gastroview Liq) (12/16/17 13:21) Iohexol 350 Inj (Omnipaque 350 Inj) (12/16/17 14:49) Levofloxacin (Levaquin) (12/16/17 15:30) Metronidazole (Flagyl) (12/16/17 15:30) Labs Laboratory Tests Test 12/16/17 10:58 12/16/17 12:20 White Blood Count 7.4 TH/MM3 Red Blood Count 4.41 MIL/MM3 Hemoglobin 12.9 GM/DL Hematocrit 38.5 % Mean Corpuscular Volume 87.3 FL Mean Corpuscular Hemoglobin 29.3 PG Mean Corpuscular Hemoglobin Concent 33.6 % Red Cell Distribution Width 13.8 % Platelet Count 261 TH/MM3 Mean Platelet Volume 8.9 FL Neutrophils (%) (Auto) 74.4 % Lymphocytes (%) (Auto) 17.0 % Monocytes (%) (Auto) 7.1 % Eosinophils (%) (Auto) 1.2 % Basophils (%) (Auto) 0.3 % Neutrophils # (Auto) 5.5 TH/MM3 Lymphocytes # (Auto) 1.2 TH/MM3 Monocytes # (Auto) 0.5 TH/MM3 Eosinophils # (Auto) 0.1 TH/MM3 Basophils # (Auto) 0.0 TH/MM3 CBC Comment DIFF FINAL Differential Comment Urine Color LIGHT-YELLOW Urine Turbidity CLEAR Urine pH 6.0 Urine Specific [place] 1.004 Urine Protein NEG mg/dL Urine Glucose (UA) NEG mg/dL Urine Ketones NEG mg/dL Urine Occult Blood NEG Urine Nitrite NEG Urine Bilirubin NEG Urine Urobilinogen LESS THAN 2.0 MG/DL Urine Leukocyte Esterase NEG Urine RBC LESS THAN 1 /hpf Urine WBC LESS THAN 1 /hpf Urine Squamous Epithelial Cells <1 /hpf Urine Bacteria RARE /hpf Microscopic Urinalysis Comment CULT NOT INDICATED Blood Urea Nitrogen 9 MG/DL Creatinine 0.83 MG/DL Random Glucose 77 MG/DL Total Protein 8.3 GM/DL Albumin 3.7 GM/DL Calcium Level 9.5 MG/DL Alkaline Phosphatase 125 U/L Aspartate Amino Transf (AST/SGOT) 39 U/L Alanine Aminotransferase (ALT/SGPT) 31 U/L Total Bilirubin 0.9 MG/DL Sodium Level 135 MEQ/L Potassium Level 4.2 MEQ/L Chloride Level 101 MEQ/L Carbon Dioxide Level 24.3 MEQ/L Anion Gap 10 MEQ/L Estimat Glomerular Filtration Rate 68 ML/MIN Lipase 87 U/L MDM Medical Decision Making Medical Screen Exam Complete: Yes Emergency Medical Condition: Yes Differential Diagnosis Diverticulitis versus diverticular abscess versus colitis versus bowel obstruction Narrative Course 67-year-old female with history of diverticulitis, presents today with plaints of left lower quadrant pain and loose stools. Patient has no fevers, chills. The patient's CT scan shows diverticulitis without diverticular abscess. The patient's been given her first dose of Levaquin and Flagyl here in [facility] department. She will be discharged with a prescription for 10 days of Levaquin 500 mg daily and Flagyl 500 mg 3 times daily. She also be given a prescription for Ultram for pain and Compazine for nausea vomiting. She is instructed to follow-up with her primary care physician. She is instructed to return if she feels a worse symptoms. Diagnosis Primary Impression: Diverticulitis Additional Instructions: Butler diet, advance as tolerated. Return if feeling worse. Drink plenty of liquids. Med/Other Pt SpecificInfo: Prescription(s) given Scripts Prochlorperazine Maleate (Prochlorperazine Maleate) 10 Mg Tab 10 MG PO Q6H Y for NAUSEA OR VOMITING, #6 TAB 0 Refills Prov: Chencho Max MD 12/16/17 Tramadol (Ultram) 50 Mg Tab 50 MG PO Q8H Y for PAIN, #10 TAB 0 Refills Prov: Chencho Max MD 12/16/17 Metronidazole (Flagyl) 500 Mg Tab 500 MG PO TID for Infection for 10 Days, #30 TAB 0 Refills Prov: Chencho Max MD 12/16/17 Levofloxacin (Levofloxacin) 500 Mg Tablet 500 MG PO DAILY for Infection, #10 TAB 0 Refills Prov: Chencho Max MD 12/16/17 Disposition: 01 DISCHARGE HOME Condition: Stable Chencho Max MD December 16, 2017 14:38
[2017-12-16] MEDS ORDERED: IOHEXOL 350 MG/ML 10 ML VIAL (for RAD DIAG) IVCONTRAST ONE (14:49)
--- NOTE | 2017-12-16 15:01 | RADRPT ---
EXAM DATE/TIME: 12/16/2017 14:41 [facility] COMPARISON: CT ABDOMEN & PELVIS W CONTRAST, October 11, 2016, 20:29. INDICATIONS : Left lower abdominal pain for three days. IV CONTRAST: 94 cc Omnipaque 350 (iohexol) IV ORAL CONTRAST: No oral contrast ingested. RADIATION DOSE: 10.05 CTDIvol (mGy) MEDICAL HISTORY : Gastroesophageal reflux disease. Colitis SURGICAL HISTORY : Cholecystectomy. Hysterectomy.Bladder surgery ENCOUNTER: Initial ACUITY: 1 day PAIN SCALE: 4/10 LOCATION: abdomen TECHNIQUE: Volumetric scanning of the abdomen and pelvis was performed. Using automated exposure control and ad justment of the mA and/or kV according to patient size, radiation dose was kept as low as reasonably achievable to obtain optimal diagnostic quality images. DICOM format image data is available electro nically for review and comparison. FINDINGS: Lung bases are clear. Compared with October 11, 2016 and July 2017 pneumobilia is again noted. There is mildly heterogeneous enhancement of the right lobe of the liver similar to October 2016. Spleen, ad renals and pancreas are unremarkable. Mild hydronephrosis is similar to July 2017. No ureteral or bladder calculi. Within the deep pelvis there is some inflammatory change around the distal sigmoid colon with numerou s diverticula characteristic of diverticulitis. No abscess, obstruction, free fluid or free air. Exte nsive surgical changes around the stomach with probable anastomosis of bowel in the right lower quadr ant. CONCLUSION: 1. Acute diverticulitis distal sigmoid colon without abscess, obstruction, free fluid or free air. 2. Mild bilateral hydronephrosis similar to July 2017. 3. Pneumobilia similar to prior exam. Postoperative changes as above. Colin Haines MD on December 16, 2017 at 14:51 Board Certified Radiologist. This report was verified electronically.
[2017-12-16] MEDS ORDERED: metroNIDAZOLE 500 MG TAB PO ONE (15:30)
[2017-12-16] MEDS ORDERED: LEVOFLOXACIN 500 MG TAB PO ONE (15:30)
[2017-12-16] MEDS ORDERED: LEVO500T8 PO (15:33)
[2017-12-16] MEDS ORDERED: TRAM50 PO (15:33)
[2017-12-16] MEDS ORDERED: METR-1 PO (15:33)
[2017-12-16] MEDS ORDERED: PROC10TA PO (15:33)
== END 2017-12-16 16:00 | disposition home or self-care (01) ==
LOC: NEPE 09:52
DX: K57.92 Diverticulitis of intestine, part unspecified, without perforation or abscess without bleeding (principal)
CPT/HCPCS: 74177; 80053; 81001; 83690; 85025; 96361; 96374; 96375; 99284; J0780; J1885; J7030; Q9963; Q9967

== ENCOUNTER 2018-01-22 12:55 | Emergency (ER) | payer MEDICARE, BC ==
[~2018-01-22 12:55] MED LIST changes: -HYDR-3516 PO; +LEVO500T8 PO; +METR-1 PO; -PANT20 PO; +PROC10TA PO; +TRAM50 PO
[2018-01-22] MEDS ORDERED: SODIUM CHLOR 0.9% 1000 ML INJ 1,000 ML IV ONE ×2 (13:05→14:15)
[2018-01-22 13:09] VITALS: BP 155/86; PULSE 74; RESP 18; O2SAT 99
[2018-01-22 13:12] VITALS: O2SAT 100
[2018-01-22] MEDS ORDERED: SODIUM CHLORIDE 0.9% FLUSH 10 ML FLUSH IVF PRN (13:15)
[2018-01-22] MEDS ORDERED: FAMO1TAB37 PO (13:16)
--- NOTE | 2018-01-22 13:20 | PD ---
HPI Chief Complaint: Syncope/Near-Syncope Time Seen by Provider: 13:05 Travel History International Travel<30 days: No Contact w/Intl Traveler<30days: No Traveled to known affect area: No History of Present Illness HPI 67-year-old female presents to the ED via EMS after near syncopal episode at [employer] today. Patient is currently performing a bowel prep for a gastroscopy and colonoscopy tomorrow. States that immediately after taking the medication she felt like burning sensation in her stomach. She also states that she felt weak. She states that during the course of the day today she was feeling unwell , is unsure of the event that brought her to the ED. is at bedside and states that patient was sitting down and slumped over. He states that she did not become unconscious and was always responsive. Patient denies headache, dizziness, chest pain, shortness of breath, abdominal pain, nausea, vomiting. She reports several loose, watery stools over the course of the day. Denies melena, hematochezia, BRBPR. PFSH Past Medical History Hx Anticoagulant Therapy: Yes Arthritis: Yes Asthma: No Autoimmune Disease: No Blood Disorders: No Heart Rhythm Problems: No Cancer: No Cardiovascular Problems: No High Cholesterol: Yes Chemotherapy: No Chest Pain: No Congestive Heart Failure: No COPD: No Diabetes: No Diminished Hearing: No Endocrine: No Gastrointestinal Disorders: Yes (hx of perforated bowel) Genitourinary: Yes (hx of bladder tac) Hypertension: No Immune Disorder: No Implanted Vascular Access Dvce: No Neurologic: No Psychiatric: No Reproductive: No Respiratory: No Radiation Therapy: No Sleep Apnea: No Thyroid Disease: No Past Surgical History Abdominal Surgery: Yes AICD: No Cardiac Surgery: No Cholecystectomy: Yes Ear Surgery: No Endocrine Surgery: No Eye Surgery: No Genitourinary Surgery: No Gynecologic Surgery: No Hysterectomy: Yes Joint Replacement: No Oral Surgery: No Pacemaker: No Thoracic Surgery: No Other Surgery: Yes (bladder tac, hysterectomy,pollups removed,gallbladder) Social History Alcohol Use: No Tobacco Use: No Substance Use: No Allergies-Medications (Allergen,Severity, Reaction): Coded Allergies: vancomycin (Unverified Allergy, Intermediate, RASH, FLUSHING OF FACE AND RASH TO LEGS, 01/22/18) penicillin G (Unverified Allergy, Unknown, 01/22/18) told when she was a child morphine (Unverified Adverse Reaction, Mild, Severe Nausea and vomiting, ) Patient reports that when she recieved morphine in the past, she becomes severly nauseas and vomits. She states that she does not want Morphine, and will accept whatever other alternative pain med available Reported Meds & Prescriptions Reported Meds & Active Scripts Active Reported Pepcid (Famotidine) 20 Mg Tab 20 Mg PO DAILY Review of Systems Except as stated in HPI: all other systems reviewed are Neg Physical Exam Narrative GENERAL: Well-nourished, well-developed female in no acute distress. Alert and oriented 4. SKIN: Focused skin assessment warm/dry. Multiple well-healed abdominal scars without signs of infection. HEAD: Normocephalic. EYES: No scleral icterus. No injection or drainage. NECK: Supple, trachea midline. No JVD or lymphadenopathy. CARDIOVASCULAR: Regular rate and rhythm without murmurs, gallops, or rubs. RESPIRATORY: Breath sounds clear and equal bilaterally. No accessory muscle use. GASTROINTESTINAL: Abdomen soft, non-tender, nondistended. Active bowel sounds. MUSCULOSKELETAL: No cyanosis, or edema. Moves extremities spontaneously. NEUROLOGICAL: Awake and alert. Cranial nerves II through XII intact. Motor and sensory grossly within normal limits. Five out of 5 muscle strength in all muscle groups. Normal speech. BACK: Nontender without obvious deformity. No CVA tenderness. Data Data Last Documented VS Vital Signs Date Time Temp Pulse Resp B/P (MAP) Pulse Ox O2 Delivery O2 Flow Rate FiO2 01/22/18 17:14 63 14 156/70 (98) 98 21 01/22/18 13:28 97.4 Room Air Orders Orders Electrocardiogram (01/22/18 13:05) Complete Blood Count With Diff (01/22/18 13:05) Comprehensive Metabolic Panel (01/22/18 13:05) Magnesium (Mg) (01/22/18 13:05) Ckmb (Isoenzyme) Profile (01/22/18 13:05) Troponin I (01/22/18 13:05) Act Partial Throm Time (Ptt) (01/22/18 13:05) Prothrombin Time / Inr (Pt) (01/22/18 13:05) Urinalysis - C+S If Indicated (01/22/18 13:05) Ecg Monitoring (01/22/18 13:05) Iv Access Insert/Monitor (01/22/18 13:05) Oximetry (01/22/18 13:05) Sodium Chloride 0.9% Flush (Ns Flush) (01/22/18 13:15) Sodium Chlor 0.9% 1000 Ml Inj (Ns 1000 M (01/22/18 13:05) Sodium Chlor 0.9% 1000 Ml Inj (Ns 1000 M (01/22/18 14:15) Magnesium (Mg) (01/22/18 14:09) Ed Discharge Order (01/22/18 17:01) Labs Laboratory Tests Test 01/22/18 13:20 01/22/18 14:16 01/22/18 15:32 White Blood Count 5.2 TH/MM3 Red Blood Count 4.05 MIL/MM3 Hemoglobin 12.3 GM/DL Hematocrit 35.6 % Mean Corpuscular Volume 88.0 FL Mean Corpuscular Hemoglobin 30.3 PG Mean Corpuscular Hemoglobin Concent 34.4 % Red Cell Distribution Width 13.2 % Platelet Count 232 TH/MM3 Mean Platelet Volume 8.7 FL Neutrophils (%) (Auto) 62.5 % Lymphocytes (%) (Auto) 27.6 % Monocytes (%) (Auto) 7.9 % Eosinophils (%) (Auto) 1.6 % Basophils (%) (Auto) 0.4 % Neutrophils # (Auto) 3.2 TH/MM3 Lymphocytes # (Auto) 1.4 TH/MM3 Monocytes # (Auto) 0.4 TH/MM3 Eosinophils # (Auto) 0.1 TH/MM3 Basophils # (Auto) 0.0 TH/MM3 CBC Comment DIFF FINAL Differential Comment Prothrombin Time 10.0 SEC Prothromb Time International Ratio 1.0 RATIO Activated Partial Thromboplast Time 23.7 SEC Blood Urea Nitrogen 9 MG/DL Creatinine 0.92 MG/DL Random Glucose 115 MG/DL Total Protein 7.1 GM/DL Albumin 3.5 GM/DL Calcium Level 8.6 MG/DL Magnesium Level 5.4 MG/DL 4.0 MG/DL Alkaline Phosphatase 101 U/L Aspartate Amino Transf (AST/SGOT) 22 U/L Alanine Aminotransferase (ALT/SGPT) 24 U/L Total Bilirubin 0.4 MG/DL Sodium Level 139 MEQ/L Potassium Level 3.8 MEQ/L Chloride Level 105 MEQ/L Carbon Dioxide Level 24.5 MEQ/L Anion Gap 10 MEQ/L Estimat Glomerular Filtration Rate 61 ML/MIN Total Creatine Kinase 94 U/L Troponin I LESS THAN 0.02 NG/ML Urine Color YELLOW Urine Turbidity CLOUDY Urine pH 7.0 Urine Specific [place] 1.009 Urine Protein 30 mg/dL Urine Glucose (UA) NEG mg/dL Urine Ketones NEG mg/dL Urine Occult Blood MOD Urine Nitrite NEG Urine Bilirubin NEG Urine Urobilinogen LESS THAN 2 mg/dL Urine Leukocyte Esterase MOD Urine RBC 2 /hpf Urine WBC 6 /hpf Urine Squamous Epithelial Cells 7 /hpf Urine Amorphous Sediment FEW Urine Bacteria OCC /hpf Urine Hyaline Casts 6 /lpf Urine Mucus FEW /lpf Microscopic Urinalysis Comment CULT NOT INDICATED MDM Medical Decision Making Medical Screen Exam Complete: Yes Emergency Medical Condition: Yes Differential Diagnosis Vasovagal syncope versus dehydration versus metabolic derangement versus other Narrative Course 67-year-old female presents to the ED via EMS after near syncopal episode at [employer] today. Patient is currently performing a bowel prep for a gastroscopy and colonoscopy tomorrow. EMS reports BP systolic in the 60s on arrival, the administered half liter fluid. On arrival here BP 155/86. Patient is alert and oriented. No focal neuro deficits. Patient was administered 2 L normal saline. EKG rate 66, sinus rhythm with sinus arrhythmia. W[place] interval 155, QRS 85, QTC 422 ms. Normal axis. No acute ST changes. Reviewed by Dr. Enamorado. Cardiac enzymes: Negative 1. CBC: No concerning abnormalities. Coags: INR 1.0. CMP: Magnesium 5.4. Rechecked after 2 L, trending down, 4.0. UA: No culture indicated. On recheck the patient is feeling improved. She is requesting food and would like to go home. Patient was walk tested, able to ambulate normally around the ED. No further syncopal episodes. I suspect the patient's episodes were due to dehydration secondary to bowel prep. She is instructed to rest, hydrate, follow with the verify rep tomorrow as planned, return for worsening symptoms. The patient and her indicated understanding of the instructions and are agreeable to care plan. Patient is stable and discharged home. Diagnosis Primary Impression: Near syncope Referrals: [employer] Primary Care Physician Additional Instructions: Rest, hydrate. Follow-up with the verify rep tomorrow as planned. Follow-up with your primary care provider. Return to the ED for worsening symptoms or any urgent or emergent medical condition. Disposition: 01 DISCHARGE HOME Condition: Stable Breanna Escamilla Jan 22, 2018 13:20
[2018-01-22 13:28] VITALS: BP 121/61; PULSE 70; RESP 18; TEMP 97.4; O2SAT 100
[2018-01-22 13:35] LABS: AUTOMATED NEUTROPHIL # 3.2 TH/MM3 (1.8-7.7); BASOPHIL % 0.4 % (0.0-2.0); EOSINOPHIL # 0.1 TH/MM3 (0-0.4); EOSINOPHIL % 1.6 % (0.0-4.0); HEMATOCRIT 35.6 % (35.0-46.0); HEMOGLOBIN 12.3 GM/DL (11.6-15.3); LYMPH % 27.6 % (9.0-44.0); LYMPHOCYTE # 1.4 TH/MM3 (1.0-4.8); MEAN CORPUSCULAR HEMOGLOBIN 30.3 PG (27.0-34.0); MEAN CORPUSCULAR HGB CONC 34.4 % (32.0-36.0); MEAN PLATELET VOLUME 8.7 FL (7.0-11.0); MONO % 7.9 % (0.0-8.0); MONOCYTE # 0.4 TH/MM3 (0-0.9); NEUT % 62.5 % (16.0-70.0); PLATELET COUNT 232 TH/MM3 (150-450); RED BLOOD COUNT 4.05 MIL/MM3 (4.00-5.30); RED CELL DISTRIBUTION WIDTH 13.2 % (11.6-17.2); WHITE BLOOD COUNT 5.2 TH/MM3 (4.0-11.0)
[2018-01-22 13:54] LABS: ALBUMIN 3.5 GM/DL (3.4-5.0); ALT (GPT) 24 U/L (10-53); AST (GOT) 22 U/L (15-37); BICARBONATE 24.5 MEQ/L (21.0-32.0); BLOOD UREA NITROGEN 9 MG/DL (7-18); CALCIUM 8.6 MG/DL (8.5-10.1); CHLORIDE 105 MEQ/L (98-107); CREATININE 0.92 MG/DL (0.50-1.00); GLOMERULAR FILTRATION RATE 61 ML/MIN (>89); GLUCOSE,RANDOM 115 MG/DL (74-106); MAGNESIUM 5.4 MG/DL (1.5-2.5); SODIUM (NA) 139 MEQ/L (136-145)
[2018-01-22 13:58] LABS: ALKALINE PHOSPHATASE 101 U/L (45-117); TOTAL BILIRUBIN ADULT 0.4 MG/DL (0.2-1.0); TOTAL PROTEIN 7.1 GM/DL (6.4-8.2); TROPONIN I LESS THAN 0.02 NG/ML (0.02-0.05)
[2018-01-22 14:41] LABS: AMORPHOUS SEDIMENT, URINE FEW; BACTERIA, URINE OCC /hpf; BILIRUBIN, URINE NEG (NEG); BLOOD, URINE MOD (NEG); GLUCOSE,URINE NEG (NEG); HYALINE CAST, URINE 6 /lpf (RARE); KETONE, URINE NEG (NEG); MUCUS URINE FEW /lpf (OCC); NITRITE,URINE NEG (NEG); SQUAMOUS EPITHELIAL CELL URINE 7 /hpf (0-5); URINE COLOR YELLOW (YELLW/STRAW); URINE LEUKOCYTE ESTERASE MOD (NEG)
[2018-01-22 17:14] VITALS: BP 156/70
--- NOTE | 2018-01-23 23:14 | EKG ---
Date Performed: 01/22/2018 Time Performed: 13:29:56 PTAGE: 67 years EKG: Sinus rhythm WITH SINUS ARRHYTHMIA NORMAL ECG PREVIOUS TRACING : 05/27/2016 12.22 DOCTOR: Mansi Nails Interpretating Date/Time 01/23/2018 23:02:08
== END 2018-01-22 17:32 | disposition home or self-care (01) ==
LOC: NEPC 12:55
DX: R55 Syncope and collapse (principal); M19.90 Unspecified osteoarthritis, unspecified site; E78.00 Pure hypercholesterolemia, unspecified
CPT/HCPCS: 80053; 81001; 82550; 83735; 84484; 85025; 85610; 85730; 93005; 96360; 96361; 99284; J7030